=== PATIENT | male | born 1965 | race Caucasian/White ===

== ENCOUNTER 2019-04-29 16:51 | Observation (INO) ==
[2019-04-29 17:38] LABS: Microscopic, Urine URINE MICROSCOPIC (MICROSCOPIC)
[2019-04-29 17:41] LABS: Appearance,Urine CLOUDY (Clear); Blood, Urine 2+ (Negative); Color,Urine DK YELLOW (Yellow); Glucose,Urine (UA) Negative (Negative); Ketones,Urine Negative (Negative); Leukocyte Esterase,Urine 2+ (Negative); Protein,Urine TRACE (Negative); Specific Gravity, Urine 1.025 (1.005-1.030)
[2019-04-29 17:42] LABS: Bilirubin,Urine Negative (Negative)
[2019-04-29 17:46] LABS: Basophils % 0.4 % (0.1-2.0); Eosinophils % 0.3 % (0.1-12.0); Hematocrit 48.7 % (42.0-52.0); Hemoglobin 16.5 g/dL (14.1-18.0); Lymphocytes % 9.9 % (10-50); Mean Corpuscular HGB Conc 33.9 g/dL (31.8-35.4); Mean Corpuscular Volume 98.5 fl (80-94); Monocytes # 0.6 K/mm3 (0.1-1.0); Monocytes % 6.1 % (1.7-9.3); Neutrophils # 8.2 K/mm3 (1.8-7.8); Neutrophils % 83.2 % (37.0-80.0); Platelet Count 101 K/mm3 (142-424); Red Blood Count 4.94 M/mm3 (4.60-6.20); Red Cell Distribution Width 13.7 % (11.5-17.5); White Blood Count 9.8 K/mm3 (4.8-10.8)
[2019-04-29 17:48] LABS: Bacteria,Urine 2+ /lpf; Mucus,Urine 1+ /lpf; WBC,Urine 20-50 #/hpf (0-3)
[2019-04-29 17:57] LABS: Albumin Level 3.4 gm/dL (3.4-5.0); Albumin/Globulin Ratio 0.7 (1.1-1.8); Anion Gap 18.2 mEq/L (5-15); Bilirubin,Total 1.9 mg/dL (0.2-1.0); Calcium 8.8 mg/dL (8.5-10.1); Globulin 4.8 gm/dl (1.3-3.2); Total Protein,Serum 8.2 gm/dL (6.4-8.2)
--- NOTE | 2019-04-29 18:17 | Emergency Department Note ---
ED Disposition Clinical Impression: Prostatitis, SIRS (systemic inflammatory response syndrome), Dehydration Disposition: Admitted as Observation Condition on Discharge: Good Referrals: Audi Miramontes MD [Primary Care Provider] - Time of Disposition: 18:56 - Critical Care Critical Care Time: No Attestation: On 04/29/19, the high probability of a clinically significant, sudden or life threatening deterioration of the following system(s) required my full and direct attention, intervention and personal management. The time I documented below is in addition to time spent performing reported procedures but includes the following listed in this critical care notation. Medical Decision Making - Medical Records Medical records reviewed: Yes: I reviewed the patient's medical records. - Fabian Inquiry Pt receiving controlled substance: No Fabian was queried for this patient: No Vital Signs: 04/29/19 17:02 04/29/19 17:22 04/29/19 17:30 Temperature 99.9 F H 103.0 F H Temperature Source Oral Oral Pulse Rate [Left Radial] 143 H 124 H Respiratory Rate 22 22 Blood Pressure [Right Arm] 187/157 H 118/76 Blood Pressure Mean [Right Arm] 167 90 Blood Pressure Source [Right Arm] Automatic Cuff Automatic Cuff Blood Pressure Position [Right Arm] Sitting Sitting 02 Sat by Pulse Oximetry 98 94 L Oxygen Delivery Method Room Air Room Air 04/29/19 18:00 Temperature Temperature Source Pulse Rate [Left Radial] 124 H Respiratory Rate 12 Blood Pressure [Right Arm] 101/56 L Blood Pressure Mean [Right Arm] 71 Blood Pressure Source [Right Arm] Automatic Cuff Blood Pressure Position [Right Arm] Supine 02 Sat by Pulse Oximetry 94 L Oxygen Delivery Method Room Air - Lab Data Lab results reviewed: Yes: I reviewed the patient's lab results. Lab Results 04/29/19 17:06: Urine Color Dk yellow, Urine Appearance Cloudy, Urine pH 6.0, Ur Specific [place] 1.025, Urine Protein Trace, Urine Glucose (UA) Negative, Urine Ketones Negative, Urine Blood 2+, Urine Nitrate Negative, Urine Bilirubin Negative, Urine Urobilinogen 1.0, Ur Leukocyte Esterase 2+ A, Urine RBC 5-10, Urine WBC 20-50, Urine Bacteria 2+, Urine Mucus 1+ 04/29/19 17:24: WBC 9.8, RBC 4.94, Hgb 16.5, Hct 48.7, MCV 98.5 H, MCH 33.4 H, MCHC 33.9, RDW 13.7, Plt Count 101 L, MPV 7.0 L, Neut % (Auto) 83.2 H, Lymph % (Auto) 9.9 L, [place] % (Auto) 6.1, Eos % (Auto) 0.3, Baso % (Auto) 0.4, Neut # (Auto) 8.2 H, Lymph # (Auto) 1.0, [place] # (Auto) 0.6, Eos # (Auto) 0.0, Baso # (Auto) 0.0 04/29/19 17:24: Sodium 136, Potassium 4.2, Chloride 101, Carbon Dioxide 21, Anion Gap 18.2 H, BUN 12, Creatinine 1.01, Estimated Creat Clear 112, Estimated GFR 77, Est GFR ( Amer) 93, Glucose 79, Calcium 8.8, Total Bilirubin 1.9 H, AST 38 H, ALT 39, Alkaline Phosphatase 103, Total Protein 8.2, Albumin 3.4, Globulin 4.8 H, Albumin/Globulin Ratio 0.7 L 04/29/19 17:24: Lactate 2.0 Result diagrams: 04/29/19 17:24 04/29/19 17:24 Orders (Tests/Meds): ED MEDICATIONS Generic Name Dose Route Start Last Admin Trade Name Freq PRN Reason Stop Dose Admin Sodium Chloride 1,000 mls @ 999 mls/hr 04/29/19 17:15 04/29/19 17:10 Sod Chlor 0.9% 1000ml Bag IV 04/29/19 18:15 999 mls/hr .Q1H1M LAURA Administration Sodium Chloride 1,000 mls @ 999 mls/hr 04/29/19 18:15 04/29/19 18:04 Sod Chlor 0.9% 1000ml Bag IV 04/29/19 19:15 999 mls/hr .Q1H1M LAURA Administration Levofloxacin/Dextrose 750 mg in 150 mls @ 100 mls/hr 04/29/19 18:00 04/29/19 18:11 Levofloxacin 750mg/150ml Premix IV 05/13/19 17:59 100 mls/hr Q24H LAURA Administration Protocol Discontinued Medications Generic Name Dose Route Start Last Admin Trade Name Freq PRN Reason Stop Dose Admin Acetaminophen 1,000 mg 04/29/19 17:17 04/29/19 17:18 Tylenol 500mg Tablet PO 04/29/19 17:18 1,000 mg ONCE ONE Administration Albuterol/Ipratropium 3 ml 04/29/19 17:26 04/29/19 17:34 Duoneb 3ml Neb IH 04/29/19 17:27 3 ml ONCE ONE Administration Gentamicin Sulfate 400 mg/ 110 mls @ 110 mls/hr 04/29/19 18:05 Sodium Chloride IV 04/29/19 18:06 ONCE ONE Methylprednisolone Sodium Succinate 125 mg 04/29/19 17:26 04/29/19 17:34 Solu-Medrol 125mg/2ml Vial IV 04/29/19 17:27 125 mg ONCE ONE Administration Ondansetron HCl 4 mg 04/29/19 17:06 04/29/19 17:10 Zofran 4mg/2ml Vial IV 04/29/19 17:07 4 mg ONCE ONE Administration ORDERS Category Date Time Status XR chest 2V Stat Exams 04/29/19 17:26 Taken Diarrhea 23 Panel, PCR Stat Lab 04/29/19 17:06 Ordered Blood Culture Stat Micro 04/29/19 17:24 Received Urine Culture Stat Micro 04/29/19 17:06 Received - Physician Consults Physician Consulted: [email or web address] Time: 18:57 Reason -: Admission General Adult HPI - General Chief complaint: Nausea/Vomiting/Diarrhea Stated complaint: Fever, shaking uncontrollably, d/v Time Seen by Provider: 04/29/19 17:15 Mode of Arrival: Ambulatory Limitations: No Limitations Description of Symptoms (Recalled from ER Triage Doc. by RN): c/o chills, n/v/d since last night, he started with uncontrollable shaking and he was unable to barely walk due to him shaking. Thinks he has had a fever - History of Present Illness HPI narrative: rigors, cough, frequency of urination.. high fever. - Related Data Home Medications Medication Instructions Recorded Confirmed No Known Home Medications 04/27/19 04/29/19 Allergies Allergy/AdvReac Type Severity Reaction Status Date / Time No Known Allergies Allergy Verified 04/27/19 11:18 [facility] History - Hepatitis A Screen Drug use history?: No High risk sexual behaviors?: No History of sexually transmitted infection?: No Currently employed?: No Childcare worker?: No Do you have indoor plumbing?: Yes Do you have electricity?: Yes Attestation statement:: This patient has been screened for Hepatitis A risk factors. I have reviewed the patient's past medical history: Yes Medical History: Denies:: Cancer, Diabetes Mellitus Type 1, Diabetes Mellitus Type 2, Internal Pacemaker, Lung Disease, MRSA, Seizures Laterality Cases: Right: Total Hip Replacement Other Surgeries: No: Pacemaker Amputation: No Fractures: No - Social History Smoking Status: Current every day smoker # Packs/Day (cigarettes): 1 Alcohol Intake: never Alcohol Intake Frequency:: 0-2 drinks per day Occupational Status: employed ROS Obtained: Yes All systems reviewed & no additional complaints - Constitutional Constitutional: Reports fever(s) - Eyes Eyes: Denies system reviewed and no additional complaints, except as docu - ENT Ears, Nose, Mouth, and Throat: Reports sinus pressure, Denies sore throat - Cardiovascular Cardiovascular: Denies chest pain, Denies chest pain at rest, Denies diaphoresis, Denies dyspnea - Respiratory Respiratory: Yes chest congestion, Yes cough - Gastrointestinal Gastrointestingal: Denies: abdominal pain - Genitourinary Male Genitourinary: Reports urinary frequency - Musculoskeletal Musculoskeletal: Reports muscle cramps, Reports muscle weakness, Reports muscle aches, Reports other (rigors) - Integumentary/Breasts Skin/Breast: Denies rash, Denies skin pain - Neurologic Neurologic: Denies confusion, Denies convulsions, Denies unsteadiness, Denies dizziness, Denies seizure-like activity, Reports weakness - Hematologic/Lymphatic Henatologic/Lymphatic: Denies easy bleeding, Denies easy bruising Physical Exam - General General appearance: alert, in distress, other (shaking violently) - Head Head exam: atraumatic, normocephalic, normal inspection - Eye Eye exam: Present: normal appearance, PERRL, EOMI - ENT ENT exam: Present: normal exam, normal oropharynx, mucous membranes moist, TM's normal bilaterally, normal external ear exam - Neck Neck exam: Present: normal inspection, full ROM, trachea midline. Absent: meningismus, lymphadenopathy - Chest Chest inspection: Present: normal inspection, symmetric chest wall rise. Absent: tenderness - Respiratory Respiratory exam: Present: wheezes, other (wheezes, rhonchi on left, partially clear with cough). Absent: normal lung sounds bilaterally, respiratory distress - Cardiovascular Cardiovascular exam: Present: tachycardia, other (135) - Abdominal Exam Abdominal exam: Present: soft - Extremities Exam Extremities exam: Present: normal inspection, full ROM, normal capillary refill. Absent: calf tenderness - Back Exam Back exam: Present: normal inspection. Absent: tenderness - Neurological Exam Neurological exam: Present: alert, oriented X3, CN II-XII intact. Absent: motor sensory deficit - Psychiatric Psychiatric exam: Present: normal affect, normal mood - Skin Skin exam: Present: warm, dry, intact, normal color
[2019-04-30 01:56] LABS: Basophils % 0.1 % (0.1-2.0); Eosinophils % 0.1 % (0.1-12.0); Hematocrit 45.8 % (42.0-52.0); Hemoglobin 15.3 g/dL (14.1-18.0); Lymphocytes # 0.6 K/mm3 (0.7-4.5); Lymphocytes % 4.7 % (10-50); Mean Corpuscular HGB Conc 33.3 g/dL (31.8-35.4); Mean Corpuscular Volume 100.7 fl (80-94); Monocytes # 0.7 K/mm3 (0.1-1.0); Monocytes % 5.3 % (1.7-9.3); Neutrophils % 89.9 % (37.0-80.0); Platelet Count 76 K/mm3 (142-424); Red Blood Count 4.55 M/mm3 (4.60-6.20); Red Cell Distribution Width 13.7 % (11.5-17.5); White Blood Count 12.3 K/mm3 (4.8-10.8)
[2019-04-30 02:07] LABS: Lymphocytes % 10 % (10-50); Neutrophils % 75 % (42-76); Total Cells Counted 100
[2019-04-30 02:08] LABS: Macrocytosis 1+
[2019-04-30 02:09] LABS: Anion Gap 15.4 mEq/L (5-15); Calcium 8.2 mg/dL (8.5-10.1)
[2019-04-30 02:14] LABS: Gentamicin,Random 4.3 ug/mL (4.0-10.0)
--- NOTE | 2019-04-30 08:19 | History & Physical Report ---
*Admission Date: 04/29/19 *Chief complaint: chills, vomiting and diarrhea *History of present illness: Sai Chicas is a 53-year-old white male who started feeling bad Wednesday evening after he got off work. He had some chills, shakes, and general malaise. He went to bed early and when he woke up Wednesday he is still did not feel well and had a couple of episodes of vomiting. Later in the afternoon he began having shaking chills and rigors at home. He states he could hardly walk because he was shaking so badly. He tried laying down for a while but became short of breath. At this point he presented to the emergency room. He was worked up in the ER. He met criteria for SIRS with elevated fever, heart rate, and tachypnea. He was diagnosed with prostatitis and subsequently admitted. At the time of my exam this morning he states he rested better. His fever remained normal through the night. His tachycardia has improved. No further vomiting but has had some loose stools. He denies abdominal pain. No head congestion, chest congestion or cough. He did notes some dysuria Wednesday evening and also has noticed his urine being dark in color. No hematuria. He had a couple of brief episodes of mild substernal chest pain this morning. EKG x2 shows no acute changes. His cardiac enzymes are normal. He does take omeprazole as needed at home for indigestion. [facility] History Medical History: Denies:: Cancer, Diabetes Mellitus Type 1, Diabetes Mellitus Type 2, Internal Pacemaker, Lung Disease, MRSA, Seizures *Have you ever received a pneumonia vaccine?: No *Have you received a flu vaccine this season?: No Other Medical History: Denies: Hypothyroidism Laterality Cases: Right: Total Hip Replacement Other Surgeries: No: Pacemaker Amputation: No Fractures: Yes (collar bone) - *Social History Educational Level: Completed High School Smoking Status: Current some day smoker Tobacco Type: cigarettes, cigars # Packs/Day (cigarettes): 1 Alcohol Intake: current Alcohol Intake Frequency:: holidays/special occasions only *Occupational Status:: employed Housing: house *Travel in the last 8 weeks: None - Psychiatric History Expresses thoughts of harming self/others: None Suicide Plan Description: No Plan Family Hx:: Asthma, Coronary Artery Disease, Heart Attack, Hyperlipidemia, Hypertension Review of Systems - Constitutional Reports chills, Reports fever(s), Reports weakness - Eyes Denies blurry vision, Denies change in vision - ENT Denies dizziness, Denies dry mouth, Denies difficulty swallowing, Denies nasal congestion - *Cardiovascular Reports chest pain (atypical), Denies irregular heart rhythm, Denies leg swelling - *Respiratory Denies chest congestion, Denies cough, Denies coughing up blood - *Gastrointestinal Reports belching, Reports loose stools, Reports nausea, Reports vomiting, Denies abdominal pain, Denies coffee ground vomit, Denies black, tarry stools - *Genitourinary Reports painful urination (once), Reports erectile dysfunction, Reports other (dark urine), Denies blood in urine - *Musculoskeletal Denies joint pain, Denies joint swelling - Integumentary/Breasts Denies bleeding lesions, Denies yellowing of the skin - *Neurologic Reports weakness, Denies confusion, Denies seizure-like activity, Denies unsteadiness, Denies dizziness, Denies seizure-like activity - Psychiatric Denies anxiety, Denies depression - Endocrine Denies cold intolerance, Denies excessive sweating - Hematologic/Lymphatic Denies easy bleeding, Denies easy bruising - Allergic/Immunologic Reports GI upset with certain foods Meds Home Medications Medication Instructions Recorded Confirmed Type Amoxicillin [Amoxicillin 500mg 500 mg PO DAILY 04/29/19 04/29/19 History Cap] Ibuprofen [Ibuprofen 800mg 800 mg PO DAILY PRN 04/29/19 04/29/19 History Tablet] Omeprazole [Omeprazole 40mg 40 mg PO DAILY PRN 04/29/19 04/29/19 History Capsule] Sildenafil Citrate [Sildenafil] 20 mg PO NEEDED PRN 04/29/19 04/29/19 History Allergies Allergy/AdvReac Type Severity Reaction Status Date / Time No Known Allergies Allergy Verified 04/27/19 11:18 Exam Vital signs and Labs for Last 24 Hours: Temp Pulse Resp BP Pulse Ox 97.7 F 64 17 105/59 L 96 04/30/19 04:00 04/30/19 04:00 04/30/19 04:00 04/30/19 04:00 04/30/19 04:00 Laboratory Results - last 24 hr 04/29/19 17:06: Urine Color Dk yellow, Urine Appearance Cloudy, Urine pH 6.0, Ur Specific [place] 1.025, Urine Protein Trace, Urine Glucose (UA) Negative, Urine Ketones Negative, Urine Blood 2+, Urine Nitrate Negative, Urine Bilirubin Negative, Urine Urobilinogen 1.0, Ur Leukocyte Esterase 2+ A, Urine RBC 5-10, Urine WBC 20-50, Urine Bacteria 2+, Urine Mucus 1+ 04/29/19 17:24: WBC 9.8, RBC 4.94, Hgb 16.5, Hct 48.7, MCV 98.5 H, MCH 33.4 H, MCHC 33.9, RDW 13.7, Plt Count 101 L, MPV 7.0 L, Neut % (Auto) 83.2 H, Lymph % (Auto) 9.9 L, [place] % (Auto) 6.1, Eos % (Auto) 0.3, Baso % (Auto) 0.4, Neut # (Auto) 8.2 H, Lymph # (Auto) 1.0, [place] # (Auto) 0.6, Eos # (Auto) 0.0, Baso # (Auto) 0.0 04/29/19 17:24: Sodium 136, Potassium 4.2, Chloride 101, Carbon Dioxide 21, Anion Gap 18.2 H, BUN 12, Creatinine 1.01, Estimated Creat Clear 112, Estimated GFR 77, Est GFR ( Amer) 93, Glucose 79, Calcium 8.8, Total Bilirubin 1.9 H, AST 38 H, ALT 39, Alkaline Phosphatase 103, Total Protein 8.2, Albumin 3.4, Globulin 4.8 H, Albumin/Globulin Ratio 0.7 L 04/29/19 17:24: Lactate 2.0 04/30/19 01:45: WBC 12.3 H D, RBC 4.55 L, Hgb 15.3, Hct 45.8, MCV 100.7 H, MCH 33.6 H, MCHC 33.3, RDW 13.7, Plt Count 76 L, MPV 7.0 L, Neut % (Auto) 89.9 H, Lymph % (Auto) 4.7 L, [place] % (Auto) 5.3, Eos % (Auto) 0.1, Baso % (Auto) 0.1, Neut # (Auto) 11.0 H, Lymph # (Auto) 0.6 L, [place] # (Auto) 0.7, Eos # (Auto) 0.0, Baso # (Auto) 0.0, Total Counted 100, Neutrophils % (Manual) 75, Band Neutrophils % 15.0 H, Lymphocytes % (Manual) 10, Platelet Estimate Slight decrease, Macrocytosis 1+ 04/30/19 01:45: Sodium 139, Potassium 4.4, Chloride 107, Carbon Dioxide 21, Anion Gap 15.4 H, BUN 13, Creatinine 1.12, Estimated Creat Clear 100, Estimated GFR 68, Est GFR ( Amer) 82, Glucose 261 H D, Calcium 8.2 L, Random Gentamicin 4.3 I & O for Last 24 hours: Intake & Output 04/27/19 04/28/19 04/29/19 04/30/19 11:59 11:59 11:59 11:59 Intake Total 4001 / 4001 Output Total 2650 / 2650 Balance 1351 / 1351 Weight 209 lb 15.986 oz Microbiology Reports for the Last 24 Hours: Microbiology 04/29/19 17:06 Urine,Clean Catch Urine Culture - Preliminary Narrative: He is lying comfortably in bed. He appears in no acute distress. Color is normal. HEENT shows a cream to be atraumatic normocephalic. Sclera conjunctive are clear. Pharynx shows moist mucous membranes. Neck is supple with no masses, thyromegaly, or bruits. Chest with coarse breath sounds and occasional rhonchi. No rales or wheezes. Heart is regular with no murmurs or ectopy. No chest wall tenderness to palpation. Abdomen is soft and nondistended with no unusual masses or tenderness. Bowel sounds are present but diminished. No CVA tenderness to percussion. Lower extremities show no edema. Assessment and Plan (1) Urinary tract infection Current visit: Yes Status: Acute Category: Medical Code(s): N39.0 - Urinary tract infection, site not specified (2) SIRS (systemic inflammatory response syndrome) Current visit: Yes Status: Acute Category: Medical Code(s): R65.10 - Systemic inflammatory response syndrome (SIRS) of non-infectious origin without acute organ dysfunction (3) Chest pain Current visit: Yes Status: Acute Category: Medical Code(s): R07.9 - Chest pain, unspecified (4) GERD (gastroesophageal reflux disease) Current visit: Yes Status: Acute Category: Medical Code(s): K21.9 - Gastro-esophageal reflux disease without esophagitis - Assessment and plan all Dx Assessment and Plan for all problems:: He is admitted with diagnosis of SIRS with most likely source of infection being the urinary tract. He was empirically started on Levaquin and gentamicin. Cultures are pending. Clinically he is improved. His white count has increased and blood sugar is elevated this morning but he did receive steroids in the emergency room. His chest pain is rather atypical and cardiac work-up has been negative. We will add Protonix to his regimen. We will continue his current antibiotic regimen pending cultures.
[2019-04-30 08:32] LABS: Basophils % 0.1 % (0.1-2.0); Hematocrit 46.1 % (42.0-52.0); Hemoglobin 15.2 g/dL (14.1-18.0); Lymphocytes # 0.7 K/mm3 (0.7-4.5); Lymphocytes % 4.8 % (10-50); Mean Corpuscular Volume 100.7 fl (80-94); Mean Platelet Volume 7.1 fl (7.4-10.4); Monocytes # 0.9 K/mm3 (0.1-1.0); Monocytes % 6.1 % (1.7-9.3); Neutrophils # 12.9 K/mm3 (1.8-7.8); Neutrophils % 89.1 % (37.0-80.0); Platelet Count 79 K/mm3 (142-424); Red Blood Count 4.58 M/mm3 (4.60-6.20); Red Cell Distribution Width 13.7 % (11.5-17.5); White Blood Count 14.5 K/mm3 (4.8-10.8)
[2019-04-30 08:34] LABS: Anion Gap 15.1 mEq/L (5-15); Calcium 8.1 mg/dL (8.5-10.1)
--- NOTE | 2019-04-30 15:03 | Pharmacy Consult Notes ---
[facility] Pharmacy VTE Monitoring - Patient Demographics Admission date: 04/30/19 Report Date: 04/30/19 Time: 15:03 Allergies/Adverse Reactions: Patient Allergies No Known Allergies Allergy (Verified 04/27/19 11:18) Height: 1.7 m Weight: 95.254 kg Patient Problems: Current Active Problems Prostatitis (Acute) SIRS (systemic inflammatory response syndrome) (Acute) Dehydration (Acute) Urinary tract infection (Acute) Chest pain (Acute) GERD (gastroesophageal reflux disease) (Acute) - VTE Risk Labs: VTE Related Lab Results Hgb 15.2 g/dL (14.1-18.0) 04/30/19 08:00 Hct 46.1 % (42.0-52.0) 04/30/19 08:00 Plt Count 79 K/mm3 (142-424) L 04/30/19 08:00 BUN 13 mg/dL (7-18) 04/30/19 08:00 Creatinine 0.95 mg/dL (0.70-1.30) 04/30/19 08:00 Estimated Creat Clear 118 mL/min (50-200) 04/30/19 08:00 VTE Score: 2 - Prophylaxis Types of VTE Prophylaxis: TEDS Knee High (LEONARDA HOSE ORDERED) Location of Applied Device: Not Applicable
--- NOTE | 2019-04-30 15:34 | Pharmacy Consult Notes ---
- Pharmacy Consult Date: 04/30/19 Time: 15:32 Referring provider: DR. HARRINGTON Reason for Consult:: GENTAMICIN DOSING AND LEVEL Allergies and ADEs:: Allergies Allergy/AdvReac Type Severity Reaction Status Date / Time No Known Allergies Allergy Verified 04/27/19 11:18 Home Medications:: Home Medications Medication Instructions Recorded Confirmed Type Amoxicillin [Amoxicillin 500mg 500 mg PO DAILY 04/29/19 04/29/19 History Cap] Ibuprofen [Ibuprofen 800mg 800 mg PO DAILY PRN 04/29/19 04/29/19 History Tablet] Omeprazole [Omeprazole 40mg 40 mg PO DAILY PRN 04/29/19 04/29/19 History Capsule] Sildenafil Citrate [Sildenafil] 20 mg PO NEEDED PRN 04/29/19 04/29/19 History Height: 1.7 m Weight: 95.254 kg Laboratory Results:: Laboratory Results - last 24 hr 04/29/19 17:06: Urine Color Dk yellow, Urine Appearance Cloudy, Urine pH 6.0, Ur Specific [place] 1.025, Urine Protein Trace, Urine Glucose (UA) Negative, Urine Ketones Negative, Urine Blood 2+, Urine Nitrate Negative, Urine Bilirubin Negative, Urine Urobilinogen 1.0, Ur Leukocyte Esterase 2+ A, Urine RBC 5-10, Urine WBC 20-50, Urine Bacteria 2+, Urine Mucus 1+ 04/29/19 17:24: WBC 9.8, RBC 4.94, Hgb 16.5, Hct 48.7, MCV 98.5 H, MCH 33.4 H, MCHC 33.9, RDW 13.7, Plt Count 101 L, MPV 7.0 L, Neut % (Auto) 83.2 H, Lymph % (Auto) 9.9 L, [place] % (Auto) 6.1, Eos % (Auto) 0.3, Baso % (Auto) 0.4, Neut # (Auto) 8.2 H, Lymph # (Auto) 1.0, [place] # (Auto) 0.6, Eos # (Auto) 0.0, Baso # (Auto) 0.0 04/29/19 17:24: Sodium 136, Potassium 4.2, Chloride 101, Carbon Dioxide 21, Anion Gap 18.2 H, BUN 12, Creatinine 1.01, Estimated Creat Clear 112, Estimated GFR 77, Est GFR ( Amer) 93, Glucose 79, Calcium 8.8, Total Bilirubin 1.9 H, AST 38 H, ALT 39, Alkaline Phosphatase 103, Total Protein 8.2, Albumin 3.4, Globulin 4.8 H, Albumin/Globulin Ratio 0.7 L 04/29/19 17:24: Lactate 2.0 04/30/19 01:45: WBC 12.3 H D, RBC 4.55 L, Hgb 15.3, Hct 45.8, MCV 100.7 H, MCH 33.6 H, MCHC 33.3, RDW 13.7, Plt Count 76 L, MPV 7.0 L, Neut % (Auto) 89.9 H, Lymph % (Auto) 4.7 L, [place] % (Auto) 5.3, Eos % (Auto) 0.1, Baso % (Auto) 0.1, Neut # (Auto) 11.0 H, Lymph # (Auto) 0.6 L, [place] # (Auto) 0.7, Eos # (Auto) 0.0, Baso # (Auto) 0.0, Total Counted 100, Neutrophils % (Manual) 75, Band Neutrophils % 15.0 H, Lymphocytes % (Manual) 10, Platelet Estimate Slight decrease, Macrocytosis 1+ 04/30/19 01:45: Sodium 139, Potassium 4.4, Chloride 107, Carbon Dioxide 21, Anion Gap 15.4 H, BUN 13, Creatinine 1.12, Estimated Creat Clear 100, Estimated GFR 68, Est GFR ( Amer) 82, Glucose 261 H D, Calcium 8.2 L, Random Gentamicin 4.3 04/30/19 07:05: Stl Aeromonas (PCR) Not detected, Stl C. cayetanensis PCR Not detected, Stool Rotavirus (PCR) Not detected, Stl Adenov F 40/41 PCR Not detected, Stool Astrovirus (PCR) Not detected, Stool Campylobacter PCR Not detected, Stl C.difficile Tox PCR Not detected, Stool Cryptosporidium PCR Not detected, Stl E.coli Shiga Tox PCR Not detected, Stool E coli O157 PCR Not detected, Stl Enterotoxigenic E PCR Not detected, Stool EPEC (PCR) Detected A, Stool EAEC (PCR) Not detected, Stl E. histolytica PCR Not detected, Stool Giardia Lamblia PCR Not detected, Stool Salmonella PCR Not detected, Stool Sapovirus (PCR) Not detected, Stl P. shigelloides PCR Not detected, Stl Shigella/EIEC PCR Not detected, St Y.enterocolitica PCR Not detected, Stool Vibrio (PCR) Not detected, Stl Vibrio cholerae PCR Not detected, Stl Norovirus GI/GII PCR Not detected 04/30/19 08:00: Troponin I < 0.02 04/30/19 08:00: WBC 14.5 H, RBC 4.58 L, Hgb 15.2, Hct 46.1, MCV 100.7 H, MCH 33.3 H, MCHC 33.0, RDW 13.7, Plt Count 79 L, MPV 7.1 L, Neut % (Auto) 89.1 H, Lymph % (Auto) 4.8 L, [place] % (Auto) 6.1, Eos % (Auto) 0.0 L, Baso % (Auto) 0.1, Neut # (Auto) 12.9 H, Lymph # (Auto) 0.7, [place] # (Auto) 0.9, Eos # (Auto) 0.0, Baso # (Auto) 0.0 04/30/19 08:00: Sodium 140, Potassium 4.1, Chloride 109 H, Carbon Dioxide 20 L, Anion Gap 15.1 H, BUN 13, Creatinine 0.95, Estimated Creat Clear 118, Estimated GFR 82, Est GFR ( Amer) 100 D, Glucose 256 H, Calcium 8.1 L 04/30/19 10:00: Random Gentamicin 0.4 L Medical History: Denies:: Cancer, Diabetes Mellitus Type 1, Diabetes Mellitus Type 2, Internal Pacemaker, Lung Disease, MRSA, Seizures Assessment and Plan (1) Urinary tract infection Current visit: Yes Status: Acute Category: Medical Code(s): N39.0 - Urinary tract infection, site not specified (2) SIRS (systemic inflammatory response syndrome) Current visit: Yes Status: Acute Category: Medical Code(s): R65.10 - Systemic inflammatory response syndrome (SIRS) of non-infectious origin without acute organ dysfunction (3) Chest pain Current visit: Yes Status: Acute Category: Medical Code(s): R07.9 - Chest pain, unspecified (4) GERD (gastroesophageal reflux disease) Current visit: Yes Status: Acute Category: Medical Code(s): K21.9 - Gastro-esophageal reflux disease without esophagitis - Assessment and plan all Dx Assessment and Plan for all problems:: PATIENT WAS STARTED ON GENTAMICIN 400 MG X1 DOSE OVERNIGHT FROM THE ER. LEVELS WERE 4.3 MCG/ML AND 0.4 MCG/ML AT 4 AND 12 HOUR RESPECTIVELY. CALCULATED PEAK OF 10.2 MCG/ML AND TROUGH OF 0.04 MCG/ML. RECOMMEND INCREASING DOSE TO GENTAMICIN 520 MG Q24H AT THIS TIME. PHARMACY WILL FOLLOW DAILY AND ADJUST APPROPRIATE. SHANELLE COWAN, PHARMD
[2019-05-01 06:26] LABS: Basophils % 0.2 % (0.1-2.0); Eosinophils % 0.2 % (0.1-12.0); Hematocrit 44.8 % (42.0-52.0); Hemoglobin 14.8 g/dL (14.1-18.0); Lymphocytes # 1.5 K/mm3 (0.7-4.5); Lymphocytes % 11.1 % (10-50); Mean Corpuscular Volume 100.6 fl (80-94); Mean Platelet Volume 7.5 fl (7.4-10.4); Monocytes % 7.5 % (1.7-9.3); Neutrophils # 11.2 K/mm3 (1.8-7.8); Neutrophils % 81.1 % (37.0-80.0); Platelet Count 91 K/mm3 (142-424); Red Blood Count 4.45 M/mm3 (4.60-6.20); Red Cell Distribution Width 13.8 % (11.5-17.5); White Blood Count 13.9 K/mm3 (4.8-10.8)
[2019-05-01 06:49] LABS: Anion Gap 13.8 mEq/L (5-15); Calcium 8.2 mg/dL (8.5-10.1)
--- NOTE | 2019-05-01 09:26 | Progress Note ---
<Khadra Juárez - Last Filed: 05/01/19 09:21> Internal Medicine - PN: Subj *Date: 05/01/19 *Time: 09:21 Interval history: Patient states he has been seen by Dr. Miramontes this morning with plans for him to be discharged. He is feeling better. He slept intermittently between nursing rounds. He is eating well. Bowels have not moved. He denies pain. He denies shortness of breath. He is ready to go home. Exam Vital signs and Labs for Last 24 Hours: Temp Pulse Resp BP Pulse Ox 97.9 F 94 H 20 140/77 98 05/01/19 07:57 05/01/19 07:57 05/01/19 07:57 05/01/19 07:57 05/01/19 07:57 Laboratory Results - last 24 hr 04/29/19 17:06: Urine Color Dk yellow, Urine Appearance Cloudy, Urine pH 6.0, Ur Specific Gustine 1.025, Urine Protein Trace, Urine Glucose (UA) Negative, Urine Ketones Negative, Urine Blood 2+, Urine Nitrate Negative, Urine Bilirubin Negative, Urine Urobilinogen 1.0, Ur Leukocyte Esterase 2+ A, Urine RBC 5-10, Urine WBC 20-50, Urine Bacteria 2+, Urine Mucus 1+ 04/30/19 07:05: Stl Aeromonas (PCR) Not detected, Stl C. cayetanensis PCR Not detected, Stool Rotavirus (PCR) Not detected, Stl Adenov F 40/41 PCR Not detected, Stool Astrovirus (PCR) Not detected, Stool Campylobacter PCR Not detected, Stl C.difficile Tox PCR Not detected, Stool Cryptosporidium PCR Not detected, Stl E.coli Shiga Tox PCR Not detected, Stool E coli O157 PCR Not detected, Stl Enterotoxigenic E PCR Not detected, Stool EPEC (PCR) Detected A, Stool EAEC (PCR) Not detected, Stl E. histolytica PCR Not detected, Stool Giardia Lamblia PCR Not detected, Stool Salmonella PCR Not detected, Stool Sapovirus (PCR) Not detected, Stl P. shigelloides PCR Not detected, Stl Shigella/EIEC PCR Not detected, St Y.enterocolitica PCR Not detected, Stool Vibrio (PCR) Not detected, Stl Vibrio cholerae PCR Not detected, Stl Norovirus GI/GII PCR Not detected 04/30/19 08:00: Glucose 256 H 04/30/19 10:00: Random Gentamicin 0.4 L 05/01/19 05:52: WBC 13.9 H, RBC 4.45 L, Hgb 14.8, Hct 44.8, MCV 100.6 H, MCH 33.2 H, MCHC 33.0, RDW 13.8, Plt Count 91 L, MPV 7.5, Neut % (Auto) 81.1 H, Lymph % (Auto) 11.1, [place] % (Auto) 7.5, Eos % (Auto) 0.2, Baso % (Auto) 0.2, N eut # (Auto) 11.2 H, Lymph # (Auto) 1.5, [place] # (Auto) 1.0, Eos # (Auto) 0.0, Baso # (Auto) 0.0 05/01/19 05:52: Sodium 140, Potassium 3.8, Chloride 108 H, Carbon Dioxide 22, Anion Gap 13.8, BUN 13, Creatinine 0.80, Estimated Creat Clear 141, Estimated GFR 100, Est GFR ( Amer) 121 D, Glucose 101 D, Calcium 8.2 L I & O for Last 24 hours: Intake & Output 04/28/19 04/29/19 04/30/19 05/01/19 11:59 11:59 11:59 11:59 Intake Total 4241 / 4241 2912 / 2912 Output Total 3000 / 3000 3500 / 3500 Balance 1241 / 1241 -588 / -588 Weight 209 lb 15.986 oz 211 lb Microbiology Reports for the Last 24 Hours: Microbiology 04/29/19 17:24 Blood Blood Culture - Preliminary Gram Negative Rods 04/29/19 17:06 Urine,Clean Catch Urine Culture - Preliminary Gram Negative Rods Radiology Reports for the Last 24 Hours: 04/30/2019 chest x-ray IMPRESSION:. ...... Note mild accentuation of markings at the left lung base on today's lordotic PCXR. Most likely atelectasis and mild chronic changes. Doubt active infiltrate subtle healed old lower left rib fractures suggested In regards to chest pain: No pleural effusion or pneumothorax.. No CHF - Constitutional no acute distress - *Routine Respiratory Exam Present: CTA bilaterally (Anteriorly and posteriorly) - *Routine Cardiovascular Exam Present: RRR - *Routine Abdominal Exam Present: soft, normoactive bowel sounds. Absent: tenderness - *Routine Extremities Exam Absent: edema - *Routine Neurological Exam Present: alert, oriented X3 Assessment and Plan (1) Urinary tract infection Current visit: Yes Status: Acute Category: Medical Code(s): N39.0 - Urinary tract infection, site not specified (2) SIRS (systemic inflammatory response syndrome) Current visit: Yes Status: Acute Category: Medical Code(s): R65.10 - Systemic inflammatory response syndrome (SIRS) of non-infectious origin without acute organ dysfunction (3) Chest pain Current visit: Yes Status: Acute Category: Medical Code(s): R07.9 - Chest pain, unspecified (4) GERD (gastroesophageal reflux disease) Current visit: Yes Status: Acute Category: Medical Code(s): K21.9 - Gastro-esophageal reflux disease without esophagitis (5) Bacteremia Current visit: Yes Status: Acute Category: Medical Code(s): R78.81 - Bacteremia - Assessment and plan all Dx Assessment and Plan for all problems:: According to patient he will be discharged today on antibiotic as per cultures. Will discuss further with Dr. Miramontes. <Audi Miramontes - Last Filed: 05/01/19 17:24> Internal Medicine - PN: Subj *Date: 05/01/19 *Time: 17:22 Exam Vital signs and Labs for Last 24 Hours: Temp Pulse Resp BP Pulse Ox 98.1 F 74 16 144/87 H 98 05/01/19 16:00 05/01/19 16:00 05/01/19 16:00 05/01/19 16:00 05/01/19 16:00 Laboratory Results - last 24 hr 05/01/19 05:52: WBC 13.9 H, RBC 4.45 L, Hgb 14.8, Hct 44.8, MCV 100.6 H, MCH 33.2 H, MCHC 33.0, RDW 13.8, Plt Count 91 L, MPV 7.5, Neut % (Auto) 81.1 H, Lymph % (Auto) 11.1, [place] % (Auto) 7.5, Eos % (Auto) 0.2, Baso % (Auto) 0.2, Neut # (Auto) 11.2 H, Lymph # (Auto) 1.5, [place] # (Auto) 1.0, Eos # (Auto) 0.0, Baso # (Auto) 0.0 05/01/19 05:52: Sodium 140, Potassium 3.8, Chloride 108 H, Carbon Dioxide 22, Anion Gap 13.8, BUN 13, Creatinine 0.80, Estimated Creat Clear 141, Estimated GFR 100, Est GFR ( Amer) 121 D, Glucose 101 D, Calcium 8.2 L I & O for Last 24 hours: Intake & Output 04/29/19 04/30/19 05/01/19 05/02/19 11:59 11:59 11:59 11:59 Intake Total 4241 / 4241 3062 / 3062 240 / 240 Output Total 3000 / 3000 3500 / 3500 1200 / 1200 Balance 1241 / 1241 -438 / -438 -960 / -960 Weight 209 lb 15.986 oz 211 lb Microbiology Reports for the Last 24 Hours: Microbiology 04/29/19 17:06 Urine,Clean Catch Urine Culture - Preliminary Gram Negative Rods 04/29/19 17:24 Blood Blood Culture - Preliminary Gram Negative Rods Assessment and Plan (1) Urinary tract infection Current visit: Yes Status: Acute Category: Medical Code(s): N39.0 - Urinary tract infection, site not specified (2) SIRS (systemic inflammatory response syndrome) Current visit: Yes Status: Acute Category: Medical Code(s): R65.10 - Systemic inflammatory response syndrome (SIRS) of non-infectious origin without acute organ dysfunction (3) Chest pain Current visit: Yes Status: Acute Category: Medical Code(s): R07.9 - Chest pain, unspecified (4) GERD (gastroesophageal reflux disease) Current visit: Yes Status: Acute Category: Medical Code(s): K21.9 - Gastro-esophageal reflux disease without esophagitis (5) Bacteremia Current visit: Yes Status: Acute Category: Medical Code(s): R78.81 - Bacteremia - Assessment and plan all Dx Assessment and Plan for all problems:: Patient seen and examined this morning. He rested well last night. He has had no further chills or rigors. Appetite is good. No nausea or vomiting. He had no diarrhea through the night. Denies abdominal pain. He is eager to discharge home. We will plan to discharge home on Levaquin and follow-up in the office in 1 week.
--- NOTE | 2019-05-02 08:56 | Progress Note ---
Internal Medicine - PN: Subj *Date: 05/02/19 *Time: 08:54 Interval history: Patient feels well this morning, anxious to go home. Exam Vital signs and Labs for Last 24 Hours: Temp Pulse Resp BP Pulse Ox 97.9 F 89 17 125/82 96 05/02/19 08:00 05/02/19 08:00 05/02/19 08:00 05/02/19 08:00 05/02/19 08:00 I & O for Last 24 hours: Intake & Output 04/29/19 04/30/19 05/01/19 05/02/19 23:59 23:59 23:59 23:59 Intake Total 2150 / 2150 3535 / 3535 3683 / 3683 480 / 480 Output Total 4350 / 4350 3350 / 3350 Balance 2150 / 2150 -815 / -815 333 / 333 480 / 480 Weight 210 lb 209 lb 15.986 oz 211 lb 211 lb Microbiology Reports for the Last 24 Hours: Microbiology 04/29/19 17:06 Urine,Clean Catch Urine Culture - Final Escherichia coli 04/29/19 17:24 Blood Blood Culture - Preliminary Escherichia coli 04/29/19 17:24 Blood Blood Culture - Preliminary NO GROWTH AFTER 48 HOURS - Constitutional no acute distress - *Routine HEENT Exam Head: Present: normocephalic Eye: Present: EOMI, PERRL ENT: Present: mucous membranes moist - *Routine Neck Exam Present: supple. Absent: lymphadenopathy - *Routine Respiratory Exam Present: CTA bilaterally - *Routine Cardiovascular Exam Present: RRR - *Routine Extremities Exam Absent: cyanosis, clubbing, edema - *Routine Skin Exam Present: warm. Absent: rash - *Routine Neurological Exam Present: alert, oriented X3 Assessment and Plan (1) Urinary tract infection Current visit: Yes Status: Acute Category: Medical Code(s): N39.0 - Urinary tract infection, site not specified (2) SIRS (systemic inflammatory response syndrome) Current visit: Yes Status: Acute Category: Medical Code(s): R65.10 - Systemic inflammatory response syndrome (SIRS) of non-infectious origin without acute organ dysfunction (3) Chest pain Current visit: Yes Status: Acute Category: Medical Code(s): R07.9 - Chest pain, unspecified (4) GERD (gastroesophageal reflux disease) Current visit: Yes Status: Acute Category: Medical Code(s): K21.9 - Gastro-esophageal reflux disease without esophagitis (5) Bacteremia Current visit: Yes Status: Acute Category: Medical Code(s): R78.81 - Bacteremia - Assessment and plan all Dx Assessment and Plan for all problems:: OK to discharge home with oral Levaquin for the next week, office f/u with Dr. Miramontes in 1 week.
--- NOTE | 2019-05-02 22:48 | Discharge Summary ---
General - General Admission date:: 04/29/19 Discharge date: 05/02/19 HPI HPI: Sai Chicas is a 53-year-old white male who started feeling bad Wednesday evening after he got off work. He had some chills, shakes, and general malaise. He went to bed early and when he woke up Wednesday he still did not feel well and had a couple of episodes of vomiting. Later in the afternoon he began having shaking chills and rigors at home. He stated he could hardly walk because he was shaking so badly. He tried laying down for a while but became short of breath. At that point he presented to the emergency room. He was worked up in the ER. He met criteria for SIRS with elevated fever, heart rate, and tachypnea. He was diagnosed with prostatitis and subsequently admitted. Hospital Course Hospital Course: Patient's initial chest x-ray showed an ill-defined bronchopneumonia in the left lower lobe. He was seen by Dr. Miramontes on the morning of his history and physical and his tachycardia had improved. He had no further vomiting but did have some loose stools. He had some dysuria and noticed his urine had been dark in color. He also had a couple of brief episodes of mid substernal chest pain on the morning of 04/29/2019. EKG x2 showed no acute changes and his cardiac enzymes were normal. He had a repeat chest x-ray showing atelectasis and mild chronic changes. Radiology doubted he had an active infiltrate. He also had subtle healed old left rib fractures. He was admitted with the diagnosis of SIRS and his most likely source was his urinary tract. He was empirically started on Levaquin and gentamicin. Protonix was added to his medication regimen due to his chest pain. He began feeling much better. He wanted to go home. His diarrhea panel was positive for EPEC. His urine and blood were both growing gram-negative rods. He was discharged home on Levaquin and will follow- up in the office in 1 week. Of note, his final blood and urine cultures were positive for E. coli that is resistant to cipro. Objective Vital signs: Temp Pulse Resp BP Pulse Ox 97.9 F 89 17 125/82 96 05/02/19 08:00 05/02/19 08:00 05/02/19 08:00 05/02/19 08:00 05/02/19 08:00 Narrative: - Constitutional no acute distress - *Routine HEENT Exam Head: Present: normocephalic Eye: Present: EOMI, PERRL ENT: Present: mucous membranes moist - *Routine Neck Exam Present: supple. Absent: lymphadenopathy - *Routine Respiratory Exam Present: CTA bilaterally - *Routine Cardiovascular Exam Present: RRR - *Routine Extremities Exam Absent: cyanosis, clubbing, edema - *Routine Skin Exam Present: warm. Absent: rash - *Routine Neurological Exam Present: alert, oriented X3 Results Labs on day of discharge: Preliminary micro results at discharge 04/29/19 17:24 Blood Culture - Preliminary Blood Escherichia coli 04/29/19 17:24 Blood Culture - Preliminary Blood NO GROWTH AFTER 48 HOURS DS: Diagnosis - Discharge Diagnosis (1) Urinary tract infection Status: Acute Problem details: d/t E. Coli (2) SIRS (systemic inflammatory response syndrome) Status: Acute (3) Chest pain Status: Acute (4) GERD (gastroesophageal reflux disease) Status: Acute (5) Bacteremia Status: Acute Problem details: D/T E. Coli Discharge Plan - Patient Discharge Instructions ACTIVITY: Continue current activity DIET: continue same diet Patient Instructions: Dehydration, DI for Dehydration -- Adult, DI for Urinary Tract Infection (UTI), DI for Sepsis -- Adult, DI for Acute Prostatitis - Follow up Plan Follow up with: Audi Miramontes MD [Primary Care Provider] - 1 week Disposition: Home, Self-Nursing Home Medications: Home Medications Medication Instructions Recorded Confirmed Type Ibuprofen [Ibuprofen 800mg 800 mg PO DAILY PRN 04/29/19 04/29/19 History Tablet] Omeprazole [Omeprazole 40mg 40 mg PO DAILY PRN 04/29/19 04/29/19 History Capsule] Sildenafil Citrate 20 mg PO NEEDED PRN 04/29/19 04/29/19 History levoFLOXacin [Levaquin 750mg 750 mg PO DAILY #7 tab 05/01/19 Rx tablet] Prescriptions/Medication Reconciliation: New levoFLOXacin [Levaquin 750mg tablet] 750 mg PO DAILY #7 tab Continued Sildenafil Citrate 20 mg PO NEEDED PRN PRN Reason: enhancement Omeprazole [Omeprazole 40mg Capsule] 40 mg PO DAILY PRN PRN Reason: Acid Reflux Ibuprofen [Ibuprofen 800mg Tablet] 800 mg PO DAILY PRN PRN Reason: pain Discontinued Amoxicillin [Amoxicillin 500mg Cap] 500 mg PO DAILY - Problem Reconciliation Problems Reviewed?: Yes
== END 2019-05-02 09:28 | disposition home or self-care (01) ==
LOC: 2ND 16:51 → ER 16:51 → 2ND 19:44
PROVIDERS: ADMIT Emergency Medicine; ATTEND Family Medicine
CPT/HCPCS: 36415; 71010; 71020; 71045; 71046; 80048; 80053; 80170; 81001; 83605; 84484; 85007; 85025; 87040; 87077; 87086; 87088; 87186; 87507; 93005; 96365; 96366; 96367; 96375; 99284; G0378; J1956; J2405

== ENCOUNTER → 2019-05-10 10:01 | Outpatient (CLI) | payer BC, SELFPAY | PROVIDERS: Visit Provider Family Medicine | DX: N39.0 Urinary tract infection, site not specified (principal) | CPT/HCPCS: 87086 ==

== ENCOUNTER → 2020-08-14 07:31 | Outpatient (CLI) | payer BC, SELFPAY ==
[2020-08-14 13:29] LABS: Alanine Aminotransferase 54 U/L (12-78); Albumin Level 4.1 g/dl (3.5-5.0); Alkaline Phosphatase 199 U/L (38-126); Anion Gap 15.8 mEq/L (5-15); Aspartate Amino Transferase 131 U/L (17-59); Bilirubin,Total 1.6 mg/dl (0.2-1.3); Blood Urea Nitrogen 7 mg/dl (9-20); Calcium 9.3 mg/dl (8.4-10.2); Carbon Dioxide 21 mmol/L (22.0-30.0); Chloride 110 mmol/L (98-107); Chol/HDL Ratio 7.7 (1-3.5); Cholesterol 240 mg/dl (140-200); Estimated Glomerular Filt Rate 100 ml/min (>60); GFR (African American) 121 ML/MIN (>60); Globulin 4.2 g/dL (1.3-3.2); Glucose 101 mg/dl (74-100); HDL Cholesterol 31 mg/dl (40-60); Potassium 3.8 mmoL/L (3.5-5.1); Total Protein,Serum 8.3 g/dl (6.3-8.2); Triglycerides 239 mg/dl (30-150); VLDL Cholesterol 48 mg/dL (0-40)
[2020-08-14 13:40] LABS: Direct LDL Cholesterol 131.39 mg/dL (100-129)
[2020-08-14 13:58] LABS: Prostate Specific Ag Screen 0.9 ng/ml (0.0-4.0)
[2020-08-14 14:57] LABS: Sodium 144 mmol/L (136-145)
== END ==
PROVIDERS: Visit Provider Family Medicine
DX: E78.5 Hyperlipidemia, unspecified (principal); Z12.5 Encounter for screening for malignant neoplasm of prostate
CPT/HCPCS: 36415; 80053; 80061; G0103

== ENCOUNTER → 2020-08-27 15:00 | Outpatient (CLI) | payer BC, SELFPAY ==
--- NOTE | 2020-08-27 | CA_ITS ---
APPROVED REPORT Left Lower Extremity Venous Study for DVT. Hearing Aide Technician: RICK Ji Lower Extremity Pain: Current Smoker smokes cigars occassionally. Patient states he stood to get off the couch on 08/17/20 and felt a charley horse in the left lower extremity. 2 days later he states a bruise appeared in the right thigh/knee area. Pain has persisted in this area since with no relief. Vein Imaging CFV (L): compressive, spontaneous, phasic, augmentation FEM (L): compressive, spontaneous, phasic, augmentation POP (L): compressive, spontaneous, phasic, augmentation PTV (L): Compressible GSV (L): compressive, spontaneous, phasic, augmentation Peroneals (L):Compressible GAS (L): Compressible Findings No evidence of DVT or superficial thrombophlebitis in the veins scanned of the left lower extremity. Non-vascularized cystic structure visualized in the left popliteal fossa and distal thigh area measuring approximately 4.6 cm x 2.05 cm. Phlebitis of the superficial veins of the LLE. Conclusion No evidence of DVT or superficial thrombophlebitis in the veins scanned of the left lower extremity. Rush's cyst 4.6 cm x 2.05 cm. Electronically signed by : Wilmer Griffith MD 08/27/2020 17:45:27
== END ==
PROVIDERS: PCP Family Medicine; Visit Provider Family Medicine
DX: M79.605 Pain in left leg (principal)
CPT/HCPCS: 93971

== ENCOUNTER → 2020-10-01 11:07 | Outpatient (CLI) | payer BC, SELFPAY ==
--- NOTE | 2020-10-01 | CA_ITS ---
APPROVED REPORT Left Lower Extremity Venous Study for DVT. Information Consultant: Bridgett Gibson CRT Risk Factors Current Smoker Vein Imaging CFV (L): compressive, spontaneous, phasic, augmentation SFJ (L): compressive, spontaneous, phasic, augmentation FEM (L): compressive, spontaneous, phasic, augmentation POP (L): compressive, spontaneous, phasic, augmentation DFV (L): compressive, spontaneous, phasic, augmentation PTV (L): compressive, spontaneous, phasic, augmentation GSV (L): compressive, spontaneous, phasic, augmentation SSV (L): compressive, spontaneous, phasic, augmentation Peroneals (L):compressive, spontaneous, phasic, augmentation GAS (L): compressive, spontaneous, phasic, augmentation Findings No evidence of DVT or superficial thrombophlebitis in the veins scanned of the left lower extremity. Conclusion No evidence of DVT or superficial thrombophlebitis in the veins scanned of the left lower extremity. Critical Notification Physician Notified Date: 10/01/2020 Time: 1145 Physician Name: Kulwinder Report Read Back Electronically signed by : Wilmer Griffith MD 10/01/2020 16:00:15
== END ==
PROVIDERS: PCP Family Medicine; Visit Provider Family Medicine
DX: M79.605 Pain in left leg (principal)
CPT/HCPCS: 93971

== ENCOUNTER → 2020-10-24 09:53 | Outpatient (CLI) | payer BC, SELFPAY ==
[2020-10-24 11:07] LABS: Coronavirus 19 IgG Antibody Positive (Negative); Coronavirus 19 IgM Antibody Negative (Negative)
== END ==
PROVIDERS: Visit Provider Internal Medicine Gastroenterology
DX: Z01.812 Encounter for preprocedural laboratory examination (principal); Z20.822 Contact with and (suspected) exposure to COVID-19; Z86.16 Personal history of COVID-19; Z12.11 Encounter for screening for malignant neoplasm of colon; Z86.010 Personal history of colon polyps
CPT/HCPCS: 36415; 86328

== ENCOUNTER 2020-10-25 09:32 | Day surgery (SDC) | payer BC, SELFPAY ==
[2020-10-17 11:29] VITALS: BMI 34.4
[2020-10-25 10:08] VITALS: BP 156/99; PULSE 91; RESP 18; TEMP 36.6; O2SAT 97
[2020-10-25 10:56] VITALS: O2SAT 95
--- NOTE | 2020-10-25 11:01 | HMH.ANESCL ---
[facility] Anesthesia Checklist - Patient Identification Patient Identification: Arm Band - Structural Data Admitted From: Home Planned Operative Procedure/s: colonoscopy Consent for Planned Operative Procedure(s) Verified: Yes Verified Documents: Surgical Consent, History and Physical - NPO Status Verified Time NPO: 00:00 - Additional verifications Anesthesia Reactions: No - Airway Assessment C-Spine Mobility Assessed: Yes (mp2) TMJ Mobility Assessed: Yes Dentition: Good Dentition - Neurological Assessment Level of Consciousness: Awake, Alert - Anesthesia Plan Anesthesia Risk discussed: Yes Anesthesia Plan: Verified ASA Class: II Anesthesia Type: MAC [facility] History I have reviewed the patient's past medical history: Yes Medical History: Reports:: Gastroesophageal Reflux Disease(GERD) Denies:: Cancer, Diabetes Mellitus Type 1, Diabetes Mellitus Type 2, Internal Pacemaker, Lung Disease, MRSA, Seizures *Have you ever received a pneumonia vaccine?: No *Have you received a flu vaccine this season?: No Other Medical History: Denies: Hypothyroidism Anesthesia experience/problems:: nac Laterality Cases: Right: Total Hip Replacement Other Surgeries: Yes: Colonoscopy, Other. No: Pacemaker Amputation: No Fractures: Yes (collar bone) - *Social History Smoking Status: Current some day smoker Tobacco Type: cigarettes, cigars # Packs/Day (cigarettes): 1 Alcohol Intake: current Alcohol Intake Frequency:: holidays/special occasions only Substance Use Type: denies use *Occupational Status:: employed Housing: house *Travel in the last 8 weeks: None Family Hx:: Asthma, Coronary Artery Disease, Heart Attack, Hyperlipidemia, Hypertension
[2020-10-25 11:21] VITALS: BP 105/66; PULSE 105; RESP 18; TEMP 37.2; O2SAT 96
--- NOTE | 2020-10-25 11:21 | HMH.PROC ---
[facility] Procedure Note Procedure Note:: Colonoscopy Procedure Report: Colonoscopy with cold snare polypectomy Endoscopist: Johny Anne II, MD Referring physician: Everardo Miramontes MD Date of Procedure: October 25, 2020 Equipment: Olympus 180 variable stiffness pediatric colonoscope Sedation: MAC sedation Indication: Mr. Chicas is a 55-year-old gentleman who is here for follow-up screening/surveillance colonoscopy. The patient last had a colonoscopy in March 2013 and had a single cecal polyp (hyperplastic polyp) removed (Dr. Elvis Maldonado). 3 to 4 weeks ago, he did have some bright red blood on the toilet tissue. He reports no abdominal pain, weight loss, change in his bowel habits or family history of colon cancer. Procedure: Prior to the procedure, a history and physical exam was performed, and patient's medications and allergies were reviewed. The risks, benefits and alternatives of the sedation and procedure were discussed with the patient. All questions were answered and informed consent was obtained. The patient was brought to the procedure room. Patient identification and proposed procedure were verified by the physician and the nurse. The patient was placed in a left lateral decubitus position and the scope was passed under direct vision. Throughout the procedure, the patient's blood pressure, pulse, and oxygen saturations were monitored continuously. The colonoscopy was accomplished without difficulty. The patient tolerated the procedure well. Findings: On digital rectal examination there was normal rectal tone. There were no external hemorrhoids. The colonoscope was introduced through the anal canal to the rectum and advanced to the cecum. The ileocecal valve and appendiceal orifice were identified. The scope was advanced a short distance into the ileum which appeared grossly normal. The scope was then withdrawn into the colon. There were 3 polyps (ascending x2 (3 and 5 mm) and sigmoid x1 (4 mm)) which were removed via cold snare polypectomy. There were scattered diverticuli throughout the descending and sigmoid colon (LEFT colon). The rectum itself was normal. Upon retroflexion within the rectum there were grade 2 internal hemorrhoids. The preparation was excellent throughout with [place] Preparation Score of 9. The cecal time was 12 minutes. Impression: 1. Colonic polyps x3 2. Left-sided diverticulosis 3. Grade 2 internal hemorrhoids Plan: I will follow up the polyp pathology and recommend repeat colonoscopy again in 5 years based upon the polyp histology. I would encourage bulk fiber supplementation on a long-term daily maintenance basis.
[2020-10-25 11:31] VITALS: BP 124/71; PULSE 98; RESP 18; O2SAT 96
[2020-10-25 11:41] VITALS: BP 121/74; PULSE 114; RESP 18; O2SAT 95
[2020-10-25 11:51] VITALS: BP 136/89; PULSE 90; RESP 18; O2SAT 97
--- NOTE | 2020-10-25 13:48 | SUR.PHASEII ---
PT LEFT POST OP AT 1200. COMPUTER WILL NOT LET ME DOCUMENT CORRECT TIME IN CHART.
== END 2020-10-25 12:00 | disposition home or self-care (01) ==
LOC: OUTP 09:33
PROVIDERS: PCP Family Medicine; Visit Provider Internal Medicine Gastroenterology
PROC: 0DJD8ZZ Inspection of Lower Intestinal Tract, Via Natural or Artificial Opening Endoscopic (ICD-10-PCS; CPT 45378; principal; 2020-10-25 10:30)
DX: Z12.11 Encounter for screening for malignant neoplasm of colon (principal); Z86.010 Personal history of colon polyps; K63.5 Polyp of colon; K57.30 Diverticulosis of large intestine without perforation or abscess without bleeding; K64.1 Second degree hemorrhoids; K21.9 Gastro-esophageal reflux disease without esophagitis; E03.9 Hypothyroidism, unspecified; Z72.0 Tobacco use; Z96.641 Presence of right artificial hip joint; Z82.5 Family history of asthma and other chronic lower respiratory diseases; Z82.49 Family history of ischemic heart disease and other diseases of the circulatory system; Z83.438 Family history of other disorder of lipoprotein metabolism and other lipidemia
CPT/HCPCS: 45385

== ENCOUNTER → 2020-12-25 12:13 | Outpatient (CLI) | payer BC, SELFPAY ==
--- NOTE | 2020-12-25 12:22 | XR_ITS ---
PROCEDURE: XR SHOULDER RT MIN 2V CLINICAL INDICATION: RT SHOULDER PAIN COMPARISON: No exams were available for comparison FINDINGS: There are mild osteoarthritic changes of the acromioclavicular and glenohumeral joint. There is an old fracture involving the mid to distal shaft of the clavicle with cortical thickening. Other findings:None. IMPRESSION: Osteoarthritic change. Old clavicular fracture Dictated by: Wilmer Griffith MD 12/25/2020 13:53 Wilmer Griffith MD in [place] 12/25/2020 13:53
--- NOTE | 2020-12-25 12:22 | XR_ITS ---
PROCEDURE: XR SHOULDER LT MIN 2V CLINICAL INDICATION: LT SHOULDER PAIN COMPARISON: No exams were available for comparison FINDINGS: No fracture or dislocation. No lytic or blastic change. There is normal mineralization. Mild osteoarthritic changes are present involving the acromioclavicular and glenohumeral joint. Other findings:None. IMPRESSION: Mild osteoarthritis Dictated by: Wilmer Griffith MD 12/25/2020 13:53 Wilmer Griffith MD in [place] 12/25/2020 13:53
== END ==
PROVIDERS: PCP Family Medicine; Visit Provider Family Medicine
DX: M25.512 Pain in left shoulder (principal); M25.511 Pain in right shoulder
CPT/HCPCS: 73030

== ENCOUNTER 2021-02-14 08:30 | Emergency (ER) | payer BC, SELFPAY ==
[2021-02-14] VITALS (7 sets, daily range): BP systolic 127–143; BP diastolic 73–111; PULSE 84–109; RESP 20; TEMP 36.7–36.9; O2SAT 91–97; BMI 34.4
--- NOTE | 2021-02-14 08:42 | HMH.EDGENADL ---
ED Disposition Clinical Impression: Gastroenteritis Disposition: Home, Self-Care Condition on Discharge: Good Additional Instructions: Take Bentyl as needed for diarrhea and cramps. Follow-up with your PCP for further evaluation and monitoring. Prescriptions: Dicyclomine HCl [Bentyl 10mg capsule] 10 mg PO TID PRN #30 cap PRN Reason: Cramping Transmission Status: Received by [facility] Referrals: Audi Miramontes MD [Primary Care Provider] - 3 days Time of Disposition: 10:25 - Critical Care Critical Care Time: No Attestation: On 02/14/21, the high probability of a clinically significant, sudden or life threatening deterioration of the following system(s) required my full and direct attention, intervention and personal management. The time I documented below is in addition to time spent performing reported procedures but includes the following listed in this critical care notation. Medical Decision Making - Medical Records Medical records reviewed: Yes: I reviewed the patient's medical records. - Fabian Inquiry Pt receiving controlled substance: No Vital Signs: 02/14/21 08:31 02/14/21 08:41 02/14/21 09:00 Temperature 98.0 F Temperature Source Oral Pulse Rate 100 H 98 H Pulse Rate [Left Radial] 109 H Respiratory Rate 20 Blood Pressure 143/111 H 130/78 Blood Pressure [Right Arm] 143/111 H Blood Pressure Mean 122 95 Blood Pressure Mean [Right Arm] 121 Blood Pressure Source [Right Arm] Automatic Cuff Blood Pressure Position [Right Arm] Sitting 02 Sat by Pulse Oximetry 97 91 L 95 Oxygen Delivery Method Room Air 02/14/21 09:30 02/14/21 10:00 Temperature Temperature Source Pulse Rate 103 H 97 H Pulse Rate [Left Radial] Respiratory Rate 20 20 Blood Pressure 134/81 127/73 Blood Pressure [Right Arm] Blood Pressure Mean 86 85 Blood Pressure Mean [Right Arm] Blood Pressure Source [Right Arm] Blood Pressure Position [Right Arm] 02 Sat by Pulse Oximetry 95 97 Oxygen Delivery Method - Lab Data Lab results reviewed: Yes: I reviewed the patient's lab results. Lab Results 02/14/21 08:55: WBC 8.5, RBC 4.90, Hgb 16.6, Hct 47.4, MCV 96.8 H, MCH 33.8 H, MCHC 34.9, RDW 14.5, Plt Count 70 L, MPV 8.7, Neut % (Auto) 76.7, Lymph % (Auto) 12.6, [place] % (Auto) 7.6, Eos % (Auto) 2.6, Baso % (Auto) 0.6, Neut # (Auto) 6.5, Lymph # (Auto) 1.1, [place] # (Auto) 0.7, Eos # (Auto) 0.2, Baso # (Auto) 0.1 02/14/21 08:55: Sodium 133 L, Potassium 3.6, Chloride 103, Carbon Dioxide 18 L, Anion Gap 15.6 H, BUN 11, Creatinine 0.90, Estimated Creat Clear 128, Estimated GFR 87, Est GFR ( Amer) 105, Glucose 171 H, Calcium 9.0, Total Bilirubin 4.9 H, AST 124 H, ALT 58, Alkaline Phosphatase 193 H, Total Protein 9.5 H, Albumin 4.5, Globulin 5.0 H, Albumin/Globulin Ratio 0.9 L 02/14/21 08:55: Lipase 171 02/14/21 08:55: Troponin I 0.02 Result diagrams: 02/14/21 08:55 02/14/21 08:55 Orders (Tests/Meds): ED MEDICATIONS Generic Name Dose Route Start Last Admin Trade Name Freq PRN Reason Stop Dose Admin Orphenadrine Citrate 30 mg 02/14/21 10:35 Orphenadrine Citrate 60mg/2ml Vial IV 02/14/21 10:36 ONCE ONE Discontinued Medications Generic Name Dose Route Start Last Admin Trade Name Freq PRN Reason Stop Dose Admin Dicyclomine HCl 10 mg 02/14/21 09:35 02/14/21 09:36 Dicyclomine 10mg Capsule PO 02/14/21 09:36 10 mg ONCE ONE Administration Lactated Ringer's 1,000 mls @ 999 mls/hr 02/14/21 08:45 02/14/21 09:02 Lactated Ringer's 1000 Ml Bag IV 02/14/21 09:45 999 mls/hr .Q1H1M LAURA Administration Iopamidol 75 ml 02/14/21 09:44 02/14/21 09:45 Iopamidol-370 (76%);100ml Bottle IV 02/14/21 09:45 75 ml ONCE ONE Administration Sodium Chloride 10 ml 02/14/21 09:44 02/14/21 09:45 Sodium Chloride 0.9% 10ml Syr (Rad Only) IV 02/14/21 09:45 10 ml ONCE ONE Administration ORDERS Category Date Time Status Diarrhea 6-11 Pa
--- NOTE | 2021-02-14 08:51 | CT_ITS ---
PROCEDURE: CT ABDOMEN PELVIS W CON CLINICAL INDICATION: abd pain, diarrhea COMPARISON: No exams were available for comparison TECHNIQUE: IV Contrast: 75ML OPTIRAY 350 Oral Contrast none given Axial images obtained with sagittal and coronal reformats. All CT scans at the facility use one or more dose reduction, viz: automated exposure control, ma/kV adjustment per patient size (including targeted exams where dose is matched to indication, i.e. head), or iterative reconstruction technique. FINDINGS: Lower thorax: The lower lung calabrese are clear, there is no pleural fluid. There is minimal scarring or atelectasis at the left costophrenic angle. ABDOMEN: Liver: No masses or biliary dilatation. Gallbladder: Nondistended. No radio opaque stones. Pancreas: No masses or peripancreatic fluid collections. Spleen: unremarkable Adrenals: unremarkable Kidneys/ureters: Function both appearing normal. ABDOMEN & PELVIS: Stomach bowel: Stomach is moderately distended with ingested food particles and fluid and appears normal. There are mildly dilated fluid-filled loops mid and distal small bowel possibly reflecting enteritis.. Colon is basically decompressed and only small amount stool seen in ascending colon. This would be consistent with history of diarrhea. Peritoneum: No abnormal fluid collections. No obvious inflammatory changes. No free air. Lymph nodes: No enlarged lymph nodes apparent. Vasculature: No evidence of abdominal aortic aneurysm. Scattered calcific plaques are noted within the aorta. No retroperitoneal hemorrhage evident. Bones: There is a total hip prosthesis right-side. There are mild multilevel degenerate changes of the lower thoracic and lumbar spine. PELVIS: Reproductive: unremarkable the prostate is normal in size. Bladder: The bladder is decompressed but otherwise appears normal. Appendix: I do not definitely identify the appendix but no pericecal inflammatory changes. IMPRESSION: Mildly abnormal distal small bowel loops and decompressed colon findings consistent with possible enteritis and diarrhea, there is no evidence of obstruction Dictated by: Dr. Marshal Borges MD 02/14/2021 10:14 Dr. Marshal Borges MD in [place] 02/14/2021 10:14
[2021-02-14 09:11] LABS: Basophils # 0.1 K/mm3 (0-0.2); Basophils % 0.6 % (0.1-2.0); Eosinophils # 0.2 K/mm3 (0.0-0.4); Eosinophils % 2.6 % (0.1-12.0); Hematocrit 47.4 % (42.0-52.0); Hemoglobin 16.6 g/dL (14.1-18.0); Lymphocytes # 1.1 K/mm3 (0.7-4.5); Lymphocytes % 12.6 % (10-50); Mean Corpuscular HGB Conc 34.9 g/dL (31.8-35.4); Mean Corpuscular Hemoglobin 33.8 pg (27.0-31.2); Mean Corpuscular Volume 96.8 fl (80-94); Mean Platelet Volume 8.7 fl (7.4-10.4); Monocytes # 0.7 K/mm3 (0.1-1.0); Monocytes % 7.6 % (1.7-9.3); Neutrophils # 6.5 K/mm3 (1.8-7.8); Neutrophils % 76.7 % (37.0-80.0); Platelet Count 70 K/mm3 (142-424); Red Cell Distribution Width 14.5 % (11.5-17.5); White Blood Count 8.5 K/mm3 (4.8-10.8)
[2021-02-14 09:12] LABS: Lipase 171 U/L (23-300)
[2021-02-14 09:14] LABS: Alanine Aminotransferase 58 U/L (12-78); Albumin Level 4.5 g/dl (3.5-5.0); Albumin/Globulin Ratio 0.9 (1.1-1.8); Alkaline Phosphatase 193 U/L (38-126); Anion Gap 15.6 mEq/L (5-15); Aspartate Amino Transferase 124 U/L (17-59); Bilirubin,Total 4.9 mg/dl (0.2-1.3); Blood Urea Nitrogen 11 mg/dl (9-20); Carbon Dioxide 18 mmol/L (22.0-30.0); Chloride 103 mmol/L (98-107); Creatinine Clearance Estimated 128 mL/min (50-200); Estimated Glomerular Filt Rate 87 ml/min (>60); GFR (African American) 105 ML/MIN (>60); Glucose 171 mg/dl (74-100); Potassium 3.6 mmoL/L (3.5-5.1); Sodium 133 mmol/L (136-145); Total Protein,Serum 9.5 g/dl (6.3-8.2)
[2021-02-14 10:21] LABS: Troponin I 0.02 ng/ml (0.00-0.034)
== END 2021-02-14 11:01 | disposition home or self-care (01) ==
PROVIDERS: Emergency Provider Family Medicine; PCP Family Medicine
DX: K52.9 Noninfective gastroenteritis and colitis, unspecified (principal); K21.9 Gastro-esophageal reflux disease without esophagitis; E03.9 Hypothyroidism, unspecified; F17.210 Nicotine dependence, cigarettes, uncomplicated
CPT/HCPCS: 74177; 80053; 83690; 84484; 85025; 96365; 96375; 99283; Q9967

== ENCOUNTER → 2021-03-13 13:21 | Outpatient (CLI) | payer BC, SELFPAY | PROVIDERS: PCP Family Medicine; Visit Provider Family Medicine | DX: G47.33 Obstructive sleep apnea (adult) (pediatric) (principal) | CPT/HCPCS: G0399 ==

== ENCOUNTER → 2021-03-24 13:27 | Outpatient (CLI) | payer BC, SELFPAY ==
[2021-03-24 13:39] LABS: Chloride 111 mmol/L (98-107); Potassium 3.8 mmoL/L (3.5-5.1); Sodium 142 mmol/L (136-145)
[2021-03-24 13:42] LABS: Albumin Level 3.8 g/dl (3.5-5.0); Albumin/Globulin Ratio 0.9 (1.1-1.8); Globulin 4.2 g/dL (1.3-3.2)
[2021-03-24 13:43] LABS: Calcium 8.9 mg/dl (8.4-10.2); Glucose 93 mg/dl (74-100)
[2021-03-24 13:45] LABS: Basophils # 0.1 K/mm3 (0-0.2); Basophils % 1.2 % (0.1-2.0); Blood Urea Nitrogen 6 mg/dl (9-20); Eosinophils # 0.3 K/mm3 (0.0-0.4); Eosinophils % 3.7 % (0.1-12.0); Estimated Glomerular Filt Rate 116 ml/min (>60); GFR (African American) 141 ML/MIN (>60); Hematocrit 47.9 % (42.0-52.0); Lymphocytes # 1.3 K/mm3 (0.7-4.5); Mean Corpuscular HGB Conc 33.5 g/dL (31.8-35.4); Mean Corpuscular Volume 98.6 fl (80-94); Mean Platelet Volume 7.9 fl (7.4-10.4); Monocytes # 0.7 K/mm3 (0.1-1.0); Monocytes % 9.7 % (1.7-9.3); Neutrophils # 4.4 K/mm3 (1.8-7.8); Neutrophils % 65.4 % (37.0-80.0); Platelet Count 138 K/mm3 (142-424); Red Blood Count 4.86 M/mm3 (4.60-6.20); White Blood Count 6.7 K/mm3 (4.8-10.8)
[2021-03-24 13:46] LABS: Alanine Aminotransferase 39 U/L (12-78); Alkaline Phosphatase 194 U/L (38-126); Anion Gap 15.8 mEq/L (5-15); Aspartate Amino Transferase 85 U/L (17-59); Bilirubin,Total 1.9 mg/dl (0.2-1.3); Carbon Dioxide 19 mmol/L (22.0-30.0)
[2021-03-25 04:18] LABS: Hep A Ab, IgM Negative (Negative); Hepatitis B Core Antibody IgM Negative (Negative); Hepatitis B Surface Antigen Negative (Negative); Hepatitis C Antibody <0.1 s/co ratio (0.0-0.9)
== END ==
PROVIDERS: Visit Provider Family Medicine
DX: R25.2 Cramp and spasm (principal); R53.83 Other fatigue; R10.9 Unspecified abdominal pain; R19.7 Diarrhea, unspecified
CPT/HCPCS: 80053; 80074; 85025

== ENCOUNTER → 2021-04-07 12:55 | Outpatient (CLI) | payer BC, SELFPAY ==
[2021-04-07 12:57] LABS: Adenovirus F 40/41, stool Not Detected (NotDetected); Astrovirus Not Detected (NotDetected); Campylobacter Not Detected (NotDetected); Clostridium Difficile A/B, PCR Not Detected (NotDetected); Cryptosporidium Not Detected (NotDetected); Cyclospora Cayetanesis Not Detected (NotDetected); Entamoeba histolytica Not Detected (NotDetected); Enteroaggregative E coli Not Detected (NotDetected); Enteropathogenic E coli Not Detected (NotDetected); Enterotoxigenic E coli Not Detected (NotDetected); Giardia lamblia Not Detected (NotDetected); Norovirus Not Detected (NotDetected); Plesimonas Shigalloides, PCR Not Detected (NotDetected); Rotavirus A Not Detected (NotDetected); Salmonella, PCR Not Detected (NotDetected); Sapovirus Not Detected (NotDetected); Shiga-like toxin E coli Not Detected (NotDetected); Shigella Enterovasive E coli Not Detected (NotDetected); Vibrio Cholerae Not Detected (NotDetected); Vibrio, PCR Not Detected (NotDetected); Yersinia Entercolitica, PCR Not Detected (NotDetected)
== END ==
PROVIDERS: Visit Provider Family Medicine
DX: R19.7 Diarrhea, unspecified (principal)
CPT/HCPCS: 87507

== ENCOUNTER → 2021-04-08 08:00 | Outpatient (CLI) | payer BC, SELFPAY ==
[2021-04-09 09:05] LABS: Lipase 163 U/L (23-300)
== END ==
PROVIDERS: Visit Provider Family Medicine
DX: R19.8 Other specified symptoms and signs involving the digestive system and abdomen (principal)
CPT/HCPCS: 83690

== ENCOUNTER 2021-06-20 13:17 | Emergency (ER) | payer BC, SELFPAY ==
[2021-06-20 13:37] VITALS: BP 131/74; PULSE 72; RESP 21; TEMP 37.3; O2SAT 100; BMI 32.8
--- NOTE | 2021-06-20 14:07 | HMH.EDUTC ---
[facility] – [place], [place] Disposition Clinical Impression: Sinusitis Qualifiers: Sinusitis location: unspecified location Chronicity: unspecified Qualified Code(s): J32.9 - Chronic sinusitis, unspecified Disposition: Home, Self-Care Condition on Discharge: Good Instructions: Sinusitis, DI for Sinusitis, DI for Impetigo, Amoxicillin and Clavulanic Acid, Mupirocin Additional Instructions: Apply cream on the sores around your nose but do not squeeze medicine into your nose Take oral antibiotics as prescribed *Monitor Temp, Over the counter Motrin or Tylenol as directed/as needed Tylenol every 4 hours and Motrin every 6 hours (as long as your family doctor has told you that you can take it) for fever or pain. and straight to ER if unable to lower temp less than 101.0 after medication given *Warm salt water gargles may help to soothe the throat *Throat Lozenges *Warm fluids like tea with honey may help to soothe the throat *Sleep elevated *Humidifier/Vaporizer *Flonase 2 sprays in each nostril daily but be aware that it may take 2-3 days before you notice improvement Follow up IMMEDIATELY for new or worsening symptoms or no Noticeable improvement over the next 48-72 hours. 911 for difficulty breathing or swallowing Prescriptions: Amoxicillin/Potassium Clav [Augmentin 875-125 Tablet] 1 tab PO Q12H 10 Days #20 tab Transmission Status: Received by [facility] Mupirocin [Bactroban 2% Ointment 22gm tube] 1 applicatio TP BID #22 gm Transmission Status: Received by [facility] predniSONE [Deltasone 10mg tablet] 10 mg PO BID 5 Days #10 tab Transmission Status: Received by [facility] Referrals: Rehan Alexandra MD [Primary Care Provider] - As needed Time of Disposition: 14:26 Medical Decision Making - Fabian Inquiry Pt receiving controlled substance: No Fabian was queried for this patient: No Vital Signs: 06/20/21 13:37 06/20/21 14:31 Temperature 99.1 F 99.1 F Temperature Source Oral Pulse Rate 72 Pulse Rate [Left] 72 Respiratory Rate 21 21 Blood Pressure 131/74 Blood Pressure [Right Arm] 131/74 Blood Pressure Mean [Right Arm] 93 02 Sat by Pulse Oximetry 100 Medical Decision Narrative: Patient states that he has taken augmentin and prednisone in the past without complications [facility] – [place], [place] HPI - General Stated complaint: runny nose, head congestion Time Seen by Provider: 06/20/21 14:07 Mode of Arrival: Ambulatory Source of Information: Patient Limitations: No Limitations Description of Symptoms (Recalled from Triage Doc. by RN): pt thinks he has a sinus infection x1 week. he was unable to get in with his PCP HEENT Symptoms (Recalled from RN notes): Yes (sinus drainage and pressure) Resp Symptoms (Recalled from RN notes): No Skin Symptoms (Recalled from RN notes): No MS Symptoms (Recalled from RN notes): No Functional Status (Recalled from RN notes): na - History of Present Illness Provider Complaint: Patient states that he thinks he has a sinus infection States that he has been having sinus pain and pressure for over a week and it has continued to get worse States that he gets sinus infections around this time every year States that he tried to wait it out but it got worse and now he has sores all in his nose too so he came in - Related Data Home Medications Medication Instructions Recorded Confirmed Omeprazole [Omeprazole 40mg 40 mg PO DAILY PRN 04/29/19 05/29/21 Capsule] Multivitamin [One-Daily 1 each PO DAILY 10/25/20 05/29/21 Multi-Vitamin] psyllium husk 0.4 gram capsule 0.4 g PO DAILY 04/02/21 05/29/21 Previous Rx's Medication Instructions Recorded metaxalone 800 mg tablet 800 mg PO TID PRN #60 tab 03/24/21 cholestyramine (with sugar) 4 gram 4 g PO BID PRN #60 each 04/08/21 powder for susp in a packet Amoxicillin/Potassium Clav 1 tab PO Q12H 10 Days #20 tab 06/20/21 [Augmentin 875-125 Tablet] Mupirocin [Bactroban 2% Ointment 1 applicatio TP BID #22 gm 06/20/21 22g
[2021-06-20 14:31] VITALS: BP 131/74; PULSE 72; RESP 21; TEMP 37.3
== END 2021-06-20 14:38 | disposition home or self-care (01) ==
PROVIDERS: Emergency Provider Nurse Practitioner; PCP Family Medicine
DX: J32.9 Chronic sinusitis, unspecified (principal)
CPT/HCPCS: 99202; G0463

== ENCOUNTER 2021-09-21 09:33 | Emergency (ER) | payer BC, SELFPAY ==
[2021-09-21 09:48] VITALS: BP 103/70; PULSE 104; RESP 18; TEMP 37.6; O2SAT 97; BMI 30.5
[2021-09-21 10:01] LABS: Apearance,Urine Clear (Clear); Color,Urine Red (Yellow)
[2021-09-21 10:02] LABS: Bilirubin,Urine 1+ (Negative); Blood, Urine 1+ (Negative); Glucose,Urine (UA) Negative (Negative); Ketones,Urine Negative (Negative); Protein,Urine 1+ (Negative); Specific Gravity, Urine > 1.030 (1.005-1.030); UTC Leukocyte Esterase,Urine Negative (Negative); UTC Nitrate,Urine Negative (Negative); Urobilinogen,Urine 1 EU/dl (0.2)
--- NOTE | 2021-09-21 10:26 | HMH.EDUTC ---
[facility] [place] Clinical Impression: Abdominal pain Qualifiers: Abdominal location: unspecified location Qualified Code(s): R10.9 - Unspecified abdominal pain Disposition: Still a Patient Condition on Discharge: Fair Referrals: Audi Miramontes MD [Primary Care Provider] - Medical Decision Making - Medical Records Medical records reviewed: No: I reviewed the patient's medical records. - Fabian Inquiry Pt receiving controlled substance: No Vital Signs: 09/21/21 09:48 Temperature 99.6 F Temperature Source Oral Pulse Rate [Left] 104 H Respiratory Rate 18 Blood Pressure [Right Arm] 103/70 L Blood Pressure Mean [Right Arm] 81 02 Sat by Pulse Oximetry 97 - Lab Data Lab Results 09/21/21 10:00: Urine Color Red, Urine Appearance Clear, Urine pH 6.0, Ur Specific [place] > 1.030 H, Urine Protein 1+, Urine Glucose (UA) Negative, Urine Ketones Negative, Urine Blood 1+, Urine Nitrate Negative, Urine Bilirubin 1+ A, Urine Urobilinogen 1, Ur Leukocyte Esterase Negative Orders (Tests/Meds): ORDERS Category Date Time Status Urine Culture Stat Micro 09/21/21 10:00 Ordered Medical Decision Narrative: He was transferred to the ER due to his abdominal pain and hematuria. [facility] [place] [facility] [place] - General Stated complaint: stomach pains, diarrhea Time Seen by Provider: 09/21/21 10:26 Mode of Arrival: Ambulatory Source of Information: Patient Limitations: No Limitations Description of Symptoms (Recalled from Triage Doc. by RN): pt c/o RLQ abd pain, abd tenderness and diarrhea. pt states a few mo. ago he was dx with liver issues. pt was told to stop drinking and has for 3 mo. HEENT Symptoms (Recalled from RN notes): No Resp Symptoms (Recalled from RN notes): No Skin Symptoms (Recalled from RN notes): No MS Symptoms (Recalled from RN notes): No Functional Status (Recalled from RN notes): wnl - History of Present Illness Provider Complaint: He states that he has been having abdominal pain for the past several days. He has a history of chronic diarrhea. He has been having pain of his left flank and left lower quadrant. - Related Data Home Medications Medication Instructions Recorded Confirmed Omeprazole [Omeprazole 40mg 40 mg PO DAILY PRN 04/29/19 09/17/21 Capsule] Multivitamin [One-Daily 1 each PO DAILY 10/25/20 09/17/21 Multi-Vitamin] chlorhexidine gluconate 0.12 % 15 ml MUCOUS MEM PRN ml 09/17/21 09/17/21 mouthwash Previous Rx's Medication Instructions Recorded metaxalone 800 mg tablet 800 mg PO TID PRN #60 tab 03/24/21 cholestyramine (with sugar) 4 gram 4 g PO BID PRN #60 each 04/08/21 powder for susp in a packet trazodone 50 mg tablet 100 mg PO HS #60 tab 09/17/21 Allergies Allergy/AdvReac Type Severity Reaction Status Date / Time No Known Allergies Allergy Verified 09/17/21 13:14 - Worker's Comp Is this a Worker's Comp case?: No [facility] History - Hepatitis A Screen Drug use history?: No High risk sexual behaviors?: No History of sexually transmitted infection?: No Currently employed?: No Childcare worker?: No Do you have indoor plumbing?: Yes Do you have electricity?: Yes Attestation statement:: This patient has been screened for Hepatitis A risk factors. I have reviewed the patient's past medical history: Yes Medical History: Reports:: Gastroesophageal Reflux Disease(GERD) Denies:: Cancer, Diabetes Mellitus Type 1, Diabetes Mellitus Type 2, Internal Pacemaker, Lung Disease, MRSA, Seizures Other Medical History: Reports: Arthritis, Cataracts, Sinus Problems. Denies: Hypothyroidism Comment: RT hip replacement (2014) Laterality Cases: Right: Total Hip Replacement Other Surgeries: Yes: Colonoscopy, Other. No: Pacemaker Amputation: No Fractures: No Comment: BACK - Social History Smoking Status: Current some day smoker Tobacco Type: cigars # Packs/Day (cigarettes): 1 Alcohol Intake: current Alcohol Intake Frequency:: 3 or more drinks per day Substance
[2021-09-21 10:37] VITALS: BP 106/80; PULSE 98; RESP 18; TEMP 36.9; O2SAT 98; BMI 30.5
--- NOTE | 2021-09-21 10:46 | CT_ITS ---
PROCEDURE INFORMATION: Exam: CT Abdomen And Pelvis With Contrast Exam date and time: 09/21/2021 10:46 AM Age: 56 years old Clinical indication: Other: Diarrhea and pain; Additional info: Abd pain, diarrhea TECHNIQUE: Imaging protocol: Computed tomography of the abdomen and pelvis with contrast. Radiation optimization: All CT scans at this facility use at least one of these dose optimization techniques: automated exposure control; mA and/or kV adjustment per patient size (includes targeted exams where dose is matched to clinical indication); or iterative reconstruction. Contrast material: ISOVUE; Contrast volume: 75 ml; Contrast route: IV; COMPARISON: CT ABDOMEN PELVIS W CON 02/14/2021 9:40 AM FINDINGS: Liver: Normal. No mass. Gallbladder and bile ducts: Normal. No calcified stones. No ductal dilation. Pancreas: Normal. No ductal dilation. Spleen: Normal. No splenomegaly. Adrenal glands: Normal. No mass. Kidneys and ureters: Normal. No hydronephrosis. Stomach and bowel: Mild wall thickening within the ascending colon with adjacent inflammatory changes. Fluid throughout nondistended small bowel loops. Nonspecific enteritis/colitis. No bowel obstruction. Colonic diverticulosis without CT evidence of diverticulitis. Appendix: No evidence of appendicitis. Intraperitoneal space: Unremarkable. No free air. No significant fluid collection. Vasculature: Unremarkable. No abdominal aortic aneurysm. Lymph nodes: Unremarkable. No enlarged lymph nodes. Urinary bladder: Unremarkable as visualized. Reproductive: Unremarkable as visualized. Bones/joints: Right hip prosthesis with streak artifact. Soft tissues: Unremarkable. IMPRESSION: 1. Mild wall thickening within the ascending colon with adjacent inflammatory changes. Fluid throughout nondistended small bowel loops. Nonspecific enteritis/colitis. 2. No bowel obstruction.
--- NOTE | 2021-09-21 10:58 | HMH.EDGENADL ---
ED Disposition Clinical Impression: Abdominal pain Qualifiers: Abdominal location: unspecified location Qualified Code(s): R10.9 - Unspecified abdominal pain Disposition: Home, Self-Care Condition on Discharge: Good Instructions: DI for Acute Abdominal Pain, DI for Diarrhea and Traveler's Diarrhea -- Adult Additional Instructions: Collect diarrhea sample for outpatient testing, return sample to the lab with the order form. Call your primary care provider tomorrow to arrange follow-up. Referrals: Audi Miramontes MD [Primary Care Provider] - - Critical Care Critical Care Time: No Attestation: On 09/21/21, the high probability of a clinically significant, sudden or life threatening deterioration of the following system(s) required my full and direct attention, intervention and personal management. The time I documented below is in addition to time spent performing reported procedures but includes the following listed in this critical care notation. Medical Decision Making - Medical Records Medical records reviewed: Yes: I reviewed the patient's medical records. MR Comment: Seen in the emergency department on 02/14/2021 for diarrhea and possible dehydration. Had CT abdomen pelvis unremarkable except for possible findings of enteritis. Review of the labs shows that he has had 2 diarrhea panel's here, 04/30/2019 + for EPEC, 04/07/2021 completely negative. Reviewed colonoscopy results by Dr. Anne 11/14/2020 - Colonic polyps, diverticulosis, internal hemorrhoids. - Fabian Inquiry Pt receiving controlled substance: No Vital Signs: 09/21/21 09:48 09/21/21 10:37 09/21/21 11:34 Temperature 99.6 F 98.5 F Temperature Source Oral Oral Pulse Rate [Left] 104 H 98 H 94 H Respiratory Rate 18 18 Blood Pressure [Right Arm] 103/70 L 106/80 L 101/67 L Blood Pressure Mean [Right Arm] 81 88 78 Blood Pressure Position [Right Arm] Sitting 02 Sat by Pulse Oximetry 97 98 98 Oxygen Delivery Method Room Air 09/21/21 12:00 09/21/21 13:11 Temperature Temperature Source Pulse Rate [Left] 91 H 89 Respiratory Rate Blood Pressure [Right Arm] 107/81 L 110/74 Blood Pressure Mean [Right Arm] 89 86 Blood Pressure Position [Right Arm] 02 Sat by Pulse Oximetry 97 99 Oxygen Delivery Method Room Air - Lab Data Lab Results 09/21/21 09:54: Urine Color Yellow, Urine Appearance Clear, Urine pH 6.0, Ur Specific [place] >= 1.030, Urine Protein Trace, Urine Glucose (UA) Negative, Urine Ketones Negative, Urine Blood 1+, Urine Nitrate Negative, Urine Bilirubin 1+ A, Urine Urobilinogen 1.0, Ur Leukocyte Esterase Negative, Urine RBC 3-5, Urine WBC 3-5, Ur Squamous Epith Cells 5-10, Calcium Oxalate Crystal 1+, Amorphous Sediment 1+ 09/21/21 10:00: Urine Color Red, Urine Appearance Clear, Urine pH 6.0, Ur Specific [place] > 1.030 H, Urine Protein 1+, Urine Glucose (UA) Negative, Urine Ketones Negative, Urine Blood 1+, Urine Nitrate Negative, Urine Bilirubin 1+ A, Urine Urobilinogen 1, Ur Leukocyte Esterase Negative 09/21/21 10:44: WBC 6.4, RBC 5.13, Hgb 16.8, Hct 51.8, MCV 100.9 H, MCH 32.7 H, MCHC 32.4, RDW 14.8, Plt Count 66 L, MPV 8.5, Neut % (Auto) 68.2, Lymph % (Auto) 17.0, [place] % (Auto) 8.8, Eos % (Auto) 4.5, Baso % (Auto) 1.6, Neut # (Auto) 4.3, Lymph # (Auto) 1.1, [place] # (Auto) 0.6, Eos # (Auto) 0.3, Baso # (Auto) 0.1 09/21/21 10:44: Sodium 134 L, Potassium 3.7, Chloride 108 H, Carbon Dioxide 21 L, Anion Gap 8.7, BUN 11, Creatinine 0.80, Estimated Creat Clear 126, Estimated GFR 99, Est GFR ( Amer) 120, Glucose 84, Calcium 9.5, Total Bilirubin 2.9 H, AST 57, ALT 26, Alkaline Phosphatase 172 H, Total Protein 7.8, Albumin 3.8, Globulin 4.0 H, Albumin/Globulin Ratio 1.0 L 09/21/21 10:44: Lipase 151 Result diagrams: 09/21/21 10:44 09/21/21 10:44 Orders (Tests/Meds): ED MEDICATIONS Discontinued Medications Generic Name Dose Route Start Last Admin Trade Name Freq PRN Reason Stop Dose Admin Sodium Chloride 1,000
[2021-09-21 11:01] LABS: Alanine Aminotransferase 26 U/L (12-78); Albumin Level 3.8 g/dl (3.5-5.0); Alkaline Phosphatase 172 U/L (38-126); Anion Gap 8.7 mEq/L (5-15); Aspartate Amino Transferase 57 U/L (17-59); Bilirubin,Total 2.9 mg/dl (0.2-1.3); Blood Urea Nitrogen 11 mg/dl (9-20); Calcium 9.5 mg/dl (8.4-10.2); Carbon Dioxide 21 mmol/L (22.0-30.0); Chloride 108 mmol/L (98-107); Creatinine Clearance Estimated 126 mL/min (50-200); Estimated Glomerular Filt Rate 99 ml/min (>60); GFR (African American) 120 ML/MIN (>60); Glucose 84 mg/dl (74-100); Potassium 3.7 mmoL/L (3.5-5.1); Sodium 134 mmol/L (136-145); Total Protein,Serum 7.8 g/dl (6.3-8.2)
[2021-09-21 11:09] LABS: Microscopic, Urine URINE MICROSCOPIC (MICROSCOPIC)
[2021-09-21 11:11] LABS: Appearance,Urine CLEAR (Clear); Blood, Urine 1+ (Negative); Color,Urine YELLOW (Yellow); Glucose,Urine (UA) Negative (Negative); Ketones,Urine Negative (Negative); Leukocyte Esterase,Urine Negative (Negative); Nitrate,Urine Negative (Negative); Protein,Urine TRACE (Negative); Specific Gravity, Urine >= 1.030 (1.005-1.030)
[2021-09-21 11:17] LABS: Lipase 151 U/L (23-300)
[2021-09-21 11:19] LABS: Basophils # 0.1 K/mm3 (0-0.2); Basophils % 1.6 % (0.1-2.0); Eosinophils # 0.3 K/mm3 (0.0-0.4); Eosinophils % 4.5 % (0.1-12.0); Hematocrit 51.8 % (42.0-52.0); Hemoglobin 16.8 g/dL (14.1-18.0); Lymphocytes # 1.1 K/mm3 (0.7-4.5); Mean Corpuscular HGB Conc 32.4 g/dL (31.8-35.4); Mean Corpuscular Hemoglobin 32.7 pg (27.0-31.2); Mean Corpuscular Volume 100.9 fl (80-94); Mean Platelet Volume 8.5 fl (7.4-10.4); Monocytes # 0.6 K/mm3 (0.1-1.0); Monocytes % 8.8 % (1.7-9.3); Neutrophils # 4.3 K/mm3 (1.8-7.8); Neutrophils % 68.2 % (37.0-80.0); Platelet Count 66 K/mm3 (142-424); Red Blood Count 5.13 M/mm3 (4.60-6.20); Red Cell Distribution Width 14.8 % (11.5-17.5); White Blood Count 6.4 K/mm3 (4.8-10.8)
[2021-09-21 11:33] LABS: Bilirubin,Urine 1+ (Negative)
[2021-09-21 11:34] VITALS: BP 101/67; PULSE 94; O2SAT 98
[2021-09-21 11:38] LABS: Amorphous Sediment,Urine 1+ /lpf; Calcium Oxalate Crystals,Urine 1+ /lpf
[2021-09-21 12:00] VITALS: BP 107/81; PULSE 91; O2SAT 97
[2021-09-21 13:11] VITALS: BP 110/74; PULSE 89; O2SAT 99
[2021-09-21 13:50] VITALS: BP 163/68; PULSE 78; RESP 16; TEMP 36.6; O2SAT 98
== END 2021-09-21 13:52 | disposition home or self-care (01) ==
LOC: UTC 09:35 → ER 10:28
PROVIDERS: Nurse Practitioner Family; Emergency Provider Emergency Medicine; PCP Family Medicine
DX: R10.31 Right lower quadrant pain (principal); R31.0 Gross hematuria; K21.9 Gastro-esophageal reflux disease without esophagitis; F17.210 Nicotine dependence, cigarettes, uncomplicated
CPT/HCPCS: 74177; 80053; 81001; 81003; 83690; 85025; 87086; 96365; 99283; Q9967

== ENCOUNTER → 2021-09-22 11:51 | Outpatient (CLI) | payer BC, SELFPAY ==
[2021-09-22 11:56] LABS: Adenovirus F 40/41, stool Not Detected (NotDetected); Astrovirus Not Detected (NotDetected); Campylobacter Not Detected (NotDetected); Clostridium Difficile A/B, PCR Not Detected (NotDetected); Cryptosporidium Not Detected (NotDetected); Cyclospora Cayetanesis Not Detected (NotDetected); Entamoeba histolytica Not Detected (NotDetected); Enteroaggregative E coli Not Detected (NotDetected); Enteropathogenic E coli Not Detected (NotDetected); Enterotoxigenic E coli Not Detected (NotDetected); Giardia lamblia Not Detected (NotDetected); Norovirus Not Detected (NotDetected); Plesimonas Shigalloides, PCR Not Detected (NotDetected); Rotavirus A Not Detected (NotDetected); Salmonella, PCR Not Detected (NotDetected); Sapovirus Not Detected (NotDetected); Shiga-like toxin E coli Not Detected (NotDetected); Shigella Enterovasive E coli Not Detected (NotDetected); Vibrio Cholerae Not Detected (NotDetected); Vibrio, PCR Not Detected (NotDetected); Yersinia Entercolitica, PCR Not Detected (NotDetected)
== END ==
PROVIDERS: Visit Provider Family Medicine
DX: R19.7 Diarrhea, unspecified (principal)
CPT/HCPCS: 87506

== ENCOUNTER → 2021-11-14 08:16 | Outpatient (CLI) | payer BC, SELFPAY ==
--- NOTE | 2021-11-14 | CA_ITS ---
APPROVED REPORT Exam: Pharmacologic Technologist: Malorie Steve, Ht: 5 ft 7 in Wt: 203 lbs BSA: 2.04 m2 HR: 72 bpm BP: 113/70 mmHg Rhythm: NSR, NSSTTW ABNORMALITIES INF Medical History Medications: Omeprazole,,,,, Trazadone,,,,, Allergies: No known drug allergies Cardiac Risk Factors: FHX of CAD Stress Test Details Test: Meliton, Exercise stress testing was performed using a modified Meliton protocol. HR Resting HR: 76 bpm Max Heart Rate (APMHR): 162.519078 bpm Max HR Achieved: 142 bpm Target HR (85% APMHR): 137.504354 bpm % of APMHR: 87.65 Recovery HR: 90 bpm BP Resting BP: 113/70 mmHg Max BP: 145/75 mmHg Recovery BP: 115.0/70.0 mmHg ECG Resting ECG: NSR, NSSTTW ABNORMALITIES INF. Clinical Reason for Termination: Dyspnea Exercise duration: 07:31 min Highest Stage Achieved: Exercise capacity: 10.1 METs Stress ECG Conclusion MAX HR: 141. % OF PM: 102. MAX BP 145/75. METS 10.1. TEST STOPPED DUE TO SOA, HIP PAIN. NO CP. RARE PVC. <1.[address] SEGMENT CHANGES. NEGATIVE STRESS TEST. Test Summary REST . . . . . . . Standing REST . . . . . . . Sitting REST 11:55 0.0 1.2 76 . 113/ 70 . . Stage 1 01:00 10.0 1.7 100 . . . . Stage 1 02:00 10.0 1.7 109 . . . . Stage 1 03:00 10.0 1.7 112 . 120/ 80 . . Stage 2 01:00 12.0 2.5 120 . . . . Stage 2 02:00 12.0 2.5 124 . . . . Stage 2 03:00 12.0 2.5 128 . 140/ 75 . . Stage 3 01:00 14.0 3.4 137 . . . . Stage 3 01:31 14.0 3.4 141 . . . Stop exercise at 07:31 RECOVERY 01:00 0.0 0.0 122 . . . . RECOVERY 02:00 0.0 0.0 99 . . . . RECOVERY 03:00 0.0 0.0 90 . 145/ 75 . . RECOVERY 04:00 0.0 0.0 88 . 115/ 70 . . RECOVERY 04:15 0.0 0.0 92 . 115/ 70 . . Electronically signed by : Jeronimo Lyon MD 11/14/2021 09:18:49
--- NOTE | 2021-11-14 08:18 | CA_ITS ---
APPROVED REPORT EXAM: Comprehensive 2D, Doppler, and color-flow Echocardiogram Emergency Preparedness Coordinator: Paty Black RVT Ht: 5 ft 7 in Wt: 203lbs BSA: 2.04 BP: 98/57 mmHg Indications: ABN EKG,PRE-OP,SMOKER,FATIGUE 2D Dimensions LVOT 2.41 cm (M/F) 1.5-2.5 LA Volume 54.10 mL LA Volume Index 26.65 mL/m2 (M/F) 16-34 M-Mode Dimensions RVDd 3.44 cm (0.9-2.6) LA Diam 4.55 cm (1.9-4.0) LVDd 4.58 cm (3.5-5.7) Ao Diam 3.24 cm (2.0-3.7) LVDs 3.18 cm (3.5-5.7) IVSd 1.06 cm (0.6-1.1) PWd 1.10 cm (0.6-1.1) EF (Teich) 58.20% FS 30.60% EDV (Teich) 96.30 mL TAPSE 2.22 (<1.7) ESV (Teich) 40.30 mL LV Diastology E Decel Time 257.00 (160-240 msec) E/A Ratio 1.2 MED E' 7.70 (< 7 cm/sec) E'/MED E' Ratio 13.68 (>14) LAT E' 11.60 (<10 cm/sec) E/LAT E' Ratio 9.08 (>14) Aortic Valve AO Peak GR. 14.30 mmHg Mitral Valve MV E Max Kendall. 105.00 (40-130 cm/s) MV A Velocity 89.00 (40-130 cm/s) E/A Ratio 1.18 MV Decel. Time 257.00 (160-240 ms) MV PHT 75.00 ms Pulmonary Valve PV Peak Velocity 71.00 (50-150 cm/s) Tricuspid Valve TR P. Velocity 213.00 cm/s RAP Estimate 10.00 mmHg RVSP 28.20 mmHg Left Ventricle Left atrium is qualitatively mildly enlarged, left ventricle is normal size, visually estimated ejection fraction 55% with no regional wall motion abnormality, diastolic parameters are within normal range. Right Ventricle Right atrium and right ventricle are qualitatively mildly enlarged with normal contractility. Aortic Valve Aortic valve is minimally thickened and calcified without aortic stenosis or aortic insufficiency. Mitral Valve Mitral valve has mitral calcification, leaflets are minimally thickened, there is no mitral stenosis, there is trace mitral regurgitation. Tricuspid Valve Tricuspid valve grossly normal, there is trace tricuspid regurgitation, tricuspid regurgitation jet velocity is inadequate for calculation of the right ventricular systolic pressure. Pulmonic Valve Pulmonic valve is poorly visualized. Great Vessels Aortic root is normal size. Inferior vena cava is normal size with normal inspiratory collapse. Pericardium No significant pericardial effusion. Conclusion 1. Mild biatrial enlargement, normal left ventricular size, mild concentric left ventricular hypertrophy, visually estimated ejection fraction 55% with no regional wall motion abnormality, diastolic parameters are within normal range. 2. Trace mitral and tricuspid regurgitation. 3. No significant pericardial effusion 4. Inferior vena cava normal size and normal spectral collapse. Electronically signed by : Jeronimo Lyon MD 11/14/2021 13:22:06
== END ==
PROVIDERS: PCP Family Medicine; Visit Provider Urology
DX: Z01.810 Encounter for preprocedural cardiovascular examination (principal); R94.31 Abnormal electrocardiogram [ECG] [EKG]
CPT/HCPCS: 93017; 93306

== ENCOUNTER → 2022-01-30 14:06 | Outpatient (CLI) | payer BC, SELFPAY ==
[2022-01-30 14:36] LABS: Basophils # 0.1 K/mm3 (0-0.2); Basophils % 1.2 % (0.1-2.0); Eosinophils # 0.3 K/mm3 (0.0-0.4); Eosinophils % 5.4 % (0.1-12.0); Hematocrit 43.7 % (42.0-52.0); Lymphocytes # 0.8 K/mm3 (0.7-4.5); Lymphocytes % 15.1 % (10-50); Mean Corpuscular HGB Conc 34.3 g/dL (31.8-35.4); Mean Corpuscular Hemoglobin 33.7 pg (27.0-31.2); Mean Corpuscular Volume 98.4 fl (80-94); Mean Platelet Volume 8.3 fl (7.4-10.4); Monocytes # 0.4 K/mm3 (0.1-1.0); Monocytes % 7.9 % (1.7-9.3); Neutrophils # 3.6 K/mm3 (1.8-7.8); Neutrophils % 70.5 % (37.0-80.0); Platelet Count 72 K/mm3 (142-424); Red Blood Count 4.44 M/mm3 (4.60-6.20); Red Cell Distribution Width 15.1 % (11.5-17.5); White Blood Count 5.1 K/mm3 (4.8-10.8)
== END ==
PROVIDERS: Visit Provider Internal Medicine Medical Oncology
DX: D69.6 Thrombocytopenia, unspecified (principal)
CPT/HCPCS: 36415; 85025

== ENCOUNTER → 2022-02-05 09:40 | Outpatient (CLI) | payer BC, SELFPAY ==
[2022-02-05 10:10] LABS: Basophils % 0.1 % (0.1-2.0); Eosinophils % 0.1 % (0.1-12.0); Hematocrit 45.7 % (42.0-52.0); Hemoglobin 15.8 g/dL (14.1-18.0); Lymphocytes # 0.3 K/mm3 (0.7-4.5); Mean Corpuscular HGB Conc 34.6 g/dL (31.8-35.4); Mean Corpuscular Hemoglobin 33.8 pg (27.0-31.2); Mean Corpuscular Volume 97.6 fl (80-94); Mean Platelet Volume 8.6 fl (7.4-10.4); Monocytes # 0.5 K/mm3 (0.1-1.0); Monocytes % 5.2 % (1.7-9.3); Neutrophils # 9.7 K/mm3 (1.8-7.8); Neutrophils % 91.6 % (37.0-80.0); Platelet Count 52 K/mm3 (142-424); Red Blood Count 4.68 M/mm3 (4.60-6.20); Red Cell Distribution Width 15.2 % (11.5-17.5); White Blood Count 10.6 K/mm3 (4.8-10.8)
[2022-02-05 10:12] LABS: MANUAL DIFFERENTIAL MANUAL DIFFERENTIAL (MANUAL DIFF)
[2022-02-05 10:26] LABS: Lymphocytes % 3 % (10-50); Monocytes % 3 % (2-9); Neutrophils % 94 % (42-76); Total Cells Counted 100
[2022-02-05 10:27] LABS: Anisocytosis 1+; Macrocytosis 1+; Platelet Estimate Moderate Decrease
== END ==
PROVIDERS: Visit Provider Internal Medicine Medical Oncology
DX: D69.6 Thrombocytopenia, unspecified (principal)
CPT/HCPCS: 36415; 85007; 85025

== ENCOUNTER 2022-02-17 08:05 | Emergency (ER) | payer BC, SELFPAY ==
[2022-02-17] VITALS (10 sets, daily range): BP systolic 115–145; BP diastolic 80–93; PULSE 82–103; RESP 17–18; TEMP 36.7–36.8; O2SAT 96–98; BMI 29.0
--- NOTE | 2022-02-17 08:27 | HMH.EDGENADL ---
ED Disposition Clinical Impression: Thrombocytopenia Ascites Qualifiers: Ascites type: due to alcoholic cirrhosis Qualified Code(s): K70.31 - Alcoholic cirrhosis of liver with ascites Cirrhosis Qualifiers: Hepatic cirrhosis type: alcoholic cirrhosis Ascites presence: with ascites Qualified Code(s): K70.31 - Alcoholic cirrhosis of liver with ascites UTI (urinary tract infection) Qualifiers: Urinary tract infection type: site unspecified Hematuria presence: with hematuria Qualified Code(s): N39.0 - Urinary tract infection, site not specified; R31.9 - Hematuria, unspecified Disposition: Home, Self-Care Condition on Discharge: Fair Instructions: DI for Ascites, DI for Abdominal Paracentesis, DI for Cirrhosis, DI for Urinary Tract Infection (UTI) Additional Instructions: Spironolactone as prescribed. Paracentesis at [facility] on Wednesday as scheduled. Follow-up with Dr. Miramontes in the office next week, call for appointment time/date. Return to the emergency room if increased difficulty breathing. Additional instructions for URINARY TRACT INFECTION: Take antibiotic as prescribed. See your physician in 2-3 days for follow up and culture results. Return immediately if you have an uncontrollable fever greater than 102 degrees, severe back or abdominal pain, inability to urinate, or repetitive vomiting. Prescriptions: Cefdinir [Omnicef 300mg Capsule] 300 mg PO BID #20 cap Transmission Status: Pending to [facility] Spironolactone [Spironolactone 25mg Tablet] 25 mg PO BID #30 tab Transmission Status: Received by [facility] Referrals: Audi Miramontes MD [Primary Care Provider] - - Critical Care Critical Care Time: No Attestation: On 02/17/22, the high probability of a clinically significant, sudden or life threatening deterioration of the following system(s) required my full and direct attention, intervention and personal management. The time I documented below is in addition to time spent performing reported procedures but includes the following listed in this critical care notation. Medical Decision Making - Medical Records Medical records reviewed: Yes: I reviewed the patient's medical records. MR Comment: Reviewed hematology clinic note from Dr. Mckinney 02/05/2022 for thrombocytopenia. Reviewed abdominal CT results from 09/21/2021. - Fabian Inquiry Pt receiving controlled substance: No Vital Signs: 02/17/22 08:13 02/17/22 09:00 02/17/22 09:01 Temperature 98.3 F Temperature Source Oral Pulse Rate 99 H 89 Pulse Rate [Left Radial] 103 H Respiratory Rate 18 Blood Pressure 132/89 140/92 H Blood Pressure [Right Arm] 145/93 H Blood Pressure Mean Blood Pressure Mean [Right Arm] 110 Blood Pressure Source Automatic Cuff Automatic Cuff Blood Pressure Position Sitting Sitting 02 Sat by Pulse Oximetry 96 97 97 Oxygen Delivery Method Room Air Room Air Room Air 02/17/22 11:16 02/17/22 11:30 02/17/22 12:30 Temperature Temperature Source Pulse Rate 93 H 87 92 H Pulse Rate [Left Radial] Respiratory Rate Blood Pressure 120/86 129/91 H 123/88 Blood Pressure [Right Arm] Blood Pressure Mean 98 97 100 Blood Pressure Mean [Right Arm] Blood Pressure Source Blood Pressure Position 02 Sat by Pulse Oximetry 98 96 96 Oxygen Delivery Method 02/17/22 13:00 02/17/22 13:30 02/17/22 14:00 Temperature Temperature Source Pulse Rate 84 88 82 Pulse Rate [Left Radial] Respiratory Rate Blood Pressure 124/84 131/84 117/80 Blood Pressure [Right Arm] Blood Pressure Mean 95 97 90 Blood Pressure Mean [Right Arm] Blood Pressure Source Blood Pressure Position 02 Sat by Pulse Oximetry 96 96 98 Oxygen Delivery Method - Lab Data Lab Results 02/17/22 08:25: WBC 10.5, RBC 4.41 L, Hgb 15.0, Hct 43.7, MCV 99.1 H, MCH 34.0 H, MCHC 34.3, RDW 16.1, Plt Count 65 L, MPV 7.9, Neut % (Auto) 70.4, Lymph % (Auto) 14.5, Sampson % (Auto) 9.9 H,
--- NOTE | 2022-02-17 08:41 | CT_ITS ---
FINAL REPORT CLINICAL HISTORY: abdo distension and pain COMPARISON: September 21, 2021 FINDINGS: Axial CT images of the abdomen and pelvis were obtained without intravenous contrast. Oral contrast has been administered. Coronal reformatted images were also obtained.This study was performed with techniques to keep radiation doses as low as reasonably achievable (ALARA). Individualized dose reduction techniques using automated exposure control or adjustment of mA and/or kV according to the patient's size were employed. Abdomen: There is bibasilar atelectasis or scarring. The liver has an irregular contour consistent with cirrhosis. The gallbladder is present. There is splenomegaly of approximately 14 cm. Pancreas and adrenal glands are unremarkable. There is a left renal stone measuring less than 3 mm. There is a small left renal calcification or possible hyperdense cyst measuring less than 5 mm. There is new moderate to large ascites. There is diffuse bowel wall thickening likely edema. There is mild anasarca. Pelvis: Images of the pelvis reveal no evidence of ureteral dilation or ureteral stone. There are postoperative changes from right hip arthroplasty. IMPRESSION: Findings of worsening cirrhosis with portal hypertension. Moderate to large ascites. Reviewed, Interpreted and Dictated by Santiago Floyd III, MD Transcribed by Trever Mejia Authenticated by Santiago Floyd III, MD on 02/17/2022 11:13:02 AM [facility]
--- NOTE | 2022-02-17 08:42 | XR_ITS ---
FINAL REPORT CLINICAL HISTORY: cough, smoker COMPARISON: April 30, 2019 FINDINGS: Two views of the chest were obtained. The heart size is normal. The mediastinum is normal. There are new bibasilar pulmonary opacities that favor atelectasis. There is no pneumothorax. The bony thorax is intact. IMPRESSION: New bibasilar pulmonary opacities, favor atelectasis. Reviewed, Interpreted and Dictated by Santiago Floyd III, MD Transcribed by Trever Mejia Authenticated by Santiago Floyd III, MD on 02/17/2022 10:37:48 AM [facility]
[2022-02-17 08:45] LABS: Alanine Aminotransferase 49 U/L (12-78); Albumin Level 3.3 g/dl (3.5-5.0); Alkaline Phosphatase 438 U/L (38-126); Anion Gap 11.4 mEq/L (5-15); Aspartate Amino Transferase 84 U/L (17-59); Basophils # 0.1 K/mm3 (0-0.2); Basophils % 1.3 % (0.1-2.0); Bilirubin,Total 2.2 mg/dl (0.2-1.3); Blood Urea Nitrogen 9 mg/dl (9-20); Calcium 8.1 mg/dl (8.4-10.2); Carbon Dioxide 27 mmol/L (22.0-30.0); Chloride 105 mmol/L (98-107); Creatinine Clearance Estimated 159 mL/min (50-200); Eosinophils # 0.4 K/mm3 (0.0-0.4); Eosinophils % 3.8 % (0.1-12.0); Estimated Glomerular Filt Rate 138 ml/min (>60); GFR (African American) 167 ML/MIN (>60); Globulin 3.2 g/dL (1.3-3.2); Glucose 115 mg/dl (74-100); Hematocrit 43.7 % (42.0-52.0); Lipase 313 U/L (23-300); Lymphocytes # 1.5 K/mm3 (0.7-4.5); Lymphocytes % 14.5 % (10-50); Mean Corpuscular HGB Conc 34.3 g/dL (31.8-35.4); Mean Corpuscular Volume 99.1 fl (80-94); Mean Platelet Volume 7.9 fl (7.4-10.4); Monocytes % 9.9 % (1.7-9.3); Neutrophils # 7.4 K/mm3 (1.8-7.8); Neutrophils % 70.4 % (37.0-80.0); Platelet Count 65 K/mm3 (142-424); Potassium 3.4 mmoL/L (3.5-5.1); Red Blood Count 4.41 M/mm3 (4.60-6.20); Red Cell Distribution Width 16.1 % (11.5-17.5); Sodium 140 mmol/L (136-145); Total Protein,Serum 6.5 g/dl (6.3-8.2); White Blood Count 10.5 K/mm3 (4.8-10.8)
[2022-02-17 08:46] LABS: Lactic Acid 1.6 mmol/L (0.7-2.1)
--- NOTE | 2022-02-17 08:52 | PC.NURSE ---
pt finished drinking oral contrast
[2022-02-17 08:54] LABS: NT Pro Brain Natriuretic Pep. 36.3 pg/mL (0-125)
[2022-02-17 09:23] LABS: Coronavirus 19, PCR Not Detected (NotDetected); Influenza A, PCR Not Detected (NotDetected); Influenza B, PCR Not Detected (NotDetected)
--- NOTE | 2022-02-17 09:34 | PC.NURSE ---
pt to Radiology by wheelchair with electrical power station technician
--- NOTE | 2022-02-17 09:40 | PC.NURSE ---
pt back from Radiology by wheelchair with spray technician
--- NOTE | 2022-02-17 10:33 | PC.NURSE ---
pt back from CT with thermoplastic technician by wheelchair
--- NOTE | 2022-02-17 10:59 | PC.NURSE ---
pt ambulatory to restroom without complications
[2022-02-17 11:03] LABS: Microscopic, Urine URINE MICROSCOPIC (MICROSCOPIC)
[2022-02-17 11:14] LABS: Appearance,Urine CLOUDY (Clear); Blood, Urine 3+ (Negative); Color,Urine BROWN (Yellow); Glucose,Urine (UA) Negative (Negative); Ketones,Urine Negative (Negative); Leukocyte Esterase,Urine Negative (Negative); Nitrate,Urine POSITIVE (Negative); Protein,Urine 1+ (Negative); Specific Gravity, Urine >= 1.030 (1.005-1.030)
[2022-02-17 11:23] LABS: Bilirubin,Urine 2+ (Negative)
[2022-02-17 11:33] LABS: RBC,Urine TNTC #/hpf (0-3)
[2022-02-17 11:34] LABS: Bacteria,Urine 3+ /lpf
--- NOTE | 2022-02-17 11:45 | PC.NURSE ---
ED MD at speaking with patient
--- NOTE | 2022-02-17 11:51 | PC.NURSE ---
speaking to dr villaseñor
--- NOTE | 2022-02-17 12:50 | PC.NURSE ---
Lesia paging General Surgery at this time
--- NOTE | 2022-02-17 13:24 | PC.NURSE ---
Dr. Bloom speaking with Dr. White
--- NOTE | 2022-02-17 13:30 | PC.NURSE ---
Dr. Bloom speaking with Dr. Miramontes at this time
[2022-02-17 13:51] LABS: Activated Partial Thrombo Time 29.9 seconds (22.8-30.6); INR 1.25 (0.9-1.1); Prothrombin Time 13.9 seconds (10.1-12.5)
--- NOTE | 2022-02-17 14:17 | PC.NURSE ---
Spoke with dr villaseñor and he stated he would fax orders to radiology for the paracentesis
--- NOTE | 2022-02-17 14:20 | PC.NURSE ---
Notified scheduling of paracentesis
== END 2022-02-17 15:20 | disposition home or self-care (01) ==
PROVIDERS: Emergency Provider Emergency Medicine; PCP Family Medicine
DX: D69.6 Thrombocytopenia, unspecified (principal); K70.31 Alcoholic cirrhosis of liver with ascites; N39.0 Urinary tract infection, site not specified; Z85.9 Personal history of malignant neoplasm, unspecified; K21.9 Gastro-esophageal reflux disease without esophagitis
CPT/HCPCS: 71046; 74176; 80053; 81001; 83605; 83690; 83880; 85025; 85610; 85730; 87040; 87086; 96374; 99284; C9803; J0696; U0003; U0005

== ENCOUNTER → 2022-02-20 07:45 | Outpatient (CLI) | payer BC, SELFPAY ==
--- NOTE | 2022-02-20 07:53 | US_ITS ---
FINAL REPORT CLINICAL HISTORY: CIRRHOSIS OF LIVER-- 5 liters reynold laird FINDINGS: ULTRASOUND-GUIDED PARACENTESIS HISTORY: Ascites ATTENDING PHYSICIAN: Dr. Floyd PHYSICIAN CORRECTIONAL NURSE: Reynold Robledo PA-C FINDINGS: After informed consent was obtained and timeout procedure performed, fluid was localized in the right lower quadrant under ultrasound guidance and marked on the skin appropriately. The patient was then prepped and draped in the usual sterile fashion and the skin was anesthetized with 1% lidocaine. An ultrasound guided paracentesis was then performed using a Turkel needle. Approximately 5 liters of clear yellow fluid was removed. A sample of the fluidwas sent to lab. The patient tolerated the procedure well and there were no immediate complications. IMPRESSION: Ultrasound guided right lower quadrant paracentesis as discussed above. Films reviewed , interpreted and dictated by Dr. Floyd. Transcribed by Reynold Robledo PA-C. Reviewed, Interpreted and Dictated by Santiago Floyd III, MD Transcribed by ZACKARY Ocampo Authenticated and [facility]
[2022-02-20 09:58] LABS: Source, Body Fld. Peritoneal Fluid
[2022-02-20 09:59] LABS: Appearance,Body Fld. Slightly hazy
[2022-02-20 10:01] LABS: TNC,Body Fluid 210 cells/uL (< 1000); Volume,Body Fld. 89 mL
[2022-02-20 10:02] LABS: RBC,Body Fluid < 10 cells/uL (< 10 X 10^3)
[2022-02-20 10:55] LABS: Mononuclear WBCs,Body Fluid 69 %; Polynuclear WBC,Body Fluid 31 %
[2022-02-21 14:32] LABS: Albumin, Body Fluid <0.2 g/dL (Not Estab.); Amylase, Body Fluid 12 U/L (.); LD, Body Fluid 52 IU/L (.); Protein, Body Fluid 0.7 g/dL (.)
== END ==
PROVIDERS: PCP Family Medicine; Visit Provider Family Medicine
DX: R18.8 Other ascites (principal); K74.60 Unspecified cirrhosis of liver
CPT/HCPCS: 49083; 82042; 82150; 83615; 84155; 87070; 87205; 89051

== ENCOUNTER → 2022-03-19 08:44 | Outpatient (CLI) | payer BC, SELFPAY ==
[2022-03-19 09:42] LABS: Basophils % 0.6 % (0.1-2.0); Eosinophils # 0.6 K/mm3 (0.0-0.4); Eosinophils % 7.2 % (0.1-12.0); Hematocrit 44.7 % (42.0-52.0); Hemoglobin 15.7 g/dL (14.1-18.0); Lymphocytes # 1.3 K/mm3 (0.7-4.5); Lymphocytes % 16.5 % (10-50); Mean Corpuscular HGB Conc 35.1 g/dL (31.8-35.4); Mean Corpuscular Hemoglobin 33.2 pg (27.0-31.2); Mean Corpuscular Volume 94.6 fl (80-94); Mean Platelet Volume 7.5 fl (7.4-10.4); Monocytes # 0.7 K/mm3 (0.1-1.0); Monocytes % 8.6 % (1.7-9.3); Neutrophils # 5.2 K/mm3 (1.8-7.8); Neutrophils % 67.2 % (37.0-80.0); Platelet Count 73 K/mm3 (142-424); Red Blood Count 4.73 M/mm3 (4.60-6.20); Red Cell Distribution Width 14.6 % (11.5-17.5); White Blood Count 7.7 K/mm3 (4.8-10.8)
[2022-03-19 09:53] LABS: INR 1.26 (0.9-1.1)
[2022-03-19 10:17] LABS: Chloride 111 mmol/L (98-107); Potassium 4.1 mmoL/L (3.5-5.1); Sodium 138 mmol/L (136-145)
[2022-03-19 10:19] LABS: Blood Urea Nitrogen 11 mg/dl (9-20); Estimated Glomerular Filt Rate 116 ml/min (>60); GFR (African American) 140 ML/MIN (>60)
[2022-03-19 10:20] LABS: Alanine Aminotransferase 40 U/L (12-78); Albumin Level 3.8 g/dl (3.5-5.0); Albumin/Globulin Ratio 1.1 (1.1-1.8); Alkaline Phosphatase 242 U/L (38-126); Anion Gap 10.1 mEq/L (5-15); Aspartate Amino Transferase 73 U/L (17-59); Bilirubin,Total 2.8 mg/dl (0.2-1.3); Calcium 9.1 mg/dl (8.4-10.2); Carbon Dioxide 21 mmol/L (22.0-30.0); Globulin 3.5 g/dL (1.3-3.2); Glucose 92 mg/dl (74-100); Total Protein,Serum 7.3 g/dl (6.3-8.2)
[2022-03-20 08:15] LABS: AFP, Tumor Marker 3.8 ng/mL (0.0-8.4)
[2022-03-20 10:18] LABS: Hep A Ab, Total Negative (Negative); Hep Be Ag Negative (Negative); Hepatitis B Core Antibody IgM Negative (Negative); Hepatitis B Surf Ab Quant <3.1 mIU/mL (Immunity>9.9)
== END ==
PROVIDERS: PCP Family Medicine; Visit Provider Physician Assistant
DX: K70.31 Alcoholic cirrhosis of liver with ascites (principal)
CPT/HCPCS: 80053; 82105; 85025; 85610; 86704; 86706; 86708; 87350; 87522

== ENCOUNTER → 2022-04-23 09:38 | Outpatient (CLI) | payer BC, SELFPAY ==
--- NOTE | 2022-04-23 10:17 | US_ITS ---
FINAL REPORT CLINICAL HISTORY: ALCOHOLIC CIRRHOSIS OF LIVER WITH ASCITES FINDINGS: Sonographic images of the right upper quadrant were obtained. There is coarsened hepatic echotexture with irregular contour consistent with cirrhosis. No hepatic mass is identified. There is a moderate amount of ascites. No gallstones are seen but there is nonspecific gallbladder wall thickening measuring up to 5 mm, may be reactive. The common duct is normal measuring 4 mm. Limited images of the right kidney are unremarkable. The portal vein is patent with normal directional flow. The portal vein is dilated measuring 14 mm. The hepatic veins are patent. IMPRESSION: Findings consistent with cirrhosis. Dilated portal vein with normal directional flow. Gallbladder wall thickening. Moderate ascites. Reviewed, Interpreted and Dictated by Santiago Floyd III, MD Transcribed by Khadra Franz Authenticated and [facility]
[2022-04-23 10:23] LABS: Basophils # 0.1 K/mm3 (0-0.2); Basophils % 0.9 % (0.1-2.0); Eosinophils # 0.2 K/mm3 (0.0-0.4); Hematocrit 43.2 % (42.0-52.0); Hemoglobin 14.3 g/dL (14.1-18.0); Mean Corpuscular Hemoglobin 33.4 pg (27.0-31.2); Mean Platelet Volume 8.1 fl (7.4-10.4); Monocytes # 0.7 K/mm3 (0.1-1.0); Monocytes % 9.8 % (1.7-9.3); Neutrophils # 5.6 K/mm3 (1.8-7.8); Neutrophils % 74.3 % (37.0-80.0); Platelet Count 148 K/mm3 (142-424); Red Blood Count 4.28 M/mm3 (4.60-6.20); Red Cell Distribution Width 14.5 % (11.5-17.5); White Blood Count 7.5 K/mm3 (4.8-10.8)
== END ==
PROVIDERS: Internal Medicine Medical Oncology; PCP Family Medicine; Visit Provider Physician Assistant
DX: D69.6 Thrombocytopenia, unspecified (principal); K70.31 Alcoholic cirrhosis of liver with ascites
CPT/HCPCS: 36415; 76705; 85025

== ENCOUNTER → 2022-05-08 08:59 | Outpatient (CLI) | payer BC, SELFPAY ==
--- NOTE | 2022-05-08 09:05 | US_ITS ---
FINAL REPORT CLINICAL HISTORY: ASCITIES 4 LITERS DRAINED SENT FOR LABS FINDINGS: ULTRASOUND-GUIDED PARACENTESIS HISTORY: Cirrhosis, ascites. ATTENDING PHYSICIAN: Dr. Floyd PHYSICIAN SENIOR CLIENT ADVISOR: Aimee Catherine PA-C FINDINGS: After informed consent was obtained and timeout procedure performed, fluid was localized in the right lower quadrant under ultrasound guidance and marked on the skin appropriately. The patient was then prepped and draped in the usual sterile fashion and the skin was anesthetized with 1% lidocaine. An ultrasound guided paracentesis was then performed using a Turkel needle. Approximately 4 L of clear yellow fluid was removed. A portion of the fluid was sent to the lab for analysis. The patient tolerated the procedure well and there were no immediate complications. IMPRESSION: Ultrasound guided RLQ paracentesis as discussed above. Reviewed, Interpreted and Dictated by Santiago Floyd III, MD Transcribed by Aimee Catherine PA-C Authenticated and [facility]
[2022-05-08 18:35] LABS: Appearance,Body Fld. Slightly cloudy; Source, Body Fld. Paracentesis Fluid; Volume,Body Fld. 44 mL
[2022-05-08 18:47] LABS: RBC,Body Fluid < 10 cells/uL (< 10 X 10^3); TNC,Body Fluid 56 cells/uL (< 1000)
[2022-05-08 20:20] LABS: Mononuclear WBCs,Body Fluid 94 %; Polynuclear WBC,Body Fluid 6 %
== END ==
PROVIDERS: PCP Family Medicine; Visit Provider Physician Assistant
DX: K70.31 Alcoholic cirrhosis of liver with ascites (principal)
CPT/HCPCS: 49083; 89051

== ENCOUNTER → 2022-06-19 10:29 | Outpatient (CLI) | payer BC, SELFPAY ==
--- NOTE | 2022-06-19 10:41 | US_ITS ---
FINAL REPORT CLINICAL HISTORY: ACITES 3300 ml drained FINDINGS: ULTRASOUND-GUIDED PARACENTESIS HISTORY: Ascites ATTENDING PHYSICIAN: Dr. Julien PHYSICIAN CHIEF WRITER: JESSICA Robledo FINDINGS: After informed consent was obtained and timeout procedure performed, fluid was localized in the right lower quadrant under ultrasound guidance and marked on the skin appropriately. The patient was then prepped and draped in the usual sterile fashion and the skin was anesthetized with 1% lidocaine. An ultrasound guided paracentesis was then performed using a Turkel needle. Approximately 3.3 liters of clear yellow fluid was removed. Sample the fluid was sent to lab. The patient tolerated the procedure well and there were no immediate complications. IMPRESSION: Ultrasound guided right lower quadrant paracentesis as discussed above. Films reviewed , interpreted and dictated by Dr. Julien. Transcribed by Reynold Robledo PA-C. Reviewed, Interpreted and Dictated by Jefferson Julien MD Transcribed by ZACKARY Ocampo Authenticated and [facility]
[2022-06-19 14:23] LABS: Source, Body Fld. Paracentesis Fluid
[2022-06-19 14:24] LABS: Appearance,Body Fld. Cloudy; Volume,Body Fld. 33 mL
[2022-06-19 14:37] LABS: RBC,Body Fluid < 10 cells/uL (< 10 X 10^3); TNC,Body Fluid 118 cells/uL (< 1000)
[2022-06-19 15:27] LABS: Mononuclear WBCs,Body Fluid 11 %; Polynuclear WBC,Body Fluid 60 %
== END ==
PROVIDERS: PCP Family Medicine; Visit Provider Physician Assistant
DX: R18.8 Other ascites (principal)
CPT/HCPCS: 49083; 89051

== ENCOUNTER 2022-07-02 10:00 | Outpatient (RCR) | payer BC, SELFPAY | END 2022-07-02 10:05 | disposition home or self-care (01) | LOC: OT 10:00 | PROVIDERS: PCP Family Medicine; Visit Provider Orthopaedic Surgery Sports Medicine | DX: M75.122 Complete rotator cuff tear or rupture of left shoulder, not specified as traumatic (principal) | CPT/HCPCS: 97010; 97014; 97035; 97110; 97140; 97164; 97165; 97530; G0283 ==

== ENCOUNTER → 2022-07-07 09:27 | Outpatient (CLI) | payer BC, SELFPAY ==
[2022-07-07 10:10] LABS: Basophils # 0.1 K/mm3 (0-0.2); Basophils % 0.8 % (0.1-2.0); Eosinophils # 0.2 K/mm3 (0.0-0.4); Eosinophils % 2.9 % (0.1-12.0); Hematocrit 46.5 % (42.0-52.0); Hemoglobin 15.8 g/dL (14.1-18.0); Lymphocytes % 13.3 % (10-50); Mean Corpuscular HGB Conc 33.9 g/dL (31.8-35.4); Mean Corpuscular Hemoglobin 33.4 pg (27.0-31.2); Mean Corpuscular Volume 98.7 fl (80-94); Mean Platelet Volume 8.2 fl (7.4-10.4); Monocytes # 0.6 K/mm3 (0.1-1.0); Monocytes % 8.1 % (1.7-9.3); Neutrophils # 5.6 K/mm3 (1.8-7.8); Neutrophils % 74.9 % (37.0-80.0); Platelet Count 85 K/mm3 (142-424); Red Blood Count 4.71 M/mm3 (4.60-6.20); Red Cell Distribution Width 15.1 % (11.5-17.5); White Blood Count 7.5 K/mm3 (4.8-10.8)
[2022-07-07 10:16] LABS: INR 1.43 (0.9-1.1); Prothrombin Time 15.1 seconds (10.1-12.5)
[2022-07-07 10:47] LABS: Alanine Aminotransferase 29 U/L (12-78); Albumin Level 3.3 g/dl (3.5-5.0); Albumin/Globulin Ratio 0.8 (1.1-1.8); Alkaline Phosphatase 252 U/L (38-126); Anion Gap 13.9 mEq/L (5-15); Aspartate Amino Transferase 63 U/L (17-59); Blood Urea Nitrogen 8 mg/dl (9-20); Calcium 8.8 mg/dl (8.4-10.2); Carbon Dioxide 26 mmol/L (22.0-30.0); Chloride 107 mmol/L (98-107); Estimated Glomerular Filt Rate 115 ml/min (>60); GFR (African American) 140 ML/MIN (>60); Globulin 4.2 g/dL (1.3-3.2); Glucose 91 mg/dl (74-100); Potassium 3.9 mmoL/L (3.5-5.1); Sodium 143 mmol/L (136-145); Total Protein,Serum 7.5 g/dl (6.3-8.2)
[2022-07-08 08:16] LABS: AFP, Tumor Marker 3.4 ng/mL (0.0-8.4)
== END ==
PROVIDERS: PCP Family Medicine; Visit Provider Physician Assistant
DX: K70.31 Alcoholic cirrhosis of liver with ascites (principal)
CPT/HCPCS: 36415; 80053; 82105; 85025; 85610

== ENCOUNTER → 2022-07-10 07:50 | Outpatient (CLI) | payer BC, SELFPAY ==
--- NOTE | 2022-07-10 07:57 | US_ITS ---
FINAL REPORT CLINICAL HISTORY: ASCITES-- 5000 ml-- aimee laird-- labs sent FINDINGS: ULTRASOUND-GUIDED PARACENTESIS HISTORY: Cirrhosis, ascites. ATTENDING PHYSICIAN: Dr. Floyd PHYSICIAN POST SPLITTER: Aimee Catherine PA-C FINDINGS: After informed consent was obtained and timeout procedure performed, fluid was localized in the right lower quadrant under ultrasound guidance and marked on the skin appropriately. The patient was then prepped and draped in the usual sterile fashion and the skin was anesthetized with 1% lidocaine. An ultrasound guided paracentesis was then performed using a Turkel needle. Approximately 5 L of clear yellow fluid was removed. A portion of the fluid was sent to the lab for analysis. The patient tolerated the procedure well and there were no immediate complications. IMPRESSION: Ultrasound guided RLQ paracentesis as discussed above. Reviewed, Interpreted and Dictated by Santiago Floyd III, MD Transcribed by Aimee Catherine PA-C Authenticated and [facility]
[2022-07-10 13:41] LABS: Appearance,Body Fld. Normal; Mononuclear WBCs,Body Fluid 8 %; Polynuclear WBC,Body Fluid 92 %; RBC,Body Fluid < 10 cells/uL (< 10 X 10^3); Source, Body Fld. Peritoneal Fluid; TNC,Body Fluid 104 cells/uL (< 1000); Volume,Body Fld. 5000 mL
== END ==
PROVIDERS: PCP Family Medicine; Visit Provider Physician Assistant
DX: K70.31 Alcoholic cirrhosis of liver with ascites (principal)
CPT/HCPCS: 49083; 89051

== ENCOUNTER → 2022-07-24 09:11 | Outpatient (CLI) | payer BC, SELFPAY ==
--- NOTE | 2022-07-24 09:14 | US_ITS ---
FINAL REPORT CLINICAL HISTORY: ASCITES FINDINGS: ULTRASOUND-GUIDED PARACENTESIS HISTORY:Ascites ATTENDING PHYSICIAN: Dr. Floyd PHYSICIAN ENGINEER STEAM: All Shin PA-C FINDINGS: After informed consent was obtained and timeout procedure performed, fluid was localized in the right lower quadrant under ultrasound guidance and marked on the skin appropriately. The patient was then prepped and draped in the usual sterile fashion and the skin was anesthetized with 1% lidocaine. An ultrasound guided paracentesis was then performed using a Turkel needle. Approximately 6 liters of fluid was removed. No fluid was sent to lab. The patient tolerated the procedure well and there were no immediate complications. IMPRESSION: Ultrasound guided right lower quadrant paracentesis as discussed above. Films reviewed , interpreted and dictated by Dr. Floyd Transcribed by All Shin PA-C. Reviewed, Interpreted and Dictated by Santiago Floyd III, MD Transcribed by ZACKARY Ryan Authenticated and [facility]
[2022-07-28 15:35] LABS: Source, Body Fld. Paracentesis Fluid
[2022-07-28 15:36] LABS: Appearance,Body Fld. Slightly hazy; RBC,Body Fluid < 10 cells/uL (< 10 X 10^3); TNC,Body Fluid 184 cells/uL (< 1000); Volume,Body Fld. 6000 mL
[2022-07-28 17:47] LABS: Mononuclear WBCs,Body Fluid 100 %; Polynuclear WBC,Body Fluid 0 %
== END ==
PROVIDERS: PCP Family Medicine; Visit Provider Physician Assistant
DX: K70.31 Alcoholic cirrhosis of liver with ascites (principal)
CPT/HCPCS: 49083; 89051

== ENCOUNTER → 2022-07-29 08:03 | Outpatient (CLI) | payer BC, SELFPAY ==
--- NOTE | 2022-07-29 08:07 | US_ITS ---
FINAL REPORT CLINICAL HISTORY: ASCITES 5300ml removed by Reynold RAYMUNDO FINDINGS: ULTRASOUND-GUIDED PARACENTESIS HISTORY: Ascites ATTENDING PHYSICIAN: Dr. Milner PHYSICIAN STICK WELDER: Reynold Robledo PA-C FINDINGS: After informed consent was obtained and timeout procedure performed, fluid was localized in the right lower quadrant under ultrasound guidance and marked on the skin appropriately. The patient was then prepped and draped in the usual sterile fashion and the skin was anesthetized with 1% lidocaine. An ultrasound guided paracentesis was then performed using a Turkel needle. Approximately 5.3 liters of clear yellow fluid was removed. Sample of the fluidwas sent to lab. The patient tolerated the procedure well and there were no immediate complications. IMPRESSION: Ultrasound guided right lower quadrant paracentesis as discussed above. Films reviewed , interpreted and dictated by Dr. Milner. Transcribed by Reynold Robledo PA-C. Reviewed, Interpreted and Dictated by Dontrell Milner MD Transcribed by ZACKARY Ocampo Authenticated and [facility]
[2022-07-29 10:36] LABS: Source, Body Fld. Paracentesis Fluid
[2022-07-29 10:37] LABS: Appearance,Body Fld. Slightly hazy; RBC,Body Fluid < 10 cells/uL (< 10 X 10^3); TNC,Body Fluid 86 cells/uL (< 1000); Volume,Body Fld. 5300 mL
[2022-07-29 13:26] LABS: Mononuclear WBCs,Body Fluid 100 %; Polynuclear WBC,Body Fluid 0 %
== END ==
PROVIDERS: PCP Family Medicine; Visit Provider Physician Assistant
DX: R18.8 Other ascites (principal)
CPT/HCPCS: 49083; 89051

== ENCOUNTER → 2022-08-05 09:52 | Outpatient (CLI) | payer BC, SELFPAY ==
--- NOTE | 2022-08-05 09:57 | US_ITS ---
FINAL REPORT CLINICAL HISTORY: ASCITES-- [address] burk FINDINGS: ULTRASOUND-GUIDED PARACENTESIS HISTORY: Ascites TECHNIQUE: The right abdomen was prepped and routine sterile fashion. Appropriate pocket was localized for drainage. The patient was prepped and draped in routine fashion. Local anesthesia was achieved with 1% lidocaine. Using imaging guidance with images acquired, an 18-gauge sheath needle was directed into the peritoneal fluid. Approximately 5.6 liters of yellow serous fluid was aspirated. A small amount of fluid was sent for laboratory analysis. IMPRESSION: Successful ultrasound guided therapeutic paracentesis Authenticated and [facility]
[2022-08-05 16:09] LABS: Source, Body Fld. Paracentesis Fluid
[2022-08-05 16:10] LABS: Appearance,Body Fld. Hazy; Volume,Body Fld. 5200 mL
[2022-08-05 16:20] LABS: RBC,Body Fluid < 10 cells/uL (< 10 X 10^3); TNC,Body Fluid 60 cells/uL (< 1000)
[2022-08-05 17:35] LABS: Mononuclear WBCs,Body Fluid 100 %; Polynuclear WBC,Body Fluid 0 %
== END ==
PROVIDERS: PCP Family Medicine; Visit Provider Physician Assistant
DX: R18.8 Other ascites (principal)
CPT/HCPCS: 49083; 89051

== ENCOUNTER → 2022-08-12 08:01 | Outpatient (CLI) | payer BC, SELFPAY ==
--- NOTE | 2022-08-12 08:05 | US_ITS ---
FINAL REPORT CLINICAL HISTORY: ASCITES--aimee laird----5760 ml FINDINGS: ULTRASOUND-GUIDED PARACENTESIS HISTORY: Ascites, cirrhosis. ATTENDING PHYSICIAN: Dr. Floyd. PHYSICIAN FLUID POWER MECHANIC: Aimee Catherine PA-C. TECHNIQUE: Informed consent was obtained from the patient. Timeout procedure was performed prior to beginning. Appropriate pocket was localized for drainage. The right abdomen was prepped in routine sterile fashion. Local anesthesia was achieved with 1% lidocaine. Using imaging guidance with images acquired, an 18-gauge sheath needle was directed into the peritoneal fluid. Approximately 5.7 liters of clear yellow fluid was aspirated. Patient tolerated the procedure well with no immediate complications 60mL of fluid was sent to the laboratory for analysis. IMPRESSION: Successful ultrasound guided diagnostic and therapeutic paracentesis with 5.7 liters of fluid removed. The films were reviewed, interpreted, and dictated by Dr. Floyd Transcribed by Aimee Catherine PA-C Reviewed, Interpreted and Dictated by Santiago Floyd III, MD Transcribed by Aimee Catherine PA-C Authenticated and [facility]
[2022-08-12 14:06] LABS: Source, Body Fld. Paracentesis Fluid
[2022-08-12 14:07] LABS: Volume,Body Fld. 5760 mL
[2022-08-12 15:02] LABS: Appearance,Body Fld. Slightly hazy; RBC,Body Fluid < 10 cells/uL (< 10 X 10^3); TNC,Body Fluid 73 cells/uL (< 1000)
[2022-08-12 16:14] LABS: Mononuclear WBCs,Body Fluid 100 %; Polynuclear WBC,Body Fluid 0 %
== END ==
PROVIDERS: PCP Family Medicine; Visit Provider Physician Assistant
DX: R18.8 Other ascites (principal)
CPT/HCPCS: 49083; 89051

== ENCOUNTER → 2022-08-19 09:08 | Outpatient (CLI) | payer BC, SELFPAY ==
--- NOTE | 2022-08-19 09:11 | US_ITS ---
FINAL REPORT CLINICAL HISTORY: ASCITES, 5000ml removed, Reynold RAYMUNDO FINDINGS: ULTRASOUND-GUIDED PARACENTESIS HISTORY: Ascites ATTENDING PHYSICIAN: Dr. Milner. PHYSICIAN ROUTER SETTER: Reynold Robledo PA-C FINDINGS: After informed consent was obtained and timeout procedure performed, fluid was localized in the right lower quadrant under ultrasound guidance and marked on the skin appropriately. The patient was then prepped and draped in the usual sterile fashion and the skin was anesthetized with 1% lidocaine. An ultrasound guided paracentesis was then performed using a Turkel needle. Approximately 5 liters of clear yellow fluid was removremoved. Sample was sent to lab. The patient tolerated the procedure well and there were no immediate complications. IMPRESSION: Ultrasound guided right lower quadrant paracentesis as discussed above. Films reviewed , interpreted and dictated by Dr. Milner. Transcribed by Reynold Robledo PA-C. Reviewed, Interpreted and Dictated by Dontrell Milner MD Transcribed by ZACKARY Ocampo Authenticated and [facility]
[2022-08-19 17:42] LABS: Appearance,Body Fld. Slightly hazy; Source, Body Fld. Paracentesis Fluid; Volume,Body Fld. 5000 mL
[2022-08-19 17:47] LABS: RBC,Body Fluid < 10 cells/uL (< 10 X 10^3); TNC,Body Fluid 91 cells/uL (< 1000)
[2022-08-19 18:36] LABS: Mononuclear WBCs,Body Fluid 100 %; Polynuclear WBC,Body Fluid 0 %
== END ==
PROVIDERS: PCP Family Medicine; Visit Provider Physician Assistant
DX: R18.8 Other ascites (principal)
CPT/HCPCS: 49083; 89051

== ENCOUNTER → 2022-08-27 09:20 | Outpatient (CLI) | payer BC, SELFPAY ==
[2022-08-27 10:09] LABS: Basophils # 0.1 K/mm3 (0-0.2); Basophils % 0.7 % (0.1-2.0); Eosinophils # 0.2 K/mm3 (0.0-0.4); Eosinophils % 1.7 % (0.1-12.0); Hematocrit 44.5 % (42.0-52.0); Hemoglobin 14.8 g/dL (14.1-18.0); Lymphocytes % 10.9 % (10-50); Mean Corpuscular HGB Conc 33.3 g/dL (31.8-35.4); Mean Platelet Volume 7.7 fl (7.4-10.4); Monocytes # 0.7 K/mm3 (0.1-1.0); Monocytes % 7.6 % (1.7-9.3); Neutrophils # 7.6 K/mm3 (1.8-7.8); Neutrophils % 79.2 % (37.0-80.0); Platelet Count 90 K/mm3 (142-424); Red Blood Count 4.63 M/mm3 (4.60-6.20); Red Cell Distribution Width 14.2 % (11.5-17.5); White Blood Count 9.6 K/mm3 (4.8-10.8)
[2022-08-27 10:24] LABS: INR 1.31 (0.9-1.1); Prothrombin Time 13.9 seconds (10.1-12.5)
[2022-08-27 10:35] LABS: Chloride 104 mmol/L (98-107); Sodium 137 mmol/L (136-145)
[2022-08-27 10:37] LABS: Alanine Aminotransferase 28 U/L (12-78); Aspartate Amino Transferase 61 U/L (17-59); Blood Urea Nitrogen 17 mg/dl (9-20); Estimated Glomerular Filt Rate 76 ml/min (>60); GFR (African American) 93 ML/MIN (>60)
[2022-08-27 10:38] LABS: Albumin/Globulin Ratio 0.8 (1.1-1.8); Alkaline Phosphatase 286 U/L (38-126); Calcium 8.5 mg/dl (8.4-10.2); Carbon Dioxide 26 mmol/L (22.0-30.0); Globulin 3.8 g/dL (1.3-3.2); Glucose 101 mg/dl (74-100); Total Protein,Serum 6.8 g/dl (6.3-8.2)
== END ==
PROVIDERS: PCP Family Medicine; Visit Provider Physician Assistant
DX: K70.31 Alcoholic cirrhosis of liver with ascites (principal)
CPT/HCPCS: 36415; 80053; 85025; 85610

== ENCOUNTER → 2022-08-28 08:45 | Outpatient (CLI) | payer BC, SELFPAY ==
--- NOTE | 2022-08-28 08:55 | US_ITS ---
FINAL REPORT CLINICAL HISTORY: ASCITES, S CATRACHITO RAYMUNDO, 4060 ML FINDINGS: ULTRASOUND-GUIDED PARACENTESIS HISTORY: Cirrhosis, ascites. ATTENDING PHYSICIAN: Dr. Floyd PHYSICIAN CHAIR POST MACHINE OPERATOR: Aimee Catherine PA-C FINDINGS: After informed consent was obtained and timeout procedure performed, fluid was localized in the right lower quadrant under ultrasound guidance and marked on the skin appropriately. The patient was then prepped and draped in the usual sterile fashion and the skin was anesthetized with 1% lidocaine. An ultrasound guided paracentesis was then performed using a Turkel needle. Approximately 4 L of clear yellow fluid was removed. Approximately 60 mL was removed and sent to the lab for analysis. The patient tolerated the procedure well and there were no immediate complications. IMPRESSION: Ultrasound guided RLQ paracentesis as discussed above. Reviewed, Interpreted and Dictated by Santiago Floyd III, MD Transcribed by Aimee Catherine PA-C Authenticated and [facility]
[2022-08-28 13:36] LABS: Appearance,Body Fld. Slightly hazy; Source, Body Fld. Peritoneal Fluid
[2022-08-28 13:37] LABS: RBC,Body Fluid < 10 cells/uL (< 10 X 10^3); TNC,Body Fluid 108 cells/uL (< 1000); Volume,Body Fld. 4060 mL
[2022-08-28 14:09] LABS: Mononuclear WBCs,Body Fluid 100 %; Polynuclear WBC,Body Fluid 0 %
== END ==
PROVIDERS: PCP Family Medicine; Visit Provider Physician Assistant
DX: R18.8 Other ascites (principal)
CPT/HCPCS: 49083; 89051

== ENCOUNTER → 2022-09-02 09:10 | Outpatient (CLI) | payer BC, SELFPAY ==
--- NOTE | 2022-09-02 09:13 | US_ITS ---
FINAL REPORT CLINICAL HISTORY: ASCITES, REYNOLD RAYMUNDO, 3060 ML FINDINGS: ULTRASOUND-GUIDED PARACENTESIS HISTORY: Ascites ATTENDING PHYSICIAN: Dr. Floyd PHYSICIAN STATE TROOPER: Reynold Robledo PA-C FINDINGS: After informed consent was obtained and timeout procedure performed, fluid was localized in the right lower quadrant under ultrasound guidance and marked on the skin appropriately. The patient was then prepped and draped in the usual sterile fashion and the skin was anesthetized with 1% lidocaine. An ultrasound guided paracentesis was then performed using a Turkel needle. Approximately 3 liters of clear yellow fluid was removremoved. Sample of the fluid was sent to lab. The patient tolerated the procedure well and there were no immediate complications. IMPRESSION: Ultrasound guided right lower quadrant paracentesis as discussed above. Films reviewed , interpreted and dictated by Dr. Floyd. Transcribed by Reynold Robledo PA-C. Reviewed, Interpreted and Dictated by Santiago Floyd III, MD Transcribed by ZACKARY Ocampo Authenticated and [facility]
[2022-09-02 11:57] LABS: Appearance,Body Fld. Slightly hazy; RBC,Body Fluid < 10 cells/uL (< 10 X 10^3); Source, Body Fld. Paracentesis Fluid; TNC,Body Fluid 107 cells/uL (< 1000); Volume,Body Fld. 3060 mL
[2022-09-02 12:58] LABS: Mononuclear WBCs,Body Fluid 100 %; Polynuclear WBC,Body Fluid 0 %
== END ==
PROVIDERS: PCP Family Medicine; Visit Provider Physician Assistant
DX: R18.8 Other ascites (principal)
CPT/HCPCS: 49083; 89051

== ENCOUNTER → 2022-09-09 11:14 | Outpatient (CLI) | payer BC, SELFPAY ==
--- NOTE | 2022-09-09 11:17 | US_ITS ---
FINAL REPORT CLINICAL HISTORY: ASCITES 4000ml removed by All RAYMUNDO FINDINGS: ULTRASOUND-GUIDED PARACENTESIS HISTORY: Ascites ATTENDING PHYSICIAN: Dr. Floyd PHYSICIAN DREDGE LEVER OPERATOR: All Shin PA-C FINDINGS: After informed consent was obtained and timeout procedure performed, fluid was localized in the abdomen under ultrasound guidance and marked on the skin appropriately. The patient was then prepped and draped in the usual sterile fashion and the skin was anesthetized with 1% lidocaine. An ultrasound guided paracentesis was then performed using a Turkel needle. Approximately 4 liters of clear yellow fluid was removed. A portion of the fluid was sent to lab. The patient tolerated the procedure well and there were no immediate complications. IMPRESSION: Ultrasound guided paracentesis as discussed above. liters of clear yellow fluid was removed. Films reviewed , interpreted and dictated by Dr. Floyd Transcribed by All Shin PA-C. Reviewed, Interpreted and Dictated by Santiago lFoyd III, MD Transcribed by ZACKARY Ryan Authenticated and [facility]
[2022-09-09 15:04] LABS: Source, Body Fld. Paracentesis Fluid
[2022-09-09 15:08] LABS: Appearance,Body Fld. Normal; RBC,Body Fluid < 10 cells/uL (< 10 X 10^3); TNC,Body Fluid 91 cells/uL (< 1000); Volume,Body Fld. 4000 mL
[2022-09-09 17:03] LABS: Mononuclear WBCs,Body Fluid 100 %; Polynuclear WBC,Body Fluid 0 %
== END ==
PROVIDERS: PCP Family Medicine; Visit Provider Physician Assistant
DX: R18.8 Other ascites (principal)
CPT/HCPCS: 49083; 89051

== ENCOUNTER → 2022-09-16 07:55 | Outpatient (CLI) | payer BC, SELFPAY ==
--- NOTE | 2022-09-16 07:59 | US_ITS ---
FINAL REPORT CLINICAL HISTORY: ASCITIES-- 3360 ml FINDINGS: ULTRASOUND-GUIDED PARACENTESIS HISTORY:Ascites ATTENDING PHYSICIAN: Dr. Floyd PHYSICIAN UPTWIST SPINNER: All Shin PA-C FINDINGS: After informed consent was obtained and timeout procedure performed, fluid was localized in the right lower quadrant under ultrasound guidance and marked on the skin appropriately. The patient was then prepped and draped in the usual sterile fashion and the skin was anesthetized with 1% lidocaine. An ultrasound guided paracentesis was then performed using a Turkel needle. Approximately 3.4 liters of fluid was removed. A portion of the fluid was sent to lab. The patient tolerated the procedure well and there were no immediate complications. IMPRESSION: Ultrasound guided right lower quadrant paracentesis as discussed above. Films reviewed , interpreted and dictated by Dr. Floyd Transcribed by All Shin PA-C. Reviewed, Interpreted and Dictated by Santiago Floyd III, MD Transcribed by ZACKARY Ryan Authenticated and [facility]
[2022-09-16 14:46] LABS: Appearance,Body Fld. Normal; Source, Body Fld. Paracentesis Fluid; Volume,Body Fld. 60 mL
[2022-09-16 14:51] LABS: RBC,Body Fluid < 10 cells/uL (< 10 X 10^3); TNC,Body Fluid 70 cells/uL (< 1000)
[2022-09-16 18:50] LABS: Polynuclear WBC,Body Fluid 0 %
[2022-09-16 18:51] LABS: Mononuclear WBCs,Body Fluid 100 %
== END ==
PROVIDERS: PCP Family Medicine; Visit Provider Physician Assistant
DX: R18.8 Other ascites (principal)
CPT/HCPCS: 49083; 89051

== ENCOUNTER → 2022-09-23 09:02 | Outpatient (CLI) | payer BC, SELFPAY ==
--- NOTE | 2022-09-23 09:07 | US_ITS ---
FINAL REPORT CLINICAL HISTORY: ASCITES FINDINGS: ULTRASOUND-GUIDED PARACENTESIS HISTORY: Ascites ATTENDING PHYSICIAN: Dr. Julien PHYSICIAN CAMERA ENGINEER: Reynold Robledo PA-C FINDINGS: After informed consent was obtained and timeout procedure performed, fluid was localized in the right lower quadrant under ultrasound guidance and marked on the skin appropriately. The patient was then prepped and draped in the usual sterile fashion and the skin was anesthetized with 1% lidocaine. An ultrasound guided paracentesis was then performed using a Turkel needle. Approximately 3.6 liters of clear yellow fluid was rremoved. Sample of the fluid was sent to lab. The patient tolerated the procedure well and there were no immediate complications. IMPRESSION: Ultrasound guided right lower quadrant paracentesis as discussed above. Films reviewed , interpreted and dictated by Dr. Julien. Transcribed by Reynold Robledo PA-C. Reviewed, Interpreted and Dictated by Jefferson Julien MD Transcribed by ZACKARY Ocampo Authenticated and [facility]
[2022-09-23 11:46] LABS: Source, Body Fld. Paracentesis Fluid
[2022-09-23 11:47] LABS: Volume,Body Fld. 3620 mL
[2022-09-23 11:50] LABS: Appearance,Body Fld. Slightly hazy
[2022-09-23 11:56] LABS: RBC,Body Fluid < 10 cells/uL (< 10 X 10^3); TNC,Body Fluid 89 cells/uL (< 1000)
[2022-09-23 13:02] LABS: Mononuclear WBCs,Body Fluid 100 %; Polynuclear WBC,Body Fluid 0 %
== END ==
LOC: RAD 09:03
PROVIDERS: PCP Family Medicine; Visit Provider Physician Assistant
DX: R18.8 Other ascites (principal)
CPT/HCPCS: 49083; 89051

== ENCOUNTER → 2022-09-30 09:14 | Outpatient (CLI) | payer BC, SELFPAY ==
--- NOTE | 2022-09-30 09:19 | US_ITS ---
FINAL REPORT CLINICAL HISTORY: ASCITES--aimee laird-- [id number] FINDINGS: ULTRASOUND-GUIDED PARACENTESIS HISTORY: Ascites. ATTENDING PHYSICIAN: Dr. Floyd. YISICIAN GEOLOGICAL DRAFTER: Aimee Catherine PA-C. TECHNIQUE: Informed consent was obtained from the patient. A timeout procedure was performed prior to beginning. Appropriate pocket was localized for drainage. The patient was prepped and draped in routine fashion over the right abdomen. Local anesthesia was achieved with 1% Lidocaine. Using imaging guidance with images acquired, an 18-gauge sheath needle was directed into the peritoneal fluid. Approximately 4,760 mL of clear yellow fluid was aspirated. Approximately 60 mL was sent to the laboratory for analysis. Patient tolerated the procedure well and left the department in good condition. IMPRESSION: Successful ultrasound guided therapeutic and diagnostic paracentesis with 4.7 liters of fluid removed. Reviewed, Interpreted and Dictated by Santiago Floyd III, MD Transcribed by Aimee Catherine PA-C Authenticated and [facility]
[2022-09-30 15:47] LABS: Appearance,Body Fld. Normal; Source, Body Fld. Paracentesis Fluid; Volume,Body Fld. 4760 mL
[2022-09-30 15:51] LABS: RBC,Body Fluid < 10 cells/uL (< 10 X 10^3); TNC,Body Fluid 34 cells/uL (< 1000)
[2022-09-30 17:41] LABS: Mononuclear WBCs,Body Fluid 100 %; Polynuclear WBC,Body Fluid 0 %
== END ==
PROVIDERS: PCP Family Medicine; Visit Provider Physician Assistant
DX: R18.8 Other ascites (principal)
CPT/HCPCS: 49083; 89051

== ENCOUNTER → 2022-10-02 14:44 | Outpatient (CLI) | payer BC, SELFPAY ==
--- NOTE | 2022-10-02 14:45 | CT_ITS ---
FINAL REPORT TECHNIQUE: Thin section axial CT images of the facial bones and sinuses were obtained without contrast. Coronal reformatted images were also obtained.This study was performed with techniques to keep radiation doses as low as reasonably achievable, (ALARA). Individualized dose reduction techniques using automated exposure control or adjustment of mA and/or kV according to the patient''''s size were employed. CLINICAL HISTORY: sinusitis FINDINGS: Fluid nearly fills the left maxillary sinus. There is bilateral maxillary sinus mucosal thickening. There is mucosal thickening of several ethmoid air cells. Soft tissue obstructs the left maxillary sinus ostia. There is right rangel bullosa. There is rightward nasal septal deviation with a right-sided nasal septal spur. IMPRESSION: Sinusitis with acute sinusitis of the left maxillary sinus. Reviewed, Interpreted and Dictated by Santiago Floyd III, MD Transcribed by Khadra Franz Authenticated and [facility]
== END ==
PROVIDERS: PCP Family Medicine; Visit Provider Student in an Organized Health Care Education/Training Program
DX: J32.8 Other chronic sinusitis (principal); J34.2 Deviated nasal septum
CPT/HCPCS: 70486

== ENCOUNTER → 2022-10-07 09:05 | Outpatient (CLI) | payer BC, SELFPAY ==
--- NOTE | 2022-10-07 09:07 | US_ITS ---
FINAL REPORT CLINICAL HISTORY: ASCITES 4400ml removed by Reynold RAYMUNDO FINDINGS: ULTRASOUND-GUIDED PARACENTESIS HISTORY: Ascites ATTENDING PHYSICIAN: Dr. Demarco PHYSICIAN SOFTWARE VALIDATION ENGINEER: Reynold Robledo PA-C FINDINGS: After informed consent was obtained and timeout procedure performed, fluid was localized in the right lower quadrant under ultrasound guidance and marked on the skin appropriately. The patient was then prepped and draped in the usual sterile fashion and the skin was anesthetized with 1% lidocaine. An ultrasound guided paracentesis was then performed using a Turkel needle. Approximately 4.4 liters of clear yellow fluid was removed. Sample of the fluid was sent to lab. The patient tolerated the procedure well and there were no immediate complications. IMPRESSION: Ultrasound guided right lower quadrant paracentesis as discussed above. Films reviewed , interpreted and dictated by Dr. Ana Demarco. Transcribed by Reynold Robledo PA-C. Reviewed, Interpreted and Dictated by Ana Demarco MD Transcribed by ZACKARY Ocampo Authenticated and [facility]
[2022-10-07 15:56] LABS: Appearance,Body Fld. Normal; RBC,Body Fluid < 10 cells/uL (< 10 X 10^3); TNC,Body Fluid 53 cells/uL (< 1000); Volume,Body Fld. 4400 mL
[2022-10-07 16:00] LABS: Source, Body Fld. Paracentesis Fluid
[2022-10-07 18:58] LABS: Mononuclear WBCs,Body Fluid 100 %; Polynuclear WBC,Body Fluid 0 %
== END ==
PROVIDERS: PCP Family Medicine; Visit Provider Physician Assistant
DX: R18.8 Other ascites (principal)
CPT/HCPCS: 49083; 89051

== ENCOUNTER → 2022-10-12 09:44 | Outpatient (CLI) | payer BC, SELFPAY ==
--- NOTE | 2022-10-12 10:41 | ECG_ITS ---
APPROVED REPORT Exam: Resting ECG HR:83 bpm ECG Measurements Heart Rate 83 AXES UT 120 P 60 QRSd 97 QRS 30 QT 435 T -4 QTc 475 Conclusion SINUS RHYTHM NORMAL ECG UNCONFIRMED REPORT Electronically signed by : Garfield Steel MD 10/12/2022 20:12:22
[2022-10-12 11:24] LABS: Basophils # 0.1 K/mm3 (0-0.2); Basophils % 0.7 % (0.1-2.0); Eosinophils # 0.3 K/mm3 (0.0-0.4); Eosinophils % 2.9 % (0.1-12.0); Hematocrit 41.1 % (42.0-52.0); Lymphocytes % 10.9 % (10-50); Mean Corpuscular HGB Conc 34.1 g/dL (31.8-35.4); Mean Corpuscular Hemoglobin 33.1 pg (27.0-31.2); Mean Corpuscular Volume 97.1 fl (80-94); Mean Platelet Volume 8.1 fl (7.4-10.4); Monocytes # 0.7 K/mm3 (0.1-1.0); Monocytes % 8.4 % (1.7-9.3); Neutrophils # 6.8 K/mm3 (1.8-7.8); Platelet Count 78 K/mm3 (142-424); Red Blood Count 4.23 M/mm3 (4.60-6.20); Red Cell Distribution Width 15.4 % (11.5-17.5); White Blood Count 8.9 K/mm3 (4.8-10.8)
[2022-10-12 11:49] LABS: Alanine Aminotransferase 24 U/L (12-78); Albumin Level 3.1 g/dl (3.5-5.0); Albumin/Globulin Ratio 0.8 (1.1-1.8); Alkaline Phosphatase 207 U/L (38-126); Anion Gap 9.1 mEq/L (5-15); Aspartate Amino Transferase 69 U/L (17-59); Bilirubin,Total 4.1 mg/dl (0.2-1.3); Blood Urea Nitrogen 14 mg/dl (9-20); Calcium 7.9 mg/dl (8.4-10.2); Carbon Dioxide 23 mmol/L (22.0-30.0); Chloride 107 mmol/L (98-107); Estimated Glomerular Filt Rate 76 ml/min (>60); GFR (African American) 93 ML/MIN (>60); Globulin 4.1 g/dL (1.3-3.2); Glucose 100 mg/dl (74-100); Potassium 3.1 mmoL/L (3.5-5.1); Sodium 136 mmol/L (136-145); Total Protein,Serum 7.2 g/dl (6.3-8.2)
== END ==
PROVIDERS: PCP Family Medicine; Visit Provider Student in an Organized Health Care Education/Training Program
DX: Z01.818 Encounter for other preprocedural examination (principal); J32.0 Chronic maxillary sinusitis
CPT/HCPCS: 36415; 80053; 85025; 93005

== ENCOUNTER → 2022-10-14 09:06 | Outpatient (CLI) | payer BC, SELFPAY ==
--- NOTE | 2022-10-14 09:13 | US_ITS ---
FINAL REPORT CLINICAL HISTORY: Ascites, abdominal distention FINDINGS: ULTRASOUND-GUIDED PARACENTESIS HISTORY: Ascites TECHNIQUE: The right abdomen was prepped and routine sterile fashion. Appropriate pocket was localized for drainage. The patient was prepped and draped in routine fashion. Local anesthesia was achieved with 1% lidocaine. Using imaging guidance with images acquired, an 18-gauge sheath needle was directed into the peritoneal fluid. Approximately 5.2 liters of yellow serous fluid was aspirated. A sample of fluid was sent for laboratory analysis. IMPRESSION: Successful ultrasound guided therapeutic and diagnostic paracentesis Authenticated and [facility]
[2022-10-14 13:01] LABS: Appearance,Body Fld. Normal; Source, Body Fld. Peritoneal Fluid
[2022-10-14 13:07] LABS: Volume,Body Fld. 2500 mL
[2022-10-14 13:08] LABS: Mononuclear WBCs,Body Fluid 82 %; Polynuclear WBC,Body Fluid 18 %; RBC,Body Fluid < 10 cells/uL (< 10 X 10^3); TNC,Body Fluid 79 cells/uL (< 1000)
== END ==
PROVIDERS: PCP Family Medicine; Visit Provider Physician Assistant
DX: R18.8 Other ascites (principal)
CPT/HCPCS: 49083; 89051

== ENCOUNTER → 2022-10-21 09:12 | Outpatient (CLI) | payer BC, SELFPAY ==
--- NOTE | 2022-10-21 09:14 | US_ITS ---
FINAL REPORT CLINICAL HISTORY: ASCITES-- 5300 ml-- reynold burrows FINDINGS: ULTRASOUND-GUIDED PARACENTESIS HISTORY: Ascites ATTENDING PHYSICIAN: Dr. Floyd PHYSICIAN MEASURING MACHINE TENDER: Reynold Burrows PA-C FINDINGS: After informed consent was obtained and timeout procedure performed, fluid was localized in the right lower quadrant under ultrasound guidance and marked on the skin appropriately. The patient was then prepped and draped in the usual sterile fashion and the skin was anesthetized with 1% lidocaine. An ultrasound guided paracentesis was then performed using a Turkel needle. Approximately 5.3 liters of clear yellow fluid was removed. Sample of the fluidwas sent to lab. The patient tolerated the procedure well and there were no immediate complications. IMPRESSION: Ultrasound guided right lower quadrant paracentesis as discussed above. Films reviewed , interpreted and dictated by Dr. Floyd. Transcribed by Reynold Burrows PA-C. Reviewed, Interpreted and Dictated by Santiago Floyd III, MD Transcribed by ZACKARY Ocampo Authenticated and [facility]
[2022-10-21 12:13] LABS: Appearance,Body Fld. Hazy; Mononuclear WBCs,Body Fluid 82 %; Polynuclear WBC,Body Fluid 18 %; RBC,Body Fluid < 10 cells/uL (< 10 X 10^3); Source, Body Fld. Peritoneal Fluid; TNC,Body Fluid 65 cells/uL (< 1000); Volume,Body Fld. 5300 mL
== END ==
LOC: RAD 09:12
PROVIDERS: PCP Family Medicine; Visit Provider Physician Assistant
DX: R18.8 Other ascites (principal)
CPT/HCPCS: 49083; 89051

== ENCOUNTER → 2022-10-28 09:09 | Outpatient (CLI) | payer BC, SELFPAY ==
--- NOTE | 2022-10-28 09:15 | US_ITS ---
FINAL REPORT CLINICAL HISTORY: ASCITES FINDINGS: ULTRASOUND-GUIDED PARACENTESIS HISTORY:Ascites ATTENDING PHYSICIAN: Dr. Milner PHYSICIAN KID CLUB ATTENDANT: All Shin PA-C FINDINGS: After informed consent was obtained and timeout procedure performed, fluid was localized in the right lower quadrant under ultrasound guidance and marked on the skin appropriately. The patient was then prepped and draped in the usual sterile fashion and the skin was anesthetized with 1% lidocaine. An ultrasound guided paracentesis was then performed using a Turkel needle. Approximately 5.4 liters of fluid was removed. No fluid was sent to lab. The patient tolerated the procedure well and there were no immediate complications. IMPRESSION: Ultrasound guided right lower quadrant paracentesis as discussed above. Films reviewed , interpreted and dictated by Dr. Milner. Transcribed by All Shin PA-C. Reviewed, Interpreted and Dictated by Dontrell Milner MD Transcribed by ZACKARY Ryan Authenticated and [facility]
[2022-10-28 14:48] LABS: Appearance,Body Fld. Normal; Source, Body Fld. Peritoneal Fluid; Volume,Body Fld. 5360 mL
[2022-10-28 14:49] LABS: RBC,Body Fluid < 10 cells/uL (< 10 X 10^3); TNC,Body Fluid 55 cells/uL (< 1000)
[2022-10-28 15:41] LABS: Mononuclear WBCs,Body Fluid 40 %
[2022-10-28 15:43] LABS: Polynuclear WBC,Body Fluid 14 %
== END ==
LOC: RAD 09:09
PROVIDERS: PCP Family Medicine; Visit Provider Physician Assistant
DX: R18.8 Other ascites (principal)
CPT/HCPCS: 49083; 89051

== ENCOUNTER → 2022-11-02 09:10 | Outpatient (CLI) | payer BC, SELFPAY ==
--- NOTE | 2022-11-02 09:15 | US_ITS ---
FINAL REPORT CLINICAL HISTORY: ASCITES-- 3800 ml-- aimee correa FINDINGS: ULTRASOUND-GUIDED PARACENTESIS HISTORY: Cirrhosis, ascites. ATTENDING PHYSICIAN: Dr. Demarco PHYSICIAN SECURITY CONTROL ASSESSOR: Aimee Correa PA-C FINDINGS: After informed consent was obtained and timeout procedure performed, fluid was localized in the right lower quadrant under ultrasound guidance and marked on the skin appropriately. The patient was then prepped and draped in the usual sterile fashion and the skin was anesthetized with 1% lidocaine. An ultrasound guided paracentesis was then performed using a Turkel needle. Approximately 3.8 L of clear yellow fluid was removed. Approximately 50-60 mL were sent to the lab for analysis. The patient tolerated the procedure well and there were no immediate complications. IMPRESSION: Ultrasound guided RLQ paracentesis as discussed above. Reviewed, Interpreted and Dictated by Ana Demarco MD Transcribed by Aimee Correa PA-C Authenticated and [facility] [place]
[2022-11-02 18:14] LABS: TNC,Body Fluid 65 cells/uL (< 1000); Volume,Body Fld. 3800 mL
[2022-11-02 18:15] LABS: RBC,Body Fluid < 10 cells/uL (< 10 X 10^3)
[2022-11-02 18:24] LABS: Appearance,Body Fld. Cloudy; Source, Body Fld. Peritoneal Fluid
[2022-11-02 19:12] LABS: Mononuclear WBCs,Body Fluid 86 %; Polynuclear WBC,Body Fluid 14 %
== END ==
LOC: RAD 09:10
PROVIDERS: PCP Family Medicine; Visit Provider Physician Assistant
DX: R18.8 Other ascites (principal)
CPT/HCPCS: 49083; 89051

== ENCOUNTER → 2022-11-06 07:47 | Outpatient (CLI) | payer BC, SELFPAY ==
--- NOTE | 2022-11-06 07:51 | US_ITS ---
FINAL REPORT CLINICAL HISTORY: ASCITES-- AIMEE RAYMUNDO-- 4100 ML FINDINGS: ULTRASOUND-GUIDED PARACENTESIS HISTORY: Cirrhosis, ascites. ATTENDING PHYSICIAN: Dr. Demarco PHYSICIAN TRACK REPAIRER HELPER: Aimee Catherine PA-C FINDINGS: After informed consent was obtained and timeout procedure performed, fluid was localized in the right lower quadrant under ultrasound guidance and marked on the skin appropriately. The patient was then prepped and draped in the usual sterile fashion and the skin was anesthetized with 1% lidocaine. An ultrasound guided paracentesis was then performed using a Turkel needle. Approximately 4.1 L of clear yellow fluid was removed. 60 mL of fluid sent to the lab for analysis. The patient tolerated the procedure well and there were no immediate complications. IMPRESSION: Ultrasound guided RLQ paracentesis as discussed above. Reviewed, Interpreted and Dictated by Ana Demarco MD Transcribed by Aimee Catherine PA-C Authenticated and [facility]
[2022-11-06 16:42] LABS: Appearance,Body Fld. Normal; Source, Body Fld. Peritoneal Fluid; Volume,Body Fld. 4100 mL
[2022-11-06 16:43] LABS: Mononuclear WBCs,Body Fluid 75 %; Polynuclear WBC,Body Fluid 25 %; RBC,Body Fluid < 10 cells/uL (< 10 X 10^3); TNC,Body Fluid < 20 cells/uL (< 1000)
== END ==
LOC: RAD 07:47
PROVIDERS: PCP Family Medicine; Visit Provider Physician Assistant
DX: R18.8 Other ascites (principal); R14.0 Abdominal distension (gaseous)
CPT/HCPCS: 49083; 89051

== ENCOUNTER → 2022-11-11 09:12 | Outpatient (CLI) | payer BC, SELFPAY ==
--- NOTE | 2022-11-11 09:20 | US_ITS ---
FINAL REPORT CLINICAL HISTORY: ASCITES-- dr burk 4500 FINDINGS: ULTRASOUND-GUIDED PARACENTESIS HISTORY:Ascites FINDINGS: After informed consent was obtained and timeout procedure performed, fluid was localized in the right lower quadrant under ultrasound guidance and marked on the skin appropriately. The patient was then prepped and draped in the usual sterile fashion and the skin was anesthetized with 1% lidocaine. An ultrasound guided paracentesis was then performed using a Turkel needle. Approximately 4.5 liters of fluid was removed. No fluid was sent to lab. The patient tolerated the procedure well and there were no immediate complications. IMPRESSION: Ultrasound guided paracentesis as discussed above. Reviewed, Interpreted and Dictated by Jefferson Burk MD Transcribed by ZACKARY Ryan Authenticated and [facility]
[2022-11-11 14:26] LABS: Appearance,Body Fld. Normal; Source, Body Fld. Paracentesis Fluid
[2022-11-11 14:27] LABS: Mononuclear WBCs,Body Fluid 66 %; Polynuclear WBC,Body Fluid 34 %; RBC,Body Fluid < 10 cells/uL (< 10 X 10^3); TNC,Body Fluid 47 cells/uL (< 1000); Volume,Body Fld. 4500 mL
== END ==
PROVIDERS: PCP Family Medicine; Visit Provider Physician Assistant
DX: R18.8 Other ascites (principal)
CPT/HCPCS: 49083; 89051

== ENCOUNTER 2022-11-17 06:52 | Day surgery (SDC) | payer BC, SELFPAY ==
[2022-10-12 11:22] VITALS: BMI 27.4
--- NOTE | 2022-10-12 15:10 | SUR.PREOP ---
Devin Harrison RN called from Dr. Starks's office to report that Platelet count is low and MD is aware and ok to proceed with surgery.
[2022-11-17] VITALS (10 sets, daily range): BP systolic 108–132; BP diastolic 59–80; PULSE 79–94; RESP 16–18; TEMP 36.6–37; O2SAT 94–98
--- NOTE | 2022-11-17 08:21 | EXP.ANES.CKL ---
[facility] Disclaimer: The information contained in this section may have been updated after the patient was seen, as this information can be updated by other users. Medical History Deviated nasal bone Deviated nasal septum Encounter for pre-operative cardiovascular clearance Eustachian tube dysfunction History of COVID-19 History of gastroesophageal reflux (GERD) HLD (hyperlipidemia) HTN (hypertension) Maxillary sinusitis, chronic Sinus headache Sinusitis Surgical History History of back surgery History of cataract surgery History of hip surgery History of shoulder surgery Family History Other Cancer Family history of stent Social History Smoking Status: Former smoker years smoked: 30 smoking status stop date: 1995 alcohol intake: never substance use type: denies use current occupational status: employed Travel in the last 8 weeks: None housing: house current occupational exposures/hazards: No caffeine: No [facility] Anesthesia Checklist Patient Identification Patient Identification: Arm Band Structural Data Admitted From: Home Planned Operative Procedure/s: Left Maxillary Antrostomy, Anterior Ethmoidectomy Consent for Planned Operative Procedure(s) Verified: Yes Verified Documents: Surgical Consent and History and Physical NPO Status Verified Time NPO: 00:00 Additional verifications Anesthesia Reactions: No Hx Blood Transfusions: No Blood Transfusion Reaction: No Airway Assessment C-Spine Mobility Assessed: Yes TMJ Mobility Assessed: Yes Dentition: Good Dentition Neurological Assessment Level of Consciousness: Awake and Alert Anesthesia Plan Anesthesia Risk discussed: Yes Anesthesia Plan: Verified ASA Class: II Anesthesia Type: General
--- NOTE | 2022-11-17 10:21 | EXP.OP.NOTE ---
Date of procedure: 11/17/22 Pre-op Diagnosis:: left maxillary chronic sinusitis Post-op Diagnosis:: same Procedure performed:: left maxillary antrostomy, anterior ethmoidectomy functional endoscopic sinus surgery Surgeon:: Yobani Starks MD Anesthesia: GETA Estimated blood loss (mL): 300 Operative findings:: left maxillary chronic sinusitis Operative note:: The patient was brought to the OR, venous supine position, general anesthesia was induced. First decongested the patient's nares with Afrin soaked pledgets. I then lateralized the inferior turbinate medialized the middle turbinate. Using the ball-tipped probe I was able to identify the natural maxillary sinus os and reflect the uncinate forward. The uncinate was then taken down with a backbiter and microdebrider. Suction Bovie was used to cauterize a small arterial bleed from an inferior turbinate vessel. The left maxillary sinus was then suctioned out with the 30 degree scope and angled suctions. I then took down a small portion of the anterior ethmoid bulla to further open up the ostiomeatal complex. Afrin-soaked pledgets were then used to achieve hemostasis. Due to the patient's chronic thrombocytopenia from his liver disease he was fairly oozy throughout but ultimately after packing off with Afrin pledgets and cauterizing with the suction Bovie were able to get things under control. Afrin-soaked nova pack was then inserted into the left middle meatus. His nose and mouth were then thoroughly suctioned out. He was then turned back over to anesthesia to be awoken and extubated. Condition: stable Disposition: PACU Complications:: none
--- NOTE | 2022-11-17 10:25 | EXP.ANES.I ---
[facility] Anesthesia Record Part I Anesthesia Record I Intake, IV Amount: 1,200 Estimated blood loss (mL): 300 Urine output (mL): 0 Blood Pressure: 132/78 SaO2: 95 Pulse Rate: 91 Respiratory Rate: 16 Temperature: 97.8 F Patient is:: Drowsy, Oral/Nasal airway and Stable Stable to PACU at:: 10:24
--- NOTE | 2022-11-18 07:30 | EXP.ANES.II ---
[facility] Anesthesia Record Part II Anesthesia Record Part II Discharge Time: 11:04 Destination: Surgical Day Care (OP Surgery) PACU nurse assessment reviewed?: Yes Patient Condition:: Good Anesthesia Complications:: None Swallowing reflex intact?: Yes Cyanosis?: No Blood Pressure: 125/80 Pulse Rate: 85 Temperature: 97.8 F Mental Status: Alert & Oriented Pain level:: 0 Nausea and/or vomitting:: None Intake, IV Amount: 0
[2022-11-18 07:31] VITALS: BP 125/80; PULSE 85; TEMP 36.6
== END 2022-11-17 11:40 | disposition home or self-care (01) ==
PROVIDERS: PCP Family Medicine; Visit Provider Student in an Organized Health Care Education/Training Program
PROC: (CPT 31254; principal; 2022-11-17 08:30)
DX: J32.0 Chronic maxillary sinusitis (principal); J34.2 Deviated nasal septum
CPT/HCPCS: 31254; 31256; 96374; J2405

== ENCOUNTER → 2022-11-18 09:13 | Outpatient (CLI) | payer BC, SELFPAY ==
--- NOTE | 2022-11-18 09:18 | US_ITS ---
FINAL REPORT CLINICAL HISTORY: ASCITES 5500ml removed by Reynold RAYMUNDO FINDINGS: ULTRASOUND-GUIDED PARACENTESIS HISTORY: Ascites ATTENDING PHYSICIAN: Dr. Demarco PHYSICIAN COUNTY ADVISER: Reynold Robledo PA-C FINDINGS: After informed consent was obtained and timeout procedure performed, fluid was localized in the right lower quadrant under ultrasound guidance and marked on the skin appropriately. The patient was then prepped and draped in the usual sterile fashion and the skin was anesthetized with 1% lidocaine. An ultrasound guided paracentesis was then performed using a Turkel needle. Approximately 5.5 liters of clear yellow fluid was removed. Sample of the fluid was sent to lab. The patient tolerated the procedure well and there were no immediate complications. IMPRESSION: Ultrasound guided right lower quadrant paracentesis as discussed above. Films reviewed , interpreted and dictated by Dr. Demarco Transcribed by Reynold Robledo PA-C. Reviewed, Interpreted and Dictated by Ana Demarco MD Transcribed by ZACKARY Ocampo Authenticated and . [facility]
[2022-11-18 11:39] LABS: Appearance,Body Fld. Slightly cloudy; Source, Body Fld. Peritoneal Fluid; TNC,Body Fluid 63 cells/uL (< 1000); Volume,Body Fld. 5500 mL
[2022-11-18 11:40] LABS: Mononuclear WBCs,Body Fluid 77 %; Polynuclear WBC,Body Fluid 23 %; RBC,Body Fluid < 10 cells/uL (< 10 X 10^3)
== END ==
LOC: RAD 09:14
PROVIDERS: PCP Family Medicine; Visit Provider Physician Assistant
DX: R18.8 Other ascites (principal)
CPT/HCPCS: 49083; 89051

== ENCOUNTER 2022-11-23 10:41 | Outpatient (CLI) | payer BC, SELFPAY ==
--- NOTE | 2022-11-23 10:47 | US_ITS ---
FINAL REPORT CLINICAL HISTORY: ASCITES-- 8300 ML-- SENT TO INFUSION FINDINGS: ULTRASOUND-GUIDED PARACENTESIS HISTORY: Ascites ATTENDING PHYSICIAN: Dr. Floyd PHYSICIAN FARM FIELD MANAGER: All Shin PA-C FINDINGS: After informed consent was obtained and timeout procedure performed, fluid was localized in the right lower quadrant under ultrasound guidance and marked on the skin appropriately. The patient was then prepped and draped in the usual sterile fashion and the skin was anesthetized with 1% lidocaine. An ultrasound guided paracentesis was then performed using a Turkel needle. Approximately 8.3 liters of somewhat cloudy fluid was removed. A portion of the fluid was sent to lab. The patient tolerated the procedure well and there were no immediate complications. IMPRESSION: Ultrasound guided right lower quadrant paracentesis as discussed above. 8.3 liters of somewhat cloudy fluid was removed. Films reviewed , interpreted and dictated by Dr. Floyd Transcribed by All Shin PA-C. Reviewed, Interpreted and Dictated by Santiago Floyd III, MD Transcribed by ZACKARY Ryan Authenticated and [facility]
[2022-11-23 12:20] VITALS: BP 102/61; PULSE 81; RESP 18; O2SAT 100
[2022-11-23 14:14] VITALS: BP 99/60; PULSE 81; RESP 18
[2022-11-23 18:32] LABS: Appearance,Body Fld. Cloudy; Source, Body Fld. Peritoneal Fluid; TNC,Body Fluid 45 cells/uL (< 1000); Volume,Body Fld. 8300 mL
[2022-11-23 18:33] LABS: RBC,Body Fluid < 10 cells/uL (< 10 X 10^3)
[2022-11-23 18:43] LABS: Mononuclear WBCs,Body Fluid 58 %; Polynuclear WBC,Body Fluid 6 %
== END 2022-11-23 14:14 | disposition home or self-care (01) ==
PROVIDERS: PCP Family Medicine; Visit Provider Physician Assistant
DX: R18.8 Other ascites (principal)
CPT/HCPCS: 49083; 87070; 87205; 89051; 96365; 96366; P9047

== ENCOUNTER → 2022-11-27 08:00 | Outpatient (CLI) | payer BC, SELFPAY ==
--- NOTE | 2022-11-27 08:04 | US_ITS ---
FINAL REPORT CLINICAL HISTORY: ASCITES 4850ml removed All RAYMUNDO FINDINGS: ULTRASOUND-GUIDED PARACENTESIS HISTORY: Ascites ATTENDING PHYSICIAN: Dr. Floyd PHYSICIAN ANIMAL ATTENDANT: All Shin PA-C FINDINGS: After informed consent was obtained and timeout procedure performed, fluid was localized in the right lower quadrant under ultrasound guidance and marked on the skin appropriately. The patient was then prepped and draped in the usual sterile fashion and the skin was anesthetized with 1% lidocaine. An ultrasound guided paracentesis was then performed using a Turkel needle. Approximately 4.8 liters of clear yellow fluid was removed. A portion of the fluid was sent to lab. The patient tolerated the procedure well and there were no immediate complications. IMPRESSION: Ultrasound guided right lower quadrant paracentesis as discussed above. Films reviewed , interpreted and dictated by Dr. Floyd Transcribed by All Shin PA-C. Reviewed, Interpreted and Dictated by Santiago Floyd III, MD Transcribed by ZACKARY Ryan Authenticated and [facility]
[2022-11-27 15:28] LABS: Appearance,Body Fld. Normal; Source, Body Fld. Peritoneal Fluid; Volume,Body Fld. 4850 mL
[2022-11-27 15:29] LABS: Mononuclear WBCs,Body Fluid 86 %; Polynuclear WBC,Body Fluid 13 %; RBC,Body Fluid < 10 cells/uL (< 10 X 10^3); TNC,Body Fluid 55 cells/uL (< 1000)
== END ==
PROVIDERS: PCP Family Medicine; Visit Provider Physician Assistant
DX: R18.8 Other ascites (principal)
CPT/HCPCS: 49083; 89051

== ENCOUNTER → 2022-12-02 09:12 | Outpatient (CLI) | payer BC, SELFPAY ==
--- NOTE | 2022-12-02 09:15 | US_ITS ---
FINAL REPORT CLINICAL HISTORY: ASCITES--4900 ml-- dr burk FINDINGS: ULTRASOUND-GUIDED PARACENTESIS HISTORY: Ascites TECHNIQUE: The right abdomen was prepped and routine sterile fashion. Appropriate pocket was localized for drainage. The patient was prepped and draped in routine fashion. Local anesthesia was achieved with 1% lidocaine. Using imaging guidance with images acquired, an 18-gauge sheath needle was directed into the peritoneal fluid. Approximately 5.0 liters of yellow serous fluid was aspirated. A small portion of fluid was sent for laboratory analysis. IMPRESSION: Successful ultrasound guided diagnostic and therapeutic paracentesis Authenticated and [facility]
[2022-12-02 17:21] LABS: Appearance,Body Fld. Normal; Source, Body Fld. Peritoneal Fluid; Volume,Body Fld. 4900 mL
[2022-12-02 17:22] LABS: Mononuclear WBCs,Body Fluid 87 %; Polynuclear WBC,Body Fluid 13 %; RBC,Body Fluid < 10 cells/uL (< 10 X 10^3); TNC,Body Fluid 21 cells/uL (< 1000)
== END ==
PROVIDERS: PCP Family Medicine; Visit Provider Physician Assistant
DX: R18.8 Other ascites (principal)
CPT/HCPCS: 49083; 89051

== ENCOUNTER → 2022-12-07 09:14 | Outpatient (CLI) | payer BC, SELFPAY ==
--- NOTE | 2022-12-07 09:19 | US_ITS ---
FINAL REPORT CLINICAL HISTORY: ASCITES 5140 ml All Shin FINDINGS: ULTRASOUND-GUIDED PARACENTESIS HISTORY: Ascites ATTENDING PHYSICIAN: Dr. Milner PHYSICIAN COAL WASHER TENDER: All Shin PA-C FINDINGS: After informed consent was obtained and timeout procedure performed, fluid was localized in the right lower quadrant under ultrasound guidance and marked on the skin appropriately. The patient was then prepped and draped in the usual sterile fashion and the skin was anesthetized with 1% lidocaine. An ultrasound guided paracentesis was then performed using a Turkel needle. Approximately 5 liters of clear yellow fluid was removed. A portion of the fluid was sent to the laboratory. The patient tolerated the procedure well and there were no immediate complications. IMPRESSION: Ultrasound guided right lower quadrant paracentesis as discussed above. Reviewed, Interpreted and Dictated by Dontrell Milner MD Transcribed by ZACKARY Ryan Authenticated and [facility]
[2022-12-07 16:50] LABS: Appearance,Body Fld. Cloudy; RBC,Body Fluid < 10 cells/uL (< 10 X 10^3); Source, Body Fld. Peritoneal Fluid; TNC,Body Fluid 48 cells/uL (< 1000); Volume,Body Fld. 5140 mL
[2022-12-07 16:52] LABS: Mononuclear WBCs,Body Fluid 98 %; Polynuclear WBC,Body Fluid 2 %
== END ==
PROVIDERS: Physician Assistant; PCP Family Medicine; Visit Provider Emergency Medicine
DX: R18.8 Other ascites (principal)
CPT/HCPCS: 49083; 89051

== ENCOUNTER → 2022-12-11 08:42 | Outpatient (CLI) | payer BC, SELFPAY ==
--- NOTE | 2022-12-11 08:47 | US_ITS ---
FINAL REPORT CLINICAL HISTORY: ASCITES 3300 ml FINDINGS: ULTRASOUND-GUIDED PARACENTESIS HISTORY:Ascites ATTENDING PHYSICIAN: Dr. Milner PHYSICIAN FUNDING SPECIALIST: All Shin PA-C FINDINGS: After informed consent was obtained and timeout procedure performed, fluid was localized in the right lower quadrant under ultrasound guidance and marked on the skin appropriately. The patient was then prepped and draped in the usual sterile fashion and the skin was anesthetized with 1% lidocaine. An ultrasound guided paracentesis was then performed using a Turkel needle. Approximately 3.3 liters of fluid was removed. No fluid was sent to lab. The patient tolerated the procedure well and there were no immediate complications. IMPRESSION: Ultrasound guided right lower quadrant paracentesis as discussed above. Reviewed, Interpreted and Dictated by Dontrell Milner MD Transcribed by ZACKARY Ryan Authenticated and [facility]
[2022-12-11 16:09] LABS: Appearance,Body Fld. Normal; RBC,Body Fluid < 10 cells/uL (< 10 X 10^3); Source, Body Fld. Peritoneal Fluid; TNC,Body Fluid < 20 cells/uL (< 1000); Volume,Body Fld. 3300 mL
[2022-12-11 16:10] LABS: Mononuclear WBCs,Body Fluid 94 %; Polynuclear WBC,Body Fluid 6 %
== END ==
PROVIDERS: Physician Assistant; PCP Family Medicine; Visit Provider Emergency Medicine
DX: R18.8 Other ascites (principal)
CPT/HCPCS: 49083; 89051

== ENCOUNTER → 2022-12-16 09:10 | Outpatient (CLI) | payer BC, SELFPAY ==
--- NOTE | 2022-12-16 09:15 | US_ITS ---
FINAL REPORT CLINICAL HISTORY: ASCITES 3300ml removed FINDINGS: ULTRASOUND-GUIDED PARACENTESIS HISTORY: Ascites ATTENDING PHYSICIAN: Dr. Demarco PHYSICIAN HEEL SEAT FITTER MACHINE: Reynold Robledo PA-C FINDINGS: After informed consent was obtained and timeout procedure performed, fluid was localized in the right lower quadrant under ultrasound guidance and marked on the skin appropriately. The patient was then prepped and draped in the usual sterile fashion and the skin was anesthetized with 1% lidocaine. An ultrasound guided paracentesis was then performed using a Turkel needle. Approximately 3.3 liters of clear yellow fluid was removed. Sample of the fluid was sent to lab. The patient tolerated the procedure well and there were no immediate complications. IMPRESSION: Ultrasound guided right lower quadrant paracentesis as discussed above. Films reviewed , interpreted and dictated by Dr. Ana Demarco. Transcribed by Reynold Robledo PA-C. Reviewed, Interpreted and Dictated by Ana Demarco MD Transcribed by ZACKARY Ocampo Authenticated and [facility]
[2022-12-16 13:04] LABS: Appearance,Body Fld. Cloudy; Source, Body Fld. Peritoneal Fluid; Volume,Body Fld. 3300 mL
[2022-12-16 13:05] LABS: Mononuclear WBCs,Body Fluid 77 %; Polynuclear WBC,Body Fluid 23 %; RBC,Body Fluid < 10 cells/uL (< 10 X 10^3); TNC,Body Fluid 81 cells/uL (< 1000)
== END ==
PROVIDERS: PCP Family Medicine; Visit Provider Physician Assistant
DX: R18.8 Other ascites (principal)
CPT/HCPCS: 49083; 89051

== ENCOUNTER → 2022-12-21 09:52 | Outpatient (CLI) | payer BC, SELFPAY ==
--- NOTE | 2022-12-21 09:56 | US_ITS ---
FINAL REPORT CLINICAL HISTORY: ASCITES--3500 ml-- arcelia laird FINDINGS: ULTRASOUND-GUIDED PARACENTESIS HISTORY: Ascites, cirrhosis. ATTENDING PHYSICIAN: Dr. Milner PHYSICIAN KETTLE FIRER: Aimee Catherine PA-C TECHNIQUE: Informed consent was obtained from the patient. A time out procedure was performed prior to beginning. Appropriate pocket was localized for drainage. The patient was prepped and draped in routine fashion over the right lower quadrant. Local anesthesia was achieved with 1% lidocaine. Using imaging guidance with images acquired, an 18-gauge sheath needle was directed into the peritoneal fluid. Approximately 3.5 liters of clear yellow serous fluid was aspirated. Approximately 60 mLof fluid was sent to the laboratory for analysis. IMPRESSION: Successful ultrasound guided paracentesis with 3.5 liters of fluid removed. Reviewed, Interpreted and Dictated by Dontrell Milner MD Transcribed by Aimee Catherine PA-C Authenticated and [facility]
[2022-12-21 17:07] LABS: Appearance,Body Fld. Normal; Source, Body Fld. Peritoneal Fluid; Volume,Body Fld. 3500 mL
[2022-12-21 17:08] LABS: RBC,Body Fluid < 10 cells/uL (< 10 X 10^3); TNC,Body Fluid 35 cells/uL (< 1000)
[2022-12-21 17:14] LABS: Polynuclear WBC,Body Fluid 27 %
[2022-12-21 17:15] LABS: Mononuclear WBCs,Body Fluid 73 %
== END ==
PROVIDERS: PCP Family Medicine; Visit Provider Physician Assistant
DX: R18.8 Other ascites (principal)
CPT/HCPCS: 49083; 89051

== ENCOUNTER → 2022-12-25 08:52 | Outpatient (CLI) | payer BC, SELFPAY ==
--- NOTE | 2022-12-25 08:56 | US_ITS ---
FINAL REPORT CLINICAL HISTORY: PARACENTISIS-- 2650 ml-- aimee correa FINDINGS: ULTRASOUND-GUIDED PARACENTESIS HISTORY: Cirrhosis, ascites. ATTENDING PHYSICIAN: Dr. Milner PHYSICIAN FINANCIAL FOUNDATIONS ASSOCIATE: Aimee Correa PA-C FINDINGS: After informed consent was obtained and timeout procedure performed, fluid was localized in the right lower quadrant under ultrasound guidance and marked on the skin appropriately. The patient was then prepped and draped in the usual sterile fashion and the skin was anesthetized with 1% lidocaine. An ultrasound guided paracentesis was then performed using a Turkel needle. Approximately 2,650 mL of clear orange fluid was removed. The patient tolerated the procedure well and there were no immediate complications. IMPRESSION: Ultrasound guided RLQ paracentesis as discussed above. Reviewed, Interpreted and Dictated by Dontrell Milner MD Transcribed by Aimee Correa PA-C Authenticated and [facility]
[2022-12-25 18:43] LABS: Appearance,Body Fld. Hazy; RBC,Body Fluid < 10 cells/uL (< 10 X 10^3); Source, Body Fld. Paracentesis Fluid; TNC,Body Fluid 58 cells/uL (< 1000); Volume,Body Fld. 2560 mL
[2022-12-25 19:09] LABS: Mononuclear WBCs,Body Fluid 97 %; Polynuclear WBC,Body Fluid 3 %
== END ==
PROVIDERS: PCP Family Medicine; Visit Provider Physician Assistant
DX: R18.8 Other ascites (principal)
CPT/HCPCS: 49083; 89051

== ENCOUNTER → 2022-12-30 09:11 | Outpatient (CLI) | payer BC, SELFPAY ==
--- NOTE | 2022-12-30 09:15 | US_ITS ---
FINAL REPORT CLINICAL HISTORY: ASCITES 2700 ml removed Soto RAYMUNDO FINDINGS: ULTRASOUND-GUIDED PARACENTESIS HISTORY: Cirrhosis, ascites. ATTENDING PHYSICIAN: Dr. Floyd PHYSICIAN BUTT SAWYER: Aimee Catherine PA-C FINDINGS: After informed consent was obtained and timeout procedure performed, fluid was localized in the right lower quadrant under ultrasound guidance and marked on the skin appropriately. The patient was then prepped and draped in the usual sterile fashion and the skin was anesthetized with 1% lidocaine. An ultrasound guided paracentesis was then performed using a Turkel needle. Approximately 2.7 L of clear yellow fluid was removed. 60 mL was sent to the lab for analysis. The patient tolerated the procedure well and there were no immediate complications. IMPRESSION: Ultrasound guided RLQ paracentesis as discussed above. Reviewed, Interpreted and Dictated by Santiago Floyd III, MD Transcribed by Aimee Catherine PA-C Authenticated and . [facility]
[2022-12-30 14:12] LABS: Appearance,Body Fld. Hazy; Source, Body Fld. Peritoneal Fluid
[2022-12-30 14:13] LABS: Mononuclear WBCs,Body Fluid 69 %; Polynuclear WBC,Body Fluid 31 %; RBC,Body Fluid 37 cells/uL (< 10 X 10^3); TNC,Body Fluid 55 cells/uL (< 1000); Volume,Body Fld. 2700 mL
== END ==
PROVIDERS: PCP Family Medicine; Visit Provider Physician Assistant
DX: R18.8 Other ascites (principal)
CPT/HCPCS: 49083; 89051

== ENCOUNTER → 2023-01-08 09:03 | Outpatient (CLI) | payer BC, SELFPAY ==
--- NOTE | 2023-01-08 09:24 | US_ITS ---
FINAL REPORT CLINICAL HISTORY: ASCITES 4500ml removed - Reynold RAYMUNDO -- rt side FINDINGS: ULTRASOUND-GUIDED PARACENTESIS HISTORY: Ascites ATTENDING PHYSICIAN: Dr. Floyd PHYSICIAN CREATIVE DESIGNER: Reynold Robledo PA-C FINDINGS: After informed consent was obtained and timeout procedure performed, fluid was localized in the right lower quadrant under ultrasound guidance and marked on the skin appropriately. The patient was then prepped and draped in the usual sterile fashion and the skin was anesthetized with 1% lidocaine. An ultrasound guided paracentesis was then performed using a Turkel needle. Approximately 4.5 liters of clear yellow fluid was removed. Sample of the fluid was sent to lab. The patient tolerated the procedure well and there were no immediate complications. IMPRESSION: Ultrasound guided right lower quadrant paracentesis as discussed above. Films reviewed , interpreted and dictated by Dr. Floyd. Transcribed by Reynold Robledo PA-C. Reviewed, Interpreted and Dictated by Santiago Floyd III, MD Transcribed by ZACKARY Ocampo Authenticated and [facility]
[2023-01-08 15:23] LABS: Source, Body Fld. Peritoneal Fluid
[2023-01-08 15:24] LABS: Appearance,Body Fld. Normal; Mononuclear WBCs,Body Fluid 88 %; Polynuclear WBC,Body Fluid 12 %; RBC,Body Fluid < 10 cells/uL (< 10 X 10^3); TNC,Body Fluid 50 cells/uL (< 1000); Volume,Body Fld. 4500 mL
== END ==
PROVIDERS: PCP Family Medicine; Visit Provider Physician Assistant
DX: R18.8 Other ascites (principal)
CPT/HCPCS: 49083; 89051

== ENCOUNTER → 2023-01-13 09:11 | Outpatient (CLI) | payer BC, SELFPAY ==
--- NOTE | 2023-01-13 09:14 | US_ITS ---
FINAL REPORT CLINICAL HISTORY: ASCITES 3000ml removed All RAYMUNDO FINDINGS: ULTRASOUND-GUIDED PARACENTESIS HISTORY: Ascites ATTENDING PHYSICIAN: Dr. Floyd PHYSICIAN MAINTENANCE PARTS TECHNICIAN: All Shin PA-C FINDINGS: After informed consent was obtained and timeout procedure performed, fluid was localized in the right lower quadrant under ultrasound guidance and marked on the skin appropriately. The patient was then prepped and draped in the usual sterile fashion and the skin was anesthetized with 1% lidocaine. An ultrasound guided paracentesis was then performed using a Turkel needle.Clear yellow fluid was removed. A portion of fluid was sent to lab. The patient tolerated the procedure well and there were no immediate complications. IMPRESSION: Ultrasound guided right lower quadrant paracentesis as discussed above. Films reviewed , interpreted and dictated by Dr. Floyd Transcribed by All Shin PA-C. Reviewed, Interpreted and Dictated by Santiago Floyd III, MD Transcribed by ZACKARY Ryan Authenticated and [facility]
[2023-01-13 14:19] LABS: Appearance,Body Fld. Normal; Source, Body Fld. Paracentesis Fluid
[2023-01-13 14:20] LABS: RBC,Body Fluid < 10 cells/uL (< 10 X 10^3); TNC,Body Fluid 97 cells/uL (< 1000); Volume,Body Fld. 3000 mL
[2023-01-13 14:35] LABS: Mononuclear WBCs,Body Fluid 91 %; Polynuclear WBC,Body Fluid 9 %
== END ==
PROVIDERS: PCP Family Medicine; Visit Provider Physician Assistant
DX: R18.8 Other ascites (principal)
CPT/HCPCS: 49083; 89051

== ENCOUNTER → 2023-01-18 09:13 | Outpatient (CLI) | payer BC, SELFPAY ==
--- NOTE | 2023-01-18 09:19 | US_ITS ---
FINAL REPORT CLINICAL HISTORY: ASITES RIGHT LOWER QUADRANT 2850ml removed Reynold RAYMUNDO FINDINGS: ULTRASOUND-GUIDED PARACENTESIS HISTORY: Ascites ATTENDING PHYSICIAN: PHYSICIAN FREIGHT SEPARATOR: Reynold Robledo PA-C FINDINGS: After informed consent was obtained and timeout procedure performed, fluid was localized in the right lower quadrant under ultrasound guidance and marked on the skin appropriately. The patient was then prepped and draped in the usual sterile fashion and the skin was anesthetized with 1% lidocaine. An ultrasound guided paracentesis was then performed using a Turkel needle. Approximately 2.9 liters of clear yellow fluid was removed. Sample of the fluid was sent to lab. The patient tolerated the procedure well and there were no immediate complications. IMPRESSION: Ultrasound guided right lower quadrant paracentesis as discussed above. Films reviewed , interpreted and dictated by Dr. Milner. Transcribed by Reynold Robledo PA-C. Reviewed, Interpreted and Dictated by Dontrell Milner MD Transcribed by ZACKARY Ocampo Authenticated and [facility][1]
[2023-01-18 15:38] LABS: Appearance,Body Fld. Normal; Source, Body Fld. Peritoneal Fluid; Volume,Body Fld. 2850 mL
[2023-01-18 15:39] LABS: Mononuclear WBCs,Body Fluid 73 %; Polynuclear WBC,Body Fluid 27 %; RBC,Body Fluid < 10 cells/uL (< 10 X 10^3); TNC,Body Fluid 131 cells/uL (< 1000)
== END ==
PROVIDERS: PCP Family Medicine; Visit Provider Physician Assistant
DX: R18.8 Other ascites (principal)
CPT/HCPCS: 49083; 89051

== ENCOUNTER → 2023-01-22 09:08 | Outpatient (CLI) | payer BC, SELFPAY ==
--- NOTE | 2023-01-22 09:11 | US_ITS ---
FINAL REPORT CLINICAL HISTORY: ASCITES-- 4600 ml-- rlq-- arcelia laird- labs sent FINDINGS: ULTRASOUND-GUIDED PARACENTESIS HISTORY: Cirrhosis, ascites. ATTENDING PHYSICIAN: Dr. Milner PHYSICIAN REHABILITATION SERVICES DIRECTOR: Aimee Catherine PA-C FINDINGS: After informed consent was obtained and timeout procedure performed, fluid was localized in the right lower quadrant under ultrasound guidance and marked on the skin appropriately. The patient was then prepped and draped in the usual sterile fashion and the skin was anesthetized with 1% lidocaine. An ultrasound guided paracentesis was then performed using a Turkel needle. Approximately 4.6 L of cloudy yellow fluid was removed. A portion of the fluid was sent for laboratory analysis. The patient tolerated the procedure well and there were no immediate complications. IMPRESSION: Ultrasound guided RLQ paracentesis as discussed above. Reviewed, Interpreted and Dictated by Dontrell Milner MD Transcribed by Aimee Catherine PA-C Authenticated and [facility]
[2023-01-22 13:40] LABS: Appearance,Body Fld. Cloudy; RBC,Body Fluid < 10 cells/uL (< 10 X 10^3); Source, Body Fld. Peritoneal Fluid; TNC,Body Fluid 66 cells/uL (< 1000); Volume,Body Fld. 4600 mL
[2023-01-22 14:11] LABS: Mononuclear WBCs,Body Fluid 85 %; Polynuclear WBC,Body Fluid 15 %
== END ==
PROVIDERS: PCP Family Medicine; Visit Provider Physician Assistant
DX: R18.8 Other ascites (principal)
CPT/HCPCS: 49083; 89051

== ENCOUNTER → 2023-01-26 09:13 | Outpatient (CLI) | payer BC, SELFPAY ==
--- NOTE | 2023-01-26 09:15 | US_ITS ---
FINAL REPORT CLINICAL HISTORY: ASCITES-- rt side-- 3760 ml==aimee laird-- sent for labs FINDINGS: ULTRASOUND-GUIDED PARACENTESIS HISTORY: Ascites, cirrhosis. ATTENDING PHYSICIAN: Dr. Julien PHYSICIAN TIRE BUILDER HEAVY SERVICE: Aimee Catherine PA-C TECHNIQUE: Informed consent was obtained from the patient. A time out procedure was performed prior to beginning. The patient was prepped and draped in routine fashion over the RLQ. Local anesthesia was achieved with 1% lidocaine. Using imaging guidance with images acquired, an 18-gauge sheath needle was directed into the peritoneal fluid. Approximately 3,760 mL of cloudy yellow serous fluid was aspirated. Approximately 60 mL was sent to the lab for analysis. Patient tolerated the procedure well and left the department in good condition. IMPRESSION: Successful ultrasound guided RLQ paracentesis. Reviewed, Interpreted and Dictated by Jefferson Julien MD Transcribed by Aimee Catherine PA-C Authenticated and [facility]
[2023-01-26 13:40] LABS: Appearance,Body Fld. Normal; Source, Body Fld. Peritoneal Fluid
[2023-01-26 13:41] LABS: RBC,Body Fluid < 10 cells/uL (< 10 X 10^3); TNC,Body Fluid 101 cells/uL (< 1000); Volume,Body Fld. 3760 mL
[2023-01-26 13:42] LABS: Mononuclear WBCs,Body Fluid 83 %; Polynuclear WBC,Body Fluid 26 %
== END ==
PROVIDERS: PCP Family Medicine; Visit Provider Physician Assistant
DX: R18.8 Other ascites (principal)
CPT/HCPCS: 49083; 89051

== ENCOUNTER → 2023-02-01 09:13 | Outpatient (CLI) | payer BC, SELFPAY ==
--- NOTE | 2023-02-01 09:17 | US_ITS ---
FINAL REPORT CLINICAL HISTORY: ASCITES [address] Teodoro Julien rt side FINDINGS: ULTRASOUND-GUIDED PARACENTESIS HISTORY: Ascites TECHNIQUE: The right abdomen was prepped and routine sterile fashion. Appropriate pocket was localized for drainage. The patient was prepped and draped in routine fashion. Local anesthesia was achieved with 1% lidocaine. Using imaging guidance with images acquired, an 18-gauge sheath needle was directed into the peritoneal fluid. Approximately 4 liters of yellow serous fluid was aspirated. 60 mL's of fluid was sent for laboratory analysis. IMPRESSION: Successful ultrasound guided diagnostic and therapeutic paracentesis Authenticated and [facility]
[2023-02-01 11:53] LABS: Appearance,Body Fld. Hazy; RBC,Body Fluid < 10 cells/uL (< 10 X 10^3); Source, Body Fld. Peritoneal Fluid; TNC,Body Fluid 68 cells/uL (< 1000); Volume,Body Fld. 3450 mL
[2023-02-01 14:21] LABS: Mononuclear WBCs,Body Fluid 69 %; Polynuclear WBC,Body Fluid 31 %
== END ==
PROVIDERS: PCP Family Medicine; Visit Provider Physician Assistant
DX: R18.8 Other ascites (principal)
CPT/HCPCS: 49083; 89051

== ENCOUNTER → 2023-02-05 10:16 | Outpatient (CLI) | payer BC, SELFPAY ==
--- NOTE | 2023-02-05 10:21 | US_ITS ---
FINAL REPORT CLINICAL HISTORY: ASCITES--- 2760 ml-- reynold laird-- rt side FINDINGS: ULTRASOUND-GUIDED PARACENTESIS HISTORY: Ascites ATTENDING PHYSICIAN: Reynold Robledo PA-C PHYSICIAN FLUID DYNAMICIST: Dr. Floyd FINDINGS: After informed consent was obtained and timeout procedure performed, fluid was localized in the right lower quadrant under ultrasound guidance and marked on the skin appropriately. The patient was then prepped and draped in the usual sterile fashion and the skin was anesthetized with 1% lidocaine. An ultrasound guided paracentesis was then performed using a Turkel needle. Approximately 2.8 liters of clear yellow fluid was removed. Sample of the fluid was sent to lab. The patient tolerated the procedure well and there were no immediate complications. IMPRESSION: Ultrasound guided right lower quadrant paracentesis as discussed above. Films reviewed , interpreted and dictated by Dr. Floyd. Transcribed by Reynold Robledo PA-C. Reviewed, Interpreted and Dictated by Santiago Floyd III, MD Transcribed by ZACKARY Ocampo Authenticated and [facility]
[2023-02-05 13:02] LABS: Appearance,Body Fld. Cloudy; Source, Body Fld. Peritoneal Fluid
[2023-02-05 13:03] LABS: Mononuclear WBCs,Body Fluid 70 %; Polynuclear WBC,Body Fluid 30 %; RBC,Body Fluid < 10 cells/uL (< 10 X 10^3); TNC,Body Fluid 126 cells/uL (< 1000); Volume,Body Fld. 2760 mL
== END ==
PROVIDERS: PCP Family Medicine; Visit Provider Physician Assistant
DX: R18.8 Other ascites (principal)
CPT/HCPCS: 49083; 89051

== ENCOUNTER → 2023-02-12 07:54 | Outpatient (CLI) | payer BC, SELFPAY ==
--- NOTE | 2023-02-12 07:58 | US_ITS ---
FINAL REPORT CLINICAL HISTORY: ASCITES RUQ 4760 ML REMOVED JASSON RAYMUNDO FINDINGS: ULTRASOUND-GUIDED PARACENTESIS HISTORY: Ascites ATTENDING PHYSICIAN: Dr. Floyd PHYSICIAN VARNISH MELTER: Jasson Shin PA-C FINDINGS: After informed consent was obtained and timeout procedure performed, fluid was localized in the right lower quadrant under ultrasound guidance and marked on the skin appropriately. The patient was then prepped and draped in the usual sterile fashion and the skin was anesthetized with 1% lidocaine. An ultrasound guided paracentesis was then performed using a Turkel needle. The patient tolerated the procedure well and there were no immediate complications. IMPRESSION: Ultrasound guided paracentesis as discussed above. Films reviewed , interpreted and dictated by Dr. Floyd Transcribed by Jasson Shin PA-C. Reviewed, Interpreted and Dictated by Santiago Floyd III, MD Transcribed by ZACKARY Ryan Authenticated and [facility]
[2023-02-12 17:00] LABS: Appearance,Body Fld. Normal; Source, Body Fld. Peritoneal Fluid
[2023-02-12 17:01] LABS: Mononuclear WBCs,Body Fluid 93 %; Polynuclear WBC,Body Fluid 7 %; RBC,Body Fluid < 10 cells/uL (< 10 X 10^3); TNC,Body Fluid 126 cells/uL (< 1000); Volume,Body Fld. 4760 mL
== END ==
PROVIDERS: PCP Family Medicine; Visit Provider Physician Assistant
DX: R18.8 Other ascites (principal)
CPT/HCPCS: 49083; 89051

== ENCOUNTER → 2023-02-19 07:58 | Outpatient (CLI) | payer BC, SELFPAY ==
--- NOTE | 2023-02-19 08:00 | US_ITS ---
FINAL REPORT CLINICAL HISTORY: ASCITES 4900 ml rlq Reynold RAYMUNDO FINDINGS: ULTRASOUND-GUIDED PARACENTESIS HISTORY: Ascites ATTENDING PHYSICIAN: Dr. Silverio PHYSICIAN CITY PLANNER: Reynold Robledo PA-C FINDINGS: After informed consent was obtained and timeout procedure performed, fluid was localized in the right lower quadrant under ultrasound guidance and marked on the skin appropriately. The patient was then prepped and draped in the usual sterile fashion and the skin was anesthetized with 1% lidocaine. An ultrasound guided paracentesis was then performed using a Turkel needle. Approximately 4.9 liters of clear yellow fluid was removed. Sample was sent to lab. The patient tolerated the procedure well and there were no immediate complications. IMPRESSION: Ultrasound guided right lower quadrant paracentesis as discussed above. Films reviewed , interpreted and dictated by Dr. Milner. Transcribed by Reynold Robledo PA-C. Reviewed, Interpreted and Dictated by Dontrell Milner MD Transcribed by ZACKARY Ocampo Authenticated and [facility]
[2023-02-19 11:32] LABS: Volume,Body Fld. 4900 mL
[2023-02-19 15:26] LABS: Appearance,Body Fld. Normal; Mononuclear WBCs,Body Fluid 85 %; Polynuclear WBC,Body Fluid 15 %; RBC,Body Fluid < 10 cells/uL (< 10 X 10^3); Source, Body Fld. Peritoneal Fluid; TNC,Body Fluid 40 cells/uL (< 1000)
== END ==
PROVIDERS: PCP Family Medicine; Visit Provider Physician Assistant
DX: R18.8 Other ascites (principal)
CPT/HCPCS: 49083; 89051

== ENCOUNTER → 2023-02-23 09:53 | Outpatient (CLI) | payer BC, SELFPAY ==
--- NOTE | 2023-02-23 09:56 | US_ITS ---
FINAL REPORT CLINICAL HISTORY: ASCITES-- aimee laird--2860 ml FINDINGS: ULTRASOUND-GUIDED PARACENTESIS HISTORY: Cirrhosis, ascites. ATTENDING PHYSICIAN: Dr. Julien PHYSICIAN HOSPICE COORDINATOR: Aimee Catherine PA-C FINDINGS: After informed consent was obtained and timeout procedure performed, fluid was localized in the right lower quadrant under ultrasound guidance and marked on the skin appropriately. The patient was then prepped and draped in the usual sterile fashion and the skin was anesthetized with 1% lidocaine. An ultrasound guided paracentesis was then performed using a Turkel needle. Approximately 2,860 mL of cloudy yellow fluid was removed. 60 mL was sent to the lab for analysis. The patient tolerated the procedure well and there were no immediate complications. IMPRESSION: Ultrasound guided RLQ paracentesis as discussed above. Reviewed, Interpreted and Dictated by Jefferson Julien MD Transcribed by Aimee Catherine PA-C Authenticated and [facility]
[2023-02-23 14:56] LABS: Appearance,Body Fld. Normal; Source, Body Fld. Peritoneal Fluid; TNC,Body Fluid 90 cells/uL (< 1000); Volume,Body Fld. 2860 mL
[2023-02-23 14:57] LABS: Mononuclear WBCs,Body Fluid 74 %; Polynuclear WBC,Body Fluid 26 %; RBC,Body Fluid < 10 cells/uL (< 10 X 10^3)
== END ==
PROVIDERS: PCP Family Medicine; Visit Provider Physician Assistant
DX: R18.8 Other ascites (principal)
CPT/HCPCS: 49083; 89051

== ENCOUNTER → 2023-03-01 07:53 | Outpatient (CLI) | payer BC, SELFPAY ==
--- NOTE | 2023-03-01 07:55 | US_ITS ---
FINAL REPORT CLINICAL HISTORY: ASCITES-- juan alberto laird-- rt side 4160 ml FINDINGS: ULTRASOUND-GUIDED PARACENTESIS HISTORY: Ascites ATTENDING PHYSICIAN: Dr. Floyd PHYSICIAN INSTRUMENT MECHANICS SUPERVISOR: Juan Alberto Shin PA-C FINDINGS: After informed consent was obtained and timeout procedure performed, fluid was localized in the right lower quadrant under ultrasound guidance and marked on the skin appropriately. The patient was then prepped and draped in the usual sterile fashion and the skin was anesthetized with 1% lidocaine. An ultrasound guided paracentesis was then performed using a Turkel needle. Approximately liters of clear yellow fluid was removed. A portion of the fluid was sent to lab. The patient tolerated the procedure well and there were no immediate complications. IMPRESSION: Ultrasound guided right lower quadrant paracentesis as discussed above. Films reviewed , interpreted and dictated by Dr. Floyd Transcribed by Juan Alberto Shin PA-C. Reviewed, Interpreted and Dictated by Santiago Floyd III, MD Transcribed by ZACKARY Ryan Authenticated and . [facility]
[2023-03-01 16:23] LABS: Source, Body Fld. Paracentesis Fluid
[2023-03-01 16:24] LABS: Appearance,Body Fld. Hazy; Volume,Body Fld. 4060 mL
[2023-03-01 16:48] LABS: RBC,Body Fluid < 10 cells/uL (< 10 X 10^3); TNC,Body Fluid 87 cells/uL (< 1000)
[2023-03-01 18:19] LABS: Mononuclear WBCs,Body Fluid 83 %; Polynuclear WBC,Body Fluid 17 %
== END ==
PROVIDERS: PCP Family Medicine; Visit Provider Physician Assistant
DX: R18.8 Other ascites (principal)
CPT/HCPCS: 49083; 89051

== ENCOUNTER → 2023-03-05 07:59 | Outpatient (CLI) | payer BC, SELFPAY ==
--- NOTE | 2023-03-05 08:04 | US_ITS ---
FINAL REPORT CLINICAL HISTORY: ASCITES 4200 ML REMOVED RIQ JASSON RAYMUNDO FINDINGS: ULTRASOUND-GUIDED PARACENTESIS HISTORY: Ascites ATTENDING PHYSICIAN: Dr. Floyd PHYSICIAN TECHNOLOGY APPLICATIONS CONSULTANT: Jasson Shin PA-C FINDINGS: After informed consent was obtained and timeout procedure performed, fluid was localized in the right lower quadrant under ultrasound guidance and marked on the skin appropriately. The patient was then prepped and draped in the usual sterile fashion and the skin was anesthetized with 1% lidocaine. An ultrasound guided paracentesis was then performed using a Turkel needle. The patient tolerated the procedure well and there were no immediate complications. IMPRESSION: Ultrasound guided right lower quadrant paracentesis as discussed above. Films reviewed , interpreted and dictated by Dr. Floyd Transcribed by Jassno Shin PA-C. Reviewed, Interpreted and Dictated by Santiago Floyd III, MD Transcribed by ZACKARY Ryan Authenticated and [facility]
[2023-03-05 16:22] LABS: Appearance,Body Fld. Cloudy; RBC,Body Fluid < 10 cells/uL (< 10 X 10^3); Source, Body Fld. Paracentesis Fluid; TNC,Body Fluid 81 cells/uL (< 1000); Volume,Body Fld. 4200 mL
[2023-03-05 16:41] LABS: Mononuclear WBCs,Body Fluid 79 %; Polynuclear WBC,Body Fluid 21 %
== END ==
PROVIDERS: PCP Family Medicine; Visit Provider Physician Assistant
DX: K70.31 Alcoholic cirrhosis of liver with ascites (principal)
CPT/HCPCS: 49083; 89051

== ENCOUNTER → 2023-03-12 07:53 | Outpatient (CLI) | payer BC, SELFPAY ==
--- NOTE | 2023-03-12 07:58 | US_ITS ---
FINAL REPORT CLINICAL HISTORY: PARACENTESIS--5500 ml-- reynold burrows-- rt side FINDINGS: ULTRASOUND-GUIDED PARACENTESIS HISTORY: Ascites ATTENDING PHYSICIAN: Reynold Burrows PA-C PHYSICIAN MARKER HAND: Dr. Milner FINDINGS: After informed consent was obtained and timeout procedure performed, fluid was localized in the right lower quadrant under ultrasound guidance and marked on the skin appropriately. The patient was then prepped and draped in the usual sterile fashion and the skin was anesthetized with 1% lidocaine. An ultrasound guided paracentesis was then performed using a Turkel needle. Approximately 5.5 liters of clear yellow fluid was removed. Sample of fluid was sent to lab. The patient tolerated the procedure well and there were no immediate complications. IMPRESSION: Ultrasound guided right lower quadrant paracentesis as discussed above. Films reviewed , interpreted and dictated by Dr. Milner. Transcribed by Reynold Burrows PA-C. Reviewed, Interpreted and Dictated by Dontrell Milner MD Transcribed by ZACKARY Ocampo Authenticated and [facility]
[2023-03-12 16:22] LABS: Appearance,Body Fld. Normal; Source, Body Fld. Peritoneal Fluid; TNC,Body Fluid 73 cells/uL (< 1000); Volume,Body Fld. 5500 mL
[2023-03-12 16:23] LABS: Mononuclear WBCs,Body Fluid 71 %; Polynuclear WBC,Body Fluid 29 %; RBC,Body Fluid < 10 cells/uL (< 10 X 10^3)
== END ==
PROVIDERS: PCP Family Medicine; Visit Provider Physician Assistant
DX: R18.8 Other ascites (principal)
CPT/HCPCS: 49083; 89051

== ENCOUNTER → 2023-03-19 08:49 | Outpatient (CLI) | payer BC, SELFPAY ==
--- NOTE | 2023-03-19 08:51 | US_ITS ---
FINAL REPORT CLINICAL HISTORY: ASCITES 6000ml removed RLQ by All RAYMUNDO FINDINGS: ULTRASOUND-GUIDED PARACENTESIS HISTORY:Ascites ATTENDING PHYSICIAN: Dr. Rodríguez PHYSICIAN WASTEWATER TREATMENT OPERATOR: All Shin PA-C FINDINGS: After informed consent was obtained and timeout procedure performed, fluid was localized in the right lower quadrant under ultrasound guidance and marked on the skin appropriately. The patient was then prepped and draped in the usual sterile fashion and the skin was anesthetized with 1% lidocaine. An ultrasound guided paracentesis was then performed using a Turkel needle. Approximately 6 liters of fluid was removed. No fluid was sent to lab. The patient tolerated the procedure well and there were no immediate complications. IMPRESSION: Ultrasound guided right lower quadrant paracentesis as discussed above. Films reviewed , interpreted and dictated by Dr. Floyd Transcribed by All Shin PA-C. Reviewed, Interpreted and Dictated by Santiago Floyd III, MD Transcribed by ZACKARY Ryan Authenticated and . [facility]
[2023-03-19 13:06] LABS: Appearance,Body Fld. Normal; RBC,Body Fluid < 10 cells/uL (< 10 X 10^3); Source, Body Fld. Peritoneal Fluid; TNC,Body Fluid 44 cells/uL (< 1000); Volume,Body Fld. 6000 mL
[2023-03-19 16:10] LABS: Mononuclear WBCs,Body Fluid 78 %; Polynuclear WBC,Body Fluid 22 %
== END ==
PROVIDERS: PCP Family Medicine; Visit Provider Physician Assistant
DX: K70.31 Alcoholic cirrhosis of liver with ascites (principal)
CPT/HCPCS: 49083; 89051

== ENCOUNTER 2023-03-26 08:12 | Outpatient (CLI) | payer BC, SELFPAY ==
--- NOTE | 2023-03-26 08:18 | US_ITS ---
FINAL REPORT CLINICAL HISTORY: ASCITES 8360ml removed RLQ -- Reynold RAYMUNDO FINDINGS: ULTRASOUND-GUIDED PARACENTESIS HISTORY: Ascites ATTENDING PHYSICIAN: Dr. Floyd PHYSICIAN MACHINE OPERATOR HOP PICKER: Reynold Robledo PA-C FINDINGS: After informed consent was obtained and timeout procedure performed, fluid was localized in the right lower quadrant under ultrasound guidance and marked on the skin appropriately. The patient was then prepped and draped in the usual sterile fashion and the skin was anesthetized with 1% lidocaine. An ultrasound guided paracentesis was then performed using a Turkel needle. Approximately 8.4 liters of clear yellow fluid was removed. Sample of the fluid was sent to lab. The patient tolerated the procedure well and there were no immediate complications. IMPRESSION: Ultrasound guided right lower quadrant paracentesis as discussed above. Films reviewed , interpreted and dictated by Dr. Floyd. Transcribed by Reynold Robledo PA-C. Reviewed, Interpreted and Dictated by Santiago Floyd III, MD Transcribed by ZACKARY Ocampo Authenticated and [facility]
[2023-03-26 10:08] VITALS: BP 97/57; PULSE 85; RESP 18; O2SAT 99
[2023-03-26 11:05] VITALS: BP 102/63; PULSE 83; RESP 18
[2023-03-26 11:35] VITALS: RESP 18
[2023-03-26 12:20] VITALS: BP 104/58; PULSE 84; RESP 18; O2SAT 99
[2023-03-26 13:07] LABS: Appearance,Body Fld. Cloudy; RBC,Body Fluid < 10 cells/uL (< 10 X 10^3); Source, Body Fld. Peritoneal Fluid; TNC,Body Fluid 60 cells/uL (< 1000); Volume,Body Fld. 8360 mL
[2023-03-27 13:37] LABS: Mononuclear WBCs,Body Fluid 87 %; Polynuclear WBC,Body Fluid 13 %
== END 2023-03-26 12:20 | disposition home or self-care (01) ==
PROVIDERS: PCP Family Medicine; Visit Provider Physician Assistant
DX: R18.8 Other ascites (principal)
CPT/HCPCS: 49083; 89051; 96365; 96366

== ENCOUNTER 2023-04-02 07:56 | Outpatient (CLI) | payer BC, SELFPAY ==
--- NOTE | 2023-04-02 07:59 | US_ITS ---
FINAL REPORT CLINICAL HISTORY: ASCITES 7060ml removed All Shin - RLQ FINDINGS: ULTRASOUND-GUIDED PARACENTESIS HISTORY:Ascites ATTENDING PHYSICIAN: Dr. Floyd PHYSICIAN DRIVER MEDIC: All Shin PA-C FINDINGS: After informed consent was obtained and timeout procedure performed, fluid was localized in the right lower quadrant under ultrasound guidance and marked on the skin appropriately. The patient was then prepped and draped in the usual sterile fashion and the skin was anesthetized with 1% lidocaine. An ultrasound guided paracentesis was then performed using a Turkel needle. Approximately 7 liters of fluid was removed. No fluid was sent to lab. The patient tolerated the procedure well and there were no immediate complications. IMPRESSION: Ultrasound guided right lower quadrant paracentesis as discussed above. Films reviewed , interpreted and dictated by Dr. Floyd Transcribed by All Shin PA-C. Reviewed, Interpreted and Dictated by Santiago Floyd III, MD Transcribed by ZACKARY Ryan Authenticated and [facility]
[2023-04-02 09:21] VITALS: BP 101/60; PULSE 79; RESP 18; O2SAT 99
[2023-04-02 10:00] VITALS: RESP 18
[2023-04-02 10:31] VITALS: BP 89/52; PULSE 81; RESP 18
[2023-04-02 11:03] VITALS: BP 96/55; PULSE 80; RESP 18
[2023-04-02 11:35] VITALS: RESP 18
[2023-04-02 11:45] VITALS: BP 89/56; PULSE 81; RESP 18
[2023-04-02 15:18] LABS: Appearance,Body Fld. Cloudy; Mononuclear WBCs,Body Fluid 86 %; Polynuclear WBC,Body Fluid 14 %; RBC,Body Fluid < 10 cells/uL (< 10 X 10^3); Source, Body Fld. Peritoneal Fluid; TNC,Body Fluid 56 cells/uL (< 1000); Volume,Body Fld. 7068 mL
== END 2023-04-02 11:45 | disposition home or self-care (01) ==
PROVIDERS: PCP Family Medicine; Visit Provider Physician Assistant
DX: R18.8 Other ascites (principal)
CPT/HCPCS: 49083; 89051; 96365; 96366

== ENCOUNTER 2023-04-09 07:54 | Outpatient (CLI) | payer BC, SELFPAY ==
--- NOTE | 2023-04-09 07:58 | US_ITS ---
FINAL REPORT CLINICAL HISTORY: ASCITES-- rt side 6160--reynold burrows FINDINGS: ULTRASOUND-GUIDED PARACENTESIS HISTORY: Ascites ATTENDING PHYSICIAN: Dr. Demarco PHYSICIAN GOLF COURSE MANAGER: Reynold Burrows PA-C FINDINGS: After informed consent was obtained and timeout procedure performed, fluid was localized in the right lower quadrant under ultrasound guidance and marked on the skin appropriately. The patient was then prepped and draped in the usual sterile fashion and the skin was anesthetized with 1% lidocaine. An ultrasound guided paracentesis was then performed using a Turkel needle. Approximately 6.2 liters of clear yellow fluid was removed. Sample of the fluid was sent to lab. The patient tolerated the procedure well and there were no immediate complications. IMPRESSION: Ultrasound guided right lower quadrant paracentesis as discussed above. Films reviewed , interpreted and dictated by Dr. Ana Demarco. Transcribed by Reynold Burrows PA-C. Reviewed, Interpreted and Dictated by Ana Demarco MD Transcribed by ZACKARY Ocampo Authenticated and [facility]
[2023-04-09 10:00] VITALS: BP 89/53; PULSE 72; RESP 16; O2SAT 99
[2023-04-09 10:30] VITALS: BP 87/46; PULSE 71; RESP 16
[2023-04-09 11:00] VITALS: BP 89/49; PULSE 73; RESP 16
[2023-04-09 11:30] VITALS: BP 90/51; PULSE 73; RESP 16
[2023-04-09 12:00] VITALS: BP 94/53; PULSE 74; RESP 17
[2023-04-09 16:33] LABS: Source, Body Fld. Paracentesis Fluid
[2023-04-09 16:34] LABS: Appearance,Body Fld. Cloudy; Volume,Body Fld. 53 mL
[2023-04-09 16:35] LABS: RBC,Body Fluid < 10 cells/uL (< 10 X 10^3); TNC,Body Fluid 66 cells/uL (< 1000)
[2023-04-09 17:41] LABS: Mononuclear WBCs,Body Fluid 30 %; Polynuclear WBC,Body Fluid 70 %
== END 2023-04-09 12:10 | disposition home or self-care (01) ==
PROVIDERS: PCP Family Medicine; Visit Provider Physician Assistant
DX: R18.8 Other ascites (principal)
CPT/HCPCS: 49083; 89051; 96365; 96366

== ENCOUNTER → 2023-04-16 07:57 | Outpatient (CLI) | payer BC, SELFPAY ==
--- NOTE | 2023-04-16 08:01 | US_ITS ---
FINAL REPORT CLINICAL HISTORY: ASCITES 5560ml removed RLQ -- Soto RAYMUNDO FINDINGS: ULTRASOUND-GUIDED PARACENTESIS HISTORY: Ascites, cirrhosis. ATTENDING PHYSICIAN: Dr. Julien PHYSICIAN VACUUM SPINDLE SANDER: Aimee Catherine PA-C TECHNIQUE: Informed consent was obtained from the patient. A time-out procedure was performed prior to beginning. Appropriate pocket was localized for drainage. The patient was prepped and draped in a routine sterile fashion over the right lower quadrant. Local anesthesia was achieved with 1% lidocaine. Using imaging guidance with images acquired, an 18-gauge sheath needle was directed into the peritoneal fluid. Approximately 5.5 liters of clear yellow fluid was aspirated. 60 mL of fluid was sent to the lab for analysis. The patient tolerated the procedure well and left the department in good condition. IMPRESSION: Successful ultrasound guided diagnostic and therapeutic paracentesis as above. Reviewed, Interpreted and Dictated by Jefferson Julien MD Transcribed by Aimee Catherine PA-C Authenticated and [facility]
[2023-04-16 15:17] LABS: Appearance,Body Fld. Cloudy; Source, Body Fld. Paracentesis Fluid; Volume,Body Fld. 5560 mL
[2023-04-16 15:18] LABS: RBC,Body Fluid < 10 cells/uL (< 10 X 10^3); TNC,Body Fluid 71 cells/uL (< 1000)
[2023-04-16 16:41] LABS: Mononuclear WBCs,Body Fluid 96 %; Polynuclear WBC,Body Fluid 4 %
== END ==
PROVIDERS: PCP Family Medicine; Visit Provider Physician Assistant
DX: K70.31 Alcoholic cirrhosis of liver with ascites (principal)
CPT/HCPCS: 49083; 89051

== ENCOUNTER → 2023-04-22 08:48 | Outpatient (CLI) | payer BC, SELFPAY ==
--- NOTE | 2023-04-22 08:53 | US_ITS ---
FINAL REPORT CLINICAL HISTORY: ASCITES 5660ml removed RLQ Dr. Teodoro Julien FINDINGS: ULTRASOUND-GUIDED PARACENTESIS HISTORY: Ascites TECHNIQUE: The right abdomen was prepped and routine sterile fashion. Appropriate pocket was localized for drainage. The patient was prepped and draped in routine fashion. Local anesthesia was achieved with 1% lidocaine. Using imaging guidance with images acquired, an 18-gauge sheath needle was directed into the peritoneal fluid. Approximately 5.55 liters of yellow serous fluid was aspirated. A small portion of fluid was sent for laboratory analysis. IMPRESSION: Successful ultrasound guided therapeutic paracentesis Authenticated and [facility]
[2023-04-22 13:36] LABS: Appearance,Body Fld. Cloudy; Mononuclear WBCs,Body Fluid 67 %; Polynuclear WBC,Body Fluid 33 %; RBC,Body Fluid < 10 cells/uL (< 10 X 10^3); Source, Body Fld. Peritoneal Fluid; TNC,Body Fluid 116 cells/uL (< 1000); Volume,Body Fld. 5660 mL
== END ==
PROVIDERS: PCP Family Medicine; Visit Provider Physician Assistant
DX: K70.31 Alcoholic cirrhosis of liver with ascites (principal)
CPT/HCPCS: 49083; 89051

== ENCOUNTER → 2023-04-26 10:56 | Outpatient (CLI) | payer BC, SELFPAY ==
--- NOTE | 2023-04-26 11:02 | US_ITS ---
FINAL REPORT CLINICAL HISTORY: ASCITES 5760ML REMOVED RLQ REYNOLD RAYMUNDO FINDINGS: ULTRASOUND-GUIDED PARACENTESIS HISTORY: Ascites ATTENDING PHYSICIAN: Reynold Robledo PA-C PHYSICIAN SEXER: Dr. Floyd FINDINGS: After informed consent was obtained and timeout procedure performed, fluid was localized in the right lower quadrant under ultrasound guidance and marked on the skin appropriately. The patient was then prepped and draped in the usual sterile fashion and the skin was anesthetized with 1% lidocaine. An ultrasound guided paracentesis was then performed using a Turkel needle. Approximately 5.8 liters of cloudy yellow fluid was removed. Sample of the fluid was sent to lab. The patient tolerated the procedure well and there were no immediate complications. IMPRESSION: Ultrasound guided right lower quadrant paracentesis as discussed above. Films reviewed , interpreted and dictated by Dr. Floyd. Transcribed by Reynold Robledo PA-C. Reviewed, Interpreted and Dictated by Santiago Floyd III, MD Transcribed by ZACKARY Ocampo Authenticated and [facility]
[2023-04-26 13:52] LABS: Appearance,Body Fld. Cloudy; Source, Body Fld. Peritoneal Fluid; Volume,Body Fld. 5160 mL
[2023-04-26 13:53] LABS: RBC,Body Fluid < 10 cells/uL (< 10 X 10^3); TNC,Body Fluid 87 cells/uL (< 1000)
[2023-04-26 18:21] LABS: Mononuclear WBCs,Body Fluid 70 %; Polynuclear WBC,Body Fluid 30 %
== END ==
PROVIDERS: PCP Family Medicine; Visit Provider Physician Assistant
DX: K70.31 Alcoholic cirrhosis of liver with ascites (principal)
CPT/HCPCS: 49083; 89051

== ENCOUNTER 2023-04-30 07:53 | Outpatient (CLI) | payer BC, SELFPAY ==
--- NOTE | 2023-04-30 07:55 | US_ITS ---
FINAL REPORT CLINICAL HISTORY: ASCITES-- reynold laird--5660 ml FINDINGS: ULTRASOUND-GUIDED PARACENTESIS HISTORY: Ascites ATTENDING PHYSICIAN: Dr. Floyd PHYSICIAN PILLOW AGENT: Reynold Robledo PA-C FINDINGS: After informed consent was obtained and timeout procedure performed, fluid was localized in the right lower quadrant under ultrasound guidance and marked on the skin appropriately. The patient was then prepped and draped in the usual sterile fashion and the skin was anesthetized with 1% lidocaine. An ultrasound guided paracentesis was then performed using a Turkel needle. Approximately 5.7 liters of clear yellow fluid was removed. Sample of the fluid was sent to lab. The patient tolerated the procedure well and there were no immediate complications. IMPRESSION: Ultrasound guided right lower quadrant paracentesis as discussed above. Films reviewed , interpreted and dictated by Dr. Floyd. Transcribed by Reynold Robledo PA-C. Reviewed, Interpreted and Dictated by Santiago Floyd III, MD Transcribed by ZACKARY Ocampo Authenticated and [facility]
--- NOTE | 2023-04-30 09:30 | PC.NURSE ---
0930-spoke with sisi katz about how much albumin to give pt today since he has had 2 paracentesis this week for a total of 11.4 liters; give normal dose of albumin 50gm for >11 liters this time.
[2023-04-30 09:42] VITALS: BP 99/54; PULSE 68; RESP 18; O2SAT 98
[2023-04-30 10:12] VITALS: RESP 18; O2SAT 98
[2023-04-30 10:45] VITALS: RESP 18; O2SAT 98
[2023-04-30 11:20] VITALS: RESP 18; O2SAT 98
[2023-04-30 12:00] VITALS: BP 98/51; PULSE 72; RESP 18; O2SAT 98
[2023-04-30 13:10] LABS: Appearance,Body Fld. Normal; RBC,Body Fluid < 10 cells/uL (< 10 X 10^3); Source, Body Fld. Peritoneal Fluid; TNC,Body Fluid 79 cells/uL (< 1000); Volume,Body Fld. 5660 mL
[2023-04-30 16:11] LABS: Mononuclear WBCs,Body Fluid 22 %; Polynuclear WBC,Body Fluid 78 %
== END 2023-04-30 12:00 | disposition home or self-care (01) ==
LOC: RAD 07:53 → INF 09:31
PROVIDERS: PCP Family Medicine; Visit Provider Physician Assistant
DX: K70.31 Alcoholic cirrhosis of liver with ascites (principal)
CPT/HCPCS: 49083; 89051; 96365; 96366

== ENCOUNTER 2023-05-02 12:48 | Observation (INO) | payer BC, SELFPAY ==
[2023-05-02] VITALS (7 sets, daily range): BP systolic 76–96; BP diastolic 34–57; PULSE 75–91; RESP 18–20; TEMP 36.6–37.2; O2SAT 95–100; BMI 25.8; BMI 26.7
[2023-05-02 13:32] LABS: Coronavirus 19, PCR Not Detected (NotDetected); Influenza A, PCR Not Detected (NotDetected); Influenza B, PCR Not Detected (NotDetected)
[2023-05-02 13:37] LABS: Basophils % 0.4 % (0.1-2.0); Eosinophils # 0.3 K/mm3 (0.0-0.4); Eosinophils % 3.6 % (0.1-12.0); Hematocrit 37.8 % (42.0-52.0); Hemoglobin 12.4 g/dL (14.1-18.0); Lymphocytes # 0.6 K/mm3 (0.7-4.5); Lymphocytes % 7.9 % (10-50); Mean Corpuscular HGB Conc 32.7 g/dL (31.8-35.4); Mean Corpuscular Hemoglobin 30.9 pg (27.0-31.2); Mean Corpuscular Volume 94.5 fl (80-94); Mean Platelet Volume 8.5 fl (7.4-10.4); Monocytes # 0.5 K/mm3 (0.1-1.0); Monocytes % 6.4 % (1.7-9.3); Neutrophils # 6.6 K/mm3 (1.8-7.8); Neutrophils % 81.7 % (37.0-80.0); Platelet Count 72 K/mm3 (142-424); Red Cell Distribution Width 15.2 % (11.5-17.5)
[2023-05-02 13:40] LABS: Alanine Aminotransferase 44 U/L (12-78); Albumin Level 3.7 g/dl (3.5-5.0); Alkaline Phosphatase 133 U/L (38-126); Anion Gap 16.4 mEq/L (5-15); Aspartate Amino Transferase 60 U/L (17-59); Bilirubin,Total 2.9 mg/dl (0.2-1.3); Blood Urea Nitrogen 57 mg/dl (9-20); Calcium 9.2 mg/dl (8.4-10.2); Carbon Dioxide 21 mmol/L (22.0-30.0); Chloride 103 mmol/L (98-107); Creatinine Clearance Estimated 35 mL/min (50-200); Estimated Glomerular Filt Rate 28 ml/min (>60); GFR (African American) 34 ML/MIN (>60); Globulin 3.8 g/dL (1.3-3.2); Glucose 203 mg/dl (74-100); Potassium 3.4 mmoL/L (3.5-5.1); Sodium 137 mmol/L (136-145); Total Protein,Serum 7.5 g/dl (6.3-8.2)
[2023-05-02 13:44] LABS: Lactic Acid 3.3 mmol/L (0.7-2.1)
--- NOTE | 2023-05-02 13:51 | PC.NURSE ---
pt given warm blankets, call button in reach
--- NOTE | 2023-05-02 14:01 | HMH.EDGENADL ---
Discharge Plan Disposition Patient Disposition: Admitted Condition: Fair Clinical Impressions Clinical Impression: Decompensated hepatic cirrhosis Discharge ED Provider: Barry Archuleta I General Adult HPI General Chief complaint: Weakness Stated complaint: shaking Time Seen by Provider: 05/02/23 13:19 Mode of Arrival: Ambulatory Source of Information: Patient Limitations: No Limitations Description of Symptoms (Recalled from ER Triage Doc. by RN): pt cc is of fatigue and just overall not feeling well History of Present Illness HPI narrative: Patient is a 57-year-old male with history of alcohol induced cirrhosis who is presenting to the emergency department with several days history of fatigue. Patient states that he has also had intermittent chills. He reports that this feels that the last time he was septic . Patient states that he was previously admitted for sepsis, was not ever found what his source was. Patient states that last night, patient had some diffuse abdominal discomfort as well as nausea, 1 episode of nonbloody nonbilious emesis. He denies any blood in his stool, melena. Denies cough, congestion, runny nose, chest pain, shortness of breath, difficulty breathing. Patient states that his blood pressure always runs low . Patient last had a paracentesis on Wednesday where they drained 5 L of fluid, patient received albumin. He reports that he gets a paracentesis once each week. Related Data Allergies Allergy/AdvReac Type Severity Reaction Status Date / Time No Known Allergies Allergy Verified 12/02/22 14:28 [facility] Disclaimer: The information contained in this section may have been updated after the patient was seen, as this information can be updated by other users. Medical History (Updated 05/02/23 @ 17:16 by Barry Archuleta MD) Deviated nasal bone Deviated nasal septum Encounter for pre-operative cardiovascular clearance Eustachian tube dysfunction History of COVID-19 History of gastroesophageal reflux (GERD) HLD (hyperlipidemia) HTN (hypertension) Maxillary sinusitis, chronic Sinus headache Sinusitis Surgical History History of back surgery History of cataract surgery History of hip surgery History of shoulder surgery Status post functional endoscopic sinus surgery Family History Other Cancer Family history of stent Social History Smoking Status: Never smoker years smoked: 30 smoking status stop date: 1995 alcohol intake: never substance use type: denies use current occupational status: employed Travel in the last 8 weeks: None housing: house current occupational exposures/hazards: No caffeine: No ROS Obtained: Yes All systems reviewed & no additional complaints except as documented Physical Exam General General appearance: alert (Patient is alert, but does appear to be fatigued) and in no apparent distress Head Head exam: atraumatic and normocephalic ENT ENT exam: Present normal exam Neck Neck exam: Present full ROM Chest Chest inspection: Present normal inspection and symmetric chest wall rise Respiratory Respiratory exam: Present normal lung sounds bilaterally; Absent respiratory distress or accessory muscle use Cardiovascular Cardiovascular exam: Present regular rate and normal rhythm Abdominal Exam Abdominal exam: Present soft; Absent distention, tenderness, guarding or rebound Extremities Exam Extremities exam: Present normal inspection and full ROM Neurological Exam Neurological exam: Present alert and oriented X3 Psychiatric Psychiatric exam: Present normal affect Skin Skin exam: Present warm, dry and intact Medical Decision Making Medical Records Medical records reviewed: Yes I reviewed the patient's medical records. Fabian Inquiry Pt receiving controlled substance: No Teresita
[2023-05-02 14:21] LABS: Lipase 293 U/L (23-300)
[2023-05-02 14:22] LABS: Ammonia 78 umol/L (9-30)
--- NOTE | 2023-05-02 15:12 | PC.NURSE ---
DR JUANY PEARL
--- NOTE | 2023-05-02 15:21 | PC.NURSE ---
GIZZARD PEELER NOTIFIED OF ADMISSION
--- NOTE | 2023-05-02 15:35 | PC.NURSE ---
called report to MS Josh GEE, all questions answered.
[2023-05-02 15:36] LABS: Appearance,Body Fld. Cloudy; RBC,Body Fluid < 10 cells/uL (< 10 X 10^3); Source, Body Fld. Paracentesis Fluid; TNC,Body Fluid 104 cells/uL (< 1000); Volume,Body Fld. 23 mL
[2023-05-02 15:42] LABS: Prothrombin Time 13.8 seconds (10.1-12.5)
--- NOTE | 2023-05-02 15:44 | PC.NURSE ---
Pt assigned to room 205 for Decompensated cirrhosis. Milvia Canela. OBS
[2023-05-02 16:37] LABS: Mononuclear WBCs,Body Fluid 81 %; Polynuclear WBC,Body Fluid 19 %
[2023-05-02 17:30] LABS: Reflex Lactic Add Lactic Reflex
[2023-05-02 18:33] LABS: Lactic Acid Follow Up (RFLX 1) 0.7 mmol/L (0.7-2.1)
[2023-05-03] VITALS: BP 71/40; PULSE 84; RESP 18; TEMP 36.7; O2SAT 97
[2023-05-03 04:00] VITALS: BP 99/56; PULSE 71; RESP 16; TEMP 36.5; O2SAT 100; BMI 28.0
--- NOTE | 2023-05-03 06:14 | PC.NURSE ---
No acute changes noted. Some tenderness noted in abdomen on palpation. Patient able to rest during shift with no other complaints. VS stable and patient remained on room air
[2023-05-03 08:00] VITALS: BP 100/57; PULSE 76; TEMP 36.6; O2SAT 96
--- NOTE | 2023-05-03 08:21 | HMH.PHAINT1 ---
Pharmacy Intervention Comments: Medication history complete, medications verified with patient - Vinny DaveyD Candidate 2023
--- NOTE | 2023-05-03 08:25 | XR_ITS ---
FINAL REPORT CLINICAL HISTORY: diminished BS COMPARISON: 04/30/2019 FINDINGS: SINGLE VIEW CHEST The heart size is enlarged. The mediastinum is within normal limits. There are mild bibasilar opacities present, favor atelectasis over pneumonia.. There is no evidence of pneumothorax. The bony thorax is intact. IMPRESSION: Mild bibasilar opacities, favor atelectasis over pneumonia.. Reviewed, Interpreted and Dictated by Santiago Floyd III, MD Transcribed by Orquidea Adan Authenticated and . [facility]
--- NOTE | 2023-05-03 08:46 | EXP.HP ---
History of Present Illness *Admission Date: 05/02/23 *Reason for visit:: Weakness and shaking; abdominal pain *History of present illness: HPI narrative: Patient is a 57-year-old male with history of alcohol induced cirrhosis who is presenting to the emergency department with several days history of fatigue. Patient states that he has also had intermittent chills. He reports that this feels that the last time he was septic . Patient states that he was previously admitted for sepsis, was not ever found what his source was. Patient states that last night, patient had some diffuse abdominal discomfort as well as nausea, 1 episode of nonbloody nonbilious emesis. He denies any blood in his stool, melena. Denies cough, congestion, runny nose, chest pain, shortness of breath, difficulty breathing. Patient states that his blood pressure always runs low . Patient last had a paracentesis on Wednesday where they drained 5 L of fluid, patient received albumin. He reports that he gets a paracentesis once each week. Medical Decision Narrative: Patient is a 57-year-old male with history of alcohol induced cirrhosis who is presenting to the emergency department with several days history of fatigue. Patient has blood pressures that are 90s over 60s to 80s over 50s, largely in line with prior blood pressures, fatigued but alert and oriented, afebrile on arrival to the emergency department. Patient is saturating well on room air. Patient does have a history of low blood pressures based on chart review. Physical exam is notable for a positive fluid wave, ascites, patient does not have any abdominal tenderness to palpation. He is breathing comfortably with normal lung sounds on auscultation bilaterally. Does not have any asterixis. Does not appear to have any significant scleral icterus. Laboratory work-up includes decompensated cirrhosis, UTI, pyonephritis, sepsis, SBP. Will obtain full laboratory work-up including blood cultures as well as diagnostic paracentesis. Laboratory work-up was notable for elevated INR 1.30, patient has a creatinine of 2.40 compared to a baseline of 1. Patient also has a lactate of 3.3, bilirubin of 2.9, AST 60, ALT of 44, alk phos of 133 ammonia level of 78. Diagnostic paracentesis was performed at bedside, please see separate procedure note for further details. Lipase was elevated to 93, patient does not have any evidence of SBP on initial tap although culture and Gram stain are pending at this time. However, paracentesis fluid appeared to be cloudy compared to patient's baseline, will start Rocephin given lower blood pressures in the emergency department and fatigue, chills. Following discussion with on-call hospitalist, patient will be admitted for continued observation. Further work-up and management per admitting team. Patient denies any abdominal pain or nausea this morning. He was able to eat a little bit of breakfast. He has had 2 diarrhea stools since admission. He states he still feels shaky and just so very weak. He continues to deny chest pain and shortness of breath. Lasix was ordered by GI. He stopped taking because of side effects. Daughter is present and adds to his history. He has an appointment with his GI physician on Wednesday who he has not seen for 2 to 3 months. He continues with weekly paracentesis. He is very vague with this history. His daughter notes that he has become progressively weaker over the last 2 to 3 months. Normally he is a very energetic individual and always active. Now he has difficulty with even feeding himself. He has not been eating due to feeling full early from the ascites. He has not had any alcohol intake for about 6 months. He smokes occasionally. [facility] Disclaimer: The information contained in this section may have been updated after the patient was seen, as this information can be updated by other users. Medical History (Updated 05/03/23 @ 12:15 by Khadra Juárez APRN) Alc
[2023-05-03 11:21] VITALS: BMI 28.0
[2023-05-03 14:52] LABS: Microscopic, Urine URINE MICROSCOPIC (MICROSCOPIC)
[2023-05-03 14:56] LABS: Appearance,Urine CLEAR (Clear); Bilirubin,Urine Negative (Negative); Blood, Urine 2+ (Negative); Color,Urine YELLOW (Yellow); Glucose,Urine (UA) Negative (Negative); Ketones,Urine Negative (Negative); Leukocyte Esterase,Urine TRACE (Negative); Nitrate,Urine Negative (Negative); Protein,Urine Negative (Negative); Urobilinogen,Urine 0.2 EU/dl (0.2)
[2023-05-03 15:18] LABS: RBC,Urine TNTC #/hpf (0-3); Squamous Epithelial Cell,Urine Occasional #/hpf (0-5); WBC,Urine Occasional #/hpf (0-3)
[2023-05-03 16:00] VITALS: BP 103/73; PULSE 74; RESP 17; TEMP 36.6; O2SAT 99
[2023-05-03 20:00] VITALS: BP 102/59; PULSE 77; RESP 17; TEMP 37; O2SAT 98
--- NOTE | 2023-05-03 21:00 | PC.NURSE ---
rounded on pt. LS clear bilaterally. RA. removed infiltrated RAC IV. patent 20g right wrist IV SL. ascites noted. pt denies pain. pt states don't wake me up all night long . bed locked/lowest position, cb in reach. POC ongoing.
[2023-05-04 04:00] VITALS: BP 102/60; PULSE 79; RESP 16; TEMP 36.8; O2SAT 96; BMI 27.5
[2023-05-04 06:39] LABS: Basophils % 0.5 % (0.1-2.0); Eosinophils # 0.3 K/mm3 (0.0-0.4); Eosinophils % 5.3 % (0.1-12.0); Hematocrit 36.2 % (42.0-52.0); Hemoglobin 11.6 g/dL (14.1-18.0); Lymphocytes # 0.9 K/mm3 (0.7-4.5); Lymphocytes % 13.8 % (10-50); Mean Corpuscular Hemoglobin 30.3 pg (27.0-31.2); Mean Corpuscular Volume 94.9 fl (80-94); Mean Platelet Volume 8.9 fl (7.4-10.4); Monocytes # 0.6 K/mm3 (0.1-1.0); Monocytes % 8.6 % (1.7-9.3); Neutrophils # 4.6 K/mm3 (1.8-7.8); Neutrophils % 71.8 % (37.0-80.0); Platelet Count 65 K/mm3 (142-424); Red Blood Count 3.81 M/mm3 (4.60-6.20); Red Cell Distribution Width 15.3 % (11.5-17.5); White Blood Count 6.4 K/mm3 (4.8-10.8)
[2023-05-04 06:42] LABS: Alanine Aminotransferase 29 U/L (12-78); Albumin Level 2.9 g/dl (3.5-5.0); Albumin/Globulin Ratio 0.9 (1.1-1.8); Alkaline Phosphatase 164 U/L (38-126); Anion Gap 9.3 mEq/L (5-15); Aspartate Amino Transferase 47 U/L (17-59); Bilirubin,Total 1.4 mg/dl (0.2-1.3); Blood Urea Nitrogen 46 mg/dl (9-20); Calcium 8.4 mg/dl (8.4-10.2); Carbon Dioxide 21 mmol/L (22.0-30.0); Chloride 109 mmol/L (98-107); Creatinine Clearance Estimated 56 mL/min (50-200); Estimated Glomerular Filt Rate 44 ml/min (>60); GFR (African American) 54 ML/MIN (>60); Globulin 3.3 g/dL (1.3-3.2); Glucose 89 mg/dl (74-100); Potassium 3.3 mmoL/L (3.5-5.1); Sodium 136 mmol/L (136-145); Total Protein,Serum 6.2 g/dl (6.3-8.2)
[2023-05-04 07:27] VITALS: BP 107/58; PULSE 79; RESP 16; TEMP 36.3; O2SAT 96
--- NOTE | 2023-05-04 07:53 | EXP.ACUTE.PN ---
Subjective *Date: 05/04/23 *Time: 08:40 Interval history: Patient states that shakes are better this morning. He is eating as usual without nausea or vomiting. He has had no further diarrhea. Bowels did move this morning. He is voiding QS. He gets short of breath at times. He denies chest pain. His ascites feels worse and he would like a paracentesis today. He has been out of bed. He took a shower yesterday and tolerated satisfactory. With IV fluids blood pressure and renal function have improved; bilirubin has decreased. Potassium is low at 3.3. Paracentesis fluid from last week and this admission shows no growth. Urinalysis shows 2+ blood. Albumin has decreased to 2.9. Platelet count has decreased to 65. Chest x-ray from yesterday 05/03/2023: IMPRESSION: Mild bibasilar opacities, favor atelectasis over pneumonia.. Medical Exam Vital signs and Labs for Last 24 Hours: Vital Signs Temp Pulse Resp BP Pulse Ox O2 Del Method 05/04/23 07:27 97.4 F L 79 16 107/58 L 96 Room Air 05/04/23 06:31 Room Air 05/04/23 05:00 Room Air 05/04/23 03:00 Room Air 05/04/23 04:00 98.2 F 79 16 102/60 L 96 Room Air 05/04/23 00:49 Room Air 05/03/23 23:00 Room Air 05/03/23 21:00 Room Air 05/03/23 20:00 Room Air 05/03/23 20:00 98.6 F 77 17 102/59 L 98 Room Air 05/03/23 16:00 97.9 F 74 17 103/73 L 99 Room Air 05/03/23 08:00 97.8 F 76 100/57 L 96 Room Air Intake and Output 05/03/23 05/04/23 05/04/23 19:59 03:59 11:59 Intake Total 960 / 960 70 / 1030 360 / 1390 Output Total 0 / 0 0 / 0 Balance 960 / 960 70 / 1030 360 / 1390 Intake: Intake, Oral Amount 960 / 960 60 / 1020 360 / 1380 Intake, Other Amount 10 / 10 Output: Output, Urine Amount 0 / 0 0 / 0 Other: Intake, Other Source Saline Solution Number of Voids 0 0 Number of Unmeasured Voids 1 1 Weight 175 lb 9.6 oz Patient Weight 05/04/23 11:59 Weight 175 lb 9.6 oz Laboratory Results - last 24 hr 05/03/23 14:42: Urine Color Yellow, Urine Appearance Clear, Urine pH 6.0, Ur Specific [place] 1.010, Urine Protein Negative, Urine Glucose (UA) Negative, Urine Ketones Negative, Urine Blood 2+, Urine Nitrate Negative, Urine Bilirubin Negative, Urine Urobilinogen 0.2, Ur Leukocyte Esterase Trace, Urine RBC Tntc, Urine WBC Occasional, Ur Squamous Epith Cells Occasional, Urine Bacteria None 05/04/23 06:03: WBC 6.4, RBC 3.81 L, Hgb 11.6 L, Hct 36.2 L, MCV 94.9 H, MCH 30.3, MCHC 32.0, RDW 15.3, Plt Count 65 L, MPV 8.9, Neut % (Auto) 71.8, Lymph % (Auto) 13.8, [place] % (Auto) 8.6, Eos % (Auto) 5.3, Baso % (Auto) 0.5, Neut # (Auto) 4.6, Lymph # (Auto) 0.9, [place] # (Auto) 0.6, Eos # (Auto) 0.3, Baso # (Auto) 0.0, Sodium 136, Potassium 3.3 L, Chloride 109 H, Carbon Dioxide 21 L, Anion Gap 9.3, BUN 46 H, Creatinine 1.60 H D, Estimated Creat Clear 56, Estimated GFR 44 L, Est GFR ( Amer) 54 L D, Glucose 89, Calcium 8.4, Total Bilirubin 1.4 H, AST 47, ALT 29 D, Alkaline Phosphatase 164 H, Total Protein 6.2 L, Albumin 2.9 L, Globulin 3.3 H, Albumin/Globulin Ratio 0.9 L I & O for Labs for Last 24 Hours: Intake & Output 05/01/23 05/02/23 05/03/23 05/04/23 11:59 11:59 11:59 11:59 Intake Total 1530 / 1530 1390 / 1390 Output Total 0 / 0 0 / 0 Balance 1530 / 1530 1390 / 1390 Weight 178 lb 5.663 oz 175 lb 9.6 oz Microbiology Reports for the Last 24 Hours: Microbiology 05/02/23 15:10 Ascites Fluid Gram Stain - Final 05/02/23 15:10 Ascites Fluid Body Fluid Culture - Preliminary NO GROWTH AFTER 24 HOURS Constitutional: Present no acute distress Respiratory: Present CTA bilaterally (A&P with good bilateral breath sounds posteriorly) Cardiac: Present Reg Rate and Rhythm GI: Present soft, hyperactive bowel sounds and ascites Extremities: Present full ROM; Absent tenderness or edema Neuro: Present alert and oriented x 3 Assessment and Plan *Assessment and
--- NOTE | 2023-05-04 08:41 | US_ITS ---
FINAL REPORT CLINICAL HISTORY: Ascites FINDINGS: ULTRASOUND-GUIDED PARACENTESIS HISTORY:Ascites ATTENDING PHYSICIAN: Dr. Floyd PHYSICIAN GEOSPATIAL SPECIALIST: All Shin PA-C FINDINGS: After informed consent was obtained and timeout procedure performed, fluid was localized in the right lower quadrant under ultrasound guidance and marked on the skin appropriately. The patient was then prepped and draped in the usual sterile fashion and the skin was anesthetized with 1% lidocaine. An ultrasound guided paracentesis was then performed using a Turkel needle. Approximately 7.2 liters of fluid was removed. No fluid was sent to lab. The patient tolerated the procedure well and there were no immediate complications. IMPRESSION: Ultrasound guided right lower quadrant paracentesis as discussed above. Films reviewed , interpreted and dictated by Dr. Floyd Transcribed by All Shin PA-C. Reviewed, Interpreted and Dictated by Santiago Floyd III, MD Transcribed by ZACKARY Ryan Authenticated and [facility]
--- NOTE | 2023-05-04 12:45 | PC.NURSE ---
7200ml drained during paracentesis. per pts gastrologist, dr melani archer, protocol is to infuse 50gm albumin 25% x1 now. notified KYRA machado for the albumin faxed to pharm.
[2023-05-04 14:22] LABS: Appearance,Body Fld. Cloudy; Source, Body Fld. Peritoneal Fluid
[2023-05-04 14:23] LABS: RBC,Body Fluid < 10 cells/uL (< 10 X 10^3); TNC,Body Fluid 50 cells/uL (< 1000); Volume,Body Fld. 7200 mL
[2023-05-04 16:04] LABS: Mononuclear WBCs,Body Fluid 94 %; Polynuclear WBC,Body Fluid 6 %
--- NOTE | 2023-05-05 08:23 | EXP.DC.SUM ---
General Admission date:: 05/02/23 Discharge date: 05/04/23 HPI HPI HPI: HPI narrative: Patient is a 57-year-old male with history of alcohol induced cirrhosis who is presenting to the emergency department with several days history of fatigue. Patient states that he has also had intermittent chills. He reports that this feels that the last time he was septic . Patient states that he was previously admitted for sepsis, was not ever found what his source was. Patient states that last night, patient had some diffuse abdominal discomfort as well as nausea, 1 episode of nonbloody nonbilious emesis. He denies any blood in his stool, melena. Denies cough, congestion, runny nose, chest pain, shortness of breath, difficulty breathing. Patient states that his blood pressure always runs low . Patient last had a paracentesis on Wednesday where they drained 5 L of fluid, patient received albumin. He reports that he gets a paracentesis once each week. Medical Decision Narrative: Patient is a 57-year-old male with history of alcohol induced cirrhosis who is presenting to the emergency department with several days history of fatigue. Patient has blood pressures that are 90s over 60s to 80s over 50s, largely in line with prior blood pressures, fatigued but alert and oriented, afebrile on arrival to the emergency department. Patient is saturating well on room air. Patient does have a history of low blood pressures based on chart review. Physical exam is notable for a positive fluid wave, ascites, patient does not have any abdominal tenderness to palpation. He is breathing comfortably with normal lung sounds on auscultation bilaterally. Does not have any asterixis. Does not appear to have any significant scleral icterus. Laboratory work-up includes decompensated cirrhosis, UTI, pyonephritis, sepsis, SBP. Will obtain full laboratory work-up including blood cultures as well as diagnostic paracentesis. Laboratory work-up was notable for elevated INR 1.30, patient has a creatinine of 2.40 compared to a baseline of 1. Patient also has a lactate of 3.3, bilirubin of 2.9, AST 60, ALT of 44, alk phos of 133 ammonia level of 78. Diagnostic paracentesis was performed at bedside, please see separate procedure note for further details. Lipase was elevated to 93, patient does not have any evidence of SBP on initial tap although culture and Gram stain are pending at this time. However, paracentesis fluid appeared to be cloudy compared to patient's baseline, will start Rocephin given lower blood pressures in the emergency department and fatigue, chills. Following discussion with on-call hospitalist, patient will be admitted for continued observation. Further work-up and management per admitting team. Patient denies any abdominal pain or nausea this morning. He was able to eat a little bit of breakfast. He has had 2 diarrhea stools since admission. He states he still feels shaky and just so very weak. He continues to deny chest pain and shortness of breath. Lasix was ordered by GI. He stopped taking because of side effects. Daughter is present and adds to his history. He has an appointment with his GI physician on Wednesday who he has not seen for 2 to 3 months. He continues with weekly paracentesis. He is very vague with this history. His daughter notes that he has become progressively weaker over the last 2 to 3 months. Normally he is a very energetic individual and always active. Now he has difficulty with even feeding himself. He has not been eating due to feeling full early from the ascites. He has not had any alcohol intake for about 6 months. He smokes occasionally. Hospital Course Hospital Course Hospital Course: The patient was empirically started on Rocephin and a chest x-ray and urinalysis were ordered. He was started on IV fluids. His chest x-ray showed mild basilar opacities favoring atelectasis versus pneumonia. By 05/04/2023, he was eating without
--- NOTE | 2023-05-07 13:04 | CARE MANAGER ---
Contacted patient related to hospital discharge. He states he is doing well. He is aware of follow up appointment and denies questions or concerns. GERARD Valdivia
== END 2023-05-04 15:42 | disposition home or self-care (01) ==
LOC: ER 12:54 → 2ND 15:30
PROVIDERS: Nurse Practitioner Family; Physician Assistant; Admitting Provider Internal Medicine Adolescent Medicine; Emergency Provider Emergency Medicine; PCP Family Medicine; Visit Provider Family Medicine
DX: K72.90 Hepatic failure, unspecified without coma (principal); K70.31 Alcoholic cirrhosis of liver with ascites; I95.9 Hypotension, unspecified; K21.9 Gastro-esophageal reflux disease without esophagitis; G47.33 Obstructive sleep apnea (adult) (pediatric); J32.0 Chronic maxillary sinusitis; I10 Essential (primary) hypertension; E78.5 Hyperlipidemia, unspecified; D69.6 Thrombocytopenia, unspecified; E87.6 Hypokalemia
CPT/HCPCS: 49083; 36415; 71045; 80053; 81001; 82140; 83605; 83690; 85025; 85610; 87070; 87205; 87636; 89051; 99285; G0378; J0696

== ENCOUNTER → 2023-05-07 07:57 | Outpatient (CLI) | payer BC, SELFPAY ==
--- NOTE | 2023-05-07 08:00 | US_ITS ---
FINAL REPORT CLINICAL HISTORY: ASCITES 4000ml removed RLQ -- All RAYMUNDO FINDINGS: ULTRASOUND-GUIDED PARACENTESIS HISTORY:Ascites ATTENDING PHYSICIAN: Dr. Milner PHYSICIAN CERTIFIED RESIDENTIAL MEDICATION AIDE: All Shin PA-C FINDINGS: After informed consent was obtained and timeout procedure performed, fluid was localized in the right lower quadrant under ultrasound guidance and marked on the skin appropriately. The patient was then prepped and draped in the usual sterile fashion and the skin was anesthetized with 1% lidocaine. An ultrasound guided paracentesis was then performed using a Turkel needle. Approximately 4 liters of fluid was removed. No fluid was sent to lab. The patient tolerated the procedure well and there were no immediate complications. IMPRESSION: Ultrasound guided right lower quadrant paracentesis as discussed above. Films reviewed , interpreted and dictated by Dr. Floyd Transcribed by All Shin PA-C. Reviewed, Interpreted and Dictated by Santiago Floyd III, MD Transcribed by ZACKARY Ryan Authenticated and [facility]
[2023-05-07 11:49] LABS: Appearance,Body Fld. Cloudy; RBC,Body Fluid < 10 cells/uL (< 10 X 10^3); Source, Body Fld. Peritoneal Fluid; TNC,Body Fluid 187 cells/uL (< 1000); Volume,Body Fld. 4000 mL
[2023-05-07 11:50] LABS: Mononuclear WBCs,Body Fluid 93 %; Polynuclear WBC,Body Fluid 7 %
== END ==
PROVIDERS: PCP Family Medicine; Visit Provider Physician Assistant
DX: K70.31 Alcoholic cirrhosis of liver with ascites (principal)
CPT/HCPCS: 49083; 89051

== ENCOUNTER → 2023-05-14 08:03 | Outpatient (CLI) | payer BC, SELFPAY ==
--- NOTE | 2023-05-14 08:07 | US_ITS ---
FINAL REPORT CLINICAL HISTORY: ASCITES 3860 ML REMOVED RLQ -- CHARLETTE RAYMUNDO FINDINGS: ULTRASOUND-GUIDED PARACENTESIS HISTORY: Cirrhosis, ascites. ATTENDING PHYSICIAN: Dr. Milner PHYSICIAN JUNIOR BUYER: Aimee Catherine PA-C FINDINGS: After informed consent was obtained and timeout procedure performed, fluid was localized in the right lower quadrant under ultrasound guidance and marked on the skin appropriately. The patient was then prepped and draped in the usual sterile fashion and the skin was anesthetized with 1% lidocaine. An ultrasound guided paracentesis was then performed using a Turkel needle. Approximately 3,860 mL of cloudy yellow fluid was removed. A sample of the fluid was sent to the lab for analysis. The patient tolerated the procedure well and there were no immediate complications. IMPRESSION: Ultrasound guided RLQ paracentesis as discussed above. Reviewed, Interpreted and Dictated by Dontrell Milner MD Transcribed by Aimee Catherine PA-C Authenticated and [facility]
--- NOTE | 2023-05-14 08:11 | US_ITS ---
FINAL REPORT CLINICAL HISTORY: ASCITES-- hxof cirrhosis COMPARISON: 04/23/2022 FINDINGS: Sonographic images of the right upper quadrant were obtained. The pancreas is partially obscured. The liver has a nodular peripheral appearance compatible with the clinical diagnosis of cirrhosis. Moderate ascites is present. The gallbladder appears normal without evidence of gallstones.There is no evidence of biliary ductal dilatation.The common duct measures 4mm. Limited images of the right kidney are unremarkable. The portal vein is patent and measures 1.7 cm in diameter, which may be secondary to portal vein hypertension. IMPRESSION: Findings compatible with cirrhosis, unchanged. Moderate ascites, also unchanged. Patent portal vein with normal directional flow, somewhat enlarged which may be secondary to some degree of portal venous hypertension. Reviewed, Interpreted and Dictated by Dontrell Milner MD Transcribed by Orquidea Adan Authenticated and [facility]
[2023-05-14 12:50] LABS: Appearance,Body Fld. Hazy; Source, Body Fld. Peritoneal Fluid; Volume,Body Fld. 3860 mL
[2023-05-14 12:51] LABS: RBC,Body Fluid < 10 cells/uL (< 10 X 10^3); TNC,Body Fluid 56 cells/uL (< 1000)
[2023-05-14 16:24] LABS: Mononuclear WBCs,Body Fluid 86 %; Polynuclear WBC,Body Fluid 14 %
== END ==
PROVIDERS: PCP Family Medicine; Visit Provider Physician Assistant
DX: R18.8 Other ascites (principal)
CPT/HCPCS: 49083; 76705; 89051

== ENCOUNTER → 2023-05-21 07:57 | Outpatient (CLI) | payer BC, SELFPAY ==
--- NOTE | 2023-05-21 08:00 | US_ITS ---
FINAL REPORT CLINICAL HISTORY: ASCITES- 4860 ml - reynold laird - rlq FINDINGS: ULTRASOUND-GUIDED PARACENTESIS HISTORY: Ascites ATTENDING PHYSICIAN: Dr. Milner PHYSICIAN SAMPLE DRILLER: Reynold Robledo PA-C FINDINGS: After informed consent was obtained and timeout procedure performed, fluid was localized in the right lower quadrant under ultrasound guidance and marked on the skin appropriately. The patient was then prepped and draped in the usual sterile fashion and the skin was anesthetized with 1% lidocaine. An ultrasound guided paracentesis was then performed using a Turkel needle. Approximately 4.9 liters of clear yellow fluid was removed. Sample the fluid was sent to lab. The patient tolerated the procedure well and there were no immediate complications. IMPRESSION: Ultrasound guided right lower quadrant paracentesis as discussed above. Films reviewed , interpreted and dictated by Dr. Milner. Transcribed by Reynold Robledo PA-C. Reviewed, Interpreted and Dictated by Dontrell Milner MD Transcribed by ZACKARY Ocampo Authenticated and [facility]
[2023-05-21 11:00] LABS: Appearance,Body Fld. Cloudy; Mononuclear WBCs,Body Fluid 97 %; Polynuclear WBC,Body Fluid 3 %; RBC,Body Fluid < 10 cells/uL (< 10 X 10^3); Source, Body Fld. Peritoneal Fluid; TNC,Body Fluid 113 cells/uL (< 1000); Volume,Body Fld. 4860 mL
== END ==
PROVIDERS: PCP Family Medicine; Visit Provider Physician Assistant
DX: R18.8 Other ascites (principal)
CPT/HCPCS: 49083; 89051

== ENCOUNTER → 2023-05-28 08:01 | Outpatient (CLI) | payer BC, SELFPAY ==
--- NOTE | 2023-05-28 08:06 | US_ITS ---
FINAL REPORT CLINICAL HISTORY: ASCITES--4400 ml-- rt side -- arcelia RAYMUNDO FINDINGS: ULTRASOUND-GUIDED PARACENTESIS HISTORY: Cirrhosis, ascites. ATTENDING PHYSICIAN: Dr. Floyd PHYSICIAN SKIDWAY WORKER: Aimee Catherine PA-C FINDINGS: After informed consent was obtained and timeout procedure performed, fluid was localized in the right lower quadrant under ultrasound guidance and marked on the skin appropriately. The patient was then prepped and draped in the usual sterile fashion and the skin was anesthetized with 1% lidocaine. An ultrasound guided paracentesis was then performed using a Turkel needle. Approximately 4.4 L of clear yellow fluid was removed. Approximately 60 mL of fluid sent to the lab. The patient tolerated the procedure well and there were no immediate complications. IMPRESSION: Ultrasound guided RLQ paracentesis as discussed above. Reviewed, Interpreted and Dictated by Santiago Floyd III, MD Transcribed by Aimee Catherine PA-C Authenticated and [facility]
[2023-05-28 12:41] LABS: Appearance,Body Fld. Cloudy; Source, Body Fld. Peritoneal Fluid
[2023-05-28 12:42] LABS: Mononuclear WBCs,Body Fluid 96 %; Polynuclear WBC,Body Fluid 4 %; RBC,Body Fluid < 10 cells/uL (< 10 X 10^3); TNC,Body Fluid 92 cells/uL (< 1000); Volume,Body Fld. 4400 mL
== END ==
PROVIDERS: PCP Family Medicine; Visit Provider Physician Assistant
DX: K70.31 Alcoholic cirrhosis of liver with ascites (principal)
CPT/HCPCS: 49083; 89051

== ENCOUNTER → 2023-06-04 07:56 | Outpatient (CLI) | payer BC, SELFPAY ==
--- NOTE | 2023-06-04 07:59 | US_ITS ---
FINAL REPORT CLINICAL HISTORY: ASCITES - 5860 ml -- arcelia laird -- rt side FINDINGS: ULTRASOUND-GUIDED PARACENTESIS HISTORY: Ascites, cirrhosis. ATTENDING PHYSICIAN: Dr. Floyd PHYSICIAN DISTANCE EDUCATION DIRECTOR: Aimee Catherine PA-C TECHNIQUE: Informed consent was obtained from the patient. A time-out procedure was performed prior to beginning. Appropriate pocket was localized for drainage. The patient was prepped and draped in a routine sterile fashion. Local anesthesia was achieved with 1% lidocaine. Using imaging guidance with images acquired, an 18-gauge sheath needle was directed into the peritoneal fluid. Approximately 5860 mLof clear yellow fluid was aspirated. 60 mL of fluid was sent to the lab for analysis. The patient tolerated the procedure well and left the department in good condition. IMPRESSION: Successful ultrasound guided therapeutic paracentesis as above. Reviewed, Interpreted and Dictated by Santiago Floyd III, MD Transcribed by Aimee Catherine PA-C Authenticated and [facility]
[2023-06-04 12:12] LABS: Appearance,Body Fld. Cloudy; Mononuclear WBCs,Body Fluid 57 %; Polynuclear WBC,Body Fluid 43 %; RBC,Body Fluid < 10 cells/uL (< 10 X 10^3); Source, Body Fld. Peritoneal Fluid; TNC,Body Fluid 93 cells/uL (< 1000); Volume,Body Fld. 5860 mL
== END ==
PROVIDERS: PCP Family Medicine; Visit Provider Physician Assistant
DX: K70.31 Alcoholic cirrhosis of liver with ascites (principal)
CPT/HCPCS: 49083; 89051

== ENCOUNTER 2023-06-05 07:55 | Observation (INO) | payer BC, SELFPAY ==
[2023-06-05] VITALS (12 sets, daily range): BP systolic 90–110; BP diastolic 50–71; PULSE 61–86; RESP 15–20; TEMP 36.4–37.2; O2SAT 99–100; BMI 23.9; BMI 24.3
--- NOTE | 2023-06-05 07:57 | HMH.EDGENADL ---
Discharge Plan Disposition Patient Disposition: Admitted As Inpatient Condition: Fair Clinical Impressions Clinical Impression: KENYATTA (acute kidney injury), Hepatic encephalopathy Discharge ED Provider: Blane Fair General Adult HPI General Chief complaint: Weakness Stated complaint: shaking, diarrhea Time Seen by Provider: 06/05/23 07:57 History of Present Illness HPI narrative: Patient presents for evaluation of tremulousness, generalized weakness, in the absence of any focal pain, gradual in onset constant and worsening over the past 48 to 72 hours. No previous therapies. Reports he has had similar symptoms in the past associated with infection. Does have known history of cirrhosis with paracentesis yesterday. Reports procedure was uncomplicated. No fevers or chills, describes nausea however no associated vomiting. Additional symptoms include chronic loose stools. Describes some associated confusion but no recent falls or head injury. Patient is unsure if he takes chronic medications to treat any component of hepatic encephalopathy, no known medications at this time in electronic medical record. Per chart review patient had approximately 6 L removed for therapeutic paracentesis yesterday, no albumin administered. Related Data Home Medications Medication Instructions Recorded Confirmed No Known Home Medications 05/03/23 06/05/23 Allergies Allergy/AdvReac Type Severity Reaction Status Date / Time No Known Allergies Allergy Verified 12/02/22 14:28 [facility] Disclaimer: The information contained in this section may have been updated after the patient was seen, as this information can be updated by other users. Medical History (Updated 06/05/23 @ 12:06 by Timbo Robles RN) Alcoholic cirrhosis Deviated nasal bone Deviated nasal septum Encounter for pre-operative cardiovascular clearance Eustachian tube dysfunction History of COVID-19 History of gastroesophageal reflux (GERD) HLD (hyperlipidemia) HTN (hypertension) Maxillary sinusitis, chronic Prostatitis Sinus headache Sinusitis Surgical History History of back surgery History of cataract surgery History of hip surgery History of shoulder surgery Status post functional endoscopic sinus surgery Family History Other Cancer Family history of stent Social History (Updated 06/05/23 @ 12:02 by Bere Kingsley RN) Smoking Status: Never smoker years smoked: 30 smoking status stop date: 1995 alcohol intake: former substance use type: denies use current occupational status: employed Travel in the last 8 weeks: None housing: house current occupational exposures/hazards: No caffeine: No ROS Obtained: Yes Systems reviewed as appropriate & no additional complaints except as documented Physical Exam General General appearance: alert, in no apparent distress and other (Generalized tremulousness) Head Head exam: atraumatic and normocephalic Eye Eye exam: Present normal appearance Neck Neck exam: Present normal inspection Chest Chest inspection: Present normal inspection and symmetric chest wall rise Respiratory Respiratory exam: Present normal lung sounds bilaterally; Absent respiratory distress Cardiovascular Cardiovascular exam: Present regular rate and normal rhythm Abdominal Exam Abdominal exam: Present soft Neurological Exam Neurological exam: Present alert and oriented X3 Psychiatric Psychiatric exam: Present normal affect and normal mood Skin Skin exam: Present warm and dry Medical Decision Making Medical Records Medical records reviewed: Yes I reviewed the patient's medical records. Fabian Inquiry Pt receiving controlled substance: No Vital Signs: 06/05/23 08:07 06/05/23 08:00 06/05/23 08:30 Temperature 98.9 F Temperature Source Oral Pulse Rate 86 61 Pulse Rate [Left Radial] 8
[2023-06-05 08:30] LABS: POC Glucose,Bedside 106 (70-110)
[2023-06-05 08:59] LABS: Chloride 115 mmol/L (98-107); Potassium 3.6 mmoL/L (3.5-5.1); Sodium 139 mmol/L (136-145)
[2023-06-05 09:01] LABS: Alanine Aminotransferase 37 U/L (12-78); Ammonia 121 umol/L (9-30); Aspartate Amino Transferase 57 U/L (17-59); Blood Urea Nitrogen 50 mg/dl (9-20); Creatinine Clearance Estimated 37 mL/min (50-200); Estimated Glomerular Filt Rate 32 ml/min (>60); GFR (African American) 39 ML/MIN (>60); Lactic Acid 1.6 mmol/L (0.7-2.1)
[2023-06-05 09:02] LABS: Albumin/Globulin Ratio 0.8 (1.1-1.8); Alkaline Phosphatase 170 U/L (38-126); Anion Gap 12.6 mEq/L (5-15); Bilirubin,Total 1.9 mg/dl (0.2-1.3); Calcium 8.9 mg/dl (8.4-10.2); Carbon Dioxide 15 mmol/L (22.0-30.0); Globulin 3.6 g/dL (1.3-3.2); Glucose 108 mg/dl (74-100); Lipase 519 U/L (23-300); Magnesium 2.6 mg/dl (1.6-2.3); Phosphorous 3.1 mg/dl (2.5-4.5); Total Protein,Serum 6.6 g/dl (6.3-8.2)
[2023-06-05 09:05] LABS: Basophils % 0.4 % (0.1-2.0); Eosinophils # 0.3 K/mm3 (0.0-0.4); Eosinophils % 4.5 % (0.1-12.0); Hematocrit 40.4 % (42.0-52.0); Hemoglobin 12.9 g/dL (14.1-18.0); Lymphocytes # 0.7 K/mm3 (0.7-4.5); Lymphocytes % 10.5 % (10-50); Mean Corpuscular HGB Conc 31.9 g/dL (31.8-35.4); Mean Corpuscular Hemoglobin 31.1 pg (27.0-31.2); Mean Corpuscular Volume 97.5 fl (80-94); Mean Platelet Volume 8.3 fl (7.4-10.4); Monocytes # 0.5 K/mm3 (0.1-1.0); Monocytes % 7.5 % (1.7-9.3); Neutrophils % 77.1 % (37.0-80.0); Platelet Count 62 K/mm3 (142-424); Red Blood Count 4.14 M/mm3 (4.60-6.20); Red Cell Distribution Width 15.7 % (11.5-17.5); White Blood Count 6.5 K/mm3 (4.8-10.8)
[2023-06-05 09:09] LABS: Acetaminophen < 10 ug/ml (10-30)
[2023-06-05 09:10] LABS: INR 1.31 (0.9-1.1); Prothrombin Time 13.9 seconds (10.1-12.5)
[2023-06-05 09:18] LABS: Free T4 (Free Thyroxine) 1.07 ng/dl (0.78-2.19)
[2023-06-05 09:19] LABS: Microscopic, Urine URINE MICROSCOPIC (MICROSCOPIC)
--- NOTE | 2023-06-05 09:52 | PC.NURSE ---
dietary called for breakfast tray
--- NOTE | 2023-06-05 09:52 | PC.NURSE ---
juana monsalve MD
[2023-06-05 09:53] LABS: Appearance,Urine CLEAR (Clear); Bilirubin,Urine Negative (Negative); Blood, Urine TRACE-I (Negative); Color,Urine YELLOW (Yellow); Glucose,Urine (UA) Negative (Negative); Ketones,Urine Negative (Negative); Leukocyte Esterase,Urine TRACE (Negative); Nitrate,Urine Negative (Negative); Protein,Urine Negative (Negative); Urobilinogen,Urine 0.2 EU/dl (0.2)
[2023-06-05 10:17] LABS: Thyroid Stimulating Hormone 2.55 uIU/mL (0.465-4.68)
--- NOTE | 2023-06-05 10:30 | PC.NURSE ---
report called to marian henderson
--- NOTE | 2023-06-05 10:32 | PC.NURSE ---
pt ambulated to restroom with no complications
--- NOTE | 2023-06-05 10:44 | PC.NURSE ---
pt was given a warm blanket
[2023-06-05 10:56] LABS: Bacteria,Urine Trace /lpf; RBC,Urine Occasional #/hpf (0-3)
--- NOTE | 2023-06-05 11:42 | PC.NURSE ---
arrived by w/c from ED
--- NOTE | 2023-06-05 14:31 | EXP.HP ---
History of Present Illness *Admission Date: 06/05/23 *Reason for visit:: Weakness and low blood pressure *History of present illness: Cross cover H&P: 58-year-old male with alcoholic cirrhosis who has chronic and recurrent ascites who gets weekly large-volume paracenteses here at the hospital under the direction of gastroenterology. He tells me that over the past couple of weeks he has declined his albumin infusions after the paracentesis because I just did not have time to do it. He notes that after his drainage procedure yesterday he was very weak through the day and evening yesterday and became very ill and came to the hospital this morning Was found to have acute kidney injury, low blood pressure, given albumin and admitted to hospital for low-dose IV fluids and further evaluation. [facility] Disclaimer: The information contained in this section may have been updated after the patient was seen, as this information can be updated by other users. Medical History (Updated 06/05/23 @ 12:06 by Timbo Robles RN) Alcoholic cirrhosis Deviated nasal bone Deviated nasal septum Encounter for pre-operative cardiovascular clearance Eustachian tube dysfunction History of COVID-19 History of gastroesophageal reflux (GERD) HLD (hyperlipidemia) HTN (hypertension) Maxillary sinusitis, chronic Prostatitis Sinus headache Sinusitis Surgical History History of back surgery History of cataract surgery History of hip surgery History of shoulder surgery Status post functional endoscopic sinus surgery Family History Other Cancer Family history of stent Social History (Updated 06/05/23 @ 12:02 by Bere Kingsley RN) Smoking Status: Never smoker years smoked: 30 smoking status stop date: 1995 alcohol intake: former substance use type: denies use current occupational status: employed Travel in the last 8 weeks: None housing: house current occupational exposures/hazards: No caffeine: No Meds Home Medications and Allergies Home Medications Medication Instructions Recorded Confirmed Type No Known Home Medications 05/03/23 06/05/23 History New Prescriptions to Start Prescriptions: Allergies Allergy/AdvReac Type Severity Reaction Status Date / Time No Known Allergies Allergy Verified 12/02/22 14:28 Exam Data for Last 24 hours Vital signs and Labs for Last 24 Hours: Temp Pulse Resp BP Pulse Ox O2 Del Method 98.3 F 75 15 99/56 L 100 Room Air 06/05/23 12:07 06/05/23 12:07 06/05/23 12:07 06/05/23 12:07 06/05/23 11:48 06/05/23 13:00 Laboratory Results - last 24 hr 06/05/23 08:23: POC Glucose 106 06/05/23 08:25: WBC 6.5, RBC 4.14 L, Hgb 12.9 L, Hct 40.4 L, MCV 97.5 H, MCH 31.1, MCHC 31.9, RDW 15.7, Plt Count 62 L, MPV 8.3, Neut % (Auto) 77.1, Lymph % (Auto) 10.5, [place] % (Auto) 7.5, Eos % (Auto) 4.5, Baso % (Auto) 0.4, Neut # (Auto) 5.0, Lymph # (Auto) 0.7, [place] # (Auto) 0.5, Eos # (Auto) 0.3, Baso # (Auto) 0.0, PT 13.9 H, INR 1.31 H, Sodium 139, Potassium 3.6, Chloride 115 H, Carbon Dioxide 15 L, Anion Gap 12.6, BUN 50 H, Creatinine 2.10 H, Estimated Creat Clear 37, Estimated GFR 32 L, Est GFR ( Amer) 39 L, Glucose 108 H, Lactate 1.6, Calcium 8.9, Phosphorus 3.1, Magnesium 2.6 H, Total Bilirubin 1.9 H, AST 57, ALT 37, Alkaline Phosphatase 170 H, Ammonia 121 H, Total Protein 6.6, Albumin 3.0 L, Globulin 3.6 H, Albumin/Globulin Ratio 0.8 L, Lipase 519 H, TSH 2.55, Free T4 1.07, Acetaminophen < 10 L 06/05/23 09:15: Urine Color Yellow, Urine Appearance Clear, Urine pH 6.0, Ur Specific [place] 1.020, Urine Protein Negative, Urine Glucose (UA) Negative, Urine Ketones Negative, Urine Blood Trace-i, Urine Nitrate Negative, Urine Bilirubin Negative, Urine Urobilinogen 0.2, Ur Leukocyte Esterase Trace, Urine RBC Occasional, Urine WBC 3-5, Ur Squamous Epith Cells 3-5, Urine Bacter
--- NOTE | 2023-06-05 17:45 | PC.NURSE ---
pt has done well since arriving to floor. pt has had 4 bm. currently laying in bed watching tv. adequate uop. cb w/i reach. no needs at this time.
[2023-06-06 04:00] VITALS: BP 91/54; PULSE 78; RESP 18; TEMP 36.4; O2SAT 96; BMI 26.2
--- NOTE | 2023-06-06 04:59 | PC.NURSE ---
Patient has been able to rest tonight. Pateint has been up to the bathroom multiple times for BMs. no issues have been noted.
[2023-06-06 07:13] LABS: Basophils % 0.4 % (0.1-2.0); Eosinophils # 0.4 K/mm3 (0.0-0.4); Eosinophils % 6.1 % (0.1-12.0); Hematocrit 35.3 % (42.0-52.0); Lymphocytes # 0.6 K/mm3 (0.7-4.5); Lymphocytes % 10.1 % (10-50); Mean Corpuscular HGB Conc 32.6 g/dL (31.8-35.4); Mean Corpuscular Hemoglobin 31.6 pg (27.0-31.2); Mean Corpuscular Volume 97.2 fl (80-94); Mean Platelet Volume 8.6 fl (7.4-10.4); Monocytes # 0.4 K/mm3 (0.1-1.0); Monocytes % 7.1 % (1.7-9.3); Neutrophils # 4.7 K/mm3 (1.8-7.8); Neutrophils % 76.3 % (37.0-80.0); Platelet Count 51 K/mm3 (142-424); Red Blood Count 3.64 M/mm3 (4.60-6.20); Red Cell Distribution Width 15.8 % (11.5-17.5); White Blood Count 6.1 K/mm3 (4.8-10.8)
[2023-06-06 07:18] LABS: Hemoglobin 11.5 g/dL (14.1-18.0)
[2023-06-06 07:20] LABS: Alanine Aminotransferase 32 U/L (12-78); Albumin Level 2.7 g/dl (3.5-5.0); Albumin/Globulin Ratio 0.8 (1.1-1.8); Alkaline Phosphatase 161 U/L (38-126); Anion Gap 14.2 mEq/L (5-15); Aspartate Amino Transferase 51 U/L (17-59); Blood Urea Nitrogen 50 mg/dl (9-20); Carbon Dioxide 14 mmol/L (22.0-30.0); Chloride 114 mmol/L (98-107); Creatinine Clearance Estimated 42 mL/min (50-200); Estimated Glomerular Filt Rate 34 ml/min (>60); GFR (African American) 41 ML/MIN (>60); Globulin 3.3 g/dL (1.3-3.2); Glucose 111 mg/dl (74-100); Potassium 3.2 mmoL/L (3.5-5.1); Sodium 139 mmol/L (136-145)
[2023-06-06 07:25] VITALS: BP 95/59; PULSE 68; RESP 17; TEMP 36.4; O2SAT 96
--- NOTE | 2023-06-06 13:48 | EXP.ACUTE.PN ---
Subjective *Date: 06/06/23 *Time: 13:48 Interval history: See ER admission note and Dr. Gallego's H&P. The patient was admitted with cirrhosis. He has regular paracentesis for ascites. He has recently refused his albumin injections which normally would come at the time of his paracentesis. He was feeling very weak and shaky yesterday and presented in the emergency room. He did this receive 50 g of albumin in the emergency room. He states today that he feels much better.He would like to receive some more albumin and then possibly go home. He was also found to be hypokalemic and this has not yet been corrected.His gastroenterology care as directed through the [facility]. Medical Exam Vital signs and Labs for Last 24 Hours: Vital Signs Temp Pulse Resp BP Pulse Ox O2 Del Method 06/06/23 11:00 Room Air 06/06/23 09:00 Room Air 06/06/23 08:00 Room Air 06/06/23 07:25 97.5 F L 68 17 95/59 L 96 Room Air 06/06/23 04:58 Room Air 06/06/23 04:00 97.5 F L 78 18 91/54 L 96 Room Air 06/06/23 06:55 Room Air 06/06/23 03:00 Room Air 06/06/23 01:00 Room Air 06/05/23 23:00 Room Air 06/05/23 21:00 Room Air 06/05/23 20:00 Room Air 06/05/23 19:35 97.5 F L 69 18 100/60 L 99 Room Air 06/05/23 18:01 Room Air 06/05/23 17:00 Room Air 06/05/23 15:00 Room Air 06/05/23 15:15 98.1 F 70 18 92/61 L 100 Room Air Intake and Output 06/06/23 06/06/23 06/06/23 03:59 11:59 19:59 Intake Total 200 / 1002 270 / 1002 470 / 470 Output Total 0 / 200 200 / 200 Balance 200 / 802 70 / 802 470 / 470 Intake: Intake, Oral Amount 200 / 710 270 / 710 470 / 470 Output: Output, Urine Amount 0 / 200 200 / 200 Other: Number of Unmeasured Voids 1 Number of Bowel Movements 1 Weight 167 lb 6.4 oz Laboratory Results - last 24 hr 09/17/23 06:17: WBC 6.1, RBC 3.64 L, Hgb 11.5 L D, Hct 35.3 L, MCV 97.2 H, MCH 31.6 H, MCHC 32.6, RDW 15.8, Plt Count 51 L, MPV 8.6, Neut % (Auto) 76.3, Lymph % (Auto) 10.1, [place] % (Auto) 7.1, Eos % (Auto) 6.1, Baso % (Auto) 0.4, Neut # (Auto) 4.7, Lymph # (Auto) 0.6 L, [place] # (Auto) 0.4, Eos # (Auto) 0.4, Baso # (Auto) 0.0, Sodium 139, Potassium 3.2 L, Chloride 114 H, Carbon Dioxide 14 L, Anion Gap 14.2, BUN 50 H, Creatinine 2.00 H, Estimated Creat Clear 42, Estimated GFR 34 L, Est GFR ( Amer) 41 L, Glucose 111 H, Calcium 8.0 L, Total Bilirubin 1.0, AST 51, ALT 32, Alkaline Phosphatase 161 H, Total Protein 6.0 L, Albumin 2.7 L, Globulin 3.3 H, Albumin/Globulin Ratio 0.8 L I & O for Labs for Last 24 Hours: Intake & Output 06/04/23 06/05/23 06/06/23 06/07/23 11:59 11:59 11:59 11:59 Intake Total 1002 / 1002 470 / 470 Output Total 200 / 200 Balance 802 / 802 470 / 470 Weight 155 lb 167 lb 6.4 oz Head: Present normocephalic ENT: Present mucous membranes moist Neck: Present normal inspection Respiratory: Present decreased breath sounds, rhonchi (A few which clear) and able to speak in complete sentences Cardiac: Present Reg Rate and Rhythm GI: Present distention, normal bowel sounds and ascites; Absent tenderness Rectal (male): Present deferred (male): Present deferred Extremities: Absent tenderness or edema Skin: Present intact (Wilmer complected) and jaundice (Not obvious. Bilirubin is slightly elevated.) Neuro: Present Cranial Nerve 2-12 Intact, Weakness, Resting Tremor and No Lateralizing Findings Assessment and Plan *Assessment and plan (1) KENYATTA (acute kidney injury): Status: Acute Category: Medical Code(s): N17.9 - Acute kidney failure, unspecified (2) Hypokalemia: Status: Acute Category: Medical Code(s): E87.6 - Hypokalemia (3) Physical deconditioning: Status: Acute Category: Medical Code(s): R53.81 - Other malaise (4) Alcoholic cirrhosis: Status: Acute Category: Medical Code(s): K70.30 - Alcoh
[2023-06-06 14:57] VITALS: BP 89/56; PULSE 71; RESP 17; TEMP 36.7; O2SAT 96
--- NOTE | 2023-06-06 18:17 | PC.NURSE ---
juana lam for pts dc, per carole VO FOR nursing dc
--- NOTE | 2023-06-08 15:47 | CARE MANAGER ---
Called and spoke with patient regarding recent discharge. Patient stated that he is doing well, had no concerns at time of call. He stated that he has not made a f/u appt as of yet, but will call today to schedule.
--- NOTE | 2023-06-10 00:09 | EXP.DC.SUM ---
General Admission date:: 06/05/23 Discharge date: 06/06/23 HPI HPI HPI: Cross cover H&P: 58-year-old male with alcoholic cirrhosis who has chronic and recurrent ascites who gets weekly large-volume paracenteses here at the hospital under the direction of gastroenterology. He tells me that over the past couple of weeks he has declined his albumin infusions after the paracentesis because I just did not have time to do it. He notes that after his drainage procedure yesterday he was very weak through the day and evening yesterday and became very ill and came to the hospital this morning Was found to have acute kidney injury, low blood pressure, given albumin and admitted to hospital for low-dose IV fluids and further evaluation. Hospital Course Hospital Course Hospital Course: The patient was started on IV fluids and his lactulose was restarted as well. Antibiotics were held as there was no indication of infection. By 06/06/2023, he felt much better and wanted to receive more albumin and possibly go home. He usually has care through the [facility]. His potassium was low and was replaced. He was given another 37.5 g of albumin and was stable for discharge. He will contact the hospital to arrange his next paracentesis. Exam Data for Last 24 hours Vital signs and Labs for Last 24 Hours: Temp Pulse Resp BP Pulse Ox O2 Del Method 98.0 F 71 17 89/56 L 96 Room Air 06/06/23 14:57 06/06/23 14:57 06/06/23 14:57 06/06/23 14:57 06/06/23 14:57 06/06/23 17:00 I & O for Last 24 hours: Intake & Output 06/07/23 06/08/23 06/09/23 06/10/23 11:59 11:59 11:59 11:59 Intake Total 710 / 710 Output Total 0 / 0 Balance 710 / 710 Narrative: Constitutional Constitutional: no acute distress, chronically ill appearing and cooperative *Routine HEENT Exam Head: Present normocephalic and atraumatic Eye: Present PERRL; Absent conjunctival icterus, scleral injection or conjunctivae pink ENT: Present mucous membranes dry and oropharynx clear *Routine Neck Exam Neck: Present full ROM and carotid bruit (On the left); Absent lymphadenopathy or thyromegaly *Routine Respiratory Exam Respiratory: Present decreased breath sounds (On the left) and rhonchi (Mostly on the right) *Routine Cardiovascular Exam Cardiovascular: Present RRR and murmur *Routine Abdominal Exam Abdominal: Present normoactive bowel sounds (Distant), distended (With fluid) and other (Fluid); Absent tenderness or guarding *Routine Rectal Exam Rectal:: deferred *Routine Genitalia Exam Genitalia:: deferred *Routine Extremities Exam Extremities: Absent edema, calf tenderness or tenderness *Routine Neurological Exam Neurological: Present alert, oriented X3, moving all extremities and normal speech; Absent asterixis DS: Diagnosis Discharge Diagnosis (1) KENYATTA (acute kidney injury): Status: Acute Code(s): N17.9 - Acute kidney failure, unspecified (2) Hypokalemia: Status: Acute Code(s): E87.6 - Hypokalemia (3) Physical deconditioning: Status: Acute Code(s): R53.81 - Other malaise (4) Alcoholic cirrhosis: Status: Acute Code(s): K70.30 - Alcoholic cirrhosis of liver without ascites (5) Decompensated hepatic cirrhosis: Status: Acute Code(s): K72.90 - Hepatic failure, unspecified without coma; K74.60 - Unspecified cirrhosis of liver (6) Protein calorie malnutrition: Status: Acute Code(s): E46 - Unspecified protein-calorie malnutrition Meds Home Medications and Allergies Home Medications Medication Instructions Recorded Confirmed Type cholestyramine (with sugar) 4 gram 1 ea PO BID pruritus 06/06/23 06/06/23 History oral powder lactulose 10 gram/15 mL oral 30 ml PO QID hepatic encephalopathy 06/06/23 06/06/23 History solution New Prescriptions to Start Prescriptions: Allergies Allergy/AdvReac Type Severity Reaction Status Date / T
== END 2023-06-06 18:45 ==
LOC: ER 08:15 → 2ND 11:38
PROVIDERS: Admitting Provider Internal Medicine Adolescent Medicine; Emergency Provider Emergency Medicine; PCP Family Medicine; Visit Provider Family Medicine
DX: N17.9 Acute kidney failure, unspecified (principal); K76.82 Hepatic encephalopathy; K70.30 Alcoholic cirrhosis of liver without ascites; K72.90 Hepatic failure, unspecified without coma; E87.6 Hypokalemia; E46 Unspecified protein-calorie malnutrition; Z86.16 Personal history of COVID-19; Z68.26 Body mass index [BMI] 26.0-26.9, adult
CPT/HCPCS: 36415; 80053; 80329; 81001; 82140; 82962; 83605; 83690; 83735; 84100; 84439; 84443; 85025; 85610; 99285; G0378; P9047

== ENCOUNTER 2023-06-07 11:31 | Outpatient (CLI) | payer BC, SELFPAY ==
--- NOTE | 2023-06-07 11:41 | US_ITS ---
FINAL REPORT CLINICAL HISTORY: ASCITES -- REYNOLD RAYMUNDO -- RT SIDE -- RLQ-- 4360 ML FINDINGS: ULTRASOUND-GUIDED PARACENTESIS HISTORY: Ascites ATTENDING PHYSICIAN: Dr. Milner PHYSICIAN PULLING UNIT FLOORHAND: Reynold Robledo PA-C FINDINGS: After informed consent was obtained and timeout procedure performed, fluid was localized in the right lower quadrant under ultrasound guidance and marked on the skin appropriately. The patient was then prepped and draped in the usual sterile fashion and the skin was anesthetized with 1% lidocaine. An ultrasound guided paracentesis was then performed using a Turkel needle. Approximately 4.4 liters of clear yellow fluid was removed. Sample of the fluid was sent to lab. The patient tolerated the procedure well and there were no immediate complications. IMPRESSION: Ultrasound guided right lower quadrant paracentesis as discussed above. Films reviewed , interpreted and dictated by Dr. Milner. Transcribed by Reynold Robledo PA-C. Reviewed, Interpreted and Dictated by Dontrell Milner MD Transcribed by ZACKARY Ocampo Authenticated and [facility]
--- NOTE | 2023-06-07 13:05 | PC.NURSE ---
1305-notified [facility] office and spoke to marian rojas that patient is here to get albumin but was not at the standing order amount drawn off (4360ml) but pt is wanting albumin today; rn states she will let [facility] katz know and will send new order.
[2023-06-07 13:30] VITALS: BP 83/58; PULSE 79; RESP 18; O2SAT 99
[2023-06-07 14:00] VITALS: BP 93/53; PULSE 86; RESP 19
[2023-06-07 14:20] VITALS: BP 93/45; PULSE 73; RESP 18
[2023-06-07 14:45] VITALS: BP 88/49; PULSE 70; RESP 18
[2023-06-07 15:15] VITALS: BP 93/52; PULSE 72; RESP 18; O2SAT 98
[2023-06-07 16:43] LABS: Source, Body Fld. PERITONEAL FLUID
[2023-06-07 16:44] LABS: Appearance,Body Fld. Hazy; RBC,Body Fluid < 10 cells/uL (< 10 X 10^3); TNC,Body Fluid 93 cells/uL (< 1000); Volume,Body Fld. 4360 mL
[2023-06-07 16:51] LABS: Mononuclear WBCs,Body Fluid 88 %; Polynuclear WBC,Body Fluid 12 %
== END 2023-06-07 15:15 | disposition home or self-care (01) ==
LOC: RAD 11:43 → INF 13:10
PROVIDERS: Physician Assistant; PCP Family Medicine; Visit Provider Family Medicine
DX: K70.31 Alcoholic cirrhosis of liver with ascites (principal)
CPT/HCPCS: 49083; 89051; 96365; 96366

== ENCOUNTER → 2023-06-11 08:06 | Outpatient (CLI) | payer BC, SELFPAY ==
--- NOTE | 2023-06-11 08:09 | US_ITS ---
FINAL REPORT CLINICAL HISTORY: ASCITES-- REYNOLD RAYMUNDO-- 2460 ML-- RT SIDE FINDINGS: ULTRASOUND-GUIDED PARACENTESIS HISTORY: Ascites ATTENDING PHYSICIAN: Reynold Robledo PA-C PHYSICIAN CRABBING MACHINE OPERATOR: Dr. Milner. FINDINGS: After informed consent was obtained and timeout procedure performed, fluid was localized in the right lower quadrant under ultrasound guidance and marked on the skin appropriately. The patient was then prepped and draped in the usual sterile fashion and the skin was anesthetized with 1% lidocaine. An ultrasound guided paracentesis was then performed using a Turkel needle. Approximately 2.5 liters of clear yellow fluid was removed. Sample of the fluid was sent to lab. The patient tolerated the procedure well and there were no immediate complications. IMPRESSION: Ultrasound guided right lower quadrant paracentesis as discussed above. Films reviewed , interpreted and dictated by Dr. Milner. Transcribed by Reynold Robledo PA-C. Reviewed, Interpreted and Dictated by Dontrell Milner MD Transcribed by ZACKARY Ocampo Authenticated and [facility]
[2023-06-11 19:15] LABS: Source, Body Fld. Peritoneal Fluid
[2023-06-11 19:16] LABS: Appearance,Body Fld. Hazy
[2023-06-11 19:17] LABS: Volume,Body Fld. 2460 mL
[2023-06-11 19:21] LABS: RBC,Body Fluid < 10 cells/uL (< 10 X 10^3); TNC,Body Fluid 211 cells/uL (< 1000)
[2023-06-11 20:13] LABS: Mononuclear WBCs,Body Fluid 29 %; Polynuclear WBC,Body Fluid 17 %
== END ==
PROVIDERS: PCP Family Medicine; Visit Provider Physician Assistant
DX: K70.31 Alcoholic cirrhosis of liver with ascites (principal)
CPT/HCPCS: 49083; 89051

== ENCOUNTER 2023-06-15 03:29 | Inpatient (IN) | payer BC, SELFPAY ==
[2023-06-15] VITALS (13 sets, daily range): BP systolic 85–117; BP diastolic 42–72; PULSE 52–89; RESP 14–20; TEMP 36.4–37.2; O2SAT 98–100; BMI 26.6; BMI 25.2
[2023-06-15 04:00] LABS: Basophils % 0.3 % (0.1-2.0); Eosinophils # 0.1 K/mm3 (0.0-0.4); Eosinophils % 1.5 % (0.1-12.0); Hematocrit 39.6 % (42.0-52.0); Hemoglobin 12.9 g/dL (14.1-18.0); Lymphocytes # 0.9 K/mm3 (0.7-4.5); Lymphocytes % 9.3 % (10-50); Mean Corpuscular HGB Conc 32.7 g/dL (31.8-35.4); Mean Corpuscular Hemoglobin 30.8 pg (27.0-31.2); Mean Corpuscular Volume 94.4 fl (80-94); Mean Platelet Volume 8.4 fl (7.4-10.4); Monocytes # 0.6 K/mm3 (0.1-1.0); Monocytes % 6.6 % (1.7-9.3); Neutrophils # 7.5 K/mm3 (1.8-7.8); Neutrophils % 82.3 % (37.0-80.0); Platelet Count 84 K/mm3 (142-424); Red Blood Count 4.19 M/mm3 (4.60-6.20); Red Cell Distribution Width 15.2 % (11.5-17.5); White Blood Count 9.2 K/mm3 (4.8-10.8)
[2023-06-15 04:01] LABS: Chloride 110 mmol/L (98-107); Potassium 3.3 mmoL/L (3.5-5.1); Sodium 136 mmol/L (136-145)
[2023-06-15 04:04] LABS: Alanine Aminotransferase 35 U/L (12-78); Albumin Level 3.7 g/dl (3.5-5.0); Alkaline Phosphatase 154 U/L (38-126); Anion Gap 16.3 mEq/L (5-15); Aspartate Amino Transferase 51 U/L (17-59); Bilirubin,Total 1.8 mg/dl (0.2-1.3); Blood Urea Nitrogen 71 mg/dl (9-20); Carbon Dioxide 13 mmol/L (22.0-30.0); Creatinine Clearance Estimated 37 mL/min (50-200); Estimated Glomerular Filt Rate 29 ml/min (>60); GFR (African American) 35 ML/MIN (>60); Globulin 3.6 g/dL (1.3-3.2); Glucose 122 mg/dl (74-100); Total Protein,Serum 7.3 g/dl (6.3-8.2)
[2023-06-15 04:05] LABS: Calcium 8.6 mg/dl (8.4-10.2)
[2023-06-15 04:16] LABS: Magnesium 2.5 mg/dl (1.6-2.3)
--- NOTE | 2023-06-15 04:31 | ECG_ITS ---
APPROVED REPORT Exam: Resting ECG HR:76 bpm ECG Measurements Heart Rate 76 AXES NE 163 P 66 QRSd 93 QRS 50 QT 417 T 45 QTc 447 Conclusion SINUS RHYTHM WITH OCCASIONAL SUPRAVENTRICULAR PREMATURE COMPLEXES LOW QRS VOLTAGE IN PRECORDIAL LEADS [QRS DEFLECTION < 1.0 mV IN CHEST LEADS] MODERATE ST DEPRESSION [0.05+ mV ST DEPRESSION] ABNORMAL ECG UNCONFIRMED REPORT Electronically signed by : Garfield Steel MD 06/15/2023 20:01:43
--- NOTE | 2023-06-15 04:31 | HMH.EDGENADL ---
Discharge Plan Disposition Patient Disposition: Admitted Prescriptions Prescriptions: No Action cholestyramine (with sugar) 4 gram powder 1 ea PO BID Patient Comments: take THE contents of 1 SCOOP DIRECTED BY MOUTH TWICE DAILY Rx Instructions: 1 SCOOP BID lactulose 10 gram/15 mL solution 30 ml PO QID Patient Comments: take 30 ML BY MOUTH FOUR TIMES DAILY Referrals Follow up/Referrals: Audi Miramontes MD [Primary Care Provider] - See instructions Clinical Impressions Clinical Impression: KENYATTA (acute kidney injury), Hypokalemia, General weakness, Uremia, Encephalopathy, hepatic Discharge ED Provider: Khushbu Reed General Adult HPI General Chief complaint: Weakness Stated complaint: shacking,off balance,can not hardly drive Time Seen by Provider: 06/15/23 03:52 Mode of Arrival: Ambulatory Source of Information: Patient Limitations: No Limitations Description of Symptoms (Recalled from ER Triage Doc. by RN): Patient is a 58 y/o M that reports he has been off balance and shakey for a few days. Denies any other symptoms. Patient has cirrhosis and reports last paracentesis was last Wednesday the and drained 5L. Patient reports last drink Jul 2022. Patient reports he use to get albumin after procedure but he did not receive it on Wednesday. History of Present Illness HPI narrative: This patient is a 58-year-old male with a history of alcoholic cirrhosis, hypertension, hyperlipidemia, and TIBURCIO presented to the emergency department for evaluation with concern for shakiness and generalized weakness. He reports that this has been going on for a few days now. On medical record review, he was evaluated here on 06/05/2023 for similar symptoms. At this time, he was diagnosed with an KENYATTA, hypokalemia, and hepatic cephalopathy. Ultimately, he was discharged several days later. He states that he was doing well at that point, but then he had a paracentesis on 06/11 at which point they drained 5 L. He states that they did not give him any albumin, and he thinks that that is why he is feeling bad. He denies any alcohol use since July 2022. He denies any fevers, chills, chest pain, shortness of breath, cough, congestion, abdominal pain, nausea, vomiting, change in bowel movements, rashes, or swelling. He notes he is still able to tolerate oral intake. Related Data Home Medications Medication Instructions Recorded Confirmed cholestyramine (with sugar) 4 gram 1 ea PO BID pruritus 06/06/23 06/06/23 oral powder lactulose 10 gram/15 mL oral 30 ml PO QID hepatic encephalopathy 06/06/23 06/06/23 solution Allergies Allergy/AdvReac Type Severity Reaction Status Date / Time No Known Allergies Allergy Verified 12/02/22 14:28 [facility] Disclaimer: The information contained in this section may have been updated after the patient was seen, as this information can be updated by other users. Medical History Alcoholic cirrhosis Deviated nasal bone Deviated nasal septum Encounter for pre-operative cardiovascular clearance Eustachian tube dysfunction History of COVID-19 History of gastroesophageal reflux (GERD) HLD (hyperlipidemia) HTN (hypertension) Maxillary sinusitis, chronic Prostatitis Protein calorie malnutrition Sinus headache Sinusitis Surgical History History of back surgery History of cataract surgery History of hip surgery History of shoulder surgery Status post functional endoscopic sinus surgery Family History Other Cancer Family history of stent Social History Smoking Status: Current every day smoker years smoked: 30 smoking status stop date: 1995 alcohol intake: former substance use type: denies use current occupational status: employed Tra
[2023-06-15 04:45] LABS: Ethyl Alcohol < 10 mg/dl (0-10)
--- NOTE | 2023-06-15 04:57 | PC.NURSE ---
sent blood work for labs and ammonia level check per
[2023-06-15 05:07] LABS: INR 1.31 (0.9-1.1); Prothrombin Time 13.9 seconds (10.1-12.5)
[2023-06-15 05:25] LABS: Ammonia 137 umol/L (9-30)
--- NOTE | 2023-06-15 05:31 | PC.NURSE ---
called house for bed assignment. spoke with gaby. admitted for :KENYATTA,HEPATIC ENCEPHALOPATHY. Besson to [facility] (per house [facility] doesn't admit patients, so she made it Mil[facility]via).
--- NOTE | 2023-06-15 05:59 | PC.NURSE ---
called report to GERARD Shepherd on second floor at this time
--- NOTE | 2023-06-15 06:12 | PC.NURSE ---
pt arrived to floor via stretcher @6;10
--- NOTE | 2023-06-15 06:53 | PC.NURSE ---
Called Dr. Steel to notify of BP 85/55; provider states this is his norm; no further orders given.
--- NOTE | 2023-06-15 08:35 | PC.NURSE ---
Asked Milvia about ordering the outpatient paracentesis procedure as inpatient. Per Dr. Steel, I am to ask Rola/Juan Francisco. Asked RUEL Gaviria, no order given.
--- NOTE | 2023-06-15 08:45 | HMH.PHAINT1 ---
Pharmacy Intervention Comments: MEDICATION RECONCILIATION COMPLETED ON PATIENT USING EXTERNAL FILL HISTORY FROM PHARMACY. -SWAPNA LIU, SHRUTHID
--- NOTE | 2023-06-15 09:01 | EXP.HP ---
History of Present Illness *Admission Date: 06/15/23 *Reason for visit:: Weakness;Liver failure *History of present illness: Mr. Patiño is a 58-year-old male With a history of decompensated alcoholic cirrhosis with refractory ascites, Hepatic encephalopathy, intolerance to diuretic treatment, requiring paracentesis about every 4 days with 4 to 7 L removed typically and intermittent albumin infusions when greater than 6 L removed. He also has a history of acute renal failure, GERD, thrombocytopenia. He is followed by gastroenterology at [facility] and was last seen on 05/07/2023. liver transplant program declined him due to positive alcohol screen on 01/15/2023 and Noted that he will need to to be neg for a minimum of 12 months documented sobriety in order to be placed on the transplant list. GI felt that he may benefit from TIPS and will be evaluated by For this procedure. He was started on lactulose 4 times a day for his elevated ammonia level and was scheduled for an EGD on 06/18/2023. With evaluation in the emergency room he denied fevers, chills, chest pain, shortness of breath, cough, congestion, abdominal pain, nausea the, vomiting, change in bowel movements, rashes or swelling. He has not been eating or drinking very well. Laboratory data showed a white blood cell count of 9200 with a hemoglobin of 12.9 hematocrit of 39.6. Potassium was low at 3.3. He was given rounds of potassium in the ER. BUN was 71 and creatinine was 2.3 and total bilirubin was 1.8. Ammonia level was high at 137. He received a liter of IV fluids. Due to his generalized weakness and combination of laboratory data it was decided to admit him with gentle IV hydration along with lactulose. At time of this exam patient is very somnolent. After talking he did awaken and was able to converse. Speech was clear at that time. He generally just feels poorly all over and very weak. He did not get OOB at all yesterday. He continually denies chest pain and shortness of breath. He is scheduled for paracentesis this morning due to the fact that he cannot have it on Wednesday because of the EGD. This will be done. He notes tremors of the hands and generalized body pruritus. [facility] Disclaimer: The information contained in this section may have been updated after the patient was seen, as this information can be updated by other users. Medical History Alcoholic cirrhosis Deviated nasal bone Deviated nasal septum Encounter for pre-operative cardiovascular clearance Eustachian tube dysfunction History of COVID-19 History of gastroesophageal reflux (GERD) HLD (hyperlipidemia) HTN (hypertension) Maxillary sinusitis, chronic Prostatitis Protein calorie malnutrition Sinus headache Sinusitis Surgical History History of back surgery History of cataract surgery History of hip surgery History of shoulder surgery Status post functional endoscopic sinus surgery Family History Other Cancer Family history of stent Social History Smoking Status: Current every day smoker years smoked: 30 smoking status stop date: 1995 alcohol intake: former substance use type: denies use current occupational status: employed Travel in the last 8 weeks: None housing: house current occupational exposures/hazards: No caffeine: No Review of Systems Constitutional Constitutional: Reports fatigue, Denies fever(s), Denies frequent falls, Reports poor appetite, Reports lethargy, Reports malaise and Reports weakness Eyes Eyes: Denies change in vision ENT Ears, Nose, Mouth, and Throat: Reports dry mouth *Cardiovascular Cardiovascular: Denies chest pain, Denies dyspnea and Denies pedal edema *Respiratory Respiratory: Denies chest congestion, Denies cough, Denies dysp
--- NOTE | 2023-06-15 09:09 | US_ITS ---
FINAL REPORT CLINICAL HISTORY: Ascites, liver failure-- 5260 ml-- juan alberto shin-- rt side FINDINGS: ULTRASOUND-GUIDED PARACENTESIS HISTORY:Ascites ATTENDING PHYSICIAN: Dr. Demarco PHYSICIAN BIBLIOGRAPHIC SERVICES SPECIALIST: Juan Alberto Shin PA-C FINDINGS: After informed consent was obtained and timeout procedure performed, fluid was localized in the right lower quadrant under ultrasound guidance and marked on the skin appropriately. The patient was then prepped and draped in the usual sterile fashion and the skin was anesthetized with 1% lidocaine. An ultrasound guided paracentesis was then performed using a Turkel needle. Approximately 5.3 liters of fluid was removed. No fluid was sent to lab. The patient tolerated the procedure well and there were no immediate complications. IMPRESSION: Ultrasound guided right lower quadrant paracentesis as discussed above. Films reviewed , interpreted and dictated by Dr. Ana Demarco. Transcribed by Juan Alberto Shin PA-C. Reviewed, Interpreted and Dictated by Ana Demarco MD Transcribed by ZACKARY Ryan Authenticated and [facility]
--- NOTE | 2023-06-15 09:15 | PC.NURSE ---
RUEL Gaviria and Dr. Canela have seen patient. Awaiting new orders.
--- NOTE | 2023-06-15 10:40 | PC.NURSE ---
Per fiberglass quality technician, 5260ml was removed with paracentesis at bedside.
[2023-06-15 11:21] LABS: Source, Body Fld. Peritoneal Fluid
[2023-06-15 11:22] LABS: Appearance,Body Fld. Hazy; RBC,Body Fluid < 10 cells/uL (< 10 X 10^3); TNC,Body Fluid 56 cells/uL (< 1000); Volume,Body Fld. 5260 mL
[2023-06-15 12:22] LABS: Mononuclear WBCs,Body Fluid 96 %; Polynuclear WBC,Body Fluid 4 %
[2023-06-15 14:02] LABS: Microscopic, Urine URINE MICROSCOPIC (MICROSCOPIC)
[2023-06-15 14:05] LABS: Appearance,Urine CLEAR (Clear); Bilirubin,Urine Negative (Negative); Blood, Urine 2+ (Negative); Color,Urine YELLOW (Yellow); Glucose,Urine (UA) Negative (Negative); Ketones,Urine Negative (Negative); Leukocyte Esterase,Urine Negative (Negative); Nitrate,Urine Negative (Negative); Protein,Urine Negative (Negative); Specific Gravity, Urine 1.015 (1.005-1.030); Urobilinogen,Urine 0.2 EU/dl (0.2)
[2023-06-15 14:31] LABS: Bacteria,Urine Trace /lpf
--- NOTE | 2023-06-15 15:59 | PC.NURSE ---
Patient agreed to take one dose of lactulose today, dose given as unscheduled. Patient has not had a bm this shift.
--- NOTE | 2023-06-15 18:54 | PC.NURSE ---
PAGED PATIENT VOMITING.
[2023-06-15 19:09] LABS: Chloride 111 mmol/L (98-107); Potassium 3.3 mmoL/L (3.5-5.1); Sodium 140 mmol/L (136-145)
[2023-06-15 19:12] LABS: Anion Gap 18.3 mEq/L (5-15); Blood Urea Nitrogen 64 mg/dl (9-20); Calcium 8.6 mg/dl (8.4-10.2); Carbon Dioxide 14 mmol/L (22.0-30.0); Creatinine Clearance Estimated 37 mL/min (50-200); Estimated Glomerular Filt Rate 31 ml/min (>60); GFR (African American) 37 ML/MIN (>60); Glucose 97 mg/dl (74-100)
[2023-06-15 19:49] LABS: Ammonia 279 umol/L (9-30)
--- NOTE | 2023-06-15 20:57 | XR_ITS ---
PROCEDURE INFORMATION: Exam: XR Abdomen Exam date and time: 06/15/2023 9:18 PM Age: 58 years old Clinical indication: Device placement; Gi device; Nasogastric tube; Additional info: Tube placement TECHNIQUE: Imaging protocol: Radiologic exam of the abdomen. Views: Frontal supine view of the abdomen. 1 View. COMPARISON: CT ABDOMEN PELVIS WO CON 02/17/2022 10:25 AM FINDINGS: Tubes, catheters and devices: NG tube has been placed with the tip in the fundus of the stomach and side hole in the distal esophagus. Gastrointestinal tract: Normal. No bowel dilation. Bones/joints: Unremarkable. IMPRESSION: NG tube placement as above. Side-hole remains in the distal esophagus. Consider advancing the NG tube approximately 10 cm for more optimal positioning in the stomach.
--- NOTE | 2023-06-15 22:14 | XR_ITS ---
PROCEDURE INFORMATION: Exam: XR Chest Exam date and time: 06/15/2023 11:17 PM Age: 58 years old Clinical indication: Device placement; Ng tube; Additional info: Ng tube placement TECHNIQUE: Imaging protocol: Radiologic exam of the chest. Views: 1 view. COMPARISON: 06/15/2023 FINDINGS: Tubes, catheters and devices: NG tube has been advanced with the tip now located in the midbody of the stomach and the side hole in the region of the fundus of the stomach. Lungs: Unremarkable. No consolidation. Pleural spaces: Unremarkable. No pleural effusion. No pneumothorax. Heart/Mediastinum: Unremarkable. No cardiomegaly. Bones/joints: Unremarkable. IMPRESSION: NG tube in the midbody of the stomach.
[2023-06-16] VITALS (9 sets, daily range): BP systolic 96–119; BP diastolic 48–68; PULSE 67–110; RESP 15–21; TEMP 36.4–36.7; O2SAT 97–100; BMI 25.0
[2023-06-16 06:44] LABS: Basophils % 0.2 % (0.1-2.0); Eosinophils # 0.2 K/mm3 (0.0-0.4); Eosinophils % 2.1 % (0.1-12.0); Hemoglobin 12.2 g/dL (14.1-18.0); Lymphocytes # 0.8 K/mm3 (0.7-4.5); Lymphocytes % 10.3 % (10-50); Mean Corpuscular HGB Conc 32.9 g/dL (31.8-35.4); Mean Corpuscular Hemoglobin 31.6 pg (27.0-31.2); Mean Corpuscular Volume 96.2 fl (80-94); Mean Platelet Volume 7.3 fl (7.4-10.4); Monocytes # 0.6 K/mm3 (0.1-1.0); Monocytes % 6.9 % (1.7-9.3); Neutrophils # 6.6 K/mm3 (1.8-7.8); Neutrophils % 80.5 % (37.0-80.0); Platelet Count 83 K/mm3 (142-424); Red Blood Count 3.85 M/mm3 (4.60-6.20); Red Cell Distribution Width 15.3 % (11.5-17.5); White Blood Count 8.2 K/mm3 (4.8-10.8)
[2023-06-16 06:47] LABS: Alanine Aminotransferase 34 U/L (12-78); Albumin Level 4.5 g/dl (3.5-5.0); Albumin/Globulin Ratio 1.2 (1.1-1.8); Alkaline Phosphatase 112 U/L (38-126); Anion Gap 22.4 mEq/L (5-15); Aspartate Amino Transferase 48 U/L (17-59); Bilirubin,Total 2.5 mg/dl (0.2-1.3); Blood Urea Nitrogen 63 mg/dl (9-20); Calcium 9.6 mg/dl (8.4-10.2); Carbon Dioxide 11 mmol/L (22.0-30.0); Chloride 115 mmol/L (98-107); Creatinine Clearance Estimated 31 mL/min (50-200); Estimated Glomerular Filt Rate 25 ml/min (>60); GFR (African American) 31 ML/MIN (>60); Globulin 3.7 g/dL (1.3-3.2); Glucose 123 mg/dl (74-100); Potassium 3.4 mmoL/L (3.5-5.1); Sodium 145 mmol/L (136-145); Total Protein,Serum 8.2 g/dl (6.3-8.2)
[2023-06-16 07:31] LABS: Ammonia 188 umol/L (9-30)
--- NOTE | 2023-06-16 07:46 | PC.NURSE ---
pt was lethargic beginning of shift, only alert to self. could not follow verbal commands. ammonia level up to 279 from 137. order given to place ng tube and change lactulose to 60 ml q2 hr. after verifying placement of tube doses was given. k replaced with 40 meq per tube. pt has had 3 diarrhea stools, nsr on monitor, bp has improved. pt appears more alert.
--- NOTE | 2023-06-16 08:19 | EXP.ACUTE.PN ---
Subjective *Date: 06/16/23 *Time: 09:21 Interval history: Patient refused his lactulose yesterday and an NG was placed because his ammonia was elevated and his mental status worsened. His daughter states he has been extremely confused and did not know where he was. He has been up and down all night going to the bathroom but requires a great amount of help. Medical Exam Vital signs and Labs for Last 24 Hours: Vital Signs Temp Pulse Pulse Resp BP Pulse Ox O2 Del Method 06/16/23 07:45 97.7 F 80 16 96/49 L 97 Room Air 06/16/23 04:00 70 06/16/23 05:00 Room Air 06/16/23 03:00 Room Air 06/16/23 04:00 97.5 F L 79 20 113/55 L 97 Room Air 06/16/23 01:00 Room Air 06/16/23 00:00 70 06/15/23 23:00 Room Air 06/15/23 21:00 Room Air 06/16/23 00:00 97.7 F 71 18 96/48 L 99 Room Air 06/15/23 20:00 80 06/15/23 20:00 97.5 F L 89 20 96/52 L 98 Room Air 06/15/23 20:22 Room Air 06/15/23 19:32 77 20 90/42 L 99 Room Air 06/15/23 17:53 Room Air 06/15/23 16:00 62 06/15/23 16:40 Room Air 06/15/23 15:00 Room Air 06/15/23 14:48 97.5 F L 73 16 90/49 L 100 Room Air 06/15/23 12:00 64 06/15/23 13:00 Room Air 06/15/23 11:00 Room Air 06/15/23 10:56 97.6 F 63 16 88/52 L 100 Room Air 06/15/23 09:00 Room Air Intake and Output 06/15/23 06/16/23 06/16/23 19:59 03:59 11:59 Intake Total 400 / 520 120 / 520 Output Total 0 / 0 0 / 0 Balance 400 / 520 120 / 520 Intake: Intake, Oral Amount 0 / 120 120 / 120 Infusion Intake 400 / 400 KCl 10mEq/100ml 100 ml @ 100 400 / 400 mls/hr IV Q1H [facility] Rx#:[id number] Output: Output, Urine Amount 0 / 0 0 / 0 Other: Number of Voids 1 Number of Unmeasured Voids 0 1 Number of Bowel Movements 1 Weight 159 lb 4 oz Patient Weight 06/16/23 11:59 Weight 159 lb 4 oz Laboratory Results - last 24 hr 06/15/23 09:31: Fluid Source Peritoneal fluid, Fluid Volume 5260, Fluid Appearance Hazy, Fluid RBC (Auto) < 10, Fld Tot Nucleated Cell 56, Fld Polynuclear WBCs % 4, Fld Mononuclear WBCs % 96 06/15/23 13:49: Urine Color Yellow, Urine Appearance Clear, Urine pH 6.0, Ur Specific [place] 1.015, Urine Protein Negative, Urine Glucose (UA) Negative, Urine Ketones Negative, Urine Blood 2+, Urine Nitrate Negative, Urine Bilirubin Negative, Urine Urobilinogen 0.2, Ur Leukocyte Esterase Negative, Urine RBC 5-10, Urine WBC None, Ur Squamous Epith Cells 3-5, Urine Bacteria Trace 06/15/23 17:30: Ammonia 279 H 06/15/23 18:55: Sodium 140, Potassium 3.3 L, Chloride 111 H, Carbon Dioxide 14 L, Anion Gap 18.3 H, BUN 64 H, Creatinine 2.20 H, Estimated Creat Clear 37, Estimated GFR 31 L, Est GFR ( Amer) 37 L, Glucose 97 D, Calcium 8.6 06/16/23 06:15: WBC 8.2, RBC 3.85 L, Hgb 12.2 L, Hct 37.0 L, MCV 96.2 H, MCH 31.6 H, MCHC 32.9, RDW 15.3, Plt Count 83 L, MPV 7.3 L, Neut % (Auto) 80.5 H, Lymph % (Auto) 10.3, [place] % (Auto) 6.9, Eos % (Auto) 2.1, Baso % (Auto) 0.2, Neut # (Auto) 6.6, Lymph # (Auto) 0.8, [place] # (Auto) 0.6, Eos # (Auto) 0.2, Baso # (Auto) 0.0, Sodium 145, Potassium 3.4 L, Chloride 115 H, Carbon Dioxide 11 L, Anion Gap 22.4 H, BUN 63 H, Creatinine 2.60 H, Estimated Creat Clear 31, Estimated GFR 25 L, Est GFR ( Amer) 31 L, Glucose 123 H D, Calcium 9.6, Total Bilirubin 2.5 H, AST 48, ALT 34, Alkaline Phosphatase 112, Ammonia 188 H, Total Protein 8.2, Albumin 4.5 D, Globulin 3.7 H, Albumin/Globulin Ratio 1.2 I & O for Labs for Last 24 Hours: Intake & Output 06/13/23 06/14/23 06/15/23 06/16/23 11:59 11:59 11:59 11:59 Intake Total 50 / 50 520 / 520 Output Total 0 / 0 0 / 0 Balance 520 / 520 Weight 161 lb 159 lb 4 oz Constitutional: Present thin and cachectic Respiratory: Present decreased breath sounds and CTA bilaterally Cardiac: Present Reg Rate and Rhythm GI: Present soft and distention (improved); A
--- NOTE | 2023-06-16 10:45 | DIET.NUTRFU ---
RD interviewed patient with daughters at bedside. They indicate he hasn't eaten for days prior to admit, secondary to feeling full. He has cirrhosis and receives paracentesis 2xweek. Yesterday had 5L pulled off. He has had elevated ammonia secondary to not taking his lactulose. Currently has NG in place for decompression. Currently NPO. Daughter did indicate he would drink 1 boost/day at home at best and likes chocolate. Will start when diet advances. Provide daughters with cirrhosis handouts to prioritize on protein and low sodium. He watches he sodium at home but does not consume enough calories/protein. He has lost approx 50# since dx. His MNA score is 8- at risk for malnutrition. Will continue to monitor
[2023-06-16 15:21] LABS: Ammonia 79 umol/L (9-30)
--- NOTE | 2023-06-16 17:06 | PC.NURSE ---
Pt A&O x3. Has been emotional at times this shift. Has ambulated to with assistance. Has had a shower. Awaiting bed assignment at . Lactulose administered PO. NG removed this AM per pt and family request. MD aware. Ammonia has improved. Family remains at bedside. Call light and safety measures in place.
[2023-06-17] VITALS: BP 104/65; PULSE 77; RESP 18; TEMP 36.6; O2SAT 98
[2023-06-17 04:00] VITALS: BP 102/63; PULSE 72; RESP 18; TEMP 36.6; O2SAT 99; BMI 26.1
--- NOTE | 2023-06-17 05:42 | PC.NURSE ---
Patient has rested tonight. Has been up to the toilet multiple times. Remains AxO x3. Patient is still unsteady on his feet but ambulates will stand by assist. No other issues have been noted
[2023-06-17 06:40] LABS: Alanine Aminotransferase 26 U/L (12-78); Albumin Level 3.3 g/dl (3.5-5.0); Alkaline Phosphatase 80 U/L (38-126); Anion Gap 16.1 mEq/L (5-15); Aspartate Amino Transferase 37 U/L (17-59); Bilirubin,Total 1.9 mg/dl (0.2-1.3); Blood Urea Nitrogen 55 mg/dl (9-20); Calcium 8.5 mg/dl (8.4-10.2); Carbon Dioxide 12 mmol/L (22.0-30.0); Chloride 116 mmol/L (98-107); Creatinine Clearance Estimated 35 mL/min (50-200); Estimated Glomerular Filt Rate 28 ml/min (>60); GFR (African American) 34 ML/MIN (>60); Globulin 3.3 g/dL (1.3-3.2); Glucose 93 mg/dl (74-100); INR 1.51 (0.9-1.1); Potassium 3.1 mmoL/L (3.5-5.1); Prothrombin Time 15.9 seconds (10.1-12.5); Sodium 141 mmol/L (136-145); Total Protein,Serum 6.6 g/dl (6.3-8.2)
[2023-06-17 06:42] LABS: Basophils # 0.1 K/mm3 (0-0.2); Basophils % 0.6 % (0.1-2.0); Eosinophils # 0.4 K/mm3 (0.0-0.4); Eosinophils % 4.7 % (0.1-12.0); Hematocrit 33.5 % (42.0-52.0); Lymphocytes # 0.7 K/mm3 (0.7-4.5); Lymphocytes % 8.5 % (10-50); Mean Corpuscular HGB Conc 32.8 g/dL (31.8-35.4); Mean Corpuscular Hemoglobin 31.4 pg (27.0-31.2); Mean Corpuscular Volume 95.8 fl (80-94); Monocytes # 0.8 K/mm3 (0.1-1.0); Monocytes % 10.4 % (1.7-9.3); Neutrophils % 75.8 % (37.0-80.0); Platelet Count 68 K/mm3 (142-424); Red Cell Distribution Width 15.3 % (11.5-17.5); White Blood Count 7.9 K/mm3 (4.8-10.8)
[2023-06-17 07:07] LABS: Ammonia 87 umol/L (9-30)
[2023-06-17 07:33] VITALS: BP 99/67; PULSE 74; RESP 18; TEMP 36.6; O2SAT 97
--- NOTE | 2023-06-17 08:13 | EXP.ACUTE.PN ---
Subjective *Date: 06/17/23 *Time: 09:11 Interval history: Patient is feeling better this morning he is much more alert and awake. He denies any pain and states he did sleep off and on last night. He is going to try to eat some breakfast this morning. Medical Exam Vital signs and Labs for Last 24 Hours: Vital Signs Temp Pulse Pulse Resp BP Pulse Ox O2 Del Method 06/17/23 07:33 97.9 F 74 18 99/67 L 97 Room Air 06/17/23 04:00 97.9 F 72 18 102/63 L 99 Room Air 06/17/23 03:00 Room Air 06/17/23 01:00 Room Air 06/17/23 00:00 97.9 F 77 18 104/65 L 98 Room Air 06/17/23 06:44 Room Air 06/17/23 05:00 Room Air 06/16/23 23:00 Room Air 06/16/23 21:00 Nasal Cannula 06/16/23 20:00 Room Air 06/16/23 20:00 98.0 F 92 H 18 119/68 100 Room Air 06/16/23 18:28 Room Air 06/16/23 16:01 110 H 06/16/23 17:00 Room Air 06/16/23 15:00 Room Air 06/16/23 12:00 80 06/16/23 15:22 97.8 F 100 H 21 119/57 L 99 Room Air 06/16/23 12:55 Room Air 06/16/23 11:26 97.7 F 67 15 103/58 L 97 Room Air 06/16/23 11:00 Room Air 06/16/23 09:00 Room Air Intake and Output 06/16/23 06/17/23 06/17/23 19:59 03:59 11:59 Intake Total 565 / 685 120 / 685 Output Total 0 / 0 0 / 0 0 / 0 Balance 565 / 685 0 / 685 120 / 685 Intake: Intake, Oral Amount 240 / 360 120 / 360 Intake, Total IV Amount 325 / 325 D5W/0.9% NaCl w/40mEq KCL 1,000 325 / 325 ml @ 75 mls/hr IV .[id number] [facility] Rx#:[id number] Output: Output, Urine Amount 0 / 0 0 / 0 0 / 0 Other: Number of Unmeasured Voids 1 1 0 Number of Bowel Movements 1 1 1 Weight 166 lb 4 oz Patient Weight 06/17/23 11:59 Weight 166 lb 4 oz Laboratory Results - last 24 hr 06/16/23 15:00: Ammonia 79 H 06/17/23 05:37: WBC 7.9, RBC 3.50 L, Hgb 11.0 L, Hct 33.5 L, MCV 95.8 H, MCH 31.4 H, MCHC 32.8, RDW 15.3, Plt Count 68 L, MPV 9.0, Neut % (Auto) 75.8, Lymph % (Auto) 8.5 L, [place] % (Auto) 10.4 H, Eos % (Auto) 4.7, Baso % (Auto) 0.6, Neut # (Auto) 6.0, Lymph # (Auto) 0.7, [place] # (Auto) 0.8, Eos # (Auto) 0.4, Baso # (Auto) 0.1, PT 15.9 H, INR 1.51 H, Sodium 141, Potassium 3.1 L, Chloride 116 H, Carbon Dioxide 12 L, Anion Gap 16.1 H, BUN 55 H, Creatinine 2.40 H, Estimated Creat Clear 35, Estimated GFR 28 L, Est GFR ( Amer) 34 L, Glucose 93 D, Calcium 8.5, Total Bilirubin 1.9 H, AST 37, ALT 26, Alkaline Phosphatase 80, Ammonia 87 H, Total Protein 6.6, Albumin 3.3 L D, Globulin 3.3 H, Albumin/Globulin Ratio 1.0 L I & O for Labs for Last 24 Hours: Intake & Output 06/14/23 06/15/23 06/16/23 06/17/23 11:59 11:59 11:59 11:59 Intake Total 50 / 50 520 / 520 685 / 685 Output Total 0 / 0 0 / 0 0 / 0 Balance 50 / 50 520 / 520 685 / 685 Weight 161 lb 159 lb 3.838 oz 166 lb 4 oz Constitutional: Present thin and cachectic Respiratory: Present decreased breath sounds and CTA bilaterally Cardiac: Present Reg Rate and Rhythm GI: Present soft and distention (improved); Absent tenderness, guarding or rebound Extremities: Absent tenderness or edema Skin: Present intact Neuro: Present alert, awake and oriented x 3 Comment:: AMS Assessment and Plan *Assessment and plan (1) Decompensated hepatic cirrhosis: Status: Acute Category: Medical Code(s): K72.90 - Hepatic failure, unspecified without coma; K74.60 - Unspecified cirrhosis of liver (2) Ascites due to alcoholic cirrhosis: Status: Acute Category: Medical Code(s): K70.31 - Alcoholic cirrhosis of liver with ascites (3) KENYATTA (acute kidney injury): Status: Acute Category: Medical Code(s): N17.9 - Acute kidney failure, unspecified (4) Encephalopathy, hepatic: Status: Acute Category: Medical Code(s): K76.82 - Hepatic encephalopathy (5) Hypokalemia: Status: Acute Category: Medical Code(s): E87.6 - [place]
[2023-06-17 11:25] VITALS: BP 111/67; PULSE 90; RESP 18; TEMP 36.6; O2SAT 100
--- NOTE | 2023-06-18 13:17 | CARE MANAGER ---
Called and spoke with patient and his daughter (Ekaternia) in regards to recent discharge. Patient did not sound very a/o, so I called Cha to discuss. She stated that he has someone with him 12/04 and that he is scheduled at .
--- NOTE | 2023-06-22 12:57 | EXP.DC.SUM ---
General Admission date:: 06/15/23 Discharge date: 06/17/23 HPI HPI HPI: Mr. Patiño is a 58-year-old male With a history of decompensated alcoholic cirrhosis with refractory ascites, Hepatic encephalopathy, intolerance to diuretic treatment, requiring paracentesis about every 4 days with 4 to 7 L removed typically and intermittent albumin infusions when greater than 6 L removed. He also has a history of acute renal failure, GERD, thrombocytopenia. He is followed by gastroenterology at [place] and was last seen on 05/07/2023. liver transplant program declined him due to positive alcohol screen on 01/15/2023 and Noted that he will need to to be neg for a minimum of 12 months documented sobriety in order to be placed on the transplant list. GI felt that he may benefit from TIPS and will be evaluated by For this procedure. He was started on lactulose 4 times a day for his elevated ammonia level and was scheduled for an EGD on 06/18/2023. With evaluation in the emergency room he denied fevers, chills, chest pain, shortness of breath, cough, congestion, abdominal pain, nausea the, vomiting, change in bowel movements, rashes or swelling. He has not been eating or drinking very well. Laboratory data showed a white blood cell count of 9200 with a hemoglobin of 12.9 hematocrit of 39.6. Potassium was low at 3.3. He was given rounds of potassium in the ER. BUN was 71 and creatinine was 2.3 and total bilirubin was 1.8. Ammonia level was high at 137. He received a liter of IV fluids. Due to his generalized weakness and combination of laboratory data it was decided to admit him with gentle IV hydration along with lactulose. At time of this exam patient is very somnolent. After talking he did awaken and was able to converse. Speech was clear at that time. He generally just feels poorly all over and very weak. He did not get OOB at all yesterday. He continually denies chest pain and shortness of breath. He is scheduled for paracentesis this morning due to the fact that he cannot have it on Wednesday because of the EGD. This will be done. He notes tremors of the hands and generalized body pruritus. Hospital Course Hospital Course Hospital Course: On admission patient received IV potassium. He was provided with gentle hydration and monitoring of his labs. He did have paracentesis the a.m. after admission producing 5-1/2 L of fluid. He refused his lactulose and an NG tube was placed because his ammonia level was elevated and mental status had worsened. He became extremely confused and did not know where he was. He did receive albumin after the paracentesis. He was given lactulose per the NG tube and continue with IV fluids due to worsening renal function. On 06/17/2023 patient had improved. It was felt he was stable to be discharged home. Dr. Canela talk with the patient's daughter and he was to be discharged so that he could have an EGD with Dr. Simon the following day in [place]. He was to continue with lactulose, potassium and Lexapro was initiated. He was also instructed to stay off of work and not to drive. Plan was for him to follow-up in the office in 6 days. Exam Data for Last 24 hours Vital signs and Labs for Last 24 Hours: Temp Pulse Resp BP Pulse Ox O2 Del Method 97.9 F 90 18 111/67 100 Room Air 06/17/23 11:25 06/17/23 11:25 06/17/23 11:25 06/17/23 11:25 06/17/23 11:25 06/17/23 13:00 Narrative: Medical Exam Vital signs and Labs for Last 24 Hours: Vital Signs Temp Pulse Pulse Resp BP Pulse Ox O2 Del Method 06/17/23 07:33 97.9 F 74 18 99/67 L 97 Room Air 06/17/23 04:00 97.9 F 72 18 102/63 L 99 Room Air 06/17/23 03:00 Room Air 06/17/23 01:00 Room Air 06/17/23 00:00 97.9 F 77 18 104/65 L 98 Room Air 06/17/23 06:44 Room Air 06/17/23 05:00 Room Air 06/16/23 23:00 Room Air 06/16/23 21:00 Nasal Cannula 06/16/23 20:00 Room Air 06/16/23 20:0
== END 2023-06-17 13:57 | disposition home or self-care (01) | DRG 433 ==
LOC: ER 05:29 → 2ND 07:51
PROVIDERS: Physician Assistant; Admitting Provider Internal Medicine Adolescent Medicine; Emergency Provider Emergency Medicine; PCP Family Medicine; Visit Provider Family Medicine
DX: K70.31 Alcoholic cirrhosis of liver with ascites (principal); E46 Unspecified protein-calorie malnutrition; N17.9 Acute kidney failure, unspecified; K72.90 Hepatic failure, unspecified without coma; K76.82 Hepatic encephalopathy; E87.6 Hypokalemia; K21.9 Gastro-esophageal reflux disease without esophagitis; D69.6 Thrombocytopenia, unspecified; I10 Essential (primary) hypertension; E78.5 Hyperlipidemia, unspecified; G47.33 Obstructive sleep apnea (adult) (pediatric); Z68.26 Body mass index [BMI] 26.0-26.9, adult
CPT/HCPCS: 49083; 36415; 71045; 74018; 80048; 80053; 81001; 82140; 83735; 85025; 85610; 89051; 93005; 99285; J2405

== ENCOUNTER → 2023-06-21 08:03 | Outpatient (CLI) | payer BC, SELFPAY ==
--- NOTE | 2023-06-21 08:07 | US_ITS ---
FINAL REPORT CLINICAL HISTORY: ASCITES-- JASSON RAYMUNDO-- RIGHT SIDE-- 3950 ML FINDINGS: ULTRASOUND-GUIDED PARACENTESIS HISTORY:Ascites ATTENDING PHYSICIAN: Dr. Milner PHYSICIAN HEDGE FUND ACCOUNTANT: Jasson Shin PA-C FINDINGS: After informed consent was obtained and timeout procedure performed, fluid was localized in the right lower quadrant under ultrasound guidance and marked on the skin appropriately. The patient was then prepped and draped in the usual sterile fashion and the skin was anesthetized with 1% lidocaine. An ultrasound guided paracentesis was then performed using a Turkel needle. Approximately 4 liters of fluid was removed. 50 mL of fluid was sent to lab. The patient tolerated the procedure well and there were no immediate complications. IMPRESSION: Ultrasound guided right lower quadrant paracentesis as discussed above. Films reviewed , interpreted and dictated by Dr. Floyd Transcribed by Jasson Shin PA-C. Reviewed, Interpreted and Dictated by Santiago Floyd III, MD Transcribed by ZACKARY Ryan Authenticated and [facility]
[2023-06-21 11:32] LABS: Appearance,Body Fld. Slightly cloudy; Source, Body Fld. Peritoneal Fluid; Volume,Body Fld. 3950 mL
[2023-06-21 11:33] LABS: RBC,Body Fluid < 10 cells/uL (< 10 X 10^3); TNC,Body Fluid 171 cells/uL (< 1000)
[2023-06-21 13:21] LABS: Mononuclear WBCs,Body Fluid 38 %; Polynuclear WBC,Body Fluid 62 %
== END ==
PROVIDERS: PCP Family Medicine; Visit Provider Physician Assistant
DX: K70.31 Alcoholic cirrhosis of liver with ascites (principal)
CPT/HCPCS: 49083; 89051

== ENCOUNTER → 2023-06-25 10:43 | Outpatient (CLI) | payer BC, SELFPAY ==
--- NOTE | 2023-06-25 10:46 | US_ITS ---
FINAL REPORT CLINICAL HISTORY: ASCITES-- CHARLETTE RAYMUNDO-- 3300 ML-- RIGHT SIDE FINDINGS: ULTRASOUND-GUIDED PARACENTESIS HISTORY: Cirrhosis, ascites. ATTENDING PHYSICIAN: Dr. Floyd PHYSICIAN GYROSCOPIC ENGINEERING TECHNICIAN: Aimee Catherine PA-C FINDINGS: After informed consent was obtained and timeout procedure performed, fluid was localized in the right lower quadrant under ultrasound guidance and marked on the skin appropriately. The patient was then prepped and draped in the usual sterile fashion and the skin was anesthetized with 1% lidocaine. An ultrasound guided paracentesis was then performed using a Turkel needle. Approximately 3.3 L of clear yellow fluid was removed. Approximately 60 mL sent to the lab for analysis. The patient tolerated the procedure well and there were no immediate complications. Ultrasound guidance was utilized for this procedure. IMPRESSION: Ultrasound guided RLQ paracentesis as discussed above. Reviewed, Interpreted and Dictated by Santiago Floyd III, MD Transcribed by Aimee Catherine PA-C Authenticated and [facility]
[2023-06-25 14:31] LABS: Appearance,Body Fld. Hazy; Source, Body Fld. Peritoneal Fluid; Volume,Body Fld. 3300 mL
[2023-06-25 14:32] LABS: RBC,Body Fluid < 10 cells/uL (< 10 X 10^3); TNC,Body Fluid 382 cells/uL (< 1000)
[2023-06-25 14:37] LABS: Mononuclear WBCs,Body Fluid 70 %; Polynuclear WBC,Body Fluid 30 %
== END ==
PROVIDERS: PCP Family Medicine; Visit Provider Physician Assistant
DX: K70.31 Alcoholic cirrhosis of liver with ascites (principal)
CPT/HCPCS: 49083; 89051

== ENCOUNTER 2023-06-29 12:54 | Inpatient (IN) | payer BC, SELFPAY ==
[2023-06-29] VITALS (8 sets, daily range): BP systolic 99–121; BP diastolic 45–68; PULSE 58–78; RESP 16–20; TEMP 35.2–35.9; O2SAT 97–100; BMI 21.9; BMI 20.9
[2023-06-29 13:28] LABS: Basophils % 0.3 % (0.1-2.0); Eosinophils # 0.1 K/mm3 (0.0-0.4); Eosinophils % 1.1 % (0.1-12.0); Hematocrit 35.2 % (42.0-52.0); Hemoglobin 12.5 g/dL (14.1-18.0); Lymphocytes # 1.1 K/mm3 (0.7-4.5); Lymphocytes % 8.8 % (10-50); Mean Corpuscular HGB Conc 35.5 g/dL (31.8-35.4); Mean Corpuscular Hemoglobin 33.1 pg (27.0-31.2); Mean Corpuscular Volume 93.3 fl (80-94); Mean Platelet Volume 8.7 fl (7.4-10.4); Monocytes # 0.7 K/mm3 (0.1-1.0); Monocytes % 6.1 % (1.7-9.3); Neutrophils # 10.1 K/mm3 (1.8-7.8); Neutrophils % 83.7 % (37.0-80.0); Platelet Count 94 K/mm3 (142-424); Red Blood Count 3.77 M/mm3 (4.60-6.20)
[2023-06-29 13:45] LABS: Chloride 106 mmol/L (98-107); Sodium 132 mmol/L (136-145)
[2023-06-29 13:48] LABS: Alanine Aminotransferase 38 U/L (12-78); Albumin Level 3.5 g/dl (3.5-5.0); Albumin/Globulin Ratio 0.9 (1.1-1.8); Alkaline Phosphatase 133 U/L (38-126); Ammonia 291 umol/L (9-30); Aspartate Amino Transferase 47 U/L (17-59); Bilirubin,Total 1.6 mg/dl (0.2-1.3); Blood Urea Nitrogen 72 mg/dl (9-20); Calcium 8.5 mg/dl (8.4-10.2); Creatinine Clearance Estimated 30 mL/min (50-200); Estimated Glomerular Filt Rate 26 ml/min (>60); GFR (African American) 32 ML/MIN (>60); Globulin 3.7 g/dL (1.3-3.2); Glucose 112 mg/dl (74-100); Total Protein,Serum 7.2 g/dl (6.3-8.2)
[2023-06-29 13:49] LABS: Potassium 2.9 mmoL/L (3.5-5.1)
[2023-06-29 13:53] LABS: Anion Gap 19.9 mEq/L (5-15); Carbon Dioxide 9 mmol/L (22.0-30.0)
[2023-06-29 13:54] LABS: INR 1.31 (0.9-1.1); Prothrombin Time 13.9 seconds (10.1-12.5)
--- NOTE | 2023-06-29 14:00 | XR_ITS ---
FINAL REPORT CLINICAL HISTORY: dyspnea FINDINGS: A single portable view of the chest was obtained. The heart size and pulmonary vascularity are within normal limits. The mediastinum is within normal limits. No acute pulmonary abnormality is identified. The bony thorax is intact. IMPRESSION: No active cardiopulmonary disease. Reviewed, Interpreted and Dictated by Santiago Floyd III, MD Transcribed by Adele Valverde Authenticated and [facility]
--- NOTE | 2023-06-29 14:01 | CT_ITS ---
FINAL REPORT CLINICAL HISTORY: AMS FINDINGS: Axial images of the head were obtained without contrast. Coronal reformatted images were also obtained. This study was performed with techniques to keep radiation doses as low as reasonably achievable (ALARA). Individualized dose reduction techniques using automated exposure control or adjustment of mA and/or kV according to the patient's size were employed. There is motion on all of the images which decreases the sensitivity of the exam. There is generalized age-appropriate atrophy. Periventricular low-attenuation areas are seen consistent with mild chronic ischemic changes. There is no evidence of intracranial hemorrhage or mass. There is no evidence of acute infarct. There is no evidence of shift of the midline structures. No skull abnormality is seen on the bone window images. There is opacification of several right mastoid air cells. Mucosal thickening is seen in the maxillary sinuses bilaterally. IMPRESSION: Atrophy and mild periventricular chronic ischemic changes. No acute intracranial abnormality identified. Reviewed, Interpreted and Dictated by Santiago Floyd III, MD Transcribed by Adele Valverde Authenticated and [facility]
[2023-06-29 14:13] LABS: VBG Base Excess -15.7 mmol/L (-2.4-2.3); VBG HCO3 11.9 mmol/L (23-30); VBG Oxygen Saturation 87.5 % (50-70); VBG PCO2 29.1 mmol/L (35-51); VBG PH 7.23 mmol/L (7.31-7.41); VBG PO2 60.7 mmol/L (28-40); VBG Total CO2 12.8 mmol/L (23-27)
--- NOTE | 2023-06-29 14:18 | HMH.EDGENADL ---
Discharge Plan Disposition Patient Disposition: Admitted Chief Complaint: Altered Mental Status Prescriptions Prescriptions: No Action cholestyramine (with sugar) 4 gram powder 1 ea PO BID Rx Instructions: 1 SCOOP BID Xifaxan 550 mg tablet 550 mg PO BID Patient Comments: TAKE ONE TABLET BY MOUTH TWICE DAILY lactulose 10 gram/15 mL solution 30 ml PO QID Patient Comments: take 30 ML BY MOUTH FOUR TIMES DAILY potassium chloride 10 mEq capsule, extended release 10 meq PO DAILY escitalopram oxalate 5 mg tablet 5 mg PO DAILY Referrals Follow up/Referrals: Brad Canela MD [Primary Care Provider] - See instructions Clinical Impressions Clinical Impression: Acute hepatic encephalopathy, Decompensation of cirrhosis of liver, Hypothermia, SBP (spontaneous bacterial peritonitis) Instructions Patient Instructions: DI for Altered Mental Status Discharge ED Provider: Soila Jackson General Adult HPI General Chief complaint: Altered Mental Status Stated complaint: weakness Time Seen by Provider: 06/29/23 13:42 Mode of Arrival: Wheelchair Source of Information: Relative Limitations: Altered Mental Status Description of Symptoms (Recalled from ER Triage Doc. by RN): pt to ed accompanied by family. daughter at the bedside states she found pt on the floor at home this morning confused with full loss of bowel and bladder. pt has a hx of chirrosis, last paracentesis last wednesday, 3L obtained. pt unable to answer questions at this time. History of Present Illness HPI narrative: Patient is a 58-year-old male with a history of alcoholic cirrhosis presented today with altered mental status. Has a history of decompensation known to have numerous paracentesis in the past has had hepatic encephalopathy in the past as well. Was recently evaluated by GI doctor Surya and then referred to the emergency of [place] where he was seen by GI doctor. He has not yet seen the liver transplant team. Family states he been at his normal state of health and then over the last 48 hours his mental status worsened. He did have some nonbloody nonbilious emesis no diarrhea no melena. He has not had any variceal bleeds in the past. No fevers or chills. Most recent paracentesis was several days ago at 3 L taken off. This was done here at [place]. Related Data Home Medications Medication Instructions Recorded Confirmed cholestyramine (with sugar) 4 gram 1 ea PO BID pruritus 06/06/23 06/29/23 oral powder lactulose 10 gram/15 mL oral 30 ml PO QID Ammonia 06/15/23 06/29/23 solution rifaximin 550 mg tablet (Xifaxan) 550 mg PO BID ammonia 06/15/23 06/29/23 escitalopram oxalate 5 mg tablet 5 mg PO DAILY Mood 06/29/23 06/29/23 potassium chloride 10 mEq 10 meq PO DAILY Supplement 06/29/23 06/29/23 capsule,extended release Allergies Allergy/AdvReac Type Severity Reaction Status Date / Time No Known Allergies Allergy Verified 12/02/22 14:28 [facility] Disclaimer: The information contained in this section may have been updated after the patient was seen, as this information can be updated by other users. Medical History Alcoholic cirrhosis Deviated nasal bone Deviated nasal septum Encounter for pre-operative cardiovascular clearance Eustachian tube dysfunction History of COVID-19 History of gastroesophageal reflux (GERD) HLD (hyperlipidemia) HTN (hypertension) Maxillary sinusitis, chronic Prostatitis Protein calorie malnutrition Sinus headache Sinusitis Surgical History History of back surgery History of cataract surgery History of hip surgery History of shoulder surgery Status post functional endoscopic sinus surgery Family History Other Cancer Family history of stent Social History (Reviewed 06/15/23 @
[2023-06-29 14:43] LABS: RBC,Body Fluid < 10 cells/uL (< 10 X 10^3); TNC,Body Fluid 341 cells/uL (< 1000); Volume,Body Fld. 30 mL
--- NOTE | 2023-06-29 14:44 | EXP.PHA.CONS ---
Pharmacy Consult Date: 06/29/23 Time: 14:44 Referring provider: DR. LEIJA Reason for Consult:: VANCOMYCIN DOSING Allergies Allergy/AdvReac Type Severity Reaction Status Date / Time No Known Allergies Allergy Verified 12/02/22 14:28 Home Medications Medication Instructions Recorded Confirmed Type cholestyramine (with sugar) 4 gram 1 ea PO BID pruritus 06/06/23 06/15/23 History oral powder lactulose 10 gram/15 mL oral 30 ml PO QID Ammonia 06/15/23 06/15/23 History solution rifaximin 550 mg tablet (Xifaxan) 550 mg PO BID ammonia 06/15/23 06/15/23 History escitalopram oxalate 5 mg tablet 5 mg PO DAILY #30 tabs 06/17/23 Rx potassium chloride 10 mEq 10 meq PO DAILY #30 caps 06/17/23 Rx capsule,extended release New Prescriptions to Start Prescriptions: Height: 1.75 m Weight: 67.585 kg Laboratory Results:: Laboratory Results - last 24 hr 06/29/23 13:02: WBC 12.0 H, RBC 3.77 L, Hgb 12.5 L, Hct 35.2 L, MCV 93.3, MCH 33.1 H, MCHC 35.5 H, RDW 16.0, Plt Count 94 L, MPV 8.7, Neut % (Auto) 83.7 H, Lymph % (Auto) 8.8 L, [place] % (Auto) 6.1, Eos % (Auto) 1.1, Baso % (Auto) 0.3, Neut # (Auto) 10.1 H, Lymph # (Auto) 1.1, [place] # (Auto) 0.7, Eos # (Auto) 0.1, Baso # (Auto) 0.0, PT 13.9 H, INR 1.31 H, Sodium 132 L, Potassium 2.9 L*, Chloride 106, Carbon Dioxide 9 L*, Anion Gap 19.9 H, BUN 72 H, Creatinine 2.50 H, Estimated Creat Clear 30, Estimated GFR 26 L, Est GFR ( Amer) 32 L, Glucose 112 H, Calcium 8.5, Total Bilirubin 1.6 H, AST 47, ALT 38, Alkaline Phosphatase 133 H, Ammonia 291 H, Total Protein 7.2, Albumin 3.5, Globulin 3.7 H, Albumin/Globulin Ratio 0.9 L 06/29/23 14:07: VBG pH 7.23 L, VBG pCO2 29.1 L, VBG pO2 60.7 H, VBG HCO3 11.9 L, VBG Total CO2 12.8 L, VBG O2 Saturation 87.5 H, VBG Base Excess -15.7 L 06/29/23 14:15: Fluid Volume 30, Fluid RBC (Auto) < 10, Fld Tot Nucleated Cell 341 Medical History: Medical History (Updated 06/29/23 @ 14:23 by Soila Leija MD) Alcoholic cirrhosis Deviated nasal bone Deviated nasal septum Encounter for pre-operative cardiovascular clearance Eustachian tube dysfunction History of COVID-19 History of gastroesophageal reflux (GERD) HLD (hyperlipidemia) HTN (hypertension) Maxillary sinusitis, chronic Prostatitis Protein calorie malnutrition Sinus headache Sinusitis Assessment and Plan Assessment and plan all Dx Assessment and Plan for all problems:: Pharmacokinetic dosing service Objective: Patient: Floor: Age: 58 yo Serum creatinine: 2.5 mg/dL Height: 69.0 Inches Weight (kg): 68 Assessment: IBW (kg): 70.70 Dosing wt(kg): 68 Estimated Creatinine clearance (ml/min): 30.2 CRCL method: Cockcroft and Gault using ibw(default). Drug selected: Vancomycin Loading dose (mg): 0 Vd (liters): 54.4 (factor used: 0.8 L/kg) Lupillo (hr-1): 0.029 Half life (hrs): 23.90 Recommended dose: 1250 mg Interval: 36 hrs Infusion time (hrs): 2.0 Predicted peak (mcg/mL): 34.5 Predicted trough (mcg/mL): 12.87 Total body weight is being used for vancomycin dosing. Recommendations: Give Vancomycin 1250 mg q 36 hrs with an expected Cpeak of 34.5 mcg/ml and an expected Ctrough of 12.87 mcg/ml ----Vanco only - ignore for aminoglycosides----- CLvanco= 1.58 L/hr AUC 0-24 /RCAHAEL Data: RACHAEL 0.5 mcg/mL: AUC/RACHAEL: 1054.9 RACHAEL 1.0 mcg/mL: AUC/RACHAEL: 527.4 --------- RACHAEL 1.5 mcg/mL: AUC/RACHAEL: 351.6 RACHAEL 2.0 mcg/mL: AUC/RACHAEL: 263.7
--- NOTE | 2023-06-29 14:48 | PC.NURSE ---
lAB AT BEDSIDE TO COLLECT 2ND SET OF BLOOD CULTURES
--- NOTE | 2023-06-29 14:58 | PC.NURSE ---
DR LEIJA AT BEDSIDE
--- NOTE | 2023-06-29 14:58 | HMH.PHAINT1 ---
Pharmacy Intervention Comments: MEDICATION RECONCILIATION COMPLETED ON PATIENT USING EXTERNAL FILL HISTORY FROM PHARMACY AND DISCHARGE SUMMARY FROM PREVIOUS ADMISSION. -SWAPNA LIU, SHRUTHID
[2023-06-29 15:26] LABS: Appearance,Body Fld. Normal; Mononuclear WBCs,Body Fluid 86 %; Polynuclear WBC,Body Fluid 14 %; Source, Body Fld. Paracentesis Fluid
[2023-06-29 15:36] LABS: Lactic Acid 1.8 mmol/L (0.7-2.1)
--- NOTE | 2023-06-29 17:56 | PC.NURSE ---
Dr. Chicas called and is aware of the patient's labs and family's concerns over restarting the patient's home medications.
--- NOTE | 2023-06-29 19:49 | EXP.HP ---
History of Present Illness *Admission Date: 06/29/23 *Reason for visit:: Hepatic encephalopathy *History of present illness: 58 y.o. WM with recurrent admission for cirrhosis and hepatic encephalopathy. Deterioration of mental status over the past 48 hours. Seen in ER [facility] with elevated ammonia level and hypokalemia. Diagnostic paracentesis of 30ml of straw colored fluid. Patient receives regular paracentesis at [facility]. Recently evaluated at [facility] for possible liver transplant. Receives Lactulose on scheduled basis. At hospitalization in May he responded well to lactulose treatments and stabilized. Family is present with patient. Daughter requested we try to administer p.o. Lactulose and avoid NG if possible. He apparently has been able to take p.o. at home despite deteriorating mental status. Head CT in ER negative today. [facility] Disclaimer: The information contained in this section may have been updated after the patient was seen, as this information can be updated by other users. Medical History Alcoholic cirrhosis Deviated nasal bone Deviated nasal septum Encounter for pre-operative cardiovascular clearance Eustachian tube dysfunction History of COVID-19 History of gastroesophageal reflux (GERD) HLD (hyperlipidemia) HTN (hypertension) Maxillary sinusitis, chronic Prostatitis Protein calorie malnutrition Sinus headache Sinusitis Surgical History History of back surgery History of cataract surgery History of hip surgery History of shoulder surgery Status post functional endoscopic sinus surgery Family History Other Cancer Family history of stent Social History (Updated 06/29/23 @ 16:14 by Ritu Calvillo RN) Smoking Status: Current some day smoker years smoked: 30 smoking status stop date: 1995 alcohol intake: former substance use type: denies use current occupational status: employed Travel in the last 8 weeks: None housing: house current occupational exposures/hazards: No caffeine: No Review of Systems Review of Systems Review of systems:: pertinent systems reviewed and negative unless documented below Constitutional Constitutional: Reports system reviewed and no additional complaints, except as documented, Reports daytime sleepiness and Reports poor appetite Eyes Eyes: Reports system reviewed and no additional complaints, except as documented and Denies loss of vision ENT Ears, Nose, Mouth, and Throat: Reports system reviewed and no additional complaints, except as documented and Denies mouth lesions *Cardiovascular Cardiovascular: Reports system reviewed and no additional complaints, except as documented *Respiratory Respiratory: Reports system reviewed and no additional complaints, except as documented and Denies hemoptysis *Gastrointestinal Gastrointestinal: Reports as per HPI and Denies coffee ground emesis *Genitourinary Genitourinary: Reports system reviewed and no additional complaints, except as documented *Musculoskeletal Musculoskeletal: Reports system reviewed and no additional complaints, except as documented and Reports muscle weakness Integumentary/Breasts Skin/Breast: Reports system reviewed and no additional complaints, except as documented and Reports jaundice *Neurologic Neurologic: Reports as per HPI, Denies localized weakness, Denies loss of vision and Denies seizure-like activity Psychiatric Psychiatric: Reports as per HPI Endocrine Endocrine: Reports system reviewed and no additional complaints, except as documented Hematologic/Lymphatic Hematologic/Lymphatic: Reports system reviewed and no additional complaints, except as documented and Reports easy bruising Allergic/Immunologic Allergic/Immunologic: Reports system reviewed and no additional complaints, except as documented Meds Nita
[2023-06-30] VITALS: BP 88/49; PULSE 60; RESP 16; TEMP 36.1; O2SAT 98
[2023-06-30 04:00] VITALS: BP 81/35; PULSE 56; RESP 18; TEMP 36.4; O2SAT 100; BMI 20.9
[2023-06-30 05:15] VITALS: BP 88/45
[2023-06-30 06:34] LABS: Eosinophils # 0.2 K/mm3 (0.0-0.4); Monocytes # 0.5 K/mm3 (0.1-1.0); Red Cell Distribution Width 16.1 % (11.5-17.5)
[2023-06-30 06:36] LABS: Ammonia 117 umol/L (9-30); Chloride 111 mmol/L (98-107)
[2023-06-30 06:37] LABS: Sodium 135 mmol/L (136-145)
--- NOTE | 2023-06-30 06:37 | PC.NURSE ---
pt mentation has improved through the duration of the shift. pt alert to name and place and more coherent. pt been cooperative with medication administeration. 4-5 diarrhea stools, 3-4 voids per toilet. no n/v. bp 80-90's, temperature has improved. last temp 97.6
[2023-06-30 06:39] LABS: Alanine Aminotransferase 30 U/L (12-78); Alkaline Phosphatase 87 U/L (38-126); Aspartate Amino Transferase 44 U/L (17-59); Bilirubin,Total 1.2 mg/dl (0.2-1.3); Blood Urea Nitrogen 66 mg/dl (9-20); Creatinine Clearance Estimated 34 mL/min (50-200); Estimated Glomerular Filt Rate 32 ml/min (>60); GFR (African American) 39 ML/MIN (>60)
[2023-06-30 06:40] LABS: Albumin Level 2.9 g/dl (3.5-5.0); Albumin/Globulin Ratio 0.9 (1.1-1.8); Anion Gap 17.5 mEq/L (5-15); Calcium 8.3 mg/dl (8.4-10.2); Globulin 3.3 g/dL (1.3-3.2); Glucose 113 mg/dl (74-100); Total Protein,Serum 6.2 g/dl (6.3-8.2)
[2023-06-30 06:42] LABS: Potassium 2.5 mmoL/L (3.5-5.1)
[2023-06-30 06:43] LABS: Carbon Dioxide 9 mmol/L (22.0-30.0)
[2023-06-30 06:49] LABS: Basophils % 0.4 % (0.1-2.0); Eosinophils % 3.1 % (0.1-12.0); Hematocrit 30.7 % (42.0-52.0); Lymphocytes # 0.6 K/mm3 (0.7-4.5); Lymphocytes % 9.8 % (10-50); Mean Corpuscular HGB Conc 35.5 g/dL (31.8-35.4); Mean Corpuscular Hemoglobin 32.7 pg (27.0-31.2); Monocytes % 7.6 % (1.7-9.3); Neutrophils # 5.1 K/mm3 (1.8-7.8); Neutrophils % 79.2 % (37.0-80.0); Platelet Count 67 K/mm3 (142-424); Red Blood Count 3.33 M/mm3 (4.60-6.20); White Blood Count 6.4 K/mm3 (4.8-10.8)
[2023-06-30 06:56] LABS: Hemoglobin 10.9 g/dL (14.1-18.0)
[2023-06-30 07:24] VITALS: BP 104/57; PULSE 61; RESP 16; TEMP 36.3; O2SAT 97
--- NOTE | 2023-06-30 08:20 | EXP.ACUTE.PN ---
Subjective *Date: 06/30/23 *Time: 08:20 Interval history: Patient states he didn't rest much last night. Wants to know intermediate project manager plan for his current liver failure. Medical Exam Vital signs and Labs for Last 24 Hours: Vital Signs Temp Pulse Pulse Resp BP BP BP 06/30/23 07:24 97.3 F L 61 16 104/57 L 06/30/23 07:00 06/30/23 05:00 06/30/23 03:00 06/30/23 05:15 88/45 L 06/30/23 04:00 97.6 F 56 L 18 81/35 L 06/30/23 01:00 06/29/23 23:00 06/30/23 00:00 97.0 F L 60 16 88/49 L 06/29/23 21:00 06/29/23 21:45 06/29/23 21:05 96.6 F L 06/29/23 20:00 95.4 F L 59 L 16 100/45 L 06/29/23 16:43 06/29/23 16:40 06/29/23 15:57 06/29/23 15:55 95.9 F L 58 L 16 103/59 L 06/29/23 15:49 95.6 F L 59 L 20 99/55 L 06/29/23 14:00 59 L 99/55 L 06/29/23 13:30 62 106/59 L 06/29/23 13:12 95.6 F L 78 20 121/68 Pulse Ox O2 Del Method 06/30/23 07:24 97 Room Air 06/30/23 07:00 Room Air 06/30/23 05:00 Room Air 06/30/23 03:00 Room Air 06/30/23 05:15 06/30/23 04:00 100 Room Air 06/30/23 01:00 Room Air 06/29/23 23:00 Room Air 06/30/23 00:00 98 Room Air 06/29/23 21:00 Room Air 06/29/23 21:45 Room Air 06/29/23 21:05 06/29/23 20:00 100 Room Air 06/29/23 16:43 97 Room Air 06/29/23 16:40 Room Air 06/29/23 15:57 Room Air 10/10/23 15:55 98 Room Air 06/29/23 15:49 Room Air 06/29/23 14:00 100 06/29/23 13:30 100 06/29/23 13:12 100 Room Air Intake and Output 06/29/23 06/30/23 06/30/23 23:59 07:59 15:59 Intake Total 1490 / 1490 0 / 0 Output Total 2116 / 2116 0 / 0 Balance -627 / -627 0 / 0 Intake: Intake, Oral Amount 240 / 240 0 / 0 Intake, Total IV Amount 1250 / 1250 Lactated Ringers 1000ML 1,000 1000 / 1000 ml @ 999 mls/hr IV .Q1H1M LAURA Rx#:[id number] Vancomycin/Water For Inj (Peg) 250 / 250 1.25 gm In 250 ml @ 125 mls/hr IV ONCE ONE Rx#:[id number] Output: Output, Urine Amount 2116 / 2116 0 / 0 Other: Number of Voids 4 Number of Unmeasured Voids 1 1 Number of Bowel Movements 1 1 Weight 141 lb 8 oz Patient Weight 06/30/23 23:59 Weight 141 lb 8 oz Laboratory Results - last 24 hr 06/29/23 13:02: WBC 12.0 H, RBC 3.77 L, Hgb 12.5 L, Hct 35.2 L, MCV 93.3, MCH 33.1 H, MCHC 35.5 H, RDW 16.0, Plt Count 94 L, MPV 8.7, Neut % (Auto) 83.7 H, Lymph % (Auto) 8.8 L, [place] % (Auto) 6.1, Eos % (Auto) 1.1, Baso % (Auto) 0.3, Neut # (Auto) 10.1 H, Lymph # (Auto) 1.1, [place] # (Auto) 0.7, Eos # (Auto) 0.1, Baso # (Auto) 0.0, PT 13.9 H, INR 1.31 H, Sodium 132 L, Potassium 2.9 L*, Chloride 106, Carbon Dioxide 9 L*, Anion Gap 19.9 H, BUN 72 H, Creatinine 2.50 H, Estimated Creat Clear 30, Estimated GFR 26 L, Est GFR ( Amer) 32 L, Glucose 112 H, Calcium 8.5, Total Bilirubin 1.6 H, AST 47, ALT 38, Alkaline Phosphatase 133 H, Ammonia 291 H, Total Protein 7.2, Albumin 3.5, Globulin 3.7 H, Albumin/Globulin Ratio 0.9 L 06/29/23 14:07: VBG pH 7.23 L, VBG pCO2 29.1 L, VBG pO2 60.7 H, VBG HCO3 11.9 L, VBG Total CO2 12.8 L, VBG O2 Saturation 87.5 H, VBG Base Excess -15.7 L 06/29/23 14:15: Fluid Source Paracentesis fluid, Fluid Volume 30, Fluid Appearance Normal, Fluid RBC (Auto) < 10, Fld Tot Nucleated Cell 341, Fld Polynuclear WBCs % 14, Fld Mononuclear WBCs % 86 06/29/23 15:03: Lactate 1.8 06/30/23 05:28: WBC 6.4 D, RBC 3.33 L, Hgb 10.9 L D, Hct 30.7 L, MCV 92.0, MCH 32.7 H, MCHC 35.5 H, RDW 16.1, Plt Count 67 L D, MPV 9.0, Neut % (Auto) 79.2, Lymph % (Auto) 9.8 L, [place] % (Auto) 7.6, Eos % (Auto) 3.1, Baso % (Auto) 0.4, Neut # (Auto) 5.1, Lymph # (Auto) 0.6 L, [place] # (Auto) 0.5, Eos # (Auto) 0.2, Baso # (Auto) 0.0, Sodium 135 L, Potassium 2.5 L*, Chloride 111 H, Carbon Dioxide 9 L*, Anion Gap 17.5 H, BUN 66 H, Creatinine 2.10 H, Estimated Creat Clear 34, Estimated GFR 32 L, Est GFR ( Amer) 39 L D,
[2023-06-30 10:44] LABS: Microscopic, Urine URINE MICROSCOPIC (MICROSCOPIC)
[2023-06-30 10:47] LABS: Appearance,Urine CLEAR (Clear); Bilirubin,Urine Negative (Negative); Blood, Urine 2+ (Negative); Color,Urine YELLOW (Yellow); Glucose,Urine (UA) Negative (Negative); Ketones,Urine Negative (Negative); Leukocyte Esterase,Urine Negative (Negative); Nitrate,Urine Negative (Negative); Protein,Urine Negative (Negative); Urobilinogen,Urine 0.2 EU/dl (0.2)
[2023-06-30 11:12] LABS: Bacteria,Urine Trace /lpf
[2023-06-30 13:26] VITALS: BMI 20.9
--- NOTE | 2023-06-30 13:37 | DIET.NUTRFU ---
Patient was recently here 06/16, during that admit family had reported wt loss and now he has lost more wt/fluid. He has hx of cirrhosis and receives paracentesis therapy 2xweek. Last admit they were pulling 5L off per visit. He visually has lost facial fat tissue along with his extremities. Lost total of 10kg in 60 days. Based on poor intake/weight loss and current BMI of 20.9 he will trigger for severe PCM, will notify provider. Patient practices a low sodium diet at home, currently on full liquids. When medically feasible upgrade to low sodium. Added chocolate ensure to try to help meet calorie and protein needs. This RD met with daughter last admit and provided and reviewed handouts on recommended meal plan
[2023-06-30 14:57] VITALS: BP 93/57; PULSE 55; RESP 18; TEMP 36.5; O2SAT 100
--- NOTE | 2023-06-30 18:10 | PC.NURSE ---
PT REMAINS A&OX4 T/O SHIFT. HAS SLEPT MAJORITY OF SHIFT. DID GET UP TO CHAIR FOR SUPPER WITH FAMILY AT BEDSIDE. X1 ASSIST. UP TO BATHROOM, HAS HAD MULTIPLE LOOSE BMS THUS FAR THIS SHIFT. PT HAS HAD NO OTHER NEEDS OR C/O NOTED. VSS.
[2023-06-30 20:00] VITALS: BP 109/53; PULSE 59; RESP 20; TEMP 36.5; O2SAT 100
[2023-07-01 04:00] VITALS: BP 101/50; PULSE 62; RESP 18; TEMP 36.7; O2SAT 100; BMI 23.1
--- NOTE | 2023-07-01 07:40 | PC.NURSE ---
rounded on pt, updated pts whiteboard, no needs at this time.
[2023-07-01 08:00] VITALS: BP 91/55; PULSE 67; RESP 18; TEMP 36.6; O2SAT 97
--- NOTE | 2023-07-01 08:22 | EXP.ACUTE.PN ---
Subjective *Date: 07/01/23 *Time: 08:46 Interval history: Patient is awake and alert this am. He denies any pain. He states he slept off and on last night and did have some abdominal pain during the night. He ate a few bites of breakfast this am. Medical Exam Vital signs and Labs for Last 24 Hours: Vital Signs Temp Pulse Resp BP Pulse Ox O2 Del Method 07/01/23 08:00 97.9 F 67 18 91/55 L 97 Room Air 07/01/23 06:27 Room Air 07/01/23 04:00 98.1 F 62 18 101/50 L 100 Room Air 07/01/23 05:00 Room Air 07/01/23 02:45 Room Air 07/01/23 01:00 Room Air 06/30/23 23:00 Room Air 06/30/23 21:00 Room Air 06/30/23 20:00 97.7 F 59 L 20 109/53 L 100 Room Air 06/30/23 19:57 Room Air 06/30/23 18:37 Room Air 06/30/23 16:46 Room Air 06/30/23 15:00 Room Air 06/30/23 14:57 97.7 F 55 L 18 93/57 L 100 Room Air 06/30/23 12:54 Room Air 06/30/23 10:40 Room Air 06/30/23 08:56 Room Air Intake and Output 06/30/23 07/01/23 07/01/23 19:59 03:59 11:59 Intake Total 750 / 1891 120 / 1891 1021 / 1891 Output Total 425 / 425 0 / 425 0 / 425 Balance 325 / 1466 120 / 1466 1021 / 1466 Intake: Intake, Oral Amount 750 / 1140 120 / 1140 270 / 1140 Intake, Total IV Amount 751 / 751 D5W/0.45% NaCl w/20mEq KCL 1, 551 / 551 000 ml @ 75 mls/hr IV .[id number] [facility] Rx#:[id number] Metronidaz/Sod Chl 500 mg In 200 / 200 100 ml @ 100 mls/hr IV Q8H [facility] Rx#:[id number] Output: Output, Urine Amount 425 / 425 0 / 425 0 / 425 Other: Number of Voids 0 Number of Unmeasured Voids 0 1 Number of Bowel Movements 1 2 3 Weight 141 lb 1.533 oz 156 lb 1 oz Patient Weight 07/01/23 11:59 Weight 156 lb 1 oz Laboratory Results - last 24 hr 06/30/23 10:20: Urine Color Yellow, Urine Appearance Clear, Urine pH 6.0, Ur Specific [place] 1.010, Urine Protein Negative, Urine Glucose (UA) Negative, Urine Ketones Negative, Urine Blood 2+, Urine Nitrate Negative, Urine Bilirubin Negative, Urine Urobilinogen 0.2, Ur Leukocyte Esterase Negative, Urine RBC 10-20, Urine WBC 3-5, Ur Squamous Epith Cells 3-5, Urine Bacteria Trace I & O for Labs for Last 24 Hours: Intake & Output 06/28/23 06/29/23 06/30/23 07/01/23 11:59 11:59 11:59 11:59 Intake Total 1490 / 1490 1891 / 1891 Output Total 2317 / 2317 425 / 425 Balance -827 / -827 1466 / 1466 Weight 141 lb 8 oz 156 lb 1 oz Microbiology Reports for the Last 24 Hours: Microbiology 06/29/23 14:15 Synovial Fluid Body Fluid Culture - Preliminary NO GROWTH AFTER 24 HOURS Constitutional: Present no acute distress (sleeping, awakens to voice) Respiratory: Present CTA bilaterally Cardiac: Present Reg Rate and Rhythm GI: Present soft and distention; Absent tenderness, guarding or rebound Extremities: Absent tenderness or edema Skin: Present intact Neuro: Present alert and awake Assessment and Plan *Assessment and plan (1) Acute hepatic encephalopathy: Status: Acute Category: Medical Code(s): K76.82 - Hepatic encephalopathy (2) Decompensation of cirrhosis of liver: Status: Acute Category: Medical Code(s): K72.90 - Hepatic failure, unspecified without coma; K74.60 - Unspecified cirrhosis of liver (3) SBP (spontaneous bacterial peritonitis): Status: Acute Category: Medical Code(s): K65.2 - Spontaneous bacterial peritonitis (4) Ascites due to alcoholic cirrhosis: Status: Acute Category: Medical Code(s): K70.31 - Alcoholic cirrhosis of liver with ascites (5) Hypokalemia: Status: Acute Category: Medical Code(s): E87.6 - Hypokalemia (6) General weakness: Status: Acute Category: Medical Code(s): R53.1 - Weakness (7) Protein calorie malnutrition: Status: Acute Category: Medical Code(s): E46 - Unspecifi
[2023-07-01 08:54] LABS: Basophils % 0.5 % (0.1-2.0); Eosinophils # 0.2 K/mm3 (0.0-0.4); Eosinophils % 3.1 % (0.1-12.0); Hematocrit 31.3 % (42.0-52.0); Lymphocytes # 0.6 K/mm3 (0.7-4.5); Mean Corpuscular HGB Conc 35.1 g/dL (31.8-35.4); Mean Corpuscular Hemoglobin 33.4 pg (27.0-31.2); Mean Platelet Volume 8.4 fl (7.4-10.4); Monocytes # 0.5 K/mm3 (0.1-1.0); Monocytes % 7.2 % (1.7-9.3); Neutrophils # 5.3 K/mm3 (1.8-7.8); Neutrophils % 80.1 % (37.0-80.0); Platelet Count 54 K/mm3 (142-424); Red Cell Distribution Width 16.3 % (11.5-17.5); White Blood Count 6.6 K/mm3 (4.8-10.8)
[2023-07-01 09:01] LABS: Chloride 118 mmol/L (98-107)
[2023-07-01 09:02] LABS: Ammonia 88 umol/L (9-30); Potassium 3.3 mmoL/L (3.5-5.1); Sodium 138 mmol/L (136-145)
[2023-07-01 09:04] LABS: Alanine Aminotransferase 32 U/L (12-78); Albumin Level 2.8 g/dl (3.5-5.0); Albumin/Globulin Ratio 0.9 (1.1-1.8); Alkaline Phosphatase 94 U/L (38-126); Anion Gap 14.3 mEq/L (5-15); Aspartate Amino Transferase 48 U/L (17-59); Bilirubin,Total 1.1 mg/dl (0.2-1.3); Blood Urea Nitrogen 52 mg/dl (9-20); Calcium 8.1 mg/dl (8.4-10.2); Creatinine Clearance Estimated 41 mL/min (50-200); Estimated Glomerular Filt Rate 36 ml/min (>60); GFR (African American) 44 ML/MIN (>60); Globulin 3.2 g/dL (1.3-3.2); Glucose 135 mg/dl (74-100)
[2023-07-01 09:07] LABS: Carbon Dioxide 9 mmol/L (22.0-30.0)
--- NOTE | 2023-07-01 11:24 | PC.NURSE ---
COURTESY NOTE: rounded on pt, pt denied use of any assistance at this time. call light within reach.
[2023-07-01 16:00] VITALS: BP 105/47; PULSE 61; RESP 17; TEMP 36.8; O2SAT 100
--- NOTE | 2023-07-01 16:14 | PC.NURSE ---
COURTESY NOTE: rounded on pt. pt has no requests at this time.
--- NOTE | 2023-07-01 18:10 | PC.NURSE ---
COURTESY TECH: rounded on pt after dinner. pt denies any assistance at this time.
[2023-07-01 20:00] VITALS: BP 105/62; PULSE 70; RESP 18; TEMP 38.4; O2SAT 100
[2023-07-01 21:00] VITALS: TEMP 37.9
[2023-07-02] VITALS: PULSE 70; TEMP 36.7
--- NOTE | 2023-07-02 | US_ITS ---
FINAL REPORT CLINICAL HISTORY: ASCITES-- eval for fluid COMPARISON: Ultrasound dated 06/25/2023 FINDINGS: Limited sonographic images of the abdomen were obtained to evaluate ascites. The solid organs of the abdomen were not evaluated in this limited exam. There is moderate ascites present, similar to the previous pre-paracentesis images from June 25. IMPRESSION: Limited exam as described to evaluate ascites. Moderate ascites present, similar to the previous pre-paracentesis images from June 25. Reviewed, Interpreted and Dictated by Santiago Floyd III, MD Transcribed by Orquidea Adan Authenticated and [facility]
--- NOTE | 2023-07-02 03:04 | PC.NURSE ---
Pt AOx4 and ambulatory on reassessment. Pt c/o indigestion no longer relieved by milk or other non-pharmacological interventions. Administered PRN Tums and elevated HOB. Pt temperature intially elevated at the beginning of the shift, but pt under multiple layers of blankets and states he is constantly cold; afebrile on midnight reassessment. All pt needs and safety measures addressed at this time.
[2023-07-02 04:00] VITALS: BP 93/55; PULSE 65; PULSE 70; RESP 18; TEMP 36.9; O2SAT 100
[2023-07-02 06:50] LABS: Basophils % 0.5 % (0.1-2.0); Eosinophils # 0.3 K/mm3 (0.0-0.4); Eosinophils % 3.8 % (0.1-12.0); Hematocrit 28.4 % (42.0-52.0); Lymphocytes # 0.6 K/mm3 (0.7-4.5); Lymphocytes % 8.7 % (10-50); Mean Corpuscular HGB Conc 35.2 g/dL (31.8-35.4); Mean Corpuscular Hemoglobin 33.4 pg (27.0-31.2); Mean Platelet Volume 8.9 fl (7.4-10.4); Monocytes # 0.5 K/mm3 (0.1-1.0); Monocytes % 7.1 % (1.7-9.3); Neutrophils # 5.4 K/mm3 (1.8-7.8); Neutrophils % 79.9 % (37.0-80.0); Red Blood Count 2.99 M/mm3 (4.60-6.20); Red Cell Distribution Width 16.5 % (11.5-17.5); White Blood Count 6.7 K/mm3 (4.8-10.8)
[2023-07-02 06:52] LABS: Chloride 118 mmol/L (98-107)
[2023-07-02 06:53] LABS: Potassium 3.8 mmoL/L (3.5-5.1); Sodium 138 mmol/L (136-145)
[2023-07-02 06:56] LABS: Alanine Aminotransferase 26 U/L (12-78); Albumin Level 2.6 g/dl (3.5-5.0); Albumin/Globulin Ratio 0.9 (1.1-1.8); Alkaline Phosphatase 123 U/L (38-126); Anion Gap 15.8 mEq/L (5-15); Aspartate Amino Transferase 44 U/L (17-59); Bilirubin,Total 0.5 mg/dl (0.2-1.3); Blood Urea Nitrogen 49 mg/dl (9-20); Calcium 8.3 mg/dl (8.4-10.2); Creatinine Clearance Estimated 46 mL/min (50-200); Estimated Glomerular Filt Rate 41 ml/min (>60); GFR (African American) 50 ML/MIN (>60); Globulin 2.9 g/dL (1.3-3.2); Glucose 100 mg/dl (74-100); Total Protein,Serum 5.5 g/dl (6.3-8.2)
[2023-07-02 06:57] LABS: Ammonia 79 umol/L (9-30)
[2023-07-02 07:04] LABS: Platelet Count 46 K/mm3 (142-424)
[2023-07-02 07:05] LABS: Carbon Dioxide 8 mmol/L (22.0-30.0)
--- NOTE | 2023-07-02 07:53 | EXP.PHA.PN ---
Subjective *Date: 07/02/23 *Time: 07:53 Medical Exam Vital signs and Labs for Last 24 Hours: Vital Signs Temp Pulse Pulse Resp BP Pulse Ox O2 Del Method 07/02/23 07:31 97.8 F 72 18 112/61 100 Room Air 07/02/23 07:00 Room Air 07/02/23 04:00 70 07/02/23 04:00 98.4 F 65 18 93/55 L 100 07/02/23 05:00 Room Air 07/02/23 00:00 70 07/02/23 01:00 Room Air 07/02/23 00:00 98.0 F Room Air 07/01/23 23:00 Room Air 07/02/23 03:00 Room Air 07/01/23 21:00 Room Air 07/01/23 20:00 Room Air 07/01/23 21:00 100.3 F H 07/01/23 20:00 101.1 F H 70 18 105/62 L 100 Room Air 07/01/23 18:13 Room Air 07/01/23 16:38 Room Air 07/01/23 16:00 98.3 F 61 17 105/47 L 100 Room Air 07/01/23 14:11 Room Air 07/01/23 13:00 Room Air 07/01/23 10:36 Room Air 07/01/23 08:00 97 Room Air 07/01/23 09:00 Room Air 07/01/23 08:00 97.9 F 67 18 91/55 L 97 Room Air Intake and Output 07/01/23 07/01/23 07/02/23 15:59 23:59 07:59 Intake Total 610 / 2625 420 / 2625 724 / 724 Output Total 0 / 0 0 / 0 0 / 0 Balance 610 / 2625 420 / 2625 724 / 724 Intake: Intake, Oral Amount 510 / 1300 420 / 1300 250 / 250 Intake, Total IV Amount 100 / 1325 474 / 474 Ceftriaxone Sodium 2 gm In 0.9 100 / 100 % Sodium Chloride 100 ml @ 200 mls/hr IV Q24H [facility] Rx#:[id number] D5W/0.45% NaCl w/20mEq KCL 1, 407 / 407 000 ml @ 75 mls/hr IV .[id number] [facility] Rx#:[id number] Metronidaz/Sod Chl 500 mg In 100 ml @ 100 mls/hr IV Q8H [facility] Rx#:[id number] Output: Output, Urine Amount 0 / 0 0 / 0 0 / 0 Other: Number of Voids 0 2 Number of Unmeasured Voids 1 2 Number of Bowel Movements 1 2 Weight 70.874 kg Patient Weight 07/02/23 23:59 Weight 70.874 kg Laboratory Results - last 24 hr 07/01/23 08:40: WBC 6.6, RBC 3.30 L, Hgb 11.0 L, Hct 31.3 L, MCV 95.0 H, MCH 33.4 H, MCHC 35.1, RDW 16.3, Plt Count 54 L, MPV 8.4, Neut % (Auto) 80.1 H, Lymph % (Auto) 9.0 L, [place] % (Auto) 7.2, Eos % (Auto) 3.1, Baso % (Auto) 0.5, Neut # (Auto) 5.3, Lymph # (Auto) 0.6 L, [place] # (Auto) 0.5, Eos # (Auto) 0.2, Baso # (Auto) 0.0, Sodium 138, Potassium 3.3 L D, Chloride 118 H, Carbon Dioxide 9 L*, Anion Gap 14.3, BUN 52 H, Creatinine 1.90 H, Estimated Creat Clear 41, Estimated GFR 36 L, Est GFR ( Amer) 44 L, Glucose 135 H, Calcium 8.1 L, Total Bilirubin 1.1, AST 48, ALT 32, Alkaline Phosphatase 94, Ammonia 88 H, Total Protein 6.0 L, Albumin 2.8 L, Globulin 3.2, Albumin/Globulin Ratio 0.9 L 07/02/23 05:54: WBC 6.7, RBC 2.99 L, Hgb 10.0 L, Hct 28.4 L, MCV 95.0 H, MCH 33.4 H, MCHC 35.2, RDW 16.5, Plt Count 46 L*, MPV 8.9, Neut % (Auto) 79.9, Lymph % (Auto) 8.7 L, [place] % (Auto) 7.1, Eos % (Auto) 3.8, Baso % (Auto) 0.5, Neut # (Auto) 5.4, Lymph # (Auto) 0.6 L, [place] # (Auto) 0.5, Eos # (Auto) 0.3, Baso # (Auto) 0.0, Sodium 138, Potassium 3.8, Chloride 118 H, Carbon Dioxide 8 L* D, Anion Gap 15.8 H, BUN 49 H, Creatinine 1.70 H, Estimated Creat Clear 46, Estimated GFR 41 L, Est GFR ( Amer) 50 L, Glucose 100 D, Calcium 8.3 L, Total Bilirubin 0.5, AST 44, ALT 26, Alkaline Phosphatase 123, Ammonia 79 H, Total Protein 5.5 L, Albumin 2.6 L, Globulin 2.9, Albumin/Globulin Ratio 0.9 L I & O for Labs for Last 24 Hours: Intake & Output 06/29/23 06/30/23 07/01/23 07/02/23 23:59 23:59 23:59 23:59 Intake Total 1490 / 1490 750 / 870 1901 / 2625 724 / 724 Output Total 2117 / 2117 625 / 625 0 / 0 0 / 0 Balance -627 / -627 125 / 245 1901 / 2625 724 / 724 Weight 64.183 kg 64 kg 70.789 kg 70.874 kg The patient's infection will respond to the chosen ABx?: Yes Is the patient receiving the right drug, dose, and route?: Yes Could a more targeted ABx be ordered?: No
[2023-07-02 08:00] VITALS: BP 112/61; PULSE 60; PULSE 72; RESP 18; TEMP 36.6; O2SAT 100
--- NOTE | 2023-07-02 08:10 | EXP.ACUTE.PN ---
Subjective *Date: 07/02/23 *Time: 08:59 Interval history: Patient says he feels better this am and wants to go home. He had an appt this am for paracentesis and he feels he will need it as he has not had it since last Wednesday. His stomach feels swollen. He did not eat very much this am. He did not sleep last night. Medical Exam Vital signs and Labs for Last 24 Hours: Vital Signs Temp Pulse Pulse Resp BP Pulse Ox O2 Del Method 07/02/23 08:00 97.8 F 72 18 112/61 100 Room Air 07/02/23 07:00 Room Air 07/02/23 04:00 70 07/02/23 04:00 98.4 F 65 18 93/55 L 100 07/02/23 05:00 Room Air 07/02/23 00:00 70 07/02/23 01:00 Room Air 07/02/23 00:00 98.0 F Room Air 07/01/23 23:00 Room Air 07/02/23 03:00 Room Air 07/01/23 21:00 Room Air 07/01/23 20:00 Room Air 07/01/23 21:00 100.3 F H 07/01/23 20:00 101.1 F H 70 18 105/62 L 100 Room Air 07/01/23 18:13 Room Air 07/01/23 16:38 Room Air 07/01/23 16:00 98.3 F 61 17 105/47 L 100 Room Air 07/01/23 14:11 Room Air 07/01/23 13:00 Room Air 07/01/23 10:36 Room Air 07/01/23 09:00 Room Air Intake and Output 07/01/23 07/02/23 07/02/23 19:59 03:59 11:59 Intake Total 660 / 1884 724 / 1884 500 / 1884 Output Total 0 / 0 0 / 0 Balance 660 / 1884 724 / 1884 500 / 1884 Intake: Intake, Oral Amount 660 / 1410 250 / 1410 500 / 1410 Intake, Total IV Amount 474 / 474 D5W/0.45% NaCl w/20mEq KCL 1, 407 / 407 000 ml @ 75 mls/hr IV .[id number] [facility] Rx#:[id number] Metronidaz/Sod Chl 500 mg In 67 / 67 100 ml @ 100 mls/hr IV Q8H [facility] Rx#:[id number] Output: Output, Urine Amount 0 / 0 0 / 0 Other: Number of Voids 2 Number of Unmeasured Voids 2 1 2 Number of Bowel Movements 1 1 2 Weight 156 lb 4 oz Patient Weight 07/02/23 11:59 Weight 156 lb 4 oz Laboratory Results - last 24 hr 07/01/23 08:40: WBC 6.6, RBC 3.30 L, Hgb 11.0 L, Hct 31.3 L, MCV 95.0 H, MCH 33.4 H, MCHC 35.1, RDW 16.3, Plt Count 54 L, MPV 8.4, Neut % (Auto) 80.1 H, Lymph % (Auto) 9.0 L, [place] % (Auto) 7.2, Eos % (Auto) 3.1, Baso % (Auto) 0.5, Neut # (Auto) 5.3, Lymph # (Auto) 0.6 L, [place] # (Auto) 0.5, Eos # (Auto) 0.2, Baso # (Auto) 0.0, Sodium 138, Potassium 3.3 L D, Chloride 118 H, Carbon Dioxide 9 L*, Anion Gap 14.3, BUN 52 H, Creatinine 1.90 H, Estimated Creat Clear 41, Estimated GFR 36 L, Est GFR ( Amer) 44 L, Glucose 135 H, Calcium 8.1 L, Total Bilirubin 1.1, AST 48, ALT 32, Alkaline Phosphatase 94, Ammonia 88 H, Total Protein 6.0 L, Albumin 2.8 L, Globulin 3.2, Albumin/Globulin Ratio 0.9 L 07/02/23 05:54: WBC 6.7, RBC 2.99 L, Hgb 10.0 L, Hct 28.4 L, MCV 95.0 H, MCH 33.4 H, MCHC 35.2, RDW 16.5, Plt Count 46 L*, MPV 8.9, Neut % (Auto) 79.9, Lymph % (Auto) 8.7 L, [place] % (Auto) 7.1, Eos % (Auto) 3.8, Baso % (Auto) 0.5, Neut # (Auto) 5.4, Lymph # (Auto) 0.6 L, [place] # (Auto) 0.5, Eos # (Auto) 0.3, Baso # (Auto) 0.0, Sodium 138, Potassium 3.8, Chloride 118 H, Carbon Dioxide 8 L* D, Anion Gap 15.8 H, BUN 49 H, Creatinine 1.70 H, Estimated Creat Clear 46, Estimated GFR 41 L, Est GFR ( Amer) 50 L, Glucose 100 D, Calcium 8.3 L, Total Bilirubin 0.5, AST 44, ALT 26, Alkaline Phosphatase 123, Ammonia 79 H, Total Protein 5.5 L, Albumin 2.6 L, Globulin 2.9, Albumin/Globulin Ratio 0.9 L I & O for Labs for Last 24 Hours: Intake & Output 06/29/23 06/30/23 07/01/23 07/02/23 11:59 11:59 11:59 11:59 Intake Total 1490 / 1490 1990 Output Total 2317 / 2317 425 / 425 0 / 0 Balance -827 / -827 1566 / 1566 1883 Weight 141 lb 8 oz 156 lb 1 oz 156 lb 4 oz Constitutional: Present no acute distress Respiratory: Present rhonchi Cardiac: Present Reg Rate and Rhythm GI: Present distention and normal bowel sounds; Absent tenderness, guarding or rebound Extremities: Absent edema Skin: Present intact Neuro: Present alert,
--- NOTE | 2023-07-05 21:07 | EXP.DC.SUM ---
General Admission date:: 06/29/23 Discharge date: 07/02/23 HPI HPI HPI: 58 y.o. WM with recurrent admission for cirrhosis and hepatic encephalopathy. Deterioration of mental status over the past 48 hours. Seen in ER [facility] with elevated ammonia level and hypokalemia. Diagnostic paracentesis of 30ml of straw colored fluid. Patient receives regular paracentesis at [facility]. Recently evaluated at [facility] for possible liver transplant. Receives Lactulose on scheduled basis. At hospitalization in May he responded well to lactulose treatments and stabilized. Family is present with patient. Daughter requested we try to administer p.o. Lactulose and avoid NG if possible. He apparently has been able to take p.o. at home despite deteriorating mental status. Head CT in ER negative today. Hospital Course Hospital Course Hospital Course: The patient was started on lactulose and IV potassium. He was also started on antibiotic coverage. His ammonia level decreased and his mental status improved. His potassium continued to be replaced as it was low. He was able to begin eating a few bites of food. By 07/02/2023, he was feeling better and wanted to go home. He was due a paracentesis and had this before discharge. Exam Data for Last 24 hours Vital signs and Labs for Last 24 Hours: Temp Pulse Resp BP Pulse Ox O2 Del Method 97.8 F 72 18 112/61 100 Room Air 07/02/23 08:00 07/02/23 08:00 07/02/23 08:00 07/02/23 08:00 07/02/23 08:00 07/02/23 08:00 Narrative: Constitutional Constitutional: cachectic and chronically ill appearing *Routine HEENT Exam Head: Present normocephalic; Absent hematoma Eye: Present PERRL and conjunctival icterus ENT: Present mucous membranes dry and nares patent *Routine Neck Exam Neck: Absent JVD or carotid bruit Routine Chest/Breast/Axilla Exam Chest wall: Absent tenderness or mass *Routine Respiratory Exam Respiratory: Present decreased breath sounds; Absent respiratory distress or wheezes *Routine Cardiovascular Exam Cardiovascular: Present RRR *Routine Abdominal Exam Abdominal: Present soft and distended (likely ascites); Absent tenderness *Routine Rectal Exam Rectal:: deferred *Routine Genitalia Exam Genitalia:: deferred *Routine Extremities Exam Extremities: Present pulses intact; Absent edema Routine Back/Spine/Pelvis Exam Back/Spine: Absent CVA tenderness or vertebral tenderness *Routine Skin Exam Skin: Present jaundice *Routine Neurological Exam Neurological: Present altered mental status and moving all extremities; Absent alert, oriented X3 or facial asymmetry Routine Psychiatric Exam Psychiatric: Present unable to assess DS: Diagnosis Discharge Diagnosis (1) Acute hepatic encephalopathy: Status: Acute Code(s): K76.82 - Hepatic encephalopathy (2) Decompensation of cirrhosis of liver: Status: Acute Code(s): K72.90 - Hepatic failure, unspecified without coma; K74.60 - Unspecified cirrhosis of liver (3) SBP (spontaneous bacterial peritonitis): Status: Acute Code(s): K65.2 - Spontaneous bacterial peritonitis (4) Ascites due to alcoholic cirrhosis: Status: Acute Code(s): K70.31 - Alcoholic cirrhosis of liver with ascites (5) Hypokalemia: Status: Acute Code(s): E87.6 - Hypokalemia (6) General weakness: Status: Acute Code(s): R53.1 - Weakness (7) Protein calorie malnutrition: Status: Acute Code(s): E46 - Unspecified protein-calorie malnutrition (8) Severe protein-calorie malnutrition: Status: Acute Code(s): E43 - Unspecified severe protein-calorie malnutrition Meds Home Medications and Allergies Home Medications Medication Instructions Recorded Confirmed Type cholestyramine (with sugar) 4 gram 1 ea PO BID pruritus 06/06/23 06/29/23 History oral powder lactulose 10 gram/15 mL oral 30 ml PO QID Ammonia 06/15/23 06/29/23 History solution
--- NOTE | 2023-07-06 13:52 | CARE MANAGER ---
Contacted patient related to hospital discharge. He states he has a follow up appointment this week. He denies any questions or concerns. GERARD Valdivia
--- NOTE | 2023-07-07 09:15 | PC.NURSE ---
blood culture on worklist. Growing streptococcus mitis/oralis. 0832-spoke with dr. machado on the phone, faxing culture result to his office he was unaware of culture results. States he will do a f/u call with pt. 0835-Dr. Patrick reviewed pts chart. Verbal order for ciprofloxacin 500 mg PO BID x7days. 0843- spoke with pts daughter Susie, states pt is feeling better. Notified her of blood culture results and antibiotics being called in. She requested clinic pharmacy. 0846- spoke with Dhaval at clinic pharmacy, verbal prescription order given to him.
--- NOTE | 2023-07-07 09:25 | PC.NURSE ---
spoke with dr. machado to notify him of antibiotic order per dr. monreal for pt per worklist work flow. Had tried to call back to dr. machado's office prior to calling in antibiotic no answer at office. Dr. Machado requested that antibiotic prescription be cancelled and he will take care of follow up care for pt. Stated to dr. machado I will call pt daughter back to notify her of new poc. 0940-spoke with tamra at clinic pharmacy, notified him per dr. machado to cancel prescription for pt.
== END 2023-07-02 12:50 | disposition home or self-care (01) | DRG 441 ==
LOC: ER 15:08 → 2ND 15:19
PROVIDERS: Family Medicine; Physician Assistant; Admitting Provider Family Medicine; Emergency Provider Student in an Organized Health Care Education/Training Program; PCP Family Medicine; Visit Provider Family Medicine
DX: K76.82 Hepatic encephalopathy (principal); E43 Unspecified severe protein-calorie malnutrition; K65.2 Spontaneous bacterial peritonitis; R68.0 Hypothermia, not associated with low environmental temperature; Z86.16 Personal history of COVID-19; K70.31 Alcoholic cirrhosis of liver with ascites; I10 Essential (primary) hypertension; E78.5 Hyperlipidemia, unspecified; K21.9 Gastro-esophageal reflux disease without esophagitis; E87.6 Hypokalemia; Z68.20 Body mass index [BMI] 20.0-20.9, adult
CPT/HCPCS: 49082; 36415; 70450; 71045; 76705; 80053; 81001; 82140; 82803; 83605; 85025; 85610; 87040; 87070; 87205; 89051; 99291; J0696

== ENCOUNTER → 2023-07-09 07:59 | Outpatient (CLI) | payer BC, SELFPAY ==
--- NOTE | 2023-07-09 08:03 | US_ITS ---
FINAL REPORT CLINICAL HISTORY: ASCITES-- CHARLETTE RAYMUNDO-- 2000 ML-- RIGHT SIDE FINDINGS: ULTRASOUND-GUIDED PARACENTESIS HISTORY: Ascites, cirrhosis. ATTENDING PHYSICIAN: Dr. Floyd PHYSICIAN DIRECTOR CLINICAL RESEARCH: Aimee Catherine PA-C TECHNIQUE: Informed consent was obtained from the patient. A time-out procedure was performed prior to beginning. Appropriate pocket was localized for drainage. The patient was prepped and draped in a routine sterile fashion. Local anesthesia was achieved with 1% lidocaine. Using imaging guidance with images acquired, an 18-gauge sheath needle was directed into the peritoneal fluid. Approximately 2 liters of clear yellow fluid was aspirated. 50 mL of fluid was sent to the lab for analysis. The patient tolerated the procedure well and left the department in good condition. Ultrasound guidance was utilized for this procedure. IMPRESSION: Successful ultrasound guided therapeutic paracentesis as above. Reviewed, Interpreted and Dictated by Santiago Floyd III, MD Transcribed by Aimee Catherine PA-C Authenticated and [facility]
[2023-07-09 11:47] LABS: Appearance,Body Fld. Slightly hazy; Mononuclear WBCs,Body Fluid 80 %; Polynuclear WBC,Body Fluid 20 %; RBC,Body Fluid < 10 cells/uL (< 10 X 10^3); Source, Body Fld. Peritoneal Fluid; TNC,Body Fluid 48 cells/uL (< 1000); Volume,Body Fld. 2000 mL
== END ==
PROVIDERS: PCP Family Medicine; Visit Provider Physician Assistant
DX: K70.31 Alcoholic cirrhosis of liver with ascites (principal)
CPT/HCPCS: 49083; 89051

== ENCOUNTER → 2023-07-13 09:03 | Outpatient (CLI) | payer BC, SELFPAY ==
[2023-07-13 10:01] LABS: Potassium 3.8 mmoL/L (3.5-5.1)
== END ==
PROVIDERS: Family Medicine; PCP Family Medicine; Visit Provider Family Medicine
DX: E87.6 Hypokalemia (principal)
CPT/HCPCS: 36415; 84132

== ENCOUNTER → 2023-07-16 11:02 | Outpatient (CLI) | payer BC, SELFPAY ==
--- NOTE | 2023-07-16 11:06 | US_ITS ---
FINAL REPORT CLINICAL HISTORY: ASCITES-- 3l-- cody burrows-- rt side FINDINGS: ULTRASOUND-GUIDED PARACENTESIS HISTORY:Ascites ATTENDING PHYSICIAN: PHYSICIAN ELECTRICIAN MACHINE SHOP: Cody Burrows PA-C FINDINGS: After informed consent was obtained and timeout procedure performed, fluid was localized in the right lower quadrant under ultrasound guidance and marked on the skin appropriately. The patient was then prepped and draped in the usual sterile fashion and the skin was anesthetized with 1% lidocaine. An ultrasound guided paracentesis was then performed using a Turkel needle. Approximately 3 liters of fluid was removed. No fluid was sent to lab. The patient tolerated the procedure well and there were no immediate complications. IMPRESSION: Ultrasound guided right lower quadrant paracentesis as discussed above. Films reviewed , interpreted and dictated by Dr. Floyd Transcribed by All Shin PA-C. Reviewed, Interpreted and Dictated by Santiago Floyd III, MD Transcribed by ZACKARY Ryan Authenticated and [facility]
[2023-07-16 13:04] LABS: Appearance,Body Fld. Hazy; Mononuclear WBCs,Body Fluid 53 %; Polynuclear WBC,Body Fluid 47 %; RBC,Body Fluid < 10 cells/uL (< 10 X 10^3); Source, Body Fld. Peritoneal Fluid; TNC,Body Fluid 65 cells/uL (< 1000); Volume,Body Fld. 300 mL
== END ==
PROVIDERS: PCP Family Medicine; Visit Provider Nurse Practitioner
DX: K70.31 Alcoholic cirrhosis of liver with ascites (principal)
CPT/HCPCS: 49083; 87070; 87075; 87205; 89051

== ENCOUNTER → 2023-07-23 07:57 | Outpatient (CLI) | payer BC, SELFPAY ==
--- NOTE | 2023-07-23 08:02 | US_ITS ---
FINAL REPORT CLINICAL HISTORY: ASCITES -- JASSON RAYMUNDO -- RT SIDE -- 4000 ML FINDINGS: ULTRASOUND-GUIDED PARACENTESIS HISTORY:Ascites ATTENDING PHYSICIAN: Dr. Floyd PHYSICIAN [employer] DIRECTOR: Jasson Shin PA-C FINDINGS: After informed consent was obtained and timeout procedure performed, fluid was localized in the right lower quadrant under ultrasound guidance and marked on the skin appropriately. The patient was then prepped and draped in the usual sterile fashion and the skin was anesthetized with 1% lidocaine. An ultrasound guided paracentesis was then performed using a Turkel needle. Approximately 4 liters of fluid was removed. No fluid was sent to lab. The patient tolerated the procedure well and there were no immediate complications. IMPRESSION: Ultrasound guided right lower quadrant paracentesis as discussed above. Reviewed, Interpreted and Dictated by Santiago Floyd III, MD Transcribed by ZACKARY Ryan Authenticated and . [facility]
[2023-07-23 14:32] LABS: Source, Body Fld. Peritoneal Fluid
[2023-07-23 14:33] LABS: Appearance,Body Fld. Normal; RBC,Body Fluid < 10 cells/uL (< 10 X 10^3); TNC,Body Fluid 26 cells/uL (< 1000); Volume,Body Fld. 4000 mL
[2023-07-23 15:06] LABS: Mononuclear WBCs,Body Fluid 84 %; Polynuclear WBC,Body Fluid 16 %
== END ==
PROVIDERS: PCP Family Medicine; Visit Provider Nurse Practitioner
DX: K70.31 Alcoholic cirrhosis of liver with ascites (principal)
CPT/HCPCS: 49083; 87070; 87075; 87205; 89051

== ENCOUNTER 2023-07-30 07:44 | Outpatient (CLI) | payer BC, SELFPAY ==
--- NOTE | 2023-07-30 08:06 | US_ITS ---
FINAL REPORT CLINICAL HISTORY: ASCITES--5060 ml -- reynold burrows-- rt side FINDINGS: ULTRASOUND-GUIDED PARACENTESIS HISTORY: Ascites ATTENDING PHYSICIAN: Dr. Demarco PHYSICIAN RESEARCH INSTRUMENTATION TECHNICIAN: Reynold Burrows PA-C FINDINGS: After informed consent was obtained and timeout procedure performed, fluid was localized in the right lower quadrant under ultrasound guidance and marked on the skin appropriately. The patient was then prepped and draped in the usual sterile fashion and the skin was anesthetized with 1% lidocaine. An ultrasound guided paracentesis was then performed using a Turkel needle. Approximately 5 liters of clear yellow fluid was removed. Sample of the fluid was sent to lab. The patient tolerated the procedure well and there were no immediate complications. IMPRESSION: Ultrasound guided right lower quadrant paracentesis as discussed above. Films reviewed , interpreted and dictated by Dr. Ana Demarco. Transcribed by Reynold Burrows PA-C. Reviewed, Interpreted and Dictated by Ana Demarco MD Transcribed by ZACKARY Ocampo Authenticated and . [facility]
[2023-07-30 08:12] LABS: Basophils % 0.6 % (0.1-2.0); Eosinophils # 0.3 K/mm3 (0.0-0.4); Eosinophils % 4.2 % (0.1-12.0); Hematocrit 31.4 % (42.0-52.0); Hemoglobin 10.5 g/dL (14.1-18.0); Lymphocytes # 0.8 K/mm3 (0.7-4.5); Lymphocytes % 11.5 % (10-50); Mean Corpuscular HGB Conc 33.2 g/dL (31.8-35.4); Mean Corpuscular Hemoglobin 34.8 pg (27.0-31.2); Mean Corpuscular Volume 104.8 fl (80-94); Mean Platelet Volume 9.7 fl (7.4-10.4); Monocytes # 0.5 K/mm3 (0.1-1.0); Monocytes % 7.5 % (1.7-9.3); Neutrophils % 76.2 % (37.0-80.0); Platelet Count 61 K/mm3 (142-424); Red Cell Distribution Width 18.5 % (11.5-17.5); White Blood Count 6.6 K/mm3 (4.8-10.8)
[2023-07-30 09:36] LABS: Alanine Aminotransferase 33 U/L (12-78); Albumin Level 3.1 g/dl (3.5-5.0); Albumin/Globulin Ratio 0.9 (1.1-1.8); Alkaline Phosphatase 123 U/L (38-126); Aspartate Amino Transferase 56 U/L (17-59); Bilirubin,Total 1.6 mg/dl (0.2-1.3); Blood Urea Nitrogen 75 mg/dl (9-20); Calcium 8.3 mg/dl (8.4-10.2); Chloride 118 mmol/L (98-107); Estimated Glomerular Filt Rate 17 ml/min (>60); GFR (African American) 21 ML/MIN (>60); Globulin 3.6 g/dL (1.3-3.2); Glucose 104 mg/dl (74-100); Phosphorous 7.1 mg/dl (2.5-4.5); Sodium 137 mmol/L (136-145); Total Protein,Serum 6.7 g/dl (6.3-8.2)
[2023-07-30 09:57] VITALS: BP 92/50; PULSE 79; RESP 18; O2SAT 100
[2023-07-30 10:09] LABS: Carbon Dioxide < 5 mmol/L (22.0-30.0)
[2023-07-30 10:30] VITALS: BP 105/57; PULSE 65; RESP 18
[2023-07-30 10:46] VITALS: BMI 22.7
[2023-07-30 11:18] LABS: Appearance,Body Fld. Slightly hazy; Mononuclear WBCs,Body Fluid 75 %; Polynuclear WBC,Body Fluid 25 %; RBC,Body Fluid < 10 cells/uL (< 10 X 10^3); Source, Body Fld. Peritoneal Fluid; TNC,Body Fluid 38 cells/uL (< 1000); Volume,Body Fld. 5060 mL
[2023-07-30 11:46] LABS: Ammonia 64 umol/L (9-30)
[2023-07-30 12:00] VITALS: BP 98/58; PULSE 67; RESP 18; O2SAT 100
[2023-07-30 13:15] VITALS: BP 105/60; PULSE 71; RESP 18; O2SAT 100
== END 2023-07-30 13:15 | disposition home or self-care (01) ==
PROVIDERS: PCP Family Medicine; Visit Provider Nurse Practitioner
DX: K70.31 Alcoholic cirrhosis of liver with ascites (principal); N28.9 Disorder of kidney and ureter, unspecified; D69.6 Thrombocytopenia, unspecified; E87.6 Hypokalemia
CPT/HCPCS: 36415; 49083; 80053; 82140; 84100; 85025; 87070; 87075; 87205; 89051; 96360; 96365

== ENCOUNTER 2023-08-02 09:26 | Emergency (ER) | payer BC, SELFPAY ==
[2023-08-02] VITALS (13 sets, daily range): BP systolic 79–159; BP diastolic 29–89; PULSE 78–87; RESP 16–20; TEMP 36.7; O2SAT 97–100; BMI 22.5
--- NOTE | 2023-08-02 09:36 | XR_ITS ---
FINAL REPORT CLINICAL HISTORY: Shortness of breath, cirrhosis COMPARISON: 06/29/2023 FINDINGS: The heart size is normal. The mediastinum is normal. There is no focal infiltrate or edema. There are no pleural effusions. There is no pneumothorax. There is no osseous abnormality. IMPRESSION: No acute cardiopulmonary process Reviewed, Interpreted and Dictated by Dontrell Milner MD Transcribed by Isabelle Rodriguez Authenticated and [facility]
[2023-08-02 09:49] LABS: Basophils % 0.1 % (0.1-2.0); Eosinophils # 0.2 K/mm3 (0.0-0.4); Eosinophils % 0.5 % (0.1-12.0); Hemoglobin 9.8 g/dL (14.1-18.0); Lymphocytes # 0.6 K/mm3 (0.7-4.5); Mean Corpuscular HGB Conc 31.5 g/dL (31.8-35.4); Mean Corpuscular Hemoglobin 34.7 pg (27.0-31.2); Mean Corpuscular Volume 110.2 fl (80-94); Monocytes # 0.9 K/mm3 (0.1-1.0); Monocytes % 2.7 % (1.7-9.3); Neutrophils # 30.5 K/mm3 (1.8-7.8); Neutrophils % 94.7 % (37.0-80.0); Platelet Count 93 K/mm3 (142-424); Red Blood Count 2.81 M/mm3 (4.60-6.20); Red Cell Distribution Width 19.1 % (11.5-17.5)
[2023-08-02 09:55] LABS: Chloride 118 mmol/L (98-107); Sodium 132 mmol/L (136-145)
[2023-08-02 09:57] LABS: White Blood Count 32.2 K/mm3 (4.8-10.8)
[2023-08-02 09:58] LABS: Alanine Aminotransferase 44 U/L (12-78); Albumin Level 3.4 g/dl (3.5-5.0); Albumin/Globulin Ratio 0.9 (1.1-1.8); Alkaline Phosphatase 97 U/L (38-126); Aspartate Amino Transferase 73 U/L (17-59); Bilirubin,Total 2.7 mg/dl (0.2-1.3); Blood Urea Nitrogen 79 mg/dl (9-20); Creatinine Clearance Estimated 14 mL/min (50-200); Estimated Glomerular Filt Rate 12 ml/min (>60); GFR (African American) 14 ML/MIN (>60); Globulin 3.6 g/dL (1.3-3.2); MANUAL DIFFERENTIAL MANUAL DIFFERENTIAL (MANUAL DIFF)
[2023-08-02 09:59] LABS: Ammonia 116 umol/L (9-30); Calcium 7.8 mg/dl (8.4-10.2); Glucose 98 mg/dl (74-100); Lactic Acid 3.1 mmol/L (0.7-2.1)
[2023-08-02 10:03] LABS: Anion Gap 15.8 mEq/L (5-15)
--- NOTE | 2023-08-02 10:03 | HMH.EDGENADL ---
Discharge Plan Disposition Patient Disposition: Xfer Short-Term Hosp Chief Complaint: Shortness of Breath/Dyspnea Prescriptions Prescriptions: No Action cholestyramine (with sugar) 4 gram powder 1 ea PO BID Rx Instructions: 1 SCOOP BID Xifaxan 550 mg tablet 550 mg PO BID Patient Comments: TAKE ONE TABLET BY MOUTH TWICE DAILY lactulose 10 gram/15 mL solution 30 ml PO QID Patient Comments: take 30 ML BY MOUTH FOUR TIMES DAILY escitalopram oxalate 5 mg tablet 5 mg PO DAILY potassium chloride 10 mEq capsule, extended release 20 meq PO BID Qty: 120 0RF Referrals Follow up/Referrals: Provider,Referral, MD [Primary Care Provider] - See instructions Clinical Impressions Clinical Impression: Acute renal failure, Septic shock, Hepatorenal syndrome, Acute hyperkalemia, Encephalopathy Discharge ED Provider: Edwardo Patrick General Adult HPI General Chief complaint: Shortness of Breath/Dyspnea Stated complaint: pain Time Seen by Provider: 08/02/23 09:28 Mode of Arrival: Wheelchair Source of Information: Patient and Relative Limitations: No Limitations Description of Symptoms (Recalled from ER Triage Doc. by RN): States that he is having difficulty breathing with pain since last night. Patient was recently drained on Wednesday and also rec'd Albumin and a liter of fluids that day. History of Present Illness HPI narrative: 58-year-old male history of alcoholic cirrhosis end-stage currently following with transplant on rifaximin and lactulose, CKD, chronic nutrition presenting with abdominal pain. Patient had paracentesis done 3 days prior to arrival and had 5 L removed. Received albumin at that time. Patient started having abdominal pain 1 day prior to arrival, daughter states that patient started becoming more confused and complaining of abdominal pain, but is still alert and oriented for her. She states that he has had episodes of high ammonia that usually present with delirium, confusion, altered mental status, but patient just appears tired and in pain today. Patient states his pain is right-sided, right upper quadrant, does not radiate, moderate to severe and not associated with vomiting, diarrhea, nausea or vomiting, fevers or chills, dysuria or any urinary symptoms. Never had anything like this in the past Related Data Home Medications Medication Instructions Recorded Confirmed cholestyramine (with sugar) 4 gram 1 ea PO BID pruritus 06/06/23 06/29/23 oral powder lactulose 10 gram/15 mL oral 30 ml PO QID Ammonia 06/15/23 06/29/23 solution rifaximin 550 mg tablet (Xifaxan) 550 mg PO BID ammonia 06/15/23 06/29/23 escitalopram oxalate 5 mg tablet 5 mg PO DAILY Mood 06/29/23 06/29/23 Previous Rx's Medication Instructions Recorded potassium chloride 10 mEq 20 meq PO BID Supplement #120 caps 07/02/23 capsule,extended release Allergies Allergy/AdvReac Type Severity Reaction Status Date / Time No Known Allergies Allergy Verified 06/29/23 16:04 [facility] Disclaimer: The information contained in this section may have been updated after the patient was seen, as this information can be updated by other users. Medical History Alcoholic cirrhosis Deviated nasal bone Deviated nasal septum Encounter for pre-operative cardiovascular clearance Eustachian tube dysfunction History of COVID-19 History of gastroesophageal reflux (GERD) HLD (hyperlipidemia) HTN (hypertension) Maxillary sinusitis, chronic Prostatitis Protein calorie malnutrition Sinus headache Sinusitis Surgical History History of back surgery History of cataract surgery History of hip surgery History of shoulder surgery Status post functional endoscopic sinus surgery Family History Other Cancer Family history of stent Soc[facility]
--- NOTE | 2023-08-02 10:03 | PC.NURSE ---
respiratory aware of v[facility]
[2023-08-02 10:04] LABS: Carbon Dioxide < 5 mmol/L (22.0-30.0); Potassium 6.8 mmoL/L (3.5-5.1)
--- NOTE | 2023-08-02 10:04 | PC.NURSE ---
urinal given to pt for collection of urine
--- NOTE | 2023-08-02 10:10 | ECG_ITS ---
APPROVED REPORT Exam: Resting ECG HR:60 bpm ECG Measurements Heart Rate 60 AXES WV 153 P 44 QRSd 88 QRS 11 QT 388 T -8 QTc 388 Conclusion SINUS RHYTHM WITH OCCASIONAL VENTRICULAR PREMATURE COMPLEXES WITH OCCASIONAL SUPRAVENTRICULAR PREMATURE COMPLEXES MODERATE T-WAVE ABNORMALITY, CONSIDER ANTEROLATERAL ISCHEMIA [-0.1+ mV T-WAVE IN V3-V6] ABNORMAL ECG UNCONFIRMED REPORT Electronically signed by : Garfield Steel MD 08/03/2023 20:14:06
[2023-08-02 10:12] LABS: Troponin I 0.02 ng/ml (0.00-0.034)
[2023-08-02 10:13] LABS: Lymphocytes % 2 % (10-50); Monocytes % 3 % (2-9); Neutrophils % 95 % (42-76); Platelet Estimate Moderate Decrease; Total Cells Counted 100
[2023-08-02 10:14] LABS: Hypochromasia 1+; Macrocytosis 1+
[2023-08-02 10:16] LABS: T4 (Thyroxine) 3.1 ug/dl (5.53-11.0)
[2023-08-02 10:19] LABS: VBG Base Excess -27.2 mmol/L (-2.4-2.3); VBG HCO3 4.4 mmol/L (23-30); VBG PO2 70.3 mmol/L (28-40)
[2023-08-02 10:23] LABS: VBG PCO2 18.9 mmol/L (35-51); VBG PH 6.98 mmol/L (7.31-7.41)
--- NOTE | 2023-08-02 10:23 | PC.NURSE ---
contacted rad for disc of images
--- NOTE | 2023-08-02 10:24 | PC.NURSE ---
called for bed at [facility]
[2023-08-02 10:30] LABS: Thyroid Stimulating Hormone 3.67 uIU/mL (0.465-4.68)
--- NOTE | 2023-08-02 10:51 | PC.NURSE ---
called for transfer with [facility]
[2023-08-02 10:53] LABS: Lipase 1005 U/L (23-300)
--- NOTE | 2023-08-02 11:02 | PC.NURSE ---
transfer center for [place] called said would call back in about 10 min.
[2023-08-02 11:16] LABS: Prothrombin Time 17.7 seconds (10.1-12.5)
[2023-08-02 11:28] LABS: Microscopic, Urine URINE MICROSCOPIC (MICROSCOPIC)
--- NOTE | 2023-08-02 11:28 | PC.NURSE ---
Dr Patrick spoke with Dr Mihai Munoz , to be admitted at [place].
[2023-08-02 11:33] LABS: Appearance,Urine CLEAR (Clear); Bilirubin,Urine Negative (Negative); Blood, Urine 3+ (Negative); Color,Urine YELLOW (Yellow); Glucose,Urine (UA) Negative (Negative); Ketones,Urine Negative (Negative); Leukocyte Esterase,Urine 1+ (Negative); Nitrate,Urine Negative (Negative); PH,Urine 5.5 (5.0-8.5); Protein,Urine 2+ (Negative); Specific Gravity, Urine >= 1.030 (1.005-1.030); Urobilinogen,Urine 0.2 EU/dl (0.2)
[2023-08-02 11:37] LABS: Bacteria,Urine 1+ /lpf; RBC,Urine Occasional #/hpf (0-3)
--- NOTE | 2023-08-02 12:16 | PC.NURSE ---
pt not drinking much at this time, unable to give po lokelma at this time. aware
--- NOTE | 2023-08-02 13:08 | PC.NURSE ---
attempted to call reports on pt, spoke with pt in ICU at [facility]. Reports they are having to call staff to care for this pt. Requesting my number so she can have staff call back to get report when they get there. States unknown time of when staff with be there. call back number given. updating pt and family
[2023-08-02 13:14] LABS: Troponin I 0.01 ng/ml (0.00-0.034)
--- NOTE | 2023-08-02 13:16 | PC.NURSE ---
pt on bed [facility] at this time
[2023-08-02 13:44] LABS: Reflex Lactic Add Lactic Reflex
--- NOTE | 2023-08-02 14:11 | PC.NURSE ---
contacted [facility] again to try to give report, states nursing staff will be there in the next 5-10 minutes, will call back .
[2023-08-02 14:26] LABS: Lactic Acid Follow Up (RFLX 1) 2.3 mmol/L (0.7-2.1)
--- NOTE | 2023-08-02 14:28 | PC.NURSE ---
report called to GERARD Abraham at [facility] at this time.
[2023-08-02 16:03] LABS: Reflex Lactic (2 hrs) Add Lactic Reflex
--- NOTE | 2023-08-06 00:31 | PC.NURSE ---
final result of urine culture is showing negative no growth
== END 2023-08-02 15:10 | disposition short-term general hospital (02) ==
PROVIDERS: Emergency Provider Emergency Medicine
DX: R06.02 Shortness of breath (principal); R10.9 Unspecified abdominal pain; N17.9 Acute kidney failure, unspecified; N18.9 Chronic kidney disease, unspecified; I10 Essential (primary) hypertension; E78.5 Hyperlipidemia, unspecified
CPT/HCPCS: 71045; 80053; 81001; 82140; 82803; 83605; 83690; 84436; 84443; 84484; 85007; 85025; 85610; 87040; 87086; 93005; 96360; 96361; 96365; 96366; 96367; 96374; 96375; 96376; 99291; C1776; J0696